=== PATIENT | male | born 1945 | race Caucasian/White ===

== ENCOUNTER 2018-12-23 06:28 | Observation (INO) | payer MEDICARE, OTHER, SELFPAY ==
[2018-12-23] VITALS (12 sets, daily range): BP systolic 128–176; BP diastolic 75–80; PULSE 55–65; RESP 13–17; TEMP 36.6–36.8; O2SAT 96–100; BMI 25.2
--- NOTE | 2018-12-23 06:37 | DI.RAD.S_ITS ---
PROCEDURE: XR CHEST 1V INDICATIONS: chest pain TECHNIQUE: One view of the chest was acquired. COMPARISON: None. FINDINGS: Surgical changes and devices: None. Lungs and pleura: Lungs are clear. No pleural effusions or pneumothorax. Mediastinum: Mediastinal contours appear normal. Heart size is normal. Bones and chest wall: No suspicious bony lesions. Overlying soft tissues appear unremarkable. IMPRESSION: No acute cardiopulmonary disease process. Dictated by: Dana Jones MD, PhD on 12/23/2018 at 8:13 Approved by: Dana Jones MD, PhD on 12/23/2018 at 8:16
[2018-12-23] MEDS: ASPIRIN 81 MG TAB 324 MG PO (06:53)
[2018-12-23 07:00] LABS: Add Manual Diff / Slide Review NO; Basophils Absolute Auto 0 /uL (0-100); Basophils Percent Auto 0.3 % (0-2); Eosinophils Absolute Auto 0 /uL (0-450); Eosinophils Percent Auto 0.1 % (2-4); Hematocrit 48.7 % (41-53); Hemoglobin 16.5 g/dL (13.5-17.5); Lymphocytes Absolute Auto 1600 /uL (1100-4500); Mean Corpuscular HGB Conc 33.8 % (30-36); Mean Corpuscular Hemoglobin 31.7 PG (26-34); Mean Corpuscular Volume 93.9 fL (80-100); Monocytes Absolute Auto 500 /uL (0-900); Neutrophils Absolute Auto 7800 /uL (1500-7000); Neutrophils Percent Auto 78.6 % (50-75); Platelet Count 200 X10^3/uL (150-400); Red Blood Cell Count 5.19 X10^6/uL (4.5-5.9); Red Cell Distribution Width 13.6 % (11.6-14.8); White Blood Cell Count 9.9 X10^3/uL (4.5-11.0)
[2018-12-23 07:01] LABS: INR 1.1 (0.9-1.3); Prothrombin Time 12.9 SECONDS (10.1-12.7)
[2018-12-23 07:04] LABS: PTT Partial Thromboplastin Tim 25 SECONDS (26.4-36.2)
[2018-12-23 07:05] LABS: Alanine Aminotransferase 44 IU/L (21-72); Albumin 4.7 g/dL (3.5-5.0); Albumin Globulin Ratio 1.7 (1.0-2.8); Alkaline Phosphatase 55 U/L (38-126); Aspartate Aminotransferase 23 IU/L (17-59); Bilirubin Total 0.6 mg/dL (0.2-1.3); Blood Urea Nitrogen 26 mg/dL (9-20); Calcium 9.2 mg/dL (8.4-10.2); Carbon Dioxide 24 mmol/L (22-32); Chloride 98 mmol/L (98-107); Creatine Kinase 31 U/L (55-170); Estimated Glomerular Filt Rate > 60.0 mL/min (>60); Globulin 2.8 g/dL (1.7-4.1); Glucose 110 mg/dL (80-110); HEMOLYSIS < 15 (0-50); Lipase 152 U/L (23-300); Potassium 3.5 mmol/L (3.4-5.1); Sodium 138 mmol/L (137-145); Total Protein 7.5 g/dL (6.3-8.2)
[2018-12-23 07:17] LABS: Troponin I < 0.012 ng/mL (0.01-0.034)
--- NOTE | 2018-12-23 07:37 | ED.CHESTPAIN ---
HPI - Chest Pain General Chief Complaint: Chest Pain Stated Complaint: chest pain Time Seen by Provider: 12/23/18 06:37 Source: patient and family Mode of arrival: ambulatory Limitations: no limitations History of Present Illness HPI narrative: Patient is a 73-year-old male presenting with chest pain. He woke up this morning with chest discomfort around 5:00 a.m.. Said actually started the night before he woke up with left arm pain lasted for about 45 min and went away. The chest pain this morning also lasted about 45 min remained in center of his chest nonradiating he was slightly dyspneic but no nausea or diaphoresis. Chest pain resolved on its own and he has been chest pain-free in the ED. He has no known coronary artery disease. He is currently being treated with methylprednisolone for gout attack. He has no primary care provider. MD complaint: chest pain Duration: now resolved Onset: during rest Pain location: substernal Severity: moderate Pain radiation: none Relieving factors: nothing Related Data Home Medications Medication Instructions Recorded Confirmed allopurinol 100 mg PO QAM 12/23/18 12/23/18 cholecalciferol (vitamin D3) 2,000 unit PO DAILY 12/23/18 12/23/18 [Vitamin D3] coenzyme Q10 [CoQ-10] 100 mg PO DAILY 12/23/18 12/23/18 diazepam 2 mg PO PRN PRN 12/23/18 12/23/18 hydrocodone-acetaminophen 1 tab PO PRN PRN 12/23/18 12/23/18 methocarbamol 750 mg PO PRN PRN 12/23/18 12/23/18 methylprednisolone 1 dose PO DIRECTED 12/23/18 12/23/18 multivitamin 1 tab PO DAILY 12/23/18 12/23/18 omeprazole 10 mg PO QAM 12/23/18 12/23/18 simvastatin 40 mg PO BEDTIME 12/23/18 12/23/18 triamterene-hydrochlorothiazid 1 tab PO QAM 12/23/18 12/23/18 Allergies Allergy/AdvReac Type Severity Reaction Status Date / Time No Known Drug Allergies Allergy Unverified 11/03/18 11:30 Review of Systems Review of Systems ROS Unobtainable: All systems reviewed & are unremarkable except as noted in HPI and below Constitutional Denies chills, Denies fever(s), Denies lethargy and Denies weakness Eyes Denies change in vision, Denies eye discharge, Denies irritation and Denies loss of vision ENT Ears, Nose, Mouth, and Throat: Denies change in voice, Denies neck pain and Denies sore throat Cardiovascular Reports as per HPI and Reports chest pain Respiratory Denies cough and Denies wheezing Gastrointestinal Gastrointestinal: Denies abdominal pain, Denies change in bowel habits, Denies diarrhea, Denies nausea and Denies vomiting Genitourinary Denies hematuria, Denies flank pain, Denies urinary incontinence and Denies urinary urgency Musculoskeletal Denies neck pain Integumentary/Breasts Denies pruritus, Denies erythema, Denies rash and Denies wounds Neurologic Denies loss of vision and Denies weakness Allergic/Immunologic Denies wheezing PFSH Medical History Gout (Acute) Social History marital status: household members: spouse Smoking Status: Former smoker alcohol intake: current substance use type: does not use Social History marital status: household members: spouse Smoking Status: Former smoker alcohol intake: current substance use type: does not use Exam Initial Vital Signs Initial Vital Signs: Vital Signs Temperature 98.2 F 12/23/18 06:30 Pulse Rate 63 12/23/18 06:30 Respiratory Rate 13 12/23/18 06:30 Blood Pressure 176/79 H 12/23/18 06:30 Pulse Oximetry 100 12/23/18 06:30 GENERAL: well-appearing elderly male no acute distress HEENT: Head atraumatic,EOMI, pupils reactive. neck is supple no JVD CARDIOVASCULAR: Regular rate and rhythm without murmurs, rubs or gallops. RESPIRATORY: Breath sounds equal bilaterally, no wheezes rales or rhonchi. ABDOMEN: Soft, nontender. Normoactive bowel sounds all 4 quadrants. No guarding or rebound. EXTREMITIES: Normal range of motion, no clubbing or edema. Neurovascularly intact NEUROLOGICAL: Alert and oriented x4.Normal gait and speech. SKIN: Warm, dry, no laceration, no petechiae, no rashes or lesions. right ankle and foot are non erythematous no sign of acute gout attack Scores HEART Score Heart Score history: Moderately Suspicious Heart Score EKG: Normal Heart Score Age: > or = 65 years old Heart Score risk factors: No known risk factors Heart Score troponin: < or = to normal limit Heart Score Total: 3 Course Orders Ordered: ED Orders 12/23/18 06:37 XR chest 1V Stat 12/23/18 06:44 Complete Blood Count AUTO DIFF Stat Comprehensive Metabolic Panel Stat Lipase Stat Partial Thromboplastin Time Stat Prothrombin Time INR Stat Troponin & CK Cardiac Panel Stat Uric Acid Stat 12/23/18 09:36 NM yaneli perf SPECT rest & str Urgent Sodium Chloride (Normal Saline 0.9%) 1,000 mls @ 150 mls/hr IV CONT LILY Last Admin: 12/23/18 07:58 Dose: Not Given Discontinued Medications Aspirin (Aspirin Chew) 324 mg PO NOW ONE Stop: 12/23/18 06:38 Last Admin: 12/23/18 06:53 Dose: 324 mg Vital Signs - 8 hr 12/23/18 06:30 12/23/18 07:00 12/23/18 07:30 Temperature 98.2 F Pulse Rate 63 55 L 56 L Respiratory Rate 13 16 17 Blood Pressure 176/79 H 141/80 H Blood Pressure [Left Arm] Pulse Oximetry 100 96 97 12/23/18 07:59 12/23/18 08:00 12/23/18 08:30 Temperature Pulse Rate 55 L 55 L 56 L Respiratory Rate 16 17 16 Blood Pressure Blood Pressure [Left Arm] 141/80 H Pulse Oximetry 96 96 96 12/23/18 09:00 12/23/18 09:30 12/23/18 10:00 Temperature Pulse Rate 59 L 57 L 57 L Respiratory Rate 16 17 17 Blood Pressure 137/79 Blood Pressure [Left Arm] Pulse Oximetry 97 97 96 MDM - Chest Pain Lab Data Attestation: I reviewed the patient's lab results. Result diagrams: 12/23/18 06:44 12/23/18 06:44 Lab Results 12/23/18 12/23/18 12/23/18 Range/Units 06:44 06:44 06:44 WBC 9.9 (4.5-11.0) X10^3/uL RBC 5.19 (4.5-5.9) X10^6/uL Hgb 16.5 (13.5-17.5) g/dL Hct 48.7 (41-53) % MCV 93.9 (80-100) fL MCH 31.7 (26-34) PG MCHC 33.8 (30-36) % RDW 13.6 (11.6-14.8) % Plt Count 200 (150-400) X10^3/uL Neut % (Auto) 78.6 H (50-75) % Lymph % (Auto) 16.0 L (25-40) % [place] % (Auto) 5.0 (3-14) % Eos % (Auto) 0.1 L (2-4) % Baso % (Auto) 0.3 (0-2) % Neut # (Auto) 7800 H (9655-6243) /uL Lymph # (Auto) 1600 (8001-9615) /uL [place] # (Auto) 500 (0-900) /uL Eos # (Auto) 0 (0-450) /uL Baso # (Auto) 0 (0-100) /uL PT 12.9 H (10.1-12.7) SECONDS INR 1.1 (0.9-1.3) APTT 25 L (26.4-36.2) SECONDS Sodium 138 (137-145) mmol/L Potassium 3.5 (3.4-5.1) mmol/L Chloride 98 (98-107) mmol/L Carbon Dioxide 24 (22-32) mmol/L BUN 26 H (9-20) mg/dL Creatinine 1.00 (0.66-1.25) mg/dL Estimated GFR > 60.0 (>60) mL/min BUN/Creatinine Ratio 26.0 H (6-22) Glucose 110 (80-110) mg/dL Uric Acid (3.5-8.5) mg/dL Calcium 9.2 (8.4-10.2) mg/dL Total Bilirubin 0.6 (0.2-1.3) mg/dL AST 23 (17-59) IU/L ALT 44 (21-72) IU/L Alkaline Phosphatase 55 (38-126) U/L Total Creatine Kinase 31 L (55-170) U/L CK-MB (CK-2) TNP CK-MB (CK-2) Rel Index TNP Troponin I < 0.012 (0.01-0.034) ng/mL Total Protein 7.5 (6.3-8.2) g/dL Albumin 4.7 (3.5-5.0) g/dL Globulin 2.8 (1.7-4.1) g/dL Albumin/Globulin Ratio 1.7 (1.0-2.8) Lipase 152 (23-300) U/L 12/23/18 Range/Units 06:44 WBC (4.5-11.0) X10^3/uL RBC (4.5-5.9) X10^6/uL Hgb (13.5-17.5) g/dL Hct (41-53) % MCV (80-100) fL MCH (26-34) PG MCHC (30-36) % RDW (11.6-14.8) % Plt Count (150-400) X10^3/uL Neut % (Auto) (50-75) % Lymph % (Auto) (25-40) % [place] % (Auto) (3-14) % Eos % (Auto) (2-4) % Baso % (Auto) (0-2) % Neut # (Auto) (6676-4720) /uL Lymph # (Auto) (5053-6379) /uL [place] # (Auto) (0-900) /uL Eos # (Auto) (0-450) /uL Baso # (Auto) (0-100) /uL PT (10.1-12.7) SECONDS INR (0.9-1.3) APTT (26.4-36.2) SECONDS Sodium (137-145) mmol/L Potassium (3.4-5.1) mmol/L Chloride (98-107) mmol/L Carbon Dioxide (22-32) mmol/L BUN (9-20) mg/dL Creatinine (0.66-1.25) mg/dL Estimated GFR (>60) mL/min BUN/Creatinine Ratio (6-22) Glucose (80-110) mg/dL Uric Acid 5.5 (3.5-8.5) mg/dL Calcium (8.4-10.2) mg/dL Total Bilirubin (0.2-1.3) mg/dL AST (17-59) IU/L ALT (21-72) IU/L Alkaline Phosphatase (38-126) U/L Total Creatine Kinase (55-170) U/L CK-MB (CK-2) CK-MB (CK-2) Rel Index Troponin I (0.01-0.034) ng/mL Total Protein (6.3-8.2) g/dL Albumin (3.5-5.0) g/dL Globulin (1.7-4.1) g/dL Albumin/Globulin Ratio (1.0-2.8) Lipase (23-300) U/L Imaging Data Chest x-ray: Radiologist's impression: PROCEDURE: XR CHEST 1V INDICATIONS: chest pain TECHNIQUE: One view of the chest was acquired. COMPARISON: None. FINDINGS: Surgical changes and devices: None. Lungs and pleura: Lungs are clear. No pleural effusions or pneumothorax. Mediastinum: Mediastinal contours appear normal. Heart size is normal. Bones and chest wall: No suspicious bony lesions. Overlying soft tissues appear unremarkable. IMPRESSION: No acute cardiopulmonary disease process. Dictated by: Dana Jones MD, PhD on 12/23/2018 at 8:13 ECG Data Attestation: I personally reviewed and interpreted this ECG as follows: Prior ECG tracings: not available for review Interpretation: EKG 1. Normal sinus rhythm rate 60 T-wave inversion noted in lead [address] changes [place] interval 168- no priors to compare EKG 2.: Sinus rhythm rate 52 T-wave inversions noted in lead [address] changes [place] interval 173 Core Measures AMI core measures followed: Yes MDM Narrative Medical decision making narrative: patient and are agreeable to stay. Dr. ken updated on patient's symptoms and test results Discharge Plan Departure Patient Disposition: Admitted as Observation Clinical Impression: Chest pain Qualifiers: Chest pain type: unspecified Qualified Code(s): R07.9 - Chest pain, unspecified Discharge Date/Time: 12/23/18 10:45 Interventions: ED Discharge Assessment Last Done: 12/23/18 10:46 Admit Date/Time: 12/23/18 08:57 Admit Provider: Brandy Ken
[2018-12-23 08:59] LABS: Uric Acid 5.5 mg/dL (3.5-8.5)
--- NOTE | 2018-12-23 09:01 | P.HP_ITS ---
History of Present Illness Date Patient Seen: 12/23/18 Chief complaint: chest pain Narrative: Heraclio Lima is a 73-year-old male with a past medical history significant for Meniere's disease status post shunt, hypertension, hyperlipidemia, gout with recent gout flare on methylprednisolone pack who presented to the ED with abrupt onset substernal chest pain awaking him from sleep. The patient reports that at approximately 4:00 a.m. this morning awoke with substernal chest pain. The pain lasted for approximately 45 min and spontaneously resolved. He describes the pain as throbbing and slightly sharp in quality. The pain radiated to his right jaw. He also had accompanying subjective shortness of breath. He denies nausea, diaphoresis, shoulder or arm pain. Has never had this pain before. Two nights ago he had left arm pain that awoke him from sleep as well and lasted for 30-45 minutes and spontaneously resolved. He had a stress test 2 years ago that was negative. He has never had an heart attack or stroke. Currently he denies headache, vision changes, chest pain, shortness of breath, abdominal pain, nausea, vomiting, fever, chills, dysuria, diarrhea or constipation. He does endorse right ankle and 1st metatarsal pain from his gout flare. Patient History Medical History BPH (benign prostatic hyperplasia) (Acute) Bladder cancer (Acute) GERD (gastroesophageal reflux disease) (Acute) Gout (Acute) Hyperlipidemia (Acute) Hypertension (Acute) Meniere disease (Acute) Osteoarthritis (Acute) Rheumatic aortic disease (Acute) Tremor (Acute) Surgical History H/O discectomy (Acute) H/O elbow surgery (Acute) History of cystoscopy (Acute) History of tonsillectomy (Acute) S/P TURP (Acute) S/P ventricular shunt placement (Acute) Family History Father Congestive heart failure Mother Leukemia Sister Liver cancer Social History marital status: household members: spouse Smoking Status: Former smoker alcohol intake: current substance use type: does not use Family & Social History Family History Father Congestive heart failure Mother Leukemia Sister Liver cancer Safety & Behavioral: Feels Safe in Current Yes Environment Tobacco & Substance use: Smoking Status Former smoker alcohol intake never Meds Home Medications Medication Instructions Recorded Confirmed Type allopurinol 100 mg PO QAM 12/23/18 12/23/18 History cholecalciferol (vitamin D3) 2,000 unit PO DAILY 12/23/18 12/23/18 History [Vitamin D3] coenzyme Q10 [CoQ-10] 100 mg PO DAILY 12/23/18 12/23/18 History diazepam 2 mg PO PRN PRN 12/23/18 12/23/18 History hydrocodone-acetaminophen 1 tab PO PRN PRN 12/23/18 12/23/18 History methocarbamol 750 mg PO PRN PRN 12/23/18 12/23/18 History methylprednisolone 1 dose PO DIRECTED 12/23/18 12/23/18 History multivitamin 1 tab PO DAILY 12/23/18 12/23/18 History omeprazole 10 mg PO QAM 12/23/18 12/23/18 History simvastatin 40 mg PO BEDTIME 12/23/18 12/23/18 History triamterene-hydrochlorothiazid 1 tab PO QAM 12/23/18 12/23/18 History Allergies Allergy/AdvReac Type Severity Reaction Status Date / Time No Known Drug Allergies Allergy Unverified 11/03/18 11:30 Review of Systems Review of Systems A 10 system comprehensive review of systems was conducted with the patient and found to be negative except as above in the History of Present Illness. Exam Vital Signs (past 8 hours): - 12/23/18 06:30 12/23/18 07:59 Temperature 98.2 F Pulse Rate 63 55 L Respiratory Rate 13 16 Blood Pressure 176/79 H Blood Pressure [Left Arm] 141/80 H Pulse Oximetry 100 96 Oxygen Delivery Method Room Air Narrative Exam Narrative: General: Older gentleman sitting in bed, appears younger than stated age, in no acute distress, well-developed, well-nourished, appropriately interactive. HEENT: Normocephalic, atraumatic. External ears without defect. Pupils equal, round, and reactive to light. Anicteric sclerae, moist conjunctivae, and no lid lag. Oropharynx free of erythema and cobble stoning with moist mucosa. Neck: Supple with full range of motion. No jugular venous distension. No bruits. No lymphadenopathy or thyromegaly. Cardiovascular: Regular rate and rhythm with grade 1/6 holosystolic murmur at left sternal border. No rubs, or gallops appreciated. Pulmonary: Clear to auscultation bilaterally without crackles, wheezes, or rhonchi. Normal respiratory effort with no use of accessory muscles. Abdomen: Soft, bowel sounds present, nontender, nondistended. No hepatosplenomegaly or masses appreciated. Extremities: No clubbing, cyanosis, or edema. Skin: Normal temperature, turgor, and texture; no rash, ulcers, or subcutaneous nodules appreciated. Mild pain to palpation of right ankle and 1st metatarsal. Neurological: Cranial nerves grossly intact. Normal muscle strength, tone, and bulk. Reflexes, coordination, and sensory function within normal limits. No known gait impairment. Psychiatric: Normal mood and affect. Alert and oriented to person, place, and time. Objective Labs Result Diagrams: 12/23/18 06:44 12/23/18 06:44 Labs: Laboratory Results - last 24 hr 12/23/18 12/23/18 12/23/18 06:44 06:44 06:44 WBC 9.9 RBC 5.19 Hgb 16.5 Hct 48.7 MCV 93.9 MCH 31.7 MCHC 33.8 RDW 13.6 Plt Count 200 Neut % (Auto) 78.6 H Lymph % (Auto) 16.0 L [place] % (Auto) 5.0 Eos % (Auto) 0.1 L Baso % (Auto) 0.3 Neut # (Auto) 7800 H Lymph # (Auto) 1600 [place] # (Auto) 500 Eos # (Auto) 0 Baso # (Auto) 0 PT 12.9 H INR 1.1 APTT 25 L Sodium 138 Potassium 3.5 Chloride 98 Carbon Dioxide 24 BUN 26 H Creatinine 1.00 Estimated GFR > 60.0 BUN/Creatinine Ratio 26.0 H Glucose 110 Uric Acid Calcium 9.2 Total Bilirubin 0.6 AST 23 ALT 44 Alkaline Phosphatase 55 Total Creatine Kinase 31 L CK-MB (CK-2) TNP CK-MB (CK-2) Rel Index TNP Troponin I < 0.012 Total Protein 7.5 Albumin 4.7 Globulin 2.8 Albumin/Globulin Ratio 1.7 Lipase 152 12/23/18 06:44 WBC RBC Hgb Hct MCV MCH MCHC RDW Plt Count Neut % (Auto) Lymph % (Auto) [place] % (Auto) Eos % (Auto) Baso % (Auto) Neut # (Auto) Lymph # (Auto) [place] # (Auto) Eos # (Auto) Baso # (Auto) PT INR APTT Sodium Potassium Chloride Carbon Dioxide BUN Creatinine Estimated GFR BUN/Creatinine Ratio Glucose Uric Acid 5.5 Calcium Total Bilirubin AST ALT Alkaline Phosphatase Total Creatine Kinase CK-MB (CK-2) CK-MB (CK-2) Rel Index Troponin I Total Protein Albumin Globulin Albumin/Globulin Ratio Lipase Assessment & Plan Assessment & Plan narrative: Heraclio Lima is a 73-year-old male with a past medical history significant for Meniere's disease status post shunt, hypertension, hyperlipidemia, gout with recent gout flare on methylprednisolone pack who presented to the ED with abrupt onset substernal chest pain awaking him from sleep. 1. Acute chest pain, not present on admission. Resolved. -Patient awoke at 4:00 a.m. with substernal chest pain radiating to right jaw with associated shortness of breath. -Patient previously had a stress test 2 years ago which he reports was normal. -Cardiac risk factors include: Gender, age, hypertension, hyperlipidemia, and gout. -EKG demonstrated normal sinus rhythm with IVCD and inversion of T-wave in leads III and V1 without acute ischemic changes such as ST elevation or depression. -Initial troponin < 0.012. Trend serial troponins x3. -Risk stratify with fasting lipid panel and hemoglobin A1c. -Patient received aspirin 324 mg in the ED. Will consider aspirin 81 mg daily depending on risk stratification and stress test results. -Continue simvastatin 40 mg daily at bedtime for now. -Ordered nuclear medicine stress test, pending. Patient with recent right foot gout flare and may or may not be able to exercise for prolonged time. -Ordered nitroglycerin and morphine as needed for recurrent chest pain. EKGs as needed for recurrent chest pain. 2. Recent gout flare, present on admission. Stable. -Patient is on methylprednisolone Dosepak and will continue course. -Uric acid normal at 5.5. -Continue allopurinol 100 mg daily. -Instructed patient to avoid red meat and red wine/alcohol. 3. Hypertension, chronic, present on admission. Stable. -Patient reports he has Meniere's disease and is on triamterene/hydrochlorothiazide but has been hypertensive in the past. -Continue home dose triamterene/hydrochlorothiazide. 4. Hyperlipidemia, chronic, present on admission. Stable. -Ordered fasting lipid panel, pending. -Continue simvastatin 40 mg daily bedtime for now. 5. Meniere's disease status post shunt, chronic, present on admission. Stable. -Continue antihypertensive/diuretic as above. 6. GERD, chronic, present on admission. Stable. -Will discuss PPI and increased risk of cardiovascular disease including CVA and MT. -Recommend H2 antagonist in future. 7. History of bladder cancer considered in remission. Patient is admitted under observation status with expected length of stay less than 2 midnights due to severity of presenting symptoms, risk of adverse event, and complexity of treatment plan.
--- NOTE | 2018-12-23 09:36 | DI.NM.S_ITS ---
PROCEDURE: NM YASMIN PERF SPECT SINGLE STUDY Exercise myocardial perfusion SPECT with gated imaging and ejection fraction RADIOPHARMACEUTICAL: 23.5 mCi Tc-99m sestamibi IV at peak exercise. INDICATIONS: chest pain TECHNIQUE: Radiopharmaceutical was injected at peak stress test. SPECT images were obtained, with perfusion images in short axis, horizontal long axis, and vertical long axis views. Gated images were reviewed using [employer] software. COMPARISON: None. CARDIAC STRESS: A standard Jaswinder treadmill exercise tolerance test was performed by the patient under the supervision of an attending staff. The patient exercised for 8 minutes and 16 seconds reaching 10.1 METs; functional aerobic impairment (TODD) is -25%. Hemodynamic data: There is normal blood pressure and heart response to exercise. Patient achieved 92% of maximum predicted heart rate. Symptoms: Patient denied anginal chest pain during exercise. EKG: No diagnostic changes of ischemia; occasional PACs present. FINDINGS: Raw data: There is good labeling of myocardium by radiotracer. No significant motion artifacts. Pjaq-tj-agcic ratio is 0.33 (normal is less than 0.38 for sestamibi tracer, and less than 0.50 for thallium tracer). Left ventricular function: Gated images demonstrate normal left ventricle wall thickening. No segmental wall motion abnormalities. Left ventricle end diastolic volume is 60 mL. Left ventricle stress ejection fraction is 75%; normal values are above 45%. Myocardial perfusion: There is an apical defect on stress supine images that resolved with prone images suggesting apical thinning defect. No definitive ischemia or infarction present. IMPRESSION: low risk, probably normal treadmill stress only nuclear study. 1) Probably normal perfusion images. There is an apical defect on stress supine images that resolved with prone images suggesting apical thinning defect. No definitive ischemia or infarction present. 2) Normal left ventricular size, wall motion, and systolic function (EF post stress is 75%). 3) No ECG evidence of ischemia. 4) No angina during the study. 5) Good exercise tolerance (10.1 METs, TODD -25%). Target heart rate achieved. Appropriate BP response to exercise. 6) No prior nuclear stress test available for comparison. Dictated by: Bj Live MD on 12/23/2018 at 17:13 Approved by: Bj Live MD on 12/23/2018 at 17:18
--- NOTE | 2018-12-23 12:20 | PC.NURSE ---
pt admitted to icu room 105 as medical pt/obs-he denies pain but does report waking up with pain mid-sternal and sharp per his report, lungs clear no edema- he did say he had recent right foot pain, right arm pain, right neck pain- he related this to gout. NSR PER TELEMETRY- LIGHT LUNCH WITH NO CAFFEINE PRIOR TO PLANNED STRESS TEST THIS AFTERNOON
[2018-12-23 14:19] LABS: Creatine Kinase 27 U/L (55-170)
[2018-12-23 14:26] LABS: Cholesterol 188 mg/dL (140-199); HDL Cholesterol 65 mg/dL (40-60); LDL Cholesterol Calculated 93 mg/dL (<100); Triglycerides 148 mg/dL (35-150)
[2018-12-23 14:28] LABS: Hemoglobin A1C% w Est Avg Glu 5.2 % (4.0-6.0)
[2018-12-23 14:31] LABS: Troponin I < 0.012 ng/mL (0.01-0.034)
--- NOTE | 2018-12-23 16:20 | P.PCN_ITS ---
Cardiac Stress Test Report Referral & Results Date Patient Seen: 12/23/18 Time Patient Seen: 15:40 Requesting provider: Brandy Streeter Indication: Chest pain, current inpatient Rest ECG: Unremarkable Procedure Note: Today following both written and verbal informed consent the patient was exercised according to a standard Jaswinder protocol patient went for a total of 8 min achieving a maximum heart rate of 128 maximum systolic blood pressure of 160. This is approximately 10.1 METS. Exercise was terminated at this point because of targets her med and patient was fatigued. Patient was also given Cardiolite through a previously started Hep-Lock IV by the associate technician approximately 1 minute prior to the cessation of exercise. No ST-T segment changes identified Normal heart rate and blood pressure response Functional aerobic impairment rated minus 25% on the active scale or 125% normal Rare to occasional PAC Impression: No ECG evidence of ischemia Excellent exercise capacity See perfusion imaging report as well Please note: Actual ECG tracings can be found in the PACS system.
--- NOTE | 2018-12-23 18:12 | P.DS_ITS ---
History of Present Illness Chief complaint: chest pain Narrative: Written by myself Dr. Streeter: Heraclio Lima is a 73-year-old male with a past medical history significant for Meniere's disease status post shunt, hypertension, hyperlipidemia, gout with recent gout flare on methylprednisolone pack who presented to the ED with abrupt onset substernal chest pain awaking him from sleep. The patient reports that at approximately 4:00 a.m. this morning awoke with substernal chest pain. The pain lasted for approximately 45 min and spontaneously resolved. He describes the pain as throbbing and slightly sharp in quality. The pain radiated to his right jaw. He also had accompanying subjective shortness of breath. He denies nausea, diaphoresis, shoulder or arm pain. Has never had this pain before. Two nights ago he had left arm pain that awoke him from sleep as well and lasted for 30-45 minutes and spontaneously resolved. He had a stress test 2 years ago that was negative. He has never had an heart attack or stroke. Currently he denies headache, vision changes, chest pain, shortness of breath, abdominal pain, matthew sea, vomiting, fever, chills, dysuria, diarrhea or constipation. He does endorse right ankle and 1st metatarsal pain from his gout flare. Discharge Providers Date of admission: 12/23/18 08:57 Discharge provider: Brandy Streeter DO Discharge Date: 12/23/18 Summary Discharge Diagnosis: 1. Acute chest pain, not present on admission. Resolved. 2. Recent gout flare, present on admission. Resolving. 3. Hypertension, chronic, present on admission. Stable. 4. Hyperlipidemia, chronic, present on admission. Stable. 5. Meniere's disease status post shunt, chronic, present on admission. Stable. 6. GERD, chronic, present on admission. Stable. Hospital Course: Heraclio Lima is a 73-year-old male with a past medical history significant for Meniere's disease status post shunt, hypertension, hyperlipidemia, gout with recent gout flare on methylprednisolone pack who presented to the ED with abrupt onset substernal chest pain awaking him from sleep. 1. Acute chest pain, not present on admission. Resolved. -Patient awoke at 4:00 a.m. with substernal chest pain radiating to right jaw with associated shortness of breath. -Patient previously had a stress test 2 years ago which he reports was normal. -Cardiac risk factors include: Gender, age, hypertension, hyperlipidemia, and gout. -EKG demonstrated normal sinus rhythm with IVCD and inversion of T-wave in leads III and V1 without acute ischemic changes such as ST elevation or depression. -Trended serial troponins x3 < 0.012. -Risk stratified with hemoglobin A1c normal at 5.2%, and lipid panel within normal limits: Total cholesterol 188, triglycerides 148, LDL 93, HDL 65. -Patient received aspirin 324 mg in the ED. Did not recommend aspirin 81 mg daily as low risk and possible refractory GERD due to peptic ulcer disease. -Continued simvastatin 40 mg daily at bedtime for now. -Stress portion of nuclear medicine stress test did not demonstrate any perfusion defect and exercise stress test revealed good exercise capacity. Motor Assembly Supervisor Dr. Live did not recommend rest portion of test. -Ordered nitroglycerin and morphine as needed for recurrent chest pain. EKGs as needed for recurrent chest pain. -Chest pain likely secondary to recent steroid use with gastric irritation vs. peptic ulcers. Patient has history of refractory acid reflux as below. 2. Recent gout flare, present on admission. Resolving. -Patient is on methylprednisolone Dosepak and will finish course. -Uric acid normal at 5.5. -Continued allopurinol 100 mg daily. -Instructed patient to avoid red meat and red wine/alcohol. 3. Hypertension, chronic, present on admission. Stable. -Patient reports he has Meniere's disease and is on triamterene/hydrochloroth iazide but has been hypertensive in the past. -Continued home dose triamterene/hydrochlorothiazide. 4. Hyperlipidemia, chronic, present on admission. Stable. -Fasting lipid panel within normal limits as above. -Continued simvastatin 40 mg daily bedtime for now. 5. Meniere's disease status post shunt, chronic, present on admission. Stable. -Continued antihypertensive/diuretic as above. 6. GERD, chronic, present on admission. Stable. -Patient reports history of refractory acid reflux and has tried titrating off PPIs in the past without success. However, he is on low-dose PPI therefore likely can be treated with H2 blockers, Tums, and bile acids questions for possible bile acid reflux. Recommended being tested for H pylori and possible gastric workup for refractory acid reflux. -Discussed PPI and increased risk of cardiovascular disease including CVA and FL. 7. History of bladder cancer considered in remission. Status at Discharge Functional status at discharge: independent ambulation Overall status at discharge: patient is back to baseline Exam Vital Signs (past 8 hours): - 12/23/18 13:31 12/23/18 15:38 12/23/18 16:53 Temperature 97.9 F Pulse Rate 65 58 L Respiratory Rate 16 15 Blood Pressure 128/75 Pulse Oximetry 97 98 98 Oxygen Delivery Method Room Air Narrative Exam Narrative: General: Older gentleman sitting in bed, appears younger than stated age, in no acute distress, well-developed, well-nourished, appropriately interactive. HEENT: Normocephalic, atraumatic. External ears without defect. Pupils equal, round, and reactive to light. Anicteric sclerae, moist conjunctivae, and no lid lag. Oropharynx free of erythema and cobble stoning with moist mucosa. Neck: Supple with full range of motion. No jugular venous distension. No bruits. No lymphadenopathy or thyromegaly. Cardiovascular: Regular rate and rhythm with grade 1/6 holosystolic murmur at left sternal border. No rubs, or gallops appreciated. Pulmonary: Clear to auscultation bilaterally without crackles, wheezes, or rhonchi. Normal respiratory effort with no use of accessory muscles. Abdomen: Soft, bowel sounds present, nontender, nondistended. No hepatosplenomegaly or masses appreciated. Extremities: No clubbing, cyanosis, or edema. Skin: Normal temperature, turgor, and texture; no rash, ulcers, or subcutaneous nodules appreciated. Mild pain to palpation of right ankle and 1st metatarsal without erythema or signs of gout. Neurological: Cranial nerves grossly intact. Normal muscle strength, tone, and bulk. Reflexes, coordination, and sensory function within normal limits. No known gait impairment. Psychiatric: Normal mood and affect. Alert and oriented to person, place, and ti me. Objective Labs Result Diagrams: 12/23/18 06:44 12/23/18 06:44 Labs: Laboratory Results - last 24 hr 12/23/18 12/23/18 12/23/18 06:44 06:44 06:44 WBC 9.9 RBC 5.19 Hgb 16.5 Hct 48.7 MCV 93.9 MCH 31.7 MCHC 33.8 RDW 13.6 Plt Count 200 Neut % (Auto) 78.6 H Lymph % (Auto) 16.0 L [place] % (Auto) 5.0 Eos % (Auto) 0.1 L Baso % (Auto) 0.3 Neut # (Auto) 7800 H Lymph # (Auto) 1600 [place] # (Auto) 500 Eos # (Auto) 0 Baso # (Auto) 0 PT 12.9 H INR 1.1 APTT 25 L Sodium 138 Potassium 3.5 Chloride 98 Carbon Dioxide 24 BUN 26 H Creatinine 1.00 Estimated GFR > 60.0 BUN/Creatinine Ratio 26.0 H Glucose 110 Hemoglobin A1c Uric Acid Calcium 9.2 Total Bilirubin 0.6 AST 23 ALT 44 Alkaline Phosphatase 55 Total Creatine Kinase 31 L CK-MB (CK-2) TNP CK-MB (CK-2) Rel Index TNP Troponin I < 0.012 Total Protein 7.5 Albumin 4.7 Globulin 2.8 Albumin/Globulin Ratio 1.7 Triglycerides Cholesterol LDL Cholesterol, Calc HDL Cholesterol Lipase 152 Nasal Screen MRSA (PCR) 12/23/18 12/23/18 12/23/18 06:44 13:40 13:50 WBC RBC Hgb Hct MCV MCH MCHC RDW Plt Count Neut % (Auto) Lymph % (Auto) [place] % (Auto) Eos % (Auto) Baso % (Auto) Neut # (Auto) Lymph # (Auto) [place] # (Auto) Eos # (Auto) Baso # (Auto) PT INR APTT Sodium Potassium Chloride Carbon Dioxide BUN Creatinine Estimated GFR BUN/Creatinine Ratio Glucose Hemoglobin A1c Uric Acid 5.5 Calcium Total Bilirubin AST ALT Alkaline Phosphatase Total Creatine Kinase 27 L CK-MB (CK-2) TNP CK-MB (CK-2) Rel Index TNP Troponin I < 0.012 Total Protein Albumin Globulin Albumin/Globulin Ratio Triglycerides Cholesterol LDL Cholesterol, Calc HDL Cholesterol Lipase Nasal Screen MRSA (PCR) Negative for mrsa 12/23/18 12/23/18 13:50 13:50 WBC RBC Hgb Hct MCV MCH MCHC RDW Plt Count Neut % (Auto) Lymph % (Auto) [place] % (Auto) Eos % (Auto) Baso % (Auto) Neut # (Auto) Lymph # (Auto) [place] # (Auto) Eos # (Auto) Baso # (Auto) PT INR APTT Sodium Potassium Chloride Carbon Dioxide BUN Creatinine Estimated GFR BUN/Creatinine Ratio Glucose Hemoglobin A1c 5.2 Uric Acid Calcium Total Bilirubin AST ALT Alkaline Phosphatase Total Creatine Kinase CK-MB (CK-2) CK-MB (CK-2) Rel Index Troponin I Total Protein Albumin Globulin Albumin/Globulin Ratio Triglycerides 148 Cholesterol 188 LDL Cholesterol, Calc 93 HDL Cholesterol 65 H Lipase Nasal Screen MRSA (PCR) Discharge Plan Discharge Plan Patient Disposition: Home Discharge comment: You are being discharged home. Your cardiac stress test did not show previous heart attack or impending heart attack. Your cardiac enzymes were normal. Your EKG was normal. Your chest pain may be related to your acid reflux, irritation from steroid use, or esophageal spasm. Recommend stopping omeprazole as it has been associated with increased risk of heart attack and stroke. You may use H2 blockers such as ranitidine or famotidine to treat your acid reflux. You may take these medications as needed for symptoms or to prevent symptoms. If your symptoms are predominantly at night then you may take ranitidine 300 mg prior to bed. You may take Tums as needed for breakthrough symptoms. You should be tested for H. pylori which may cause ulcer disease. Please follow-up and establish care with a provider in the community or at the residency clinics in [place]. You may follow-up with your previous PCP if you are unable to be seen readily. Discharge Med Rec/Prescriptions Prescriptions: Continued multivitamin Tablet 1 tab PO DAILY RF: 0 hydrocodone-acetaminophen 5-325 mg Tablet 1 tab PO PRN PRN (Reason: Back Pain) RF: 0 allopurinol 100 mg tablet 100 mg PO QAM RF: 0 triamterene-hydrochlorothiazid 37.5-25 mg capsule 1 tab PO QAM RF: 0 simvastatin 40 mg tablet 40 mg PO BEDTIME RF: 0 methocarbamol 750 mg Tablet 750 mg PO PRN PRN (Reason: Muscle Spasm) RF: 0 diazepam 2 mg Tablet 2 mg PO PRN PRN (Reason: Tremor(S)) RF: 0 coenzyme Q10 [CoQ-10] 100 mg Capsule 100 mg PO DAILY RF: 0 cholecalciferol (vitamin D3) [Vitamin D3] 2,000 unit Capsule 2,000 unit PO DAILY RF: 0 methylprednisolone 4 mg Tablets,Dose Pack 1 dose PO DIRECTED RF: 0 Discontinued omeprazole 10 mg capsule,delayed release(DR/EC) 10 mg PO QAM RF: 0 Provider Discharge Instructions Diet: Low-fat, Low-sodium and Low-cholesterol Visit Report/Discharge Packet Instructions: Bile Acid Sequestrant Drugs (Alternative Therapy), DI for Gastroesophageal Reflux Disease (GERD) Discharge Data Attending Provider: Brandy Streeter Admit Date/Time: 12/23/18 08:57 Discharges patient from system. Discharge Date/Time: 12/23/18 18:13
--- NOTE | 2018-12-23 18:21 | PC.NURSE ---
1820- Patient discharge instruction given. IV dc'd and tele dc'd. Patient verbalizes understanding of discharge instruction. Patient stable at time of discharge.
== END 2018-12-23 18:13 | disposition home or self-care (01) ==
LOC: ED 07:52 → AC 08:57 → ICU 10:14
PROVIDERS: Emergency Medicine; Admitting Provider Internal Medicine; Emergency Provider Emergency Medicine; Visit Provider Internal Medicine
DX: R07.9 Chest pain, unspecified (principal); H81.09 Meniere's disease, unspecified ear; I10 Essential (primary) hypertension; E78.5 Hyperlipidemia, unspecified; M10.9 Gout, unspecified; N40.0 Benign prostatic hyperplasia without lower urinary tract symptoms; Z87.891 Personal history of nicotine dependence; K21.9 Gastro-esophageal reflux disease without esophagitis
CPT/HCPCS: 36415; 36591; 71045; 78451; 80053; 80061; 82550; 83036; 83690; 84484; 84550; 85025; 85610; 85730; 87797; 93005; 93016; 93017; 93018; 93041; 99284; G0378; A9502

== ENCOUNTER → 2019-05-12 09:47 | Outpatient (CLI) | payer MEDICARE, OTHER, SELFPAY ==
[2018-12-23 11:26] VITALS: BMI 25.2
--- NOTE | 2019-05-12 | DI.US.S_ITS ---
PROCEDURE: US ABDOMEN LIMITED INDICATIONS: HERNIA/ABDOMINAL BULDGE TECHNIQUE: Real-time focused scanning was performed of the abdomen, with image documentation. COMPARISON: None. FINDINGS: Targeted sonographic evaluation at the patient directed area of palpable concern involving the anterior right abdominal wall was performed. No suspicious mass lesions. No abnormal fluid collections. No ventral hernias identified. IMPRESSION: Negative sonographic evaluation of the right anterior abdominal wall at the patient directed area of clinical concern. Specifically, no mass or hernia identified. Dictated by: Umer Draper M.D. on 05/12/2019 at 13:28 Approved by: Umer Draper M.D. on 05/12/2019 at 13:31
== END ==
PROVIDERS: PCP Internal Medicine; Visit Provider Registered Nurse
DX: K46.9 Unspecified abdominal hernia without obstruction or gangrene (principal)
CPT/HCPCS: 76705

== ENCOUNTER 2019-09-21 09:42 | Outpatient (CLI) | payer MEDICARE, OTHER, SELFPAY ==
[2018-12-23 11:26] VITALS: BMI 25.2
== END 2019-09-21 16:00 ==
LOC: PHYS 09:43
PROVIDERS: PCP Internal Medicine; Visit Provider Internal Medicine
DX: G56.02 Carpal tunnel syndrome, left upper limb (principal)
CPT/HCPCS: 95885; 95886; 95909

== ENCOUNTER → 2019-11-06 09:56 | Outpatient (CLI) | payer MEDICARE, OTHER, SELFPAY ==
[2018-12-23 11:26] VITALS: BMI 25.2
[2019-11-06 10:50] LABS: Alanine Aminotransferase 40 IU/L (<50); Albumin 4.5 g/dL (3.5-5.0); Albumin Globulin Ratio 1.7 (1.0-2.8); Alkaline Phosphatase 68 U/L (38-126); Aspartate Aminotransferase 39 IU/L (17-59); BUN Creatinine Ratio 14.2 (6-22); Bilirubin Total 0.7 mg/dL (0.2-1.3); Blood Urea Nitrogen 17 mg/dL (9-20); Carbon Dioxide 28 mmol/L (22-32); Chloride 104 mmol/L (98-107); Cholesterol 190 mg/dL (140-199); Estimated Glomerular Filt Rate 58.9 mL/min (>60); Globulin 2.6 g/dL (1.7-4.1); Glucose 93 mg/dL (80-110); HDL Cholesterol 51 mg/dL (40-60); HEMOLYSIS < 15 (0-50); LDL Cholesterol Calculated 97 mg/dL (<100); Potassium 4.5 mmol/L (3.4-5.1); Sodium 142 mmol/L (137-145); Total Protein 7.1 g/dL (6.3-8.2); Triglycerides 210 mg/dL (35-150); Uric Acid 6.1 mg/dL (3.5-8.5)
== END ==
PROVIDERS: PCP Internal Medicine; Visit Provider Internal Medicine
DX: E78.5 Hyperlipidemia, unspecified (principal); K21.9 Gastro-esophageal reflux disease without esophagitis; M10.9 Gout, unspecified
CPT/HCPCS: 36415; 80053; 80061; 84550

== ENCOUNTER 2020-01-05 14:30 | Outpatient (RCR) | payer MEDICARE, OTHER, SELFPAY ==
[2018-12-23 11:26] VITALS: BMI 25.2
--- NOTE | 2019-11-14 16:11 | PT.OIE ---
Current Diagnoses Cervicalgia (11/14/19) Past Medical History (Last Reviewed 10/19/19 @ 10:25 by Bala Dutton MD) BPH (benign prostatic hyperplasia) (Chronic) Chronic back pain (Chronic ~2002) Deep vein thrombosis (Resolved ~2003) Depression (Chronic ~2018) Fractures (Resolved ~1961) GERD (gastroesophageal reflux disease) (Chronic ~2001) Gout (Chronic ~2005) Hearing loss (Chronic ~1972) Hyperlipidemia (Chronic) Hypertension (Resolved) Measles (Resolved ~1946) Osteoarthritis (Chronic) Rheumatic aortic disease (Chronic) Rheumatic fever (Resolved ~1944) Scoliosis (Chronic ~2015) Seasonal allergies (Chronic ~1989) Tremor (Chronic ~2003) Vertigo (Resolved ~1972) Vision disorder (Chronic) Past Surgical History (Last Reviewed 10/19/19 @ 10:25 by Bala Dutton MD) Anesthesia (Resolved) Bladder cancer (Chronic ~2010) H/O discectomy (Inactive ~2016) H/O elbow surgery (Inactive ~1961) History of cystoscopy (Inactive) History of tonsillectomy (Inactive) Meniere disease (Resolved ~1972) S/P TURP (Inactive) S/P ventricular shunt placement (Inactive) Visit Care Team Role Provider Type Bala Dutton MD Attending Provider Physician Primary Care Provider Specialty: Internal Medicine Address: [address] [place] [address], [address], [facility] Email: [email or web address] Therapy Initial Evaluation PT-OP-A Visit Information Start: 11/14/19 14:22 Freq: Status: Active Protocol: Document 11/14/19 14:30 HH (Rec: 11/14/19 16:10 [email or web address]) Out-Patient Physical Therapy Visit Information Visit Information Visit Type Initial Evaluation Visit Start Time 14:30 Visit Stop Time 15:15 Total Visit Minutes 45 Visit Number 11/20 Evaluation Information Evaluation Date 11/14/19 PT-OP-B Current Condition Start: 11/14/19 14:22 Freq: Status: Active Protocol: Document 11/14/19 14:30 HH (Rec: 11/14/19 16:10 [email or web address]) Current Condition History of Current Condition History of Current Condition Patient is a 74yo male with primary c/o neck pain, R shoulder pain and left hand coldness symptoms since summer 2018. Feels like it is very very cold in frozen at times. Sometimes he gets to the point where he gets numb any gets a tingling pins and needle sensation primarily in the palm of the hand is uncertain as to how many fingers are involved initially he thought probably all of them but he certain about the thumb and 1st finger. Symptoms are worse when driving after 30 mins and sitting while watching TV. He stated no particular pattern to it accepted to almost never present when he is active in doing something. He also stated new onset of radiating R shoulder pain since June with neck movements and he does not known. He also noticed his neck has been feeling stiff. Pt had a EMG study in Sep, 2019 as below. PMH includes L3 -4 laminectomy 4years ago, bladder cancer (currently receiving BEG) Prior Treatments and Tests EMG 09/21: normal study, findings are not siggestive of a left median nerve focal lesion at the wrist, a left ulnar nerve focal lesion at the wrist or elbow nor of an acute or chronic left C5 -T1 motor nerve root lesion. pt had a 1 year PT for his chronic back pain Treatment Goals Patient/Caregiver Goals 1. To be able to drive/ sit > 30 mins without any neck pain and coldness symptoms in L hand 2. To learn home exercises for self pain management. Prior Functional Status Baseline Function- ADL's Independent Baseline Function- Mobility Independent Current Functional Impairments (Reported) Functional Limitations- Other Symptoms are worse when driving after 30 mins and sitting while watching TV. Personal Factors Other Personal Factors That May Effect Pt currently is receiving BEG Therapy/Recovery treatment for his bladder cancer. Previous back surgery 4 years ago that cont limits his trunk mobility. PT-OP-C Subjective Start: 11/14/19 14:22 Freq: Status: Active Protocol: Document 11/14/19 14:30 (Rec: 11/14/19 16:10 [email or web address]) OP-PT Subjective Patient Comments Patient Comments I want to fix my neck and shoulder. Patient Questionnaires Neck Disability Index NDI Score 6 Neck Disability Index Impairment 1 to 19% Impaired (Score 1-9) Quick Dash- Upper Extremity Quick Dash UE Score 13.64 Quick Dash UE Impairment 1 to 19% Impaired (Score 1-19) OP-PT Pain Assessment Location lower cervical Pain Location Details C5-C6 Intensity 3 Scale Used Numeric (1 - 10) Description Dull,Pinching Frequency Frequent Pain Aggravating Factors Position,Sitting Pain Alleviating Factors Heat,Exercise PT-OP-F Manual Assessment Start: 11/14/19 14:22 Freq: Status: Active Protocol: Document 11/14/19 14:30 HH (Rec: 11/14/19 16:10 [email or web address]) Manual Assessments Soft Tissue Assessment Soft Tissue Mobility Assessment Significant tenderness to pressure at B levator scap, B trap and suboccipitals (R>L) Joint Mobility Assessment Joint Mobility Assessment Hypomobility from T1-T6 with significant to PA pressure. PT-OP-H Neuro Start: 11/14/19 14:22 Freq: Status: Active Protocol: Document 11/14/19 14:30 HH (Rec: 11/14/19 16:10 [email or web address]) Sensation Evaluation Gross Sensation Gross Sensation Left UE Impaired Sensation Description Numbness Dermatome Impairments C6 PT-OP-J Posture/Palpation/Skin Start: 11/14/19 14:22 Freq: Status: Active Protocol: Document 11/14/19 14:30 HH (Rec: 11/14/19 16:10 [email or web address]) Posture Evaluation Position Standing Evaluation View Anterior Head/C-Spine Posture Forward Head T-Spine Posture Increased Kyphosis L-Spine Posture Flattened Shoulder Posture (L) Rounded,(R) Rounded Arm Posture (R) Internally Rotated PT-OP-K Range of Motion Start: 11/14/19 14:22 Freq: Status: Active Protocol: Document 11/14/19 14:30 HH (Rec: 11/14/19 16:10 [email or web address]) Cervical Spine Range of Motion Cervical Spine Active Percentage Testing Position Standing Flexion 60 Extension 60 Rotation Left 60 Rotation Right 50 Lateral Flexion Left 30 Lateral Flexion Right 45 ROM Limitations Soft Tissue Tightness,Pain Comments angulation noted at C5/6 during c/s extension and rotation radiating R shoulder pain with end range R cervical rotation radiating L shoulder pain with end range L cervical rotation radiating R shoulder pain with end range cervical extension PT-OP-L Special Tests Start: 11/14/19 14:22 Freq: Status: Active Protocol: Document 11/14/19 14:30 HH (Rec: 11/14/19 16:10 [email or web address]) Special Tests Cervical Spine Special Tests Spurling's Test Test Results +VE R Comments radiating R shoulder pain facet syndrome test Test Results +ve b Comments closed pack position (symptoms worse on R side) Upper Limb Tension Test Test Results +VE B Comments R worse than L (RUE unable to gurpreet with C/S L SB; LUE with C/ S R SB ) Traction Test Results +VE Comments relief with neck pain and denies shoulder/ neck discomfort Foraminal Compression Test Results +VE B Comments Radiating pain to R shoulder and L hand numbness PT-OP-M Strength Start: 11/14/19 14:22 Freq: Status: Active Protocol: Document 11/14/19 14:30 HH (Rec: 11/14/19 16:10 [email or web address]) Shoulder Strength Shoulder Manual Muscle Testing Right Flexion 5 Normal Extension 5 Normal Abduction (C5) 5 Normal Adduction 5 Normal Left Flexion 5 Normal Extension 5 Normal Abduction (C5) 5 Normal Adduction 5 Normal PT-OP-Q Treatments Start: 11/14/19 14:22 Freq: Status: Active Protocol: Document 11/14/19 14:30 (Rec: 11/14/19 16:10 [email or web address]) Therapeutic Exercises Supine Exercises chin tuck Supine Exercise Name supine/ seated Side bilateral Comments for HEP Manual Therapy Treatment Manual Traction Cervical distraction Details with flat lumbar spine Body Position Hooklying Reps/Duration 10 secs hold x 10 Comments reports pain relief after Self-Care/Home Management Treatment Education Patient Education Body Mechanics,Home Exercise Program,Joint Protection,Pain Management,Posture,Safety Other Education Explainted to pt about improving T-spine extension mobility to reduce joint pressure at C/S nerve root PT-OP-T Assessment and Plan Start: 11/14/19 14:22 Freq: Status: Active Protocol: Document 11/14/19 14:30 (Rec: 11/14/19 16:10 [email or web address]) Physical Therapy Assessment Rehab Potential Rehabilitation Potential Excellent Evaluation Complexity Number of Personal Factors/Comorbidities 3 or More Number of Body Systems Impaired 3 Clinical Presentation at Evaluation Stable Impairments Impairments Activity Tolerance,Functional Activities,Functional Mobility ,Pain,Posture,ROM,Sensation, Soft Tissue Mobility,Strength Goals hEP Impairment Pt does not ahve a HEP Skilled Nursing Goal (LTG) pt will comply to HEP daily to improve his self pain management. LTG Duration 5 weeks special tests Impairment +ve for forminal compression, facet joint syndrome, spurling , UTTT Skilled Nursing Goal (LTG) Pt will be symptoms free for special tests including forminal compression, facet joint syndrome, spurling, UTTT . LTG Duration 10 weeks activity tolerance Impairment L hand coldness/ tingling and R shoulder during driving/ sitting >30 mins Short Term Goal (STG) Pt will be able to gurpreet driving / sitting > 45 mins without any neurological symptoms/ discomfort. STG Duration 5 weeks Perioperative Assistant Goal (LTG) Pt will be able to gurpreet driving / sitting > 60 mins without any neurological symptoms/ discomfort. LTG Duration 10 weeks quickdash Impairment Pt scores 13.64 at quickdash Short Term Goal (STG) Pt will score <10 (1-19% impairment) on quickdash to improve his quality of life STG Duration 5 weeks Perioperative Assistant Goal (LTG) Pt will score <5 (1-19% impairment) on quickdash to improve his quality of life by being pain free. LTG Duration 10 weeks Assessment Summary Assessment pt is a 74 yo male with primary c/o ongoing neck pain with radiating R shoulder pain and symptoms of coldness/ tingling on L hand since summer 2018. Upon assessment, pt's symptoms were reproduced with c/s compression test, R spurling, facet joint syndrome test (closed pack in ext with rot) and relieved with cervical traction. He reports there's reduced sensation to touch at proximal region of C6 dermatome which all indicates possible bilateral nerve impingement at C5-C6 . There's noticeable hypomobility at T1 -T4 extension and rotation which pt shows signifcant angulation at C5-C6 during c/s ext and rot. Pt will benefit from skilled therapy to improve his thoracic rotational and extension mobility, scap and deep cervical flexors strengthening , and overall C/S stability training in order to improve his activity tolerance for driving and seating. Physical Therapy Plan Frequency and Duration Frequency of Treatment 2x/Week Duration of Treatment 10 weeks Plan of Care Start Date 11/14/19 Plan of Care End Date 01/28/20 Therapeutic Interventions Therapeutic Interventions Home Exercise Program,Joint Mobilizations,Manual Therapy, Neuromuscular Re-education, Patient/Caregiver Education, Self-Care/Home Management,Soft Tissue Mobilization,Taping, Therapeutic Activities, Therapeutic Exercises Modalities Cold Pack/Ice Massage,Hot Packs,Traction- Mechanical Next Visit Focus/Plan Next Note Type Treatment Note Next Visit Plan check post session tolerance improve T/S ext and rotation chin tuck tennis ball release for c/s nerve glide neck stretch
--- NOTE | 2019-11-29 13:48 | PT.OTN ---
Current Diagnoses Cervicalgia (11/29/19) Physical Therapy Treatment Note PT-OP-A Visit Information Start: 11/14/19 14:22 Freq: Status: Active Protocol: Document 11/29/19 12:59 HH (Rec: 11/29/19 13:48 [id number]) Out-Patient Physical Therapy Visit Information Visit Information Visit Type Treatment Note Visit Start Time 12:59 Visit Stop Time 13:45 Total Visit Minutes 46 Visit Number 12/21 PT-OP-B Current Condition Start: 11/14/19 14:22 Freq: Status: Active Protocol: Document 11/14/19 14:30 HH (Rec: 11/14/19 16:10 [email or web address]) Current Condition History of Current Condition History of Current Condition Patient is a 74yo male with primary c/o neck pain, R shoulder pain and left hand coldness symptoms since summer 2018. Feels like it is very very cold in frozen at times. Sometimes he gets to the point where he gets numb any gets a tingling pins and needle sensation primarily in the palm of the hand is uncertain as to how many fingers are involved initially he thought probably all of them but he certain about the thumb and 1st finger. Symptoms are worse when driving after 30 mins and sitting while watching TV. He stated no particular pattern to it accepted to almost never present when he is active in doing something. He also stated new onset of radiating R shoulder pain since June with neck movements and he does not known. He also noticed his neck has been feeling stiff. Pt had a EMG study in Sep, 2019 as below. PMH includes L3 -4 laminectomy 4years ago, bladder cancer (currently receiving BEG) Prior Treatments and Tests EMG 09/21: normal study, findings are not siggestive of a left median nerve focal lesion at the wrist, a left ulnar nerve focal lesion at the wrist or elbow nor of an acute or chronic left C5 -T1 motor nerve root lesion. pt had a 1 year PT for his chronic back pain Treatment Goals Patient/Caregiver Goals 1. To be able to drive/ sit > 30 mins without any neck pain and coldness symptoms in L hand 2. To learn home exercises for self pain management. Prior Functional Status Baseline Function- ADL's Independent Baseline Function- Mobility Independent Current Functional Impairments (Reported) Functional Limitations- Other Symptoms are worse when driving after 30 mins and sitting while watching TV. Personal Factors Other Personal Factors That May Effect Pt currently is receiving BEG Therapy/Recovery treatment for his bladder cancer. Previous back surgery 4 years ago that cont limits his trunk mobility. PT-OP-C Subjective Start: 11/14/19 14:22 Freq: Status: Active Protocol: Document 11/29/19 12:59 HH (Rec: 11/29/19 13:48 HH [id number]) OP-PT Subjective Patient Comments Patient Comments My neck and back were both quite sore after last treatment for a day. Patient Reported Progress Same PT-OP-F Manual Assessment Start: 11/14/19 14:22 Freq: Status: Active Protocol: Document 11/14/19 14:30 HH (Rec: 11/14/19 16:10 HH [email or web address]) Manual Assessments Soft Tissue Assessment Soft Tissue Mobility Assessment Significant tenderness to pressure at B levator scap, B trap and suboccipitals (R>L) Joint Mobility Assessment Joint Mobility Assessment Hypomobility from T1-T6 with significant to PA pressure. PT-OP-H Neuro Start: 11/14/19 14:22 Freq: Status: Active Protocol: Document 11/14/19 14:30 HH (Rec: 11/14/19 16:10 HH [email or web address]) Sensation Evaluation Gross Sensation Gross Sensation Left UE Impaired Sensation Description Numbness Dermatome Impairments C6 PT-OP-J Posture/Palpation/Skin Start: 11/14/19 14:22 Freq: Status: Active Protocol: Document 11/14/19 14:30 HH (Rec: 11/14/19 16:10 [email or web address]) Posture Evaluation Position Standing Evaluation View Anterior Head/C-Spine Posture Forward Head T-Spine Posture Increased Kyphosis L-Spine Posture Flattened Shoulder Posture (L) Rounded,(R) Rounded Arm Posture (R) Internally Rotated PT-OP-K Range of Motion Start: 11/14/19 14:22 Freq: Status: Active Protocol: Document 11/14/19 14:30 HH (Rec: 11/14/19 16:10 [email or web address]) Cervical Spine Range of Motion Cervical Spine Active Percentage Testing Position Standing Flexion 60 Extension 60 Rotation Left 60 Rotation Right 50 Lateral Flexion Left 30 Lateral Flexion Right 45 ROM Limitations Soft Tissue Tightness,Pain Comments angulation noted at C5/6 during c/s extension and rotation radiating R shoulder pain with end range R cervical rotation radiating L shoulder pain with end range L cervical rotation radiating R shoulder pain with end range cervical extension PT-OP-L Special Tests Start: 11/14/19 14:22 Freq: Status: Active Protocol: Document 11/14/19 14:30 HH (Rec: 11/14/19 16:10 [email or web address]) Special Tests Cervical Spine Special Tests Spurling's Test Test Results +VE R Comments radiating R shoulder pain facet syndrome test Test Results +ve b Comments closed pack position (symptoms worse on R side) Upper Limb Tension Test Test Results +VE B Comments R worse than L (RUE unable to gurpreet with C/S L SB; LUE with C/ S R SB ) Traction Test Results +VE Comments relief with neck pain and denies shoulder/ neck discomfort Foraminal Compression Test Results +VE B Comments Radiating pain to R shoulder and L hand numbness PT-OP-M Strength Start: 11/14/19 14:22 Freq: Status: Active Protocol: Document 11/14/19 14:30 HH (Rec: 11/14/19 16:10 [email or web address]) Shoulder Strength Shoulder Manual Muscle Testing Right Flexion 5 Normal Extension 5 Normal Abduction (C5) 5 Normal Adduction 5 Normal Left Flexion 5 Normal Extension 5 Normal Abduction (C5) 5 Normal Adduction 5 Normal PT-OP-Q Treatments Start: 11/14/19 14:22 Freq: Status: Active Protocol: Document 11/29/19 12:59 HH (Rec: 11/29/19 13:48 HH [id number]) Therapeutic Exercises Supine Exercises passive stretch Supine Exercise Name trap, levator scap Side right Reps/Minutes 8 mins chin tuck Supine Exercise Name supine Side bilateral Reps/Minutes 10 sec hold Comments for HEP Sidelying Exercises open book Side bilateral Reps/Minutes 8 x2 Comments cues on lumbar lock Manual Therapy Treatment Soft Tissue Mobilization suboccipital Mobilization Type Sustained Pressure,Trigger Point Release Intensity/Depth Superficial Body Position Supine L trap, levator scap Mobilization Type Sustained Pressure,Trigger Point Release Intensity/Depth Superficial Body Position Supine Joint Mobilizations PA mob Joint T1-T8 Grade II Body Position Hooklying Reps/Duration 8 mins Comments significant pain report Manual Traction Cervical distraction Details with flat lumbar spine Body Position Hooklying Reps/Duration 10 secs hold x 10 Comments with upper cervical flexoin reports pain relief after PT-OP-R Modalities Start: 11/14/19 14:22 Freq: Status: Active Protocol: Document 11/29/19 12:59 HH (Rec: 11/29/19 13:48 HH [id number]) Hot Pack/Cold Pack Treatment moist heat Location C/S and L/S Patient Position Hooklying Treatment Duration (minutes) 8 Patient Tolerance Good PT-OP-T Assessment and Plan Start: 11/14/19 14:22 Freq: Status: Active Protocol: Document 11/29/19 12:59 HH (Rec: 11/29/19 13:48 HH [id number]) Physical Therapy Assessment Goals hEP Impairment Pt does not ahve a HEP Correction Goal (LTG) pt will comply to HEP daily to improve his self pain management. LTG Duration 5 weeks special tests Impairment +ve for forminal compression, facet joint syndrome, spurling , UTTT Correction Goal (LTG) Pt will be symptoms free for special tests including forminal compression, facet joint syndrome, spurling, UTTT . LTG Duration 10 weeks activity tolerance Impairment L hand coldness/ tingling and R shoulder during driving/ sitting >30 mins Short Term Goal (STG) Pt will be able to gurpreet driving / sitting > 45 mins without any neurological symptoms/ discomfort. STG Duration 5 weeks Health Care Facilities Inspector Goal (LTG) Pt will be able to gurpreet driving / sitting > 60 mins without any neurological symptoms/ discomfort. LTG Duration 10 weeks quickdash Impairment Pt scores 13.64 at quickdash Short Term Goal (STG) Pt will score <10 (1-19% impairment) on quickdash to improve his quality of life STG Duration 5 weeks Correction Goal (LTG) Pt will score <5 (1-19% impairment) on quickdash to improve his quality of life by being pain free. LTG Duration 10 weeks Assessment Summary Assessment Pt is very sensitive to any neck rotation and extension which caused radiating R shoulder pain but it subsides with OA flexion/ cervical distraction. pt also c/o significant discomfort with PA mob at upper T/S. Added chin tuck and open book for HEP. Will add tennis ball release, nerve glide,neck stretch next visit.
--- NOTE | 2019-12-01 14:40 | PT.OTN ---
Current Diagnoses Cervicalgia (12/01/19) Physical Therapy Treatment Note PT-OP-A Visit Information Start: 11/14/19 14:22 Freq: Status: Active Protocol: Document 12/01/19 13:46 HH (Rec: 12/01/19 14:40 [email or web address]) Out-Patient Physical Therapy Visit Information Visit Information Visit Type Treatment Note Visit Start Time 13:46 Visit Stop Time 13:36 Total Visit Minutes 50 Visit Number 01/18 PT-OP-B Current Condition Start: 11/14/19 14:22 Freq: Status: Active Protocol: Document 11/14/19 14:30 HH (Rec: 11/14/19 16:10 [email or web address]) Current Condition History of Current Condition History of Current Condition Patient is a 74yo male with primary c/o neck pain, R shoulder pain and left hand coldness symptoms since summer 2018. Feels like it is very very cold in frozen at times. Sometimes he gets to the point where he gets numb any gets a tingling pins and needle sensation primarily in the palm of the hand is uncertain as to how many fingers are involved initially he thought probably all of them but he certain about the thumb and 1st finger. Symptoms are worse when driving after 30 mins and sitting while watching TV. He stated no particular pattern to it accepted to almost never present when he is active in doing something. He also stated new onset of radiating R shoulder pain since June with neck movements and he does not known. He also noticed his neck has been feeling stiff. Pt had a EMG study in Sep, 2019 as below. PMH includes L3 -4 laminectomy 4years ago, bladder cancer (currently receiving BEG) Prior Treatments and Tests EMG 09/21: normal study, findings are not siggestive of a left median nerve focal lesion at the wrist, a left ulnar nerve focal lesion at the wrist or elbow nor of an acute or chronic left C5 -T1 motor nerve root lesion. pt had a 1 year PT for his chronic back pain Treatment Goals Patient/Caregiver Goals 1. To be able to drive/ sit > 30 mins without any neck pain and coldness symptoms in L hand 2. To learn home exercises for self pain management. Prior Functional Status Baseline Function- ADL's Independent Baseline Function- Mobility Independent Current Functional Impairments (Reported) Functional Limitations- Other Symptoms are worse when driving after 30 mins and sitting while watching TV. Personal Factors Other Personal Factors That May Effect Pt currently is receiving BEG Therapy/Recovery treatment for his bladder cancer. Previous back surgery 4 years ago that cont limits his trunk mobility. PT-OP-C Subjective Start: 11/14/19 14:22 Freq: Status: Active Protocol: Document 12/01/19 13:46 HH (Rec: 12/01/19 14:40 HH [id number]) OP-PT Subjective Patient Comments Patient Comments My neck and back feels so good that i could move my neck normally now. I also dont feel my coldness in my left hand for the first time while i was driving to [employer] yesterday. Shelly been doing my ex as well. Patient Reported Progress Improving PT-OP-F Manual Assessment Start: 11/14/19 14:22 Freq: Status: Active Protocol: Document 11/14/19 14:30 HH (Rec: 11/14/19 16:10 [email or web address]) Manual Assessments Soft Tissue Assessment Soft Tissue Mobility Assessment Significant tenderness to pressure at B levator scap, B trap and suboccipitals (R>L) Joint Mobility Assessment Joint Mobility Assessment Hypomobility from T1-T6 with significant to PA pressure. PT-OP-H Neuro Start: 11/14/19 14:22 Freq: Status: Active Protocol: Document 11/14/19 14:30 HH (Rec: 11/14/19 16:10 [email or web address]) Sensation Evaluation Gross Sensation Gross Sensation Left UE Impaired Sensation Description Numbness Dermatome Impairments C6 PT-OP-J Posture/Palpation/Skin Start: 11/14/19 14:22 Freq: Status: Active Protocol: Document 11/14/19 14:30 HH (Rec: 11/14/19 16:10 [email or web address]) Posture Evaluation Position Standing Evaluation View Anterior Head/C-Spine Posture Forward Head T-Spine Posture Increased Kyphosis L-Spine Posture Flattened Shoulder Posture (L) Rounded,(R) Rounded Arm Posture (R) Internally Rotated PT-OP-K Range of Motion Start: 11/14/19 14:22 Freq: Status: Active Protocol: Document 11/14/19 14:30 HH (Rec: 11/14/19 16:10 [email or web address]) Cervical Spine Range of Motion Cervical Spine Active Percentage Testing Position Standing Flexion 60 Extension 60 Rotation Left 60 Rotation Right 50 Lateral Flexion Left 30 Lateral Flexion Right 45 ROM Limitations Soft Tissue Tightness,Pain Comments angulation noted at C5/6 during c/s extension and rotation radiating R shoulder pain with end range R cervical rotation radiating L shoulder pain with end range L cervical rotation radiating R shoulder pain with end range cervical extension PT-OP-L Special Tests Start: 11/14/19 14:22 Freq: Status: Active Protocol: Document 11/14/19 14:30 (Rec: 11/14/19 16:10 [email or web address]) Special Tests Cervical Spine Special Tests Spurling's Test Test Results +VE R Comments radiating R shoulder pain facet syndrome test Test Results +ve b Comments closed pack position (symptoms worse on R side) Upper Limb Tension Test Test Results +VE B Comments R worse than L (RUE unable to gurpreet with C/S L SB; LUE with C/ S R SB ) Traction Test Results +VE Comments relief with neck pain and denies shoulder/ neck discomfort Foraminal Compression Test Results +VE B Comments Radiating pain to R shoulder and L hand numbness PT-OP-M Strength Start: 11/14/19 14:22 Freq: Status: Active Protocol: Document 11/14/19 14:30 HH (Rec: 11/14/19 16:10 [email or web address]) Shoulder Strength Shoulder Manual Muscle Testing Right Flexion 5 Normal Extension 5 Normal Abduction (C5) 5 Normal Adduction 5 Normal Left Flexion 5 Normal Extension 5 Normal Abduction (C5) 5 Normal Adduction 5 Normal PT-OP-Q Treatments Start: 11/14/19 14:22 Freq: Status: Active Protocol: Document 12/01/19 13:46 (Rec: 12/01/19 14:40 [id number]) Therapeutic Exercises Supine Exercises tennis ball release Side bilateral Equipment Used tennis ball Comments at suboccipital muscles passive stretch Supine Exercise Name trap, levator scap Side right Reps/Minutes 8 mins Prone Exercises cat camel Side bilateral Reps/Minutes 8 x2 Sidelying Exercises open book Side bilateral Reps/Minutes 8 x2 Comments cues on lumbar lock Sitting Exercises neck stretch Sitting Exercise Name trap, levator scap Side bilateral Comments without UE assistance Standing Exercises median nerve glide Side left Reps/Minutes 8 x 2 Comments with head turn Manual Therapy Treatment Soft Tissue Mobilization suboccipital Mobilization Type Sustained Pressure,Trigger Point Release Intensity/Depth Superficial Body Position Supine L trap, levator scap Mobilization Type Sustained Pressure,Trigger Point Release Intensity/Depth Superficial Body Position Supine Joint Mobilizations PA mob Joint T1-T8 Grade II Body Position Hooklying Reps/Duration 8 mins Comments significant pain report Manual Traction Cervical distraction Details with flat lumbar spine Body Position Hooklying Reps/Duration 10 secs hold x 10 Comments with upper cervical flexoin reports pain relief after PT-OP-R Modalities Start: 11/14/19 14:22 Freq: Status: Active Protocol: Document 12/01/19 13:46 HH (Rec: 12/01/19 14:40 [id number]) Hot Pack/Cold Pack Treatment moist heat Location C/S and L/S Patient Position Hooklying Treatment Duration (minutes) 10 Patient Tolerance Good PT-OP-T Assessment and Plan Start: 11/14/19 14:22 Freq: Status: Active Protocol: Document 12/01/19 13:46 HH (Rec: 12/01/19 14:40 [id number]) Physical Therapy Assessment Goals hEP Impairment Pt does not ahve a HEP Dressmaker Helper Goal (LTG) pt will comply to HEP daily to improve his self pain management. LTG Duration 5 weeks special tests Impairment +ve for forminal compression, facet joint syndrome, spurling , UTTT Dressmaker Helper Goal (LTG) Pt will be symptoms free for special tests including forminal compression, facet joint syndrome, spurling, UTTT . LTG Duration 10 weeks activity tolerance Impairment L hand coldness/ tingling and R shoulder during driving/ sitting >30 mins Short Term Goal (STG) Pt will be able to gurpreet driving / sitting > 45 mins without any neurological symptoms/ discomfort. STG Duration 5 weeks Dressmaker Helper Goal (LTG) Pt will be able to gurpreet driving / sitting > 60 mins without any neurological symptoms/ discomfort. LTG Duration 10 weeks quickdash Impairment Pt scores 13.64 at quickdash Short Term Goal (STG) Pt will score <10 (1-19% impairment) on quickdash to improve his quality of life STG Duration 5 weeks Dressmaker Helper Goal (LTG) Pt will score <5 (1-19% impairment) on quickdash to improve his quality of life by being pain free. LTG Duration 10 weeks Assessment Summary Assessment Pt has close to normal cervical AROM today but still has pinching pain to R shoulder at end range cervical rotation. Cont focus on manual therapy and added catcamel , neck stretch without UE assistance, tennis ball release, and median nerve glide. 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 Physical Therapy Plan Next Visit Focus/Plan Next Note Type Treatment Note Next Visit Plan check post session tolerance improve T/S ext and rotation chin tuck tennis ball release for c/s nerve glide neck stretch
--- NOTE | 2019-12-06 15:15 | PT.OTN ---
Current Diagnoses Cervicalgia (12/06/19) Physical Therapy Treatment Note PT-OP-A Visit Information Start: 11/14/19 14:22 Freq: Status: Active Protocol: Document 12/06/19 14:29 HH (Rec: 12/06/19 15:15 [id number]) Out-Patient Physical Therapy Visit Information Visit Information Visit Type Treatment Note Visit Start Time 14:29 Visit Stop Time 15:15 Total Visit Minutes 46 Visit Number 02/18 PT-OP-B Current Condition Start: 11/14/19 14:22 Freq: Status: Active Protocol: Document 11/14/19 14:30 HH (Rec: 11/14/19 16:10 [email or web address]) Current Condition History of Current Condition History of Current Condition Patient is a 74yo male with primary c/o neck pain, R shoulder pain and left hand coldness symptoms since summer 2018. Feels like it is very very cold in frozen at times. Sometimes he gets to the point where he gets numb any gets a tingling pins and needle sensation primarily in the palm of the hand is uncertain as to how many fingers are involved initially he thought probably all of them but he certain about the thumb and 1st finger. Symptoms are worse when driving after 30 mins and sitting while watching TV. He stated no particular pattern to it accepted to almost never present when he is active in doing something. He also stated new onset of radiating R shoulder pain since June with neck movements and he does not known. He also noticed his neck has been feeling stiff. Pt had a EMG study in Sep, 2019 as below. PMH includes L3 -4 laminectomy 4years ago, bladder cancer (currently receiving BEG) Prior Treatments and Tests EMG 09/21: normal study, findings are not siggestive of a left median nerve focal lesion at the wrist, a left ulnar nerve focal lesion at the wrist or elbow nor of an acute or chronic left C5 -T1 motor nerve root lesion. pt had a 1 year PT for his chronic back pain Treatment Goals Patient/Caregiver Goals 1. To be able to drive/ sit > 30 mins without any neck pain and coldness symptoms in L hand 2. To learn home exercises for self pain management. Prior Functional Status Baseline Function- ADL's Independent Baseline Function- Mobility Independent Current Functional Impairments (Reported) Functional Limitations- Other Symptoms are worse when driving after 30 mins and sitting while watching TV. Personal Factors Other Personal Factors That May Effect Pt currently is receiving BEG Therapy/Recovery treatment for his bladder cancer. Previous back surgery 4 years ago that cont limits his trunk mobility. PT-OP-C Subjective Start: 11/14/19 14:22 Freq: Status: Active Protocol: Document 12/06/19 14:29 HH (Rec: 12/06/19 15:15 HH [id number]) OP-PT Subjective Patient Comments Patient Comments Shelly been doing all my exercises and apparently my back and R hip bothered my Patient Reported Progress Worse PT-OP-F Manual Assessment Start: 11/14/19 14:22 Freq: Status: Active Protocol: Document 11/14/19 14:30 HH (Rec: 11/14/19 16:10 [email or web address]) Manual Assessments Soft Tissue Assessment Soft Tissue Mobility Assessment Significant tenderness to pressure at B levator scap, B trap and suboccipitals (R>L) Joint Mobility Assessment Joint Mobility Assessment Hypomobility from T1-T6 with significant to PA pressure. PT-OP-H Neuro Start: 11/14/19 14:22 Freq: Status: Active Protocol: Document 11/14/19 14:30 HH (Rec: 11/14/19 16:10 [email or web address]) Sensation Evaluation Gross Sensation Gross Sensation Left UE Impaired Sensation Description Numbness Dermatome Impairments C6 PT-OP-J Posture/Palpation/Skin Start: 11/14/19 14:22 Freq: Status: Active Protocol: Document 11/14/19 14:30 HH (Rec: 11/14/19 16:10 [email or web address]) Posture Evaluation Position Standing Evaluation View Anterior Head/C-Spine Posture Forward Head T-Spine Posture Increased Kyphosis L-Spine Posture Flattened Shoulder Posture (L) Rounded,(R) Rounded Arm Posture (R) Internally Rotated PT-OP-K Range of Motion Start: 11/14/19 14:22 Freq: Status: Active Protocol: Document 11/14/19 14:30 HH (Rec: 11/14/19 16:10 [email or web address]) Cervical Spine Range of Motion Cervical Spine Active Percentage Testing Position Standing Flexion 60 Extension 60 Rotation Left 60 Rotation Right 50 Lateral Flexion Left 30 Lateral Flexion Right 45 ROM Limitations Soft Tissue Tightness,Pain Comments angulation noted at C5/6 during c/s extension and rotation radiating R shoulder pain with end range R cervical rotation radiating L shoulder pain with end range L cervical rotation radiating R shoulder pain with end range cervical extension PT-OP-L Special Tests Start: 11/14/19 14:22 Freq: Status: Active Protocol: Document 11/14/19 14:30 HH (Rec: 11/14/19 16:10 [email or web address]) Special Tests Cervical Spine Special Tests Spurling's Test Test Results +VE R Comments radiating R shoulder pain facet syndrome test Test Results +ve b Comments closed pack position (symptoms worse on R side) Upper Limb Tension Test Test Results +VE B Comments R worse than L (RUE unable to gurpreet with C/S L SB; LUE with C/ S R SB ) Traction Test Results +VE Comments relief with neck pain and denies shoulder/ neck discomfort Foraminal Compression Test Results +VE B Comments Radiating pain to R shoulder and L hand numbness PT-OP-M Strength Start: 11/14/19 14:22 Freq: Status: Active Protocol: Document 11/14/19 14:30 HH (Rec: 11/14/19 16:10 [email or web address]) Shoulder Strength Shoulder Manual Muscle Testing Right Flexion 5 Normal Extension 5 Normal Abduction (C5) 5 Normal Adduction 5 Normal Left Flexion 5 Normal Extension 5 Normal Abduction (C5) 5 Normal Adduction 5 Normal PT-OP-Q Treatments Start: 11/14/19 14:22 Freq: Status: Active Protocol: Document 12/06/19 14:29 HH (Rec: 12/06/19 15:15 [id number]) Therapeutic Exercises Supine Exercises passive stretch Supine Exercise Name trap, levator scap Side right Reps/Minutes 8 mins Manual Therapy Treatment Soft Tissue Mobilization suboccipital Mobilization Type Sustained Pressure,Trigger Point Release Intensity/Depth Superficial Body Position Supine L trap, levator scap Mobilization Type Sustained Pressure,Trigger Point Release Intensity/Depth Superficial Body Position Supine Joint Mobilizations PA mob Joint T1-T8 Grade II Body Position Hooklying Reps/Duration 8 mins Comments significant pain report Manual Traction Cervical distraction Details with flat lumbar spine Body Position Hooklying Reps/Duration 10 secs hold x 10 Comments with upper cervical flexoin reports pain relief after PT-OP-R Modalities Start: 11/14/19 14:22 Freq: Status: Active Protocol: Document 12/06/19 14:29 HH (Rec: 12/06/19 15:15 [id number]) Hot Pack/Cold Pack Treatment moist heat Location C/S and L/S Patient Position Hooklying Treatment Duration (minutes) 10 Patient Tolerance Good PT-OP-T Assessment and Plan Start: 11/14/19 14:22 Freq: Status: Active Protocol: Document 12/06/19 14:29 HH (Rec: 12/06/19 15:15 HH [id number]) Physical Therapy Assessment Goals hEP Impairment Pt 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 LTG Duration 5 weeks special tests Impairment +ve for forminal compression, facet joint syndrome, spurling , UTTT Halfway Goal (LTG) Pt will be symptoms free for special tests including forminal compression, facet joint syndrome, spurling, UTTT . LTG Duration 10 weeks activity tolerance Impairment L hand coldness/ tingling and R shoulder during driving/ sitting >30 mins Short Term Goal (STG) Pt will be able to gurpreet driving / sitting > 45 mins without any neurological symptoms/ discomfort. STG Duration 5 weeks Halfway Goal (LTG) Pt will be able to gurpreet driving / sitting > 60 mins without any neurological symptoms/ discomfort. LTG Duration 10 weeks quickdash Impairment Pt scores 13.64 at quickdash Short Term Goal (STG) Pt will score <10 (1-19% impairment) on quickdash to improve his quality of life STG Duration 5 weeks Halfway Goal (LTG) Pt will score <5 (1-19% impairment) on quickdash to improve his quality of life by being pain free. 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 Pt stated he has chronic and complicated back problem before. Today tx focused manual therapy on cervical spine. Educated pt to remove cat camel ex and add supine cervical rotation. Pt gurpreet tx well today. Physical Therapy Plan Next Visit Focus/Plan Next Note Type Treatment Note Next Visit Plan check post session tolerance improve T/S ext and rotation chin tuck tennis ball release for c/s nerve glide neck stretch
--- NOTE | 2019-12-08 15:19 | PT.OTN ---
Current Diagnoses Cervicalgia (12/08/19) Physical Therapy Treatment Note PT-OP-A Visit Information Start: 11/14/19 14:22 Freq: Status: Active Protocol: Document 12/08/19 13:54 HH (Rec: 12/08/19 15:19 [id number]) Out-Patient Physical Therapy Visit Information Visit Information Visit Type Treatment Note Visit Start Time 13:45 Visit Stop Time 14:35 Total Visit Minutes 50 Visit Number 03/20 PT-OP-B Current Condition Start: 11/14/19 14:22 Freq: Status: Active Protocol: Document 11/14/19 14:30 HH (Rec: 11/14/19 16:10 [email or web address]) Current Condition History of Current Condition History of Current Condition Patient is a 74yo male with primary c/o neck pain, R shoulder pain and left hand coldness symptoms since summer 2018. Feels like it is very very cold in frozen at times. Sometimes he gets to the point where he gets numb any gets a tingling pins and needle sensation primarily in the palm of the hand is uncertain as to how many fingers are involved initially he thought probably all of them but he certain about the thumb and 1st finger. Symptoms are worse when driving after 30 mins and sitting while watching TV. He stated no particular pattern to it accepted to almost never present when he is active in doing something. He also stated new onset of radiating R shoulder pain since June with neck movements and he does not known. He also noticed his neck has been feeling stiff. Pt had a EMG study in Sep, 2019 as below. PMH includes L3 -4 laminectomy 4years ago, bladder cancer (currently receiving BEG) Prior Treatments and Tests EMG 09/21: normal study, findings are not siggestive of a left median nerve focal lesion at the wrist, a left ulnar nerve focal lesion at the wrist or elbow nor of an acute or chronic left C5 -T1 motor nerve root lesion. pt had a 1 year PT for his chronic back pain Treatment Goals Patient/Caregiver Goals 1. To be able to drive/ sit > 30 mins without any neck pain and coldness symptoms in L hand 2. To learn home exercises for self pain management. Prior Functional Status Baseline Function- ADL's Independent Baseline Function- Mobility Independent Current Functional Impairments (Reported) Functional Limitations- Other Symptoms are worse when driving after 30 mins and sitting while watching TV. Personal Factors Other Personal Factors That May Effect Pt currently is receiving BEG Therapy/Recovery treatment for his bladder cancer. Previous back surgery 4 years ago that cont limits his trunk mobility. PT-OP-C Subjective Start: 11/14/19 14:22 Freq: Status: Active Protocol: Document 12/08/19 13:54 HH (Rec: 12/08/19 15:19 HH [id number]) OP-PT Subjective Patient Comments Patient Comments Keya been feeling good after last time and keya been doing my ex. But my L neck does feel a bit sore today after doing some rotation. Patient Reported Progress Improving PT-OP-F Manual Assessment Start: 11/14/19 14:22 Freq: Status: Active Protocol: Document 11/14/19 14:30 HH (Rec: 11/14/19 16:10 [email or web address]) Manual Assessments Soft Tissue Assessment Soft Tissue Mobility Assessment Significant tenderness to pressure at B levator scap, B trap and suboccipitals (R>L) Joint Mobility Assessment Joint Mobility Assessment Hypomobility from T1-T6 with significant to PA pressure. PT-OP-H Neuro Start: 11/14/19 14:22 Freq: Status: Active Protocol: Document 11/14/19 14:30 HH (Rec: 11/14/19 16:10 [email or web address]) Sensation Evaluation Gross Sensation Gross Sensation Left UE Impaired Sensation Description Numbness Dermatome Impairments C6 PT-OP-J Posture/Palpation/Skin Start: 11/14/19 14:22 Freq: Status: Active Protocol: Document 11/14/19 14:30 HH (Rec: 11/14/19 16:10 [email or web address]) Posture Evaluation Position Standing Evaluation View Anterior Head/C-Spine Posture Forward Head T-Spine Posture Increased Kyphosis L-Spine Posture Flattened Shoulder Posture (L) Rounded,(R) Rounded Arm Posture (R) Internally Rotated PT-OP-K Range of Motion Start: 11/14/19 14:22 Freq: Status: Active Protocol: Document 11/14/19 14:30 HH (Rec: 11/14/19 16:10 [email or web address]) Cervical Spine Range of Motion Cervical Spine Active Percentage Testing Position Standing Flexion 60 Extension 60 Rotation Left 60 Rotation Right 50 Lateral Flexion Left 30 Lateral Flexion Right 45 ROM Limitations Soft Tissue Tightness,Pain Comments angulation noted at C5/6 during c/s extension and rotation radiating R shoulder pain with end range R cervical rotation radiating L shoulder pain with end range L cervical rotation radiating R shoulder pain with end range cervical extension PT-OP-L Special Tests Start: 11/14/19 14:22 Freq: Status: Active Protocol: Document 11/14/19 14:30 HH (Rec: 11/14/19 16:10 [email or web address]) Special Tests Cervical Spine Special Tests Spurling's Test Test Results +VE R Comments radiating R shoulder pain facet syndrome test Test Results +ve b Comments closed pack position (symptoms worse on R side) Upper Limb Tension Test Test Results +VE B Comments R worse than L (RUE unable to gurpreet with C/S L SB; LUE with C/ S R SB ) Traction Test Results +VE Comments relief with neck pain and denies shoulder/ neck discomfort Foraminal Compression Test Results +VE B Comments Radiating pain to R shoulder and L hand numbness PT-OP-M Strength Start: 11/14/19 14:22 Freq: Status: Active Protocol: Document 11/14/19 14:30 HH (Rec: 11/14/19 16:10 [email or web address]) Shoulder Strength Shoulder Manual Muscle Testing Right Flexion 5 Normal Extension 5 Normal Abduction (C5) 5 Normal Adduction 5 Normal Left Flexion 5 Normal Extension 5 Normal Abduction (C5) 5 Normal Adduction 5 Normal PT-OP-Q Treatments Start: 11/14/19 14:22 Freq: Status: Active Protocol: Document 12/08/19 13:54 HH (Rec: 12/08/19 15:19 [id number]) Therapeutic Exercises Supine Exercises tennis ball release Supine Exercise Name re-demonstration of HEP Side bilateral Equipment Used tennis ball Comments at suboccipital muscles Sidelying Exercises L shoulder roll Side left Reps/Minutes 2 mins Comments cues on prevent trunk rotation open book Side bilateral Reps/Minutes 8 x2 Comments cues on lumbar lock Manual Therapy Treatment Soft Tissue Mobilization suboccipital Mobilization Type Sustained Pressure,Trigger Point Release Intensity/Depth Superficial Body Position Supine L trap, levator scap Mobilization Type Sustained Pressure,Trigger Point Release Intensity/Depth Superficial Body Position Supine Joint Mobilizations scap mob Joint elevation and depression Grade III Body Position Sidelying Reps/Duration 6 mins Manual Traction Cervical distraction Details with flat lumbar spine Body Position Hooklying Reps/Duration 10 secs hold x 10 Comments with upper cervical flexoin reports pain relief after Nerve Glides median nerve glide Nerve w/o cervical tension Body Position Supine Reps/Duration 4 mins Manual Techniques MET Type MET at c/s neutral position Body Position Supine Reps/Duration 10 secs hold Comments cervical rotatoin, lateral flexion PT-OP-R Modalities Start: 11/14/19 14:22 Freq: Status: Active Protocol: Document 12/08/19 13:54 HH (Rec: 12/08/19 15:19 HH [id number]) Hot Pack/Cold Pack Treatment moist heat Location C/S and L/S Patient Position Hooklying Treatment Duration (minutes) 10 Patient Tolerance Good PT-OP-T Assessment and Plan Start: 11/14/19 14:22 Freq: Status: Active Protocol: Document 12/08/19 13:54 HH (Rec: 12/08/19 15:19 HH [id number]) Physical Therapy Assessment Goals hEP Impairment Pt does not ahve a HEP Continuity Manager Goal (LTG) pt will comply to HEP daily to improve his self pain management. LTG Duration 5 weeks special tests Impairment +ve for forminal compression, facet joint syndrome, spurling , UTTT Continuity Manager Goal (LTG) Pt will be symptoms free for special tests including forminal compression, facet joint syndrome, spurling, UTTT . LTG Duration 10 weeks activity tolerance Impairment L hand coldness/ tingling and R shoulder during driving/ sitting >30 mins Short Term Goal (STG) Pt will be able to gurpreet driving / sitting > 45 mins without any neurological symptoms/ discomfort. STG Duration 5 weeks Residential Goal (LTG) Pt will be able to gurpreet driving / sitting > 60 mins without any neurological symptoms/ discomfort. LTG Duration 10 weeks quickdash Impairment Pt scores 13.64 at quickdash Short Term Goal (STG) Pt will score <10 (1-19% impairment) on quickdash to improve his quality of life STG Duration 5 weeks Residential Goal (LTG) Pt will score <5 (1-19% impairment) on quickdash to improve his quality of life by being pain free. LTG Duration 10 weeks Assessment Summary Assessment Pt has improved symptoms since last visit without involving lumbar movements. There's noticeable limited L scap mobility and muscle guarding during joint mob. Pt reports feeling great after session. Will focus on L scap mob and neck strengthening and stability ex next time. Physical Therapy Plan Next Visit Focus/Plan Next Note Type Treatment Note Next Visit Plan check post session tolerance improve T/S ext and rotation chin tuck tennis ball release for c/s nerve glide neck stretch
--- NOTE | 2019-12-12 17:48 | PT.OTN ---
Current Diagnoses Cervicalgia (12/12/19) Physical Therapy Treatment Note PT-OP-A Visit Information Start: 11/14/19 14:22 Freq: Status: Active Protocol: Document 12/12/19 17:33 HH (Rec: 12/12/19 17:48 [id number]) Out-Patient Physical Therapy Visit Information Visit Information Visit Type Treatment Note Visit Start Time 16:45 Visit Stop Time 17:35 Total Visit Minutes 50 Visit Number 04/20 PT-OP-B Current Condition Start: 11/14/19 14:22 Freq: Status: Active Protocol: Document 11/14/19 14:30 HH (Rec: 11/14/19 16:10 [email or web address]) Current Condition History of Current Condition History of Current Condition Patient is a 74yo male with primary c/o neck pain, R shoulder pain and left hand coldness symptoms since summer 2018. Feels like it is very very cold in frozen at times. Sometimes he gets to the point where he gets numb any gets a tingling pins and needle sensation primarily in the palm of the hand is uncertain as to how many fingers are involved initially he thought probably all of them but he certain about the thumb and 1st finger. Symptoms are worse when driving after 30 mins and sitting while watching TV. He stated no particular pattern to it accepted to almost never present when he is active in doing something. He also stated new onset of radiating R shoulder pain since June with neck movements and he does not known. He also noticed his neck has been feeling stiff. Pt had a EMG study in Sep, 2019 as below. PMH includes L3 -4 laminectomy 4years ago, bladder cancer (currently receiving BEG) Prior Treatments and Tests EMG 09/21: normal study, findings are not siggestive of a left median nerve focal lesion at the wrist, a left ulnar nerve focal lesion at the wrist or elbow nor of an acute or chronic left C5 -T1 motor nerve root lesion. pt had a 1 year PT for his chronic back pain Treatment Goals Patient/Caregiver Goals 1. To be able to drive/ sit > 30 mins without any neck pain and coldness symptoms in L hand 2. To learn home exercises for self pain management. Prior Functional Status Baseline Function- ADL's Independent Baseline Function- Mobility Independent Current Functional Impairments (Reported) Functional Limitations- Other Symptoms are worse when driving after 30 mins and sitting while watching TV. Personal Factors Other Personal Factors That May Effect Pt currently is receiving BEG Therapy/Recovery treatment for his bladder cancer. Previous back surgery 4 years ago that cont limits his trunk mobility. PT-OP-C Subjective Start: 11/14/19 14:22 Freq: Status: Active Protocol: Document 12/12/19 17:33 HH (Rec: 12/12/19 17:48 HH [id number]) OP-PT Subjective Patient Comments Patient Comments My neck has been feeling good and tennis ball release works fine. I also had a coldness episode in my L hand yesterday while i was driving but i was able to do nerve glide and it was resolved within 15-20 mins. Patient Reported Progress Improving PT-OP-F Manual Assessment Start: 11/14/19 14:22 Freq: Status: Active Protocol: Document 11/14/19 14:30 HH (Rec: 11/14/19 16:10 [email or web address]) Manual Assessments Soft Tissue Assessment Soft Tissue Mobility Assessment Significant tenderness to pressure at B levator scap, B trap and suboccipitals (R>L) Joint Mobility Assessment Joint Mobility Assessment Hypomobility from T1-T6 with significant to PA pressure. PT-OP-H Neuro Start: 11/14/19 14:22 Freq: Status: Active Protocol: Document 11/14/19 14:30 HH (Rec: 11/14/19 16:10 [email or web address]) Sensation Evaluation Gross Sensation Gross Sensation Left UE Impaired Sensation Description Numbness Dermatome Impairments C6 PT-OP-J Posture/Palpation/Skin Start: 11/14/19 14:22 Freq: Status: Active Protocol: Document 11/14/19 14:30 HH (Rec: 11/14/19 16:10 [email or web address]) Posture Evaluation Position Standing Evaluation View Anterior Head/C-Spine Posture Forward Head T-Spine Posture Increased Kyphosis L-Spine Posture Flattened Shoulder Posture (L) Rounded,(R) Rounded Arm Posture (R) Internally Rotated PT-OP-K Range of Motion Start: 11/14/19 14:22 Freq: Status: Active Protocol: Document 11/14/19 14:30 HH (Rec: 11/14/19 16:10 [email or web address]) Cervical Spine Range of Motion Cervical Spine Active Percentage Testing Position Standing Flexion 60 Extension 60 Rotation Left 60 Rotation Right 50 Lateral Flexion Left 30 Lateral Flexion Right 45 ROM Limitations Soft Tissue Tightness,Pain Comments angulation noted at C5/6 during c/s extension and rotation radiating R shoulder pain with end range R cervical rotation radiating L shoulder pain with end range L cervical rotation radiating R shoulder pain with end range cervical extension PT-OP-L Special Tests Start: 11/14/19 14:22 Freq: Status: Active Protocol: Document 11/14/19 14:30 HH (Rec: 11/14/19 16:10 [email or web address]) Special Tests Cervical Spine Special Tests Spurling's Test Test Results +VE R Comments radiating R shoulder pain facet syndrome test Test Results +ve b Comments closed pack position (symptoms worse on R side) Upper Limb Tension Test Test Results +VE B Comments R worse than L (RUE unable to gurpreet with C/S L SB; LUE with C/ S R SB ) Traction Test Results +VE Comments relief with neck pain and denies shoulder/ neck discomfort Foraminal Compression Test Results +VE B Comments Radiating pain to R shoulder and L hand numbness PT-OP-M Strength Start: 11/14/19 14:22 Freq: Status: Active Protocol: Document 11/14/19 14:30 HH (Rec: 11/14/19 16:10 [email or web address]) Shoulder Strength Shoulder Manual Muscle Testing Right Flexion 5 Normal Extension 5 Normal Abduction (C5) 5 Normal Adduction 5 Normal Left Flexion 5 Normal Extension 5 Normal Abduction (C5) 5 Normal Adduction 5 Normal PT-OP-Q Treatments Start: 11/14/19 14:22 Freq: Status: Active Protocol: Document 12/12/19 17:33 (Rec: 12/12/19 17:48 [id number]) Therapeutic Exercises Supine Exercises passive stretch Supine Exercise Name trap, levator scap Side right Reps/Minutes 8 mins Comments from PT Sitting Exercises C/S rotation Sitting Exercise Name with B UE supported with pillows Side bilateral Equipment Used pillows Reps/Minutes 4 mins Comments unsupported Cervical rotation Manual Therapy Treatment Soft Tissue Mobilization suboccipital Mobilization Type Sustained Pressure,Trigger Point Release Intensity/Depth Superficial Body Position Supine L trap, levator scap Mobilization Type Sustained Pressure,Trigger Point Release Intensity/Depth Superficial Body Position Supine Comments pinch head inspector and center marker at trap Joint Mobilizations scap mob Joint elevation and depression Grade III Body Position Sidelying Reps/Duration 6 mins Manual Traction Cervical distraction Details with flat lumbar spine Body Position Hooklying Reps/Duration 10 secs hold x 10 Comments with upper cervical flexoin reports pain relief after Nerve Glides radial nerve glide Nerve w/o cervical movement Details L side Body Position Supine Reps/Duration 3 mins median nerve glide Nerve w cervical tensioner Body Position Supine Reps/Duration 3 mins Manual Techniques MET Type MET at c/s neutral position Body Position Supine Reps/Duration 10 secs hold Comments cervical rotatoin, lateral flexion PT-OP-R Modalities Start: 11/14/19 14:22 Freq: Status: Active Protocol: Document 12/12/19 17:33 (Rec: 12/12/19 17:48 [id number]) Hot Pack/Cold Pack Treatment moist heat Location C/S and L/S Patient Position Hooklying Treatment Duration (minutes) 10 Patient Tolerance Good PT-OP-T Assessment and Plan Start: 11/14/19 14:22 Freq: Status: Active Protocol: Document 12/12/19 17:33 (Rec: 12/12/19 17:48 [id number]) Physical Therapy Assessment Goals hEP Impairment Pt does not ahve a HEP Detention Goal (LTG) pt will comply to HEP daily to improve his self pain management. LTG Duration 5 weeks special tests Impairment +ve for forminal compression, facet joint syndrome, spurling , UTTT Detention Goal (LTG) Pt will be symptoms free for special tests including forminal compression, facet joint syndrome, spurling, UTTT . LTG Duration 10 weeks activity tolerance Impairment L hand coldness/ tingling and R shoulder during driving/ sitting >30 mins Short Term Goal (STG) Pt will be able to gurrpeet driving / sitting > 45 mins without any neurological symptoms/ discomfort. STG Duration 5 weeks Detention Goal (LTG) Pt will be able to gurpreet driving / sitting > 60 mins without any neurological symptoms/ discomfort. LTG Duration 10 weeks quickdash Impairment Pt scores 13.64 at quickdash Short Term Goal (STG) Pt will score <10 (1-19% impairment) on quickdash to improve his quality of life STG Duration 5 weeks Lime Sludge Kiln Operator Goal (LTG) Pt will score <5 (1-19% impairment) on quickdash to improve his quality of life by being pain free. LTG Duration 10 weeks Assessment Summary Assessment Pt cont to report radiating pain/ discomfort with end range cervical rotation at seated position, but relieved with UE supported. Pt cont to have high muscular tension/ tightness that trigger point from shoulders/ neck causes muscle spasm from low back. Dis with pt to get PT referral to address his chronic back pain Physical Therapy Plan Next Visit Focus/Plan Next Note Type Treatment Note Next Visit Plan manual therapy on traps PA mob for T/S, nerve glide improve T/S ext and rotation chin tuck with rotation
--- NOTE | 2019-12-21 12:22 | PT.OTN ---
Current Diagnoses Cervicalgia (12/21/19) Physical Therapy Treatment Note PT-OP-A Visit Information Start: 11/14/19 14:22 Freq: Status: Active Protocol: Document 12/21/19 12:12 (Rec: 12/21/19 12:22 [id number]) Out-Patient Physical Therapy Visit Information Visit Information Visit Type Treatment Note Visit Start Time 11:20 Visit Stop Time 12:12 Total Visit Minutes 52 Visit Number 05/20 PT-OP-B Current Condition Start: 11/14/19 14:22 Freq: Status: Active Protocol: Document 11/14/19 14:30 HH (Rec: 11/14/19 16:10 [email or web address]) Current Condition History of Current Condition History of Current Condition Patient is a 74yo male with primary c/o neck pain, R shoulder pain and left hand coldness symptoms since summer 2018. Feels like it is very very cold in frozen at times. Sometimes he gets to the point where he gets numb any gets a tingling pins and needle sensation primarily in the palm of the hand is uncertain as to how many fingers are involved initially he thought probably all of them but he certain about the thumb and 1st finger. Symptoms are worse when driving after 30 mins and sitting while watching TV. He stated no particular pattern to it accepted to almost never present when he is active in doing something. He also stated new onset of radiating R shoulder pain since June with neck movements and he does not known. He also noticed his neck has been feeling stiff. Pt had a EMG study in Sep, 2019 as below. PMH includes L3 -4 laminectomy 4years ago, bladder cancer (currently receiving BEG) Prior Treatments and Tests EMG 09/21: normal study, findings are not siggestive of a left median nerve focal lesion at the wrist, a left ulnar nerve focal lesion at the wrist or elbow nor of an acute or chronic left C5 -T1 motor nerve root lesion. pt had a 1 year PT for his chronic back pain Treatment Goals Patient/Caregiver Goals 1. To be able to drive/ sit > 30 mins without any neck pain and coldness symptoms in L hand 2. To learn home exercises for self pain management. Prior Functional Status Baseline Function- ADL's Independent Baseline Function- Mobility Independent Current Functional Impairments (Reported) Functional Limitations- Other Symptoms are worse when driving after 30 mins and sitting while watching TV. Personal Factors Other Personal Factors That May Effect Pt currently is receiving BEG Therapy/Recovery treatment for his bladder cancer. Previous back surgery 4 years ago that cont limits his trunk mobility. PT-OP-C Subjective Start: 11/14/19 14:22 Freq: Status: Active Protocol: Document 12/21/19 12:12 HH (Rec: 12/21/19 12:22 HH [id number]) OP-PT Subjective Patient Comments Patient Comments My neck has been doing really good with better mobility. I did have coldness in my L hand spontaneously while i was sitting at home in the evening but subsided after 20 mins or so. Driving down to [place] didnt cause any coldness this past wednesday. Patient Reported Progress Improving PT-OP-F Manual Assessment Start: 11/14/19 14:22 Freq: Status: Active Protocol: Document 11/14/19 14:30 HH (Rec: 11/14/19 16:10 [email or web address]) Manual Assessments Soft Tissue Assessment Soft Tissue Mobility Assessment Significant tenderness to pressure at B levator scap, B trap and suboccipitals (R>L) Joint Mobility Assessment Joint Mobility Assessment Hypomobility from T1-T6 with significant to PA pressure. PT-OP-H Neuro Start: 11/14/19 14:22 Freq: Status: Active Protocol: Document 11/14/19 14:30 HH (Rec: 11/14/19 16:10 [email or web address]) Sensation Evaluation Gross Sensation Gross Sensation Left UE Impaired Sensation Description Numbness Dermatome Impairments C6 PT-OP-J Posture/Palpation/Skin Start: 11/14/19 14:22 Freq: Status: Active Protocol: Document 11/14/19 14:30 HH (Rec: 11/14/19 16:10 [email or web address]) Posture Evaluation Position Standing Evaluation View Anterior Head/C-Spine Posture Forward Head T-Spine Posture Increased Kyphosis L-Spine Posture Flattened Shoulder Posture (L) Rounded,(R) Rounded Arm Posture (R) Internally Rotated PT-OP-K Range of Motion Start: 11/14/19 14:22 Freq: Status: Active Protocol: Document 11/14/19 14:30 HH (Rec: 11/14/19 16:10 [email or web address]) Cervical Spine Range of Motion Cervical Spine Active Percentage Testing Position Standing Flexion 60 Extension 60 Rotation Left 60 Rotation Right 50 Lateral Flexion Left 30 Lateral Flexion Right 45 ROM Limitations Soft Tissue Tightness,Pain Comments angulation noted at C5/6 during c/s extension and rotation radiating R shoulder pain with end range R cervical rotation radiating L shoulder pain with end range L cervical rotation radiating R shoulder pain with end range cervical extension PT-OP-L Special Tests Start: 11/14/19 14:22 Freq: Status: Active Protocol: Document 11/14/19 14:30 (Rec: 11/14/19 16:10 [email or web address]) Special Tests Cervical Spine Special Tests Spurling's Test Test Results +VE R Comments radiating R shoulder pain facet syndrome test Test Results +ve b Comments closed pack position (symptoms worse on R side) Upper Limb Tension Test Test Results +VE B Comments R worse than L (RUE unable to gurpreet with C/S L SB; LUE with C/ S R SB ) Traction Test Results +VE Comments relief with neck pain and denies shoulder/ neck discomfort Foraminal Compression Test Results +VE B Comments Radiating pain to R shoulder and L hand numbness PT-OP-M Strength Start: 11/14/19 14:22 Freq: Status: Active Protocol: Document 11/14/19 14:30 HH (Rec: 11/14/19 16:10 [email or web address]) Shoulder Strength Shoulder Manual Muscle Testing Right Flexion 5 Normal Extension 5 Normal Abduction (C5) 5 Normal Adduction 5 Normal Left Flexion 5 Normal Extension 5 Normal Abduction (C5) 5 Normal Adduction 5 Normal PT-OP-Q Treatments Start: 11/14/19 14:22 Freq: Status: Active Protocol: Document 12/21/19 12:12 (Rec: 12/21/19 12:22 [id number]) Therapeutic Exercises Supine Exercises OA mob Supine Exercise Name passive with PT assistance Side bilateral Reps/Minutes 5 mins Comments C/S in flexion , then passively rotate to end range. SLR Supine Exercise Name passive SLR Side bilateral Comments R is more restricted than L Sitting Exercises chin tuck Sitting Exercise Name FHP<> chin tuck Reps/Minutes 2 mins Comments facilitate upper cervication mob Manual Therapy Treatment Soft Tissue Mobilization paraspinals Body Location bilateral Mobilization Type Sustained Pressure,Trigger Point Release Intensity/Depth prone suboccipital Mobilization Type Sustained Pressure,Trigger Point Release Intensity/Depth Superficial Body Position Supine L trap, levator scap Mobilization Type Sustained Pressure,Trigger Point Release Intensity/Depth Superficial Body Position Supine Comments pinch implementation specialist at trap Joint Mobilizations PA mob Joint T/S T1-T8 Grade III Body Position Prone Manual Traction OA rotation Body Position Supine Reps/Duration 4 mins Comments with cervical flexoin first OA AP glide Body Position Supine Reps/Duration 4 mins Cervical distraction Details with flat lumbar spine Body Position Hooklying Reps/Duration 10 secs hold x 10 Comments with upper cervical flexoin reports pain relief after PT-OP-R Modalities Start: 11/14/19 14:22 Freq: Status: Active Protocol: Document 12/21/19 12:12 HH (Rec: 12/21/19 12:22 [id number]) Hot Pack/Cold Pack Treatment moist heat Location C/S and L/S Patient Position Hooklying Treatment Duration (minutes) 12 Patient Tolerance Good PT-OP-T Assessment and Plan Start: 11/14/19 14:22 Freq: Status: Active Protocol: Document 12/21/19 12:12 HH (Rec: 12/21/19 12:22 [id number]) Physical Therapy Assessment Goals hEP Impairment Pt does not ahve a HEP Intermediate Goal (LTG) pt will comply to HEP daily to improve his self pain management. LTG Duration 5 weeks special tests Impairment +ve for forminal compression, facet joint syndrome, spurling , UTTT Intermediate Goal (LTG) Pt will be symptoms free for special tests including forminal compression, facet joint syndrome, spurling, UTTT . LTG Duration 10 weeks activity tolerance Impairment L hand coldness/ tingling and R shoulder during driving/ sitting >30 mins Short Term Goal (STG) Pt will be able to gurpreet driving / sitting > 45 mins without any neurological symptoms/ discomfort. STG Duration 5 weeks Gravity Prospecting Operator Helper Goal (LTG) Pt will be able to gurpreet driving / sitting > 60 mins without any neurological symptoms/ discomfort. LTG Duration 10 weeks quickdash Impairment Pt scores 13.64 at quickdash Short Term Goal (STG) Pt will score <10 (1-19% impairment) on quickdash to improve his quality of life STG Duration 5 weeks Intermediate Goal (LTG) Pt will score <5 (1-19% impairment) on quickdash to improve his quality of life by being pain free. LTG Duration 10 weeks Assessment Summary Assessment Pt cont improves with cervical mobility at end range without discomfort. However, pt does has increase neural tension at low back R>L during cervical flexion. Performed STM on paraspinals and SLR and symptoms are completely resolved. Educated pt his very limited neural flexibility at posterior chain Physical Therapy Plan Next Visit Focus/Plan Next Note Type Treatment Note Next Visit Plan assess low back tolerance add SLR, ball roll on lumbar scap strengthening feliz tuck with rotation
--- NOTE | 2019-12-26 18:41 | PT.OTN ---
Current Diagnoses Cervicalgia (12/26/19) Physical Therapy Treatment Note PT-OP-A Visit Information Start: 11/14/19 14:22 Freq: Status: Active Protocol: Document 12/26/19 15:21 HH (Rec: 12/26/19 18:41 [id number]) Out-Patient Physical Therapy Visit Information Visit Information Visit Type Treatment Note Visit Start Time 15:21 Visit Stop Time 16:05 Total Visit Minutes 44 Visit Number 06/20 Number of LOSS PREVENTION ANALYST Visits 0 PT-OP-B Current Condition Start: 11/14/19 14:22 Freq: Status: Active Protocol: Document 11/14/19 14:30 HH (Rec: 11/14/19 16:10 [email or web address]) Current Condition History of Current Condition History of Current Condition Patient is a 74yo male with primary c/o neck pain, R shoulder pain and left hand coldness symptoms since summer 2018. Feels like it is very very cold in frozen at times. Sometimes he gets to the point where he gets numb any gets a tingling pins and needle sensation primarily in the palm of the hand is uncertain as to how many fingers are involved initially he thought probably all of them but he certain about the thumb and 1st finger. Symptoms are worse when driving after 30 mins and sitting while watching TV. He stated no particular pattern to it accepted to almost never present when he is active in doing something. He also stated new onset of radiating R shoulder pain since June with neck movements and he does not known. He also noticed his neck has been feeling stiff. Pt had a EMG study in Sep, 2019 as below. PMH includes L3 -4 laminectomy 4years ago, bladder cancer (currently receiving BEG) Prior Treatments and Tests EMG 09/21: normal study, findings are not siggestive of a left median nerve focal lesion at the wrist, a left ulnar nerve focal lesion at the wrist or elbow nor of an acute or chronic left C5 -T1 motor nerve root lesion. pt had a 1 year PT for his chronic back pain Treatment Goals Patient/Caregiver Goals 1. To be able to drive/ sit > 30 mins without any neck pain and coldness symptoms in L hand 2. To learn home exercises for self pain management. Prior Functional Status Baseline Function- ADL's Independent Baseline Function- Mobility Independent Current Functional Impairments (Reported) Functional Limitations- Other Symptoms are worse when driving after 30 mins and sitting while watching TV. Personal Factors Other Personal Factors That May Effect Pt currently is receiving BEG Therapy/Recovery treatment for his bladder cancer. Previous back surgery 4 years ago that cont limits his trunk mobility. PT-OP-C Subjective Start: 11/14/19 14:22 Freq: Status: Active Protocol: Document 12/26/19 15:21 HH (Rec: 12/26/19 18:41 HH [id number]) OP-PT Subjective Patient Comments Patient Comments I was feeling very good after last session and it felt it lasts longer than normal. My back still bothers me sometimes. Im wondering if i should see a back doctor? Patient Reported Progress Improving PT-OP-F Manual Assessment Start: 11/14/19 14:22 Freq: Status: Active Protocol: Document 11/14/19 14:30 HH (Rec: 11/14/19 16:10 [email or web address]) Manual Assessments Soft Tissue Assessment Soft Tissue Mobility Assessment Significant tenderness to pressure at B levator scap, B trap and suboccipitals (R>L) Joint Mobility Assessment Joint Mobility Assessment Hypomobility from T1-T6 with significant to PA pressure. PT-OP-H Neuro Start: 11/14/19 14:22 Freq: Status: Active Protocol: Document 11/14/19 14:30 HH (Rec: 11/14/19 16:10 [email or web address]) Sensation Evaluation Gross Sensation Gross Sensation Left UE Impaired Sensation Description Numbness Dermatome Impairments C6 PT-OP-J Posture/Palpation/Skin Start: 11/14/19 14:22 Freq: Status: Active Protocol: Document 11/14/19 14:30 HH (Rec: 11/14/19 16:10 [email or web address]) Posture Evaluation Position Standing Evaluation View Anterior Head/C-Spine Posture Forward Head T-Spine Posture Increased Kyphosis L-Spine Posture Flattened Shoulder Posture (L) Rounded,(R) Rounded Arm Posture (R) Internally Rotated PT-OP-K Range of Motion Start: 11/14/19 14:22 Freq: Status: Active Protocol: Document 11/14/19 14:30 HH (Rec: 11/14/19 16:10 [email or web address]) Cervical Spine Range of Motion Cervical Spine Active Percentage Testing Position Standing Flexion 60 Extension 60 Rotation Left 60 Rotation Right 50 Lateral Flexion Left 30 Lateral Flexion Right 45 ROM Limitations Soft Tissue Tightness,Pain Comments angulation noted at C5/6 during c/s extension and rotation radiating R shoulder pain with end range R cervical rotation radiating L shoulder pain with end range L cervical rotation radiating R shoulder pain with end range cervical extension PT-OP-L Special Tests Start: 11/14/19 14:22 Freq: Status: Active Protocol: Document 11/14/19 14:30 HH (Rec: 11/14/19 16:10 [email or web address]) Special Tests Cervical Spine Special Tests Spurling's Test Test Results +VE R Comments radiating R shoulder pain facet syndrome test Test Results +ve b Comments closed pack position (symptoms worse on R side) Upper Limb Tension Test Test Results +VE B Comments R worse than L (RUE unable to gurpreet with C/S L SB; LUE with C/ S R SB ) Traction Test Results +VE Comments relief with neck pain and denies shoulder/ neck discomfort Foraminal Compression Test Results +VE B Comments Radiating pain to R shoulder and L hand numbness PT-OP-M Strength Start: 11/14/19 14:22 Freq: Status: Active Protocol: Document 11/14/19 14:30 HH (Rec: 11/14/19 16:10 [email or web address]) Shoulder Strength Shoulder Manual Muscle Testing Right Flexion 5 Normal Extension 5 Normal Abduction (C5) 5 Normal Adduction 5 Normal Left Flexion 5 Normal Extension 5 Normal Abduction (C5) 5 Normal Adduction 5 Normal PT-OP-Q Treatments Start: 11/14/19 14:22 Freq: Status: Active Protocol: Document 12/26/19 15:21 HH (Rec: 12/26/19 18:41 [id number]) Therapeutic Exercises Sitting Exercises cervical rolls Side bilateral Reps/Minutes 10 x2 Comments for HEP, cues to prevent trunk movements shoulder rolls Side bilateral Reps/Minutes 12 x 2 Comments for HEP, cues to prevent trunk movements Standing Exercises scap row Side bilateral Equipment Used level 1 band Reps/Minutes 8 x 2 Comments cues to prevent lumbar extension Manual Therapy Treatment Soft Tissue Mobilization suboccipital Mobilization Type Sustained Pressure,Trigger Point Release Intensity/Depth Superficial Body Position Supine L trap, levator scap Mobilization Type Sustained Pressure,Trigger Point Release Intensity/Depth Superficial Body Position Supine Comments pinch [employer] psychiatrist at trap Joint Mobilizations PA mob Joint T/S T1-T8 Grade III Body Position Prone Manual Traction OA rotation Body Position Supine Reps/Duration 4 mins Comments with cervical flexoin then rotate OA AP glide Body Position Supine Reps/Duration 4 mins Cervical distraction Details with flat lumbar spine Body Position Hooklying Reps/Duration 10 secs hold x 5 Comments with upper cervical flexoin reports pain relief after PT-OP-R Modalities Start: 11/14/19 14:22 Freq: Status: Active Protocol: Document 12/26/19 15:21 HH (Rec: 12/26/19 18:41 [id number]) Hot Pack/Cold Pack Treatment moist heat Location C/S and L/S Patient Position Hooklying Treatment Duration (minutes) 10 Patient Tolerance Good PT-OP-T Assessment and Plan Start: 11/14/19 14:22 Freq: Status: Active Protocol: Document 12/26/19 15:21 HH (Rec: 12/26/19 18:41 [id number]) Physical Therapy Assessment Goals hEP Impairment Pt does not ahve a HEP Rn Cardiac Rehab Goal (LTG) pt will comply to HEP daily to improve his self pain management. LTG Duration 5 weeks special tests Impairment +ve for forminal compression, facet joint syndrome, spurling , UTTT Custodial Goal (LTG) Pt will be symptoms free for special tests including forminal compression, facet joint syndrome, spurling, UTTT . LTG Duration 10 weeks activity tolerance Impairment L hand coldness/ tingling and R shoulder during driving/ sitting >30 mins Short Term Goal (STG) Pt will be able to gurpreet driving / sitting > 45 mins without any neurological symptoms/ discomfort. STG Duration 5 weeks Custodial Goal (LTG) Pt will be able to gurpreet driving / sitting > 60 mins without any neurological symptoms/ discomfort. LTG Duration 10 weeks quickdash Impairment Pt scores 13.64 at quickdash Short Term Goal (STG) Pt will score <10 (1-19% impairment) on quickdash to improve his quality of life STG Duration 5 weeks Rn Cardiac Rehab Goal (LTG) Pt will score <5 (1-19% impairment) on quickdash to improve his quality of life by being pain free. LTG Duration 10 weeks Assessment Summary Assessment Pt gurpreet tx very well but has residual discomfort during L c /s rotation at end range. Pt does have shooting pain at L shoulder returning to neutral position from R SB and R rotation. Added scap row, neck circles and shoulder circles for HEP. Pt needed cues to isolate cervical/shoulder movements. Physical Therapy Plan Next Visit Focus/Plan Next Note Type Treatment Note Next Visit Plan assess low back tolerance update HEP sheet add SLR, ball roll on lumbar scap strengthening feliz tuck with rotation
--- NOTE | 2020-01-02 12:14 | PT.OTN ---
Current Diagnoses Cervicalgia (01/02/20) Physical Therapy Treatment Note PT-OP-A Visit Information Start: 11/14/19 14:22 Freq: Status: Active Protocol: Document 01/02/20 10:31 HH (Rec: 01/02/20 12:13 [id number]) Out-Patient Physical Therapy Visit Information Visit Information Visit Type Treatment Note Visit Start Time 10:31 Visit Stop Time 11:17 Total Visit Minutes 46 Visit Number 07/21 Number of RADIO TOWER TECHNICIAN Visits 0 PT-OP-B Current Condition Start: 11/14/19 14:22 Freq: Status: Active Protocol: Document 11/14/19 14:30 HH (Rec: 11/14/19 16:10 [email or web address]) Current Condition History of Current Condition History of Current Condition Patient is a 74yo male with primary c/o neck pain, R shoulder pain and left hand coldness symptoms since summer 2018. Feels like it is very very cold in frozen at times. Sometimes he gets to the point where he gets numb any gets a tingling pins and needle sensation primarily in the palm of the hand is uncertain as to how many fingers are involved initially he thought probably all of them but he certain about the thumb and 1st finger. Symptoms are worse when driving after 30 mins and sitting while watching TV. He stated no particular pattern to it accepted to almost never present when he is active in doing something. He also stated new onset of radiating R shoulder pain since June with neck movements and he does not known. He also noticed his neck has been feeling stiff. Pt had a EMG study in Sep, 2019 as below. PMH includes L3 -4 laminectomy 4years ago, bladder cancer (currently receiving BEG) Prior Treatments and Tests EMG 09/21: normal study, findings are not siggestive of a left median nerve focal lesion at the wrist, a left ulnar nerve focal lesion at the wrist or elbow nor of an acute or chronic left C5 -T1 motor nerve root lesion. pt had a 1 year PT for his chronic back pain Treatment Goals Patient/Caregiver Goals 1. To be able to drive/ sit > 30 mins without any neck pain and coldness symptoms in L hand 2. To learn home exercises for self pain management. Prior Functional Status Baseline Function- ADL's Independent Baseline Function- Mobility Independent Current Functional Impairments (Reported) Functional Limitations- Other Symptoms are worse when driving after 30 mins and sitting while watching TV. Personal Factors Other Personal Factors That May Effect Pt currently is receiving BEG Therapy/Recovery treatment for his bladder cancer. Previous back surgery 4 years ago that cont limits his trunk mobility. PT-OP-C Subjective Start: 11/14/19 14:22 Freq: Status: Active Protocol: Document 01/02/20 10:31 HH (Rec: 01/02/20 12:13 HH [id number]) OP-PT Subjective Patient Comments Patient Comments Shelly been doing pretty good and i did have occasional coldness at my hand but i was able to manage to do neck exercises and nerve gliding and it went away within 10-20 mins. Patient Reported Progress Improving PT-OP-F Manual Assessment Start: 11/14/19 14:22 Freq: Status: Active Protocol: Document 11/14/19 14:30 HH (Rec: 11/14/19 16:10 [email or web address]) Manual Assessments Soft Tissue Assessment Soft Tissue Mobility Assessment Significant tenderness to pressure at B levator scap, B trap and suboccipitals (R>L) Joint Mobility Assessment Joint Mobility Assessment Hypomobility from T1-T6 with significant to PA pressure. PT-OP-H Neuro Start: 11/14/19 14:22 Freq: Status: Active Protocol: Document 11/14/19 14:30 HH (Rec: 11/14/19 16:10 [email or web address]) Sensation Evaluation Gross Sensation Gross Sensation Left UE Impaired Sensation Description Numbness Dermatome Impairments C6 PT-OP-J Posture/Palpation/Skin Start: 11/14/19 14:22 Freq: Status: Active Protocol: Document 11/14/19 14:30 HH (Rec: 11/14/19 16:10 [email or web address]) Posture Evaluation Position Standing Evaluation View Anterior Head/C-Spine Posture Forward Head T-Spine Posture Increased Kyphosis L-Spine Posture Flattened Shoulder Posture (L) Rounded,(R) Rounded Arm Posture (R) Internally Rotated PT-OP-K Range of Motion Start: 11/14/19 14:22 Freq: Status: Active Protocol: Document 11/14/19 14:30 HH (Rec: 11/14/19 16:10 [email or web address]) Cervical Spine Range of Motion Cervical Spine Active Percentage Testing Position Standing Flexion 60 Extension 60 Rotation Left 60 Rotation Right 50 Lateral Flexion Left 30 Lateral Flexion Right 45 ROM Limitations Soft Tissue Tightness,Pain Comments angulation noted at C5/6 during c/s extension and rotation radiating R shoulder pain with end range R cervical rotation radiating L shoulder pain with end range L cervical rotation radiating R shoulder pain with end range cervical extension PT-OP-L Special Tests Start: 11/14/19 14:22 Freq: Status: Active Protocol: Document 11/14/19 14:30 HH (Rec: 11/14/19 16:10 [email or web address]) Special Tests Cervical Spine Special Tests Spurling's Test Test Results +VE R Comments radiating R shoulder pain facet syndrome test Test Results +ve b Comments closed pack position (symptoms worse on R side) Upper Limb Tension Test Test Results +VE B Comments R worse than L (RUE unable to gurpreet with C/S L SB; LUE with C/ S R SB ) Traction Test Results +VE Comments relief with neck pain and denies shoulder/ neck discomfort Foraminal Compression Test Results +VE B Comments Radiating pain to R shoulder and L hand numbness PT-OP-M Strength Start: 11/14/19 14:22 Freq: Status: Active Protocol: Document 11/14/19 14:30 HH (Rec: 11/14/19 16:10 [email or web address]) Shoulder Strength Shoulder Manual Muscle Testing Right Flexion 5 Normal Extension 5 Normal Abduction (C5) 5 Normal Adduction 5 Normal Left Flexion 5 Normal Extension 5 Normal Abduction (C5) 5 Normal Adduction 5 Normal PT-OP-Q Treatments Start: 11/14/19 14:22 Freq: Status: Active Protocol: Document 01/02/20 10:31 (Rec: 01/02/20 12:13 [id number]) Cardio Equipment Upper Body Ergometer (UBE) Duration (Minutes) 5 Other alternate every minute. Therapeutic Exercises Supine Exercises OA mob Supine Exercise Name passive with PT assistance Side bilateral Reps/Minutes 5 mins Comments C/S in flexion , then passively rotate to end range. Sitting Exercises seated t/s rotation Side bilateral Reps/Minutes 8 x 2 cervical rolls Side bilateral Reps/Minutes 10 x2 Comments improved coordination shoulder rolls Side bilateral Reps/Minutes 12 x 2 Comments improved coordination chin tuck Sitting Exercise Name full FHP<> chin tuck Reps/Minutes 3 mins Comments facilitate upper cervication mob Standing Exercises median nerve glide Standing Exercise Name full c/s rotation + full UE extension Side bilateral Manual Therapy Treatment Soft Tissue Mobilization paraspinals Body Location bilateral Mobilization Type Sustained Pressure,Trigger Point Release Intensity/Depth prone suboccipital Mobilization Type Sustained Pressure,Trigger Point Release Intensity/Depth Superficial Body Position Supine Joint Mobilizations PA mob Joint T/S T1-T8 Grade III Body Position Prone Manual Traction OA rotation Body Position Supine Reps/Duration 4 mins Comments with cervical flexoin then rotate OA AP glide Body Position Supine Reps/Duration 4 mins Cervical distraction Details with flat lumbar spine Body Position Hooklying Reps/Duration 10 secs hold x 5 Comments with upper cervical flexoin reports pain relief after PT-OP-R Modalities Start: 11/14/19 14:22 Freq: Status: Active Protocol: Document 12/26/19 15:21 HH (Rec: 12/26/19 18:41 [id number]) Hot Pack/Cold Pack Treatment moist heat Location C/S and L/S Patient Position Hooklying Treatment Duration (minutes) 10 Patient Tolerance Good PT-OP-T Assessment and Plan Start: 11/14/19 14:22 Freq: Status: Active Protocol: Document 01/02/20 10:31 HH (Rec: 01/02/20 12:13 [id number]) Physical Therapy Assessment Goals hEP Impairment Pt does not ahve a HEP Felt Pad Cutter Goal (LTG) pt will comply to HEP daily to improve his self pain management. LTG Duration 5 weeks special tests Impairment +ve for forminal compression, facet joint syndrome, spurling , UTTT Custodial Goal (LTG) Pt will be symptoms free for special tests including forminal compression, facet joint syndrome, spurling, UTTT . LTG Duration 10 weeks activity tolerance Impairment L hand coldness/ tingling and R shoulder during driving/ sitting >30 mins Short Term Goal (STG) Pt will be able to gurpreet driving / sitting > 45 mins without any neurological symptoms/ discomfort. STG Duration 5 weeks Felt Pad Cutter Goal (LTG) Pt will be able to gurpreet driving / sitting > 60 mins without any neurological symptoms/ discomfort. LTG Duration 10 weeks quickdash Impairment Pt scores 13.64 at quickdash Short Term Goal (STG) Pt will score <10 (1-19% impairment) on quickdash to improve his quality of life STG Duration 5 weeks Felt Pad Cutter Goal (LTG) Pt will score <5 (1-19% impairment) on quickdash to improve his quality of life by being pain free. LTG Duration 10 weeks Assessment Summary Assessment Pt showed improved self management on his neurological symptoms which was able to resolve within 10-20 mins by doing HEP. He also has full AROM. Pt cont having difficulty coordinate/isolate his neck and scapular movements Physical Therapy Plan Next Visit Focus/Plan Next Note Type Progress Note Next Visit Plan assess low back tolerance update HEP sheet add SLR, ball roll on lumbar scap strengthening feliz tuck with rotation
--- NOTE | 2020-01-05 16:48 | PT.OTN ---
Current Diagnoses Cervicalgia (01/05/20) Physical Therapy Treatment Note PT-OP-A Visit Information Start: 11/14/19 14:22 Freq: Status: Active Protocol: Document 01/05/20 14:33 HH (Rec: 01/05/20 16:48 HH [id number]) Out-Patient Physical Therapy Visit Information Visit Information Visit Type Progress Note Visit Start Time 14:33 Visit Stop Time 15:18 Total Visit Minutes 45 Visit Number 08/20 Number of PHOTOGRAPHIC INTELLIGENCE OFFICER Visits 0 PT-OP-B Current Condition Start: 11/14/19 14:22 Freq: Status: Active Protocol: Document 11/14/19 14:30 HH (Rec: 11/14/19 16:10 HH [email or web address]) Current Condition History of Current Condition History of Current Condition Patient is a 74yo male with primary c/o neck pain, R shoulder pain and left hand coldness symptoms since summer 2018. Feels like it is very very cold in frozen at times. Sometimes he gets to the point where he gets numb any gets a tingling pins and needle sensation primarily in the palm of the hand is uncertain as to how many fingers are involved initially he thought probably all of them but he certain about the thumb and 1st finger. Symptoms are worse when driving after 30 mins and sitting while watching TV. He stated no particular pattern to it accepted to almost never present when he is active in doing something. He also stated new onset of radiating R shoulder pain since June with neck movements and he does not known. He also noticed his neck has been feeling stiff. Pt had a EMG study in Sep, 2019 as below. PMH includes L3 -4 laminectomy 4years ago, bladder cancer (currently receiving BEG) Prior Treatments and Tests EMG 09/21: normal study, findings are not siggestive of a left median nerve focal lesion at the wrist, a left ulnar nerve focal lesion at the wrist or elbow nor of an acute or chronic left C5 -T1 motor nerve root lesion. pt had a 1 year PT for his chronic back pain Treatment Goals Patient/Caregiver Goals 1. To be able to drive/ sit > 30 mins without any neck pain and coldness symptoms in L hand 2. To learn home exercises for self pain management. Prior Functional Status Baseline Function- ADL's Independent Baseline Function- Mobility Independent Current Functional Impairments (Reported) Functional Limitations- Other Symptoms are worse when driving after 30 mins and sitting while watching TV. Personal Factors Other Personal Factors That May Effect Pt currently is receiving BEG Therapy/Recovery treatment for his bladder cancer. Previous back surgery 4 years ago that cont limits his trunk mobility. PT-OP-C Subjective Start: 11/14/19 14:22 Freq: Status: Active Protocol: Document 01/05/20 14:33 HH (Rec: 01/05/20 16:48 HH [id number]) OP-PT Subjective Patient Comments Patient Comments Im getting better with my shoulder rolls and neck circles. Getting better in coordination now. However, my back somehow still bothers me and i dont know why. Patient Reported Progress Improving PT-OP-F Manual Assessment Start: 11/14/19 14:22 Freq: Status: Active Protocol: Document 11/14/19 14:30 HH (Rec: 11/14/19 16:10 [email or web address]) Manual Assessments Soft Tissue Assessment Soft Tissue Mobility Assessment Significant tenderness to pressure at B levator scap, B trap and suboccipitals (R>L) Joint Mobility Assessment Joint Mobility Assessment Hypomobility from T1-T6 with significant to PA pressure. PT-OP-H Neuro Start: 11/14/19 14:22 Freq: Status: Active Protocol: Document 11/14/19 14:30 HH (Rec: 11/14/19 16:10 [email or web address]) Sensation Evaluation Gross Sensation Gross Sensation Left UE Impaired Sensation Description Numbness Dermatome Impairments C6 PT-OP-J Posture/Palpation/Skin Start: 11/14/19 14:22 Freq: Status: Active Protocol: Document 11/14/19 14:30 HH (Rec: 11/14/19 16:10 [email or web address]) Posture Evaluation Position Standing Evaluation View Anterior Head/C-Spine Posture Forward Head T-Spine Posture Increased Kyphosis L-Spine Posture Flattened Shoulder Posture (L) Rounded,(R) Rounded Arm Posture (R) Internally Rotated PT-OP-K Range of Motion Start: 11/14/19 14:22 Freq: Status: Active Protocol: Document 11/14/19 14:30 HH (Rec: 11/14/19 16:10 [email or web address]) Cervical Spine Range of Motion Cervical Spine Active Percentage Testing Position Standing Flexion 60 Extension 60 Rotation Left 60 Rotation Right 50 Lateral Flexion Left 30 Lateral Flexion Right 45 ROM Limitations Soft Tissue Tightness,Pain Comments angulation noted at C5/6 during c/s extension and rotation radiating R shoulder pain with end range R cervical rotation radiating L shoulder pain with end range L cervical rotation radiating R shoulder pain with end range cervical extension PT-OP-L Special Tests Start: 11/14/19 14:22 Freq: Status: Active Protocol: Document 11/14/19 14:30 HH (Rec: 11/14/19 16:10 [email or web address]) Special Tests Cervical Spine Special Tests Spurling's Test Test Results +VE R Comments radiating R shoulder pain facet syndrome test Test Results +ve b Comments closed pack position (symptoms worse on R side) Upper Limb Tension Test Test Results +VE B Comments R worse than L (RUE unable to gurpreet with C/S L SB; LUE with C/ S R SB ) Traction Test Results +VE Comments relief with neck pain and denies shoulder/ neck discomfort Foraminal Compression Test Results +VE B Comments Radiating pain to R shoulder and L hand numbness PT-OP-M Strength Start: 11/14/19 14:22 Freq: Status: Active Protocol: Document 11/14/19 14:30 HH (Rec: 11/14/19 16:10 [email or web address]) Shoulder Strength Shoulder Manual Muscle Testing Right Flexion 5 Normal Extension 5 Normal Abduction (C5) 5 Normal Adduction 5 Normal Left Flexion 5 Normal Extension 5 Normal Abduction (C5) 5 Normal Adduction 5 Normal PT-OP-Q Treatments Start: 11/14/19 14:22 Freq: Status: Active Protocol: Document 01/05/20 14:33 HH (Rec: 01/05/20 16:48 [id number]) Cardio Equipment Upper Body Ergometer (UBE) Duration (Minutes) 5 Other alternate every minute. Therapeutic Exercises Supine Exercises supine shoulder punch Side bilateral Equipment Used PVC pipe Reps/Minutes 12 x 2 OA mob Supine Exercise Name passive with PT assistance Side bilateral Reps/Minutes 5 mins Comments C/S in flexion , then passively rotate to end range. chin tuck Supine Exercise Name +rotation Side bilateral Reps/Minutes 2 mins Sitting Exercises cervical rolls Side bilateral Reps/Minutes 10 x2 Comments improved coordination shoulder rolls Side bilateral Reps/Minutes 12 x 2 Comments improved coordination chin tuck Sitting Exercise Name full FHP<> chin tuck Reps/Minutes 3 mins Comments facilitate upper cervication mob Standing Exercises scap row Side bilateral Equipment Used level 1 band Reps/Minutes 8 x 2 Comments cues to prevent L shoulder hike Manual Therapy Treatment Soft Tissue Mobilization suboccipital Mobilization Type Sustained Pressure,Trigger Point Release Intensity/Depth Superficial Body Position Supine Manual Traction OA rotation Body Position Supine Reps/Duration 4 mins Comments with cervical flexoin then rotate OA AP glide Body Position Supine Reps/Duration 4 mins PT-OP-R Modalities Start: 11/14/19 14:22 Freq: Status: Active Protocol: Document 12/26/19 15:21 HH (Rec: 12/26/19 18:41 HH [id number]) Hot Pack/Cold Pack Treatment moist heat Location C/S and L/S Patient Position Hooklying Treatment Duration (minutes) 10 Patient Tolerance Good PT-OP-T Assessment and Plan Start: 11/14/19 14:22 Freq: Status: Active Protocol: Document 01/05/20 14:33 HH (Rec: 01/05/20 16:48 HH [id number]) Physical Therapy Assessment Goals movement coordination Impairment difficulty isolating scapular/ cervical movements Residential Goal (LTG) Pt will be able to isolate cervical movements/ scapular movements without feeling L shoulder discomfort. LTG Duration 02/13 hEP Impairment Pt does not ahve a HEP Assistant Office Manager Goal (LTG) 3/6 goal met pt currently complies to HEP daily to improve his self pain management. LTG Duration 5 weeks special tests Impairment +ve for forminal compression, facet joint syndrome, spurling , UTTT Residential Goal (LTG) 3/6 goal met: Pt only has stretching discomfort at trapezius for special tests but denies neurological symptoms Pt will be symptoms free for special tests including forminal compression, facet joint syndrome, spurling, UTTT . LTG Duration 10 weeks activity tolerance Impairment L hand coldness/ tingling and R shoulder during driving/ sitting >30 mins Short Term Goal (STG) Pt will be able to gurpreet driving / sitting > 45 mins without any neurological symptoms/ discomfort. STG Duration 5 weeks Assistant Office Manager Goal (LTG) 3/6 Pt cont to have coldness sensation in his L hand occasionally but able to self manage with nerve glide home ex. Pt will be able to gurpreet driving / sitting > 60 mins without any neurological symptoms/ discomfort. LTG Duration 02/13 quickdash Impairment Pt scores 13.64 at quickdash Short Term Goal (STG) Pt will score <10 (1-19% impairment) on quickdash to improve his quality of life Residential Goal (LTG) Pt will score <5 (1-19% impairment) on quickdash to improve his quality of life by being pain free. LTG Duration 10 weeks Progress Towards Goals Progress Towards Goals Progressing Toward Goals Assessment Summary Assessment Pt has showed improved neurological symptoms, cervical ROM and self management for symptoms since IE. Pt still has difficulty coordinating his cervical and scapular movements and often felt his levator scap engaged. Also educated to get referral for his chronic LBP. Pt will cont benefit from skilled therapy to improve his scap mobility, and cervical mobility. Physical Therapy Plan Next Visit Focus/Plan Next Note Type Treatment Note Next Visit Plan assess low back tolerance update HEP sheet add SLR, ball roll on lumbar scap strengthening scap mob feliz tuck with rotation
--- NOTE | 2020-01-11 10:22 | PT.OPDS ---
Current Diagnoses Cervicalgia (01/05/20) Visit Care Team Role Provider Type Bala Dutton MD Attending Provider Physician Primary Care Provider Specialty: Internal Medicine Address: [address] [place] [address], [address], [place], [address] Email: [email or web address] Visit Number Visit Number 08/20 Discharge Summary PT-OP-B Current Condition Start: 11/14/19 14:22 Freq: Status: Active Protocol: Document 11/14/19 14:30 HH (Rec: 11/14/19 16:10 [email or web address]) Current Condition History of Current Condition History of Current Condition Patient is a 74yo male with primary c/o neck pain, R shoulder pain and left hand coldness symptoms since summer 2018. Feels like it is very very cold in frozen at times. Sometimes he gets to the point where he gets numb any gets a tingling pins and needle sensation primarily in the palm of the hand is uncertain as to how many fingers are involved initially he thought probably all of them but he certain about the thumb and 1st finger. Symptoms are worse when driving after 30 mins and sitting while watching TV. He stated no particular pattern to it accepted to almost never present when he is active in doing something. He also stated new onset of radiating R shoulder pain since June with neck movements and he does not known. He also noticed his neck has been feeling stiff. Pt had a EMG study in Sep, 2019 as below. PMH includes L3 -4 laminectomy 4years ago, bladder cancer (currently receiving BEG) Prior Treatments and Tests EMG 09/21: normal study, findings are not siggestive of a left median nerve focal lesion at the wrist, a left ulnar nerve focal lesion at the wrist or elbow nor of an acute or chronic left C5 -T1 motor nerve root lesion. pt had a 1 year PT for his chronic back pain Treatment Goals Patient/Caregiver Goals 1. To be able to drive/ sit > 30 mins without any neck pain and coldness symptoms in L hand 2. To learn home exercises for self pain management. Prior Functional Status Baseline Function- ADL's Independent Baseline Function- Mobility Independent Current Functional Impairments (Reported) Functional Limitations- Other Symptoms are worse when driving after 30 mins and sitting while watching TV. Personal Factors Other Personal Factors That May Effect Pt currently is receiving BEG Therapy/Recovery treatment for his bladder cancer. Previous back surgery 4 years ago that cont limits his trunk mobility. PT-OP-T Assessment and Plan Start: 11/14/19 14:22 Freq: Status: Active Protocol: Document 01/11/20 10:21 (Rec: 01/11/20 10:22 [email or web address]) Physical Therapy Assessment Progress Towards Goals Progress Towards Goals Goals Met Assessment Summary Assessment Pt called admin via phone and requested to be d/c from PT. Pt overall feeling a lot better since evaluation and has a good understanding of home program and self managment of symptoms. Physical Therapy Plan Discharge Physical Therapy Discharge Reasons Patient Request Discharge Comments Pt called admin via phone and requested to be d/c from PT. Pt overall feeling a lot better since evaluation and has a good understanding of home program and self managment of symptoms.
== END 2020-01-12 08:46 ==
LOC: PHYS 14:30
PROVIDERS: PCP Internal Medicine; Visit Provider Internal Medicine
DX: M54.2 Cervicalgia (principal)
CPT/HCPCS: 97010; 97110; 97140; 97161

== ENCOUNTER → 2020-05-07 14:59 | Outpatient (CLI) | payer MEDICARE, OTHER, SELFPAY ==
[2018-12-23 11:26] VITALS: BMI 25.2
[2020-05-07 17:08] LABS: Add Manual Diff / Slide Review NO; Basophils Absolute Auto 100 /uL (0-100); Eosinophils Absolute Auto 100 /uL (0-450); Eosinophils Percent Auto 1.6 % (2-4); Hematocrit 46.1 % (41-53); Hemoglobin 15.7 g/dL (13.5-17.5); Lymphocytes Absolute Auto 1700 /uL (1100-4500); Lymphocytes Percent Auto 30.2 % (25-40); Mean Corpuscular Hemoglobin 32.3 PG (26-34); Mean Corpuscular Volume 95.1 fL (80-100); Monocytes Absolute Auto 500 /uL (0-900); Monocytes Percent Auto 8.3 % (3-14); Neutrophils Absolute Auto 3300 /uL (1500-7000); Neutrophils Percent Auto 58.9 % (50-75); Platelet Count 197 X10^3/uL (150-400); Red Blood Cell Count 4.84 X10^6/uL (4.5-5.9); Red Cell Distribution Width 13.9 % (11.6-14.8); White Blood Cell Count 5.5 X10^3/uL (4.5-11.0)
[2020-05-07 17:15] LABS: BUN Creatinine Ratio 12.6 (6-22); Blood Urea Nitrogen 13 mg/dL (9-20); Creatine Kinase 87 U/L (55-170); Estimated Glomerular Filt Rate > 60.0 mL/min (>60)
[2020-05-07 17:19] LABS: C-Reactive Protein Quant < 0.5 mg/dL (<1.0)
[2020-05-07 17:25] LABS: Erythrocyte Sedimentation Rate 1 MM/HR (0-15)
== END ==
PROVIDERS: PCP Internal Medicine; Referring Provider Internal Medicine; Visit Provider Internal Medicine
DX: E78.2 Mixed hyperlipidemia (principal); M79.10 Myalgia, unspecified site; R53.83 Other fatigue
CPT/HCPCS: 36415; 82550; 82565; 84520; 85025; 85651; 86140

== ENCOUNTER → 2020-11-26 09:03 | Outpatient (CLI) | payer MEDICARE, OTHER, SELFPAY ==
[2018-12-23 11:26] VITALS: BMI 25.2
[2020-11-26] MEDS: COVID-19 VACC #1, MRNA(MOD) 100 MCG/0.5 ML VIAL IM (09:16)
== END ==
PROVIDERS: PCP Internal Medicine; Visit Provider Internal Medicine
DX: Z23 Encounter for immunization (principal)
CPT/HCPCS: 0011A; 91301

== ENCOUNTER → 2020-12-24 09:07 | Outpatient (CLI) | payer MEDICARE, OTHER, SELFPAY ==
[2018-12-23 11:26] VITALS: BMI 25.2
[2020-12-24] MEDS: COVID-19 VACC #2, MRNA(MOD) 100 MCG/0.5 ML VIAL IM (09:12)
== END ==
PROVIDERS: PCP Internal Medicine; Referring Provider Internal Medicine; Visit Provider Internal Medicine
DX: Z23 Encounter for immunization (principal)
CPT/HCPCS: 0012A; 91301

== ENCOUNTER → 2020-12-26 11:07 | Outpatient (CLI) | payer MEDICARE, OTHER, SELFPAY ==
[2018-12-23 11:26] VITALS: BMI 25.2
--- NOTE | 2020-12-26 11:09 | DI.RAD.S_ITS ---
PROCEDURE: XR KNEE RT 3V INDICATIONS: knee pain TECHNIQUE: 3 views of the knee were acquired. COMPARISON: None. FINDINGS: Bones: Scattered degenerative subchondral sclerosis and spurring. No fracture. No definite joint space narrowing. Soft tissues: No joint effusion. No suspicious soft tissue calcifications. Scattered vascular calcifications IMPRESSION: Mild degenerative changes as above. If the patient's pain or other symptoms persist, consider further evaluation with MRI Dictated by: Oswaldo Rabago M.D. on 12/26/2020 at 11:47 Approved by: Oswaldo Rabago M.D. on 12/26/2020 at 11:48
== END ==
PROVIDERS: PCP Internal Medicine; Referring Provider Internal Medicine; Visit Provider Internal Medicine
DX: M25.561 Pain in right knee (principal)
CPT/HCPCS: 73562

== ENCOUNTER → 2021-03-17 14:39 | Outpatient (CLI) | payer MEDICARE, OTHER, SELFPAY ==
[2018-12-23 11:26] VITALS: BMI 25.2
[2021-03-17 15:30] LABS: Hematocrit 44.7 % (41-53); Hemoglobin 15.4 g/dL (13.5-17.5); Mean Corpuscular HGB Conc 34.5 % (30-36); Mean Corpuscular Hemoglobin 32.8 PG (26-34); Mean Corpuscular Volume 94.8 fL (80-100); Platelet Count 167 X10^3/uL (150-400); Red Blood Cell Count 4.71 X10^6/uL (4.5-5.9); Red Cell Distribution Width 13.8 % (11.6-14.8); White Blood Cell Count 5.6 X10^3/uL (4.5-11.0)
[2021-03-17 15:38] LABS: Alanine Aminotransferase 40 IU/L (<50); Albumin 4.4 g/dL (3.5-5.0); Albumin Globulin Ratio 1.6 (1.0-2.8); Alkaline Phosphatase 63 U/L (38-126); Aspartate Aminotransferase 39 IU/L (17-59); BUN Creatinine Ratio 13.6 (6-22); Bilirubin Total 0.6 mg/dL (0.2-1.3); Blood Urea Nitrogen 14 mg/dL (9-20); C-Reactive Protein Quant < 0.5 mg/dL (<1.0); Calcium 9.8 mg/dL (8.4-10.2); Carbon Dioxide 25 mmol/L (22-32); Chloride 104 mmol/L (98-107); Creatine Kinase 135 U/L (55-170); Estimated Glomerular Filt Rate > 60.0 mL/min (>60); Globulin 2.7 g/dL (1.7-4.1); Glucose 93 mg/dL (80-110); HEMOLYSIS < 15 (0-50); Potassium 3.8 mmol/L (3.4-5.1); Sodium 138 mmol/L (137-145); Total Protein 7.1 g/dL (6.3-8.2)
[2021-03-17 15:49] LABS: Erythrocyte Sedimentation Rate 1 MM/HR (0-15)
[2021-03-17 15:52] LABS: Neutrophils Absolute Manual 3472 /uL (3000-5900); RBC Morphology Normal Morphology; Total Cells Counted 100
[2021-03-17 17:02] LABS: TSH w/ Reflex to FT4 1.49 uIU/mL (0.47-4.68)
== END ==
PROVIDERS: PCP Internal Medicine; Referring Provider Internal Medicine; Visit Provider Internal Medicine
DX: E78.2 Mixed hyperlipidemia (principal); M1A.9XX0 Chronic gout, unspecified, without tophus (tophi); R25.1 Tremor, unspecified; R25.2 Cramp and spasm
CPT/HCPCS: 36415; 80053; 82550; 84443; 85025; 85651; 86140

== ENCOUNTER 2022-02-03 09:45 | Outpatient (RCR) | payer MEDICARE, OTHER, SELFPAY ==
[2018-12-23 11:26] VITALS: BMI 25.2
--- NOTE | 2021-11-04 16:54 | PT.OIE ---
Current Diagnoses Pain in unspecified shoulder (11/04/21) Postural kyphosis, cervicothoracic region (11/04/21) Cervicalgia (11/04/21) Pain in right arm (11/04/21) Past Medical History (Last Reviewed 05/07/20 @ 15:04 by Bala Dutton MD) BPH (benign prostatic hyperplasia) Chronic back pain (~2002) Deep vein thrombosis (~2003) Depression (~2018) Fractures (~1961) GERD (gastroesophageal reflux disease) (~2001) Gout (~2005) H/O discectomy (~2016) H/O elbow surgery (~1961) Hearing loss (~1972) History of cystoscopy History of tonsillectomy Hyperlipidemia Hypertension Measles (~1946) Osteoarthritis Rheumatic aortic disease Rheumatic fever (~1944) S/P TURP S/P ventricular shunt placement Scoliosis (~2015) Seasonal allergies (~1989) Tremor (~2003) Vertigo (~1972) Vision disorder Past Surgical History (Last Reviewed 05/07/20 @ 15:04 by Bala Dutton MD) Anesthesia Bladder cancer (~2010) H/O discectomy (~2016) H/O elbow surgery (~1961) History of cystoscopy History of tonsillectomy Meniere disease (~1972) S/P TURP S/P ventricular shunt placement Visit Care Team Role Provider Type Bala Dutton MD Attending Provider Physician Family Provider Primary Care Provider Referring Provider Specialty: Internal Medicine Address: [address] [place] [address], [address], [facility] Email: [email or web address] Physical Therapy Initial Evaluation PT-OP-A Visit Information Start: 11/02/21 15:01 Freq: Status: Active Protocol: Document 11/04/21 12:47 LRN (Rec: 11/04/21 16:18 LRN [id number]) Out-Patient Physical Therapy Visit Information Visit Information Visit Type Initial Evaluation Visit Start Time 12:45 Visit Stop Time 13:40 Total Visit Minutes 55 Visit Number 1 Evaluation Information Evaluation Date 11/04/21 Precautions Precautions Hard of hearing Bladder CA history Back and Neck Pain history & surgical history of Low back Removal of 1/2 of R radius Scoliosis PT-OP-B Current Condition Start: 11/02/21 15:01 Freq: Status: Active Protocol: Document 11/04/21 12:47 LRN (Rec: 11/04/21 16:18 LRN [id number]) Current Condition History of Current Condition Onset Date Jul 2021 Current Complaints R shoulder pain radiating into the R side of neck History of Current Condition Pt reports insidious onset of R shoulder/neck pain. States he has had physical therapy previously for his neck, but the pain is different. He reports his pain is present when picking up heavy objects or when carrying objects. He has pain when reaching behind his head to scratch his back. Pt states he tends to lean left when in sitting, possibly due to scoliosis and has tried to correct his posture, but notes no change in his pain when he does. (Note: pt has lump behind the R ear that he states a surgeon told him was not necessary to surgically remove, physician of unknown specialty) Prior Treatments and Tests Physical therapy for neck pain 2 yrs ago. Muscle Relaxants for pain to help with sleeping. Treatment Goals Patient/Caregiver Goals Pt goal is to: -Be able to sleep throught the night without pain -Eliminate the need for pain medication to sleep -Be able to reach behind the head to scratch his back without pain -Be able to lift objects (cup of coffee) and carry groceries without pain. Prior Functional Status Baseline Function- ADL's Independent Baseline Function- Mobility Independent Baseline Function- Other Able to sleep through the night without medications. No R shoulder/neck pain with reaching behind his back or lifting/carrying objects. Current Functional Impairments (Reported) Functional Limitations- ADL's Difficulty sleeping, requiring medications to sleep (ms relaxant) and medication to go back to sleep (melatonin and IBP) Difficutly reaching behind head/back due to pain Difficulty lifting objects ( heavy & light-cup of coffee) and carrying objects ( groceries) due to pain. Personal Factors Other Personal Factors That May Effect Lives alone. Therapy/Recovery History of neck pain Scoliosis PT-OP-C Subjective Start: 11/02/21 15:01 Freq: Status: Active Protocol: Document 11/04/21 12:47 LRN (Rec: 11/04/21 16:18 LRN [id number]) Patient Questionnaires Neck Disability Index NDI Score 16 Neck Disability Index Impairment 20 to 39% Impaired (Score 10- 19) Quick Dash- Upper Extremity Quick Dash UE Score 20.45 Quick Dash UE Impairment 20 to 39% Impaired (Score 20- 39) OP-PT Pain Assessment Pain Assessment Grid Paper Pain Assessment Grid Completed Yes Location R shoulder Pain Location Details Lateral Deltoid and sometimes lateral brachium Description- Other Sore Frequency Intermittent Other Pain Aggravating Factors Lifting arm above the head or lifting/carrying heavy objects Pain Alleviating Factors Medication R head/neck Pain Location Details R side of neck and behind the ear just above the ear. Intensity 7 Scale Used Numeric (0 - 10) Description Sharp,Tender Frequency Constant Other Pain Aggravating Factors Nighttime Pain Alleviating Factors Medication PT-OP-E Functional Tests Start: 11/02/21 15:01 Freq: Status: Active Protocol: Document 11/04/21 12:47 LRN (Rec: 11/04/21 16:18 LRN [id number]) Functional Tests Apley's Scratch Test Action 1- Left Behind scapula Action 1- Right Top of mid shoulder Action 2- Left T5 Action 2- Right T1 Action 3- Left T8 Action 3- Right L5 PT-OP-H Neuro Start: 11/02/21 15:01 Freq: Status: Active Protocol: Document 11/04/21 12:47 LRN (Rec: 11/04/21 16:18 LRN [id number]) Sensation Evaluation Gross Sensation Gross Sensation WNL Deep Tendon Reflex & Clonus Assessment Deep Tendon Reflex Bilateral Patellar Deep Tendon Reflex 3+ Normal But Brisk Bilateral Bicep Deep Tendon Reflex 2+ Normal PT-OP-J Posture/Palpation/Skin Start: 11/02/21 15:01 Freq: Status: Active Protocol: Document 11/04/21 12:47 LRN (Rec: 11/04/21 16:18 LRN [id number]) Posture Evaluation Position Standing Head/C-Spine Posture Forward Head T-Spine Posture Increased Kyphosis L-Spine Posture Flattened Shoulder Posture (R) Elevated Arm Posture (L) Internally Rotated,(R) Internally Rotated PT-OP-K Range of Motion Start: 11/02/21 15:01 Freq: Status: Active Protocol: Document 11/04/21 12:47 LRN (Rec: 11/04/21 16:18 LRN [id number]) Cervical Spine Range of Motion Cervical Spine Active Degrees Testing Position Sitting Flexion 45 Extension 40 Rotation Left 52 Rotation Right 48 Lateral Flexion Left 32 Lateral Flexion Right 40 Comments Pain in lateral R elbow with active extension. Pain on return from L SB Shoulder Goniometric Range of Motion Shoulder Right Active Shoulder ROM WFL No Testing Position Sitting Flexion 150 Extension 155 Internal Rotation Behind Back (text) L5 Comments Reaching behind head: T1 Left Active Shoulder ROM WFL Yes Testing Position Sitting Flexion 175 Extension 180 Internal Rotation Behind Back (text) T8 Comments Reaching behind head: T5 PT-OP-L Special Tests Start: 11/02/21 15:01 Freq: Status: Active Protocol: Document 11/04/21 12:47 LRN (Rec: 11/04/21 16:18 LRN [id number]) Special Tests Cervical Spine Special Tests Spurling's Test Test Results Negative in supine facet syndrome test Test Results Positive R facets of cervical and upper thoracic spine Traction Test Results Positive Comments Reduction in R neck/shoulder pain Foraminal Compression Test Results Negative PT-OP-M Strength Start: 11/02/21 15:01 Freq: Status: Active Protocol: Document 11/04/21 12:47 LRN (Rec: 11/04/21 16:18 LRN [id number]) Cervical Spine Strength Cervical Spine Manual Muscle Testing Testing Position Sitting Comments Generally 5/5. Shoulder Strength Shoulder Manual Muscle Testing Right Flexion 5 Normal Abduction (C5) 5 Normal External Rotation 5 Normal Internal Rotation 5 Normal Comments Pain with Flex & AB Left Flexion 5 Normal Abduction (C5) 5 Normal External Rotation 5 Normal Internal Rotation 5 Normal PT-OP-Q Treatments Start: 11/02/21 15:01 Freq: Status: Active Protocol: Document 11/04/21 12:47 LRN (Rec: 11/04/21 16:18 LRN [id number]) Self-Care/Home Management Treatment Education Patient Education Posture Other Education Discussed results of evaluation, goals, and plan of care (POC). Pt agreeable to goals and POC. Educated pt in proper sleeping and sitting posture. Discussed different strategies to adhere to proper sleeping posturing with use of pillows and towel rolls, and discussed arm positioning. Discussed strategies to adhere to proper sitting posture with use of back support to promote appropriate posturing. PT-OP-T Assessment and Plan Start: 11/02/21 15:01 Freq: Status: Active Protocol: Document 11/04/21 12:47 LRN (Rec: 11/04/21 16:18 LRN [id number]) Physical Therapy Assessment Rehab Potential Rehabilitation Potential Good Evaluation Complexity Number of Personal Factors/Comorbidities 1-2 Number of Body Systems Impaired 4 or More Clinical Presentation at Evaluation Evolving Impairments Impairments Pain,Posture,ROM,Strength Goals Four Impairment R shoulder/neck pain with lifting objects (cup of cofffe and heavier objects), and with carrying objects ( groceries). Short Term Goal (STG) Pt will be able to lift objects (cup of coffee) without pain. STG Duration 12/19/21 Residential Goal (LTG) Pt will be able to carry groceries without pain. LTG Duration 02/02/22 Three Impairment R shoulder/neck pain with reaching behind the head/neck/ opposite shoulder Impairment Reaching behind opposite shoulder: Right-top of middle of shoulder (Left-behind scapula). Reaching Behind head: Right-T1 (Left T5). Reaching Behind back: Right L5 (Left T8) Short Term Goal (STG) Pt will be able to reach behind the head to scratch his back without pain STG Duration 12/19/21 Belt Builder Helper Goal (LTG) Improve pt's ability to reach behind his low back. LTG Duration 02/02/22 Two Impairment Impaired sleep Impairment Pt wakes at least 1 time per night requiring use of medication to go to sleep ( Methocarband), and to fall back to sleep (melatonin, IBP) . Short Term Goal (STG) Pt brooke be able to sleep through the night without pain using pain medications. STG Duration 12/19/21 Residential Goal (LTG) Pt brooke be able to sleep through the night without pain and without use of medications. LTG Duration 02/02/22 One Impairment Pt lacks appropriate self care HEP Short Term Goal (STG) Pt will be educated and consistent with proper posturing for nighttime sleep. STG Duration 11/18/21 Residential Goal (LTG) Pt will be independent with a self care HEP of neck and R shoulder ex's. LTG Duration 02/02/22 Assessment Summary Assessment Pt presents with mechanical dysunction of the R sided cervical spine, cervicothoracic junction, and 1st rib, with decreased neck and R shoulder mobility and pain. Mechanical dysfunction maybe excerbated by his scoliosis, but further assessment is needed. He has soft tissue dysfunction of the R UT and scalenes. The pt complains his pain is a different kind of pain than when he had therapy the last time for his neck. His LE DTR 's appear to be slightly more reflexive than his UE's, and he reports his pain is worse at night. If progress is not made with physical therapy I would recommend further evaluation of the bump behind his R ear due to the pt's cancer history. Physical Therapy Plan Frequency and Duration Frequency of Treatment 3x/Week Plan of Care Start Date 11/04/21 Plan of Care End Date 02/02/22 Therapeutic Interventions Therapeutic Interventions Home Exercise Program,Joint Mobilizations,Manual Therapy, Neuromuscular Re-education, Patient/Caregiver Education, Self-Care/Home Management,Soft Tissue Mobilization,Taping, Therapeutic Activities, Therapeutic Exercises Modalities Cold Pack/Ice Massage,Hot Packs Next Visit Focus/Plan Next Note Type Treatment Note Next Visit Plan Assess scoliosis posture involving the neck, Upper limb tension, and recheck Spurlings Test. Manual: STM to R head/neck/ shoulder, manual cervical traction. JMT to R 1st rib and C/S and T /S. Ther Ex: Stretch Scalenes, scapular depressors, pecs, AROM neck Strengthening: RC, Scapular depressors Correct nighttime poor posturing Educate: Proper posture, HEP (neck and R shoulder ex's.) Modalities: MH/CP due to CA history.
--- NOTE | 2021-11-04 16:54 | PT.OPPOC ---
Physical, Occupational & Speech Therapy At [facility] Current Diagnoses Pain in unspecified shoulder (11/04/21) Postural kyphosis, cervicothoracic region (11/04/21) Cervicalgia (11/04/21) Pain in right arm (11/04/21) Visit Care Team Role Provider Type Bala Dutton MD Attending Provider Physician Family Provider Primary Care Provider Referring Provider Specialty: Internal Medicine Address: [address] [place] [address], [facility] [address], [place], [address] Email: [email or web address] Plan Of Care PT-OP-T Assessment and Plan Start: 11/02/21 15:01 Freq: Status: Active Protocol: Document 11/04/21 12:47 LRN (Rec: 11/04/21 16:18 LRN [id number]) Physical Therapy Assessment Rehab Potential Rehabilitation Potential Good Evaluation Complexity Number of Personal Factors/Comorbidities 1-2 Number of Body Systems Impaired 4 or More Clinical Presentation at Evaluation Evolving Impairments Impairments Pain,Posture,ROM,Strength Goals Four Impairment R shoulder/neck pain with lifting objects (cup of cofffe and heavier objects), and with carrying objects ( groceries). Short Term Goal (STG) Pt will be able to lift objects (cup of coffee) without pain. STG Duration 12/19/21 Hog Killer Goal (LTG) Pt will be able to carry groceries without pain. LTG Duration 02/02/22 Three Impairment R shoulder/neck pain with reaching behind the head/neck/ opposite shoulder Impairment Reaching behind opposite shoulder: Right-top of middle of shoulder (Left-behind scapula). Reaching Behind head: Right-T1 (Left T5). Reaching Behind back: Right L5 (Left T8) Short Term Goal (STG) Pt will be able to reach behind the head to scratch his back without pain STG Duration 12/19/21 [facility] Goal (LTG) Improve pt's ability to reach behind his low back. LTG Duration 02/02/22 Two Impairment Impaired sleep Impairment Pt wakes at least 1 time per night requiring use of medication to go to sleep ( Methocarband), and to fall back to sleep (melatonin, IBP) . Short Term Goal (STG) Pt brooke be able to sleep through the night without pain using pain medications. STG Duration 12/19/21 Hog Killer Goal (LTG) Pt brooke be able to sleep through the night without pain and without use of medications. LTG Duration 02/02/22 One Impairment Pt lacks appropriate self care HEP Short Term Goal (STG) Pt will be educated and consistent with proper posturing for nighttime sleep. STG Duration 11/18/21 Hog Killer Goal (LTG) Pt will be independent with a self care HEP of neck and R shoulder ex's. LTG Duration 02/02/22 Assessment Summary Assessment Pt presents with mechanical dysunction of the R sided cervical spine, cervicothoracic junction, and 1st rib, with decreased neck and R shoulder mobility and pain. Mechanical dysfunction maybe excerbated by his scoliosis, but further assessment is needed. He has soft tissue dysfunction of the R UT and scalenes. The pt complains his pain is a different kind of pain than when he had therapy the last time for his neck. His LE DTR 's appear to be slightly more reflexive than his UE's, and he reports his pain is worse at night. If progress is not made with physical therapy I would recommend further evaluation of the bump behind his R ear due to the pt's cancer history. Physical Therapy Plan Frequency and Duration Frequency of Treatment 3x/Week Plan of Care Start Date 11/04/21 Plan of Care End Date 02/02/22 Therapeutic Interventions Therapeutic Interventions Home Exercise Program,Joint Mobilizations,Manual Therapy, Neuromuscular Re-education, Patient/Caregiver Education, Self-Care/Home Management,Soft Tissue Mobilization,Taping, Therapeutic Activities, Therapeutic Exercises Modalities Cold Pack/Ice Massage,Hot Packs Next Visit Focus/Plan Next Note Type Treatment Note Next Visit Plan Assess scoliosis posture involving the neck, Upper limb tension, and recheck Spurlings Test. Manual: STM to R head/neck/ shoulder, manual cervical traction. JMT to R 1st rib and C/S and T /S. Ther Ex: Stretch Scalenes, scapular depressors, pecs, AROM neck Strengthening: RC, Scapular depressors Correct nighttime poor posturing Educate: Proper posture, HEP (neck and R shoulder ex's.) Modalities: MH/CP due to CA history. Plan of Care Dates Plan of Care Start Date 11/04/21 Plan of Care End Date 02/02/22 Electronically Signed by: Nguyen Cortes, PT 11/04/21 [id number] Please Sign and Return: I have reviewed this Plan of Care and certify that the skilled therapy services above are required to meet the patient?s needs. Physician Signature Date Printed Name and Credentials Clinical Instructor Signature Printed Name and Credentials
--- NOTE | 2021-11-07 13:43 | PT.OTN ---
Current Diagnoses Pain in unspecified shoulder (11/07/21) Postural kyphosis, cervicothoracic region (11/07/21) Cervicalgia (11/07/21) Pain in right arm (11/07/21) Physical Therapy Treatment Note PT-OP-A Visit Information Start: 11/02/21 15:01 Freq: Status: Active Protocol: Document 11/07/21 10:43 LRN (Rec: 11/07/21 13:41 LRN [id number]) Out-Patient Physical Therapy Visit Information Visit Information Visit Type Treatment Note Visit Start Time 10:43 Visit Stop Time 11:19 Total Visit Minutes 36 Visit Number 2 Evaluation Information Evaluation Date 11/04/21 Precautions Precautions Hard of hearing Bladder CA history Back and Neck Pain history & surgical history of Low back Removal of 1/2 of R radius Scoliosis PT-OP-B Current Condition Start: 11/02/21 15:01 Freq: Status: Active Protocol: Document 11/04/21 12:47 LRN (Rec: 11/04/21 16:18 LRN [id number]) Current Condition History of Current Condition Onset Date Jul 2021 Current Complaints R shoulder pain radiating into the R side of neck History of Current Condition Pt reports insidious onset of R shoulder/neck pain. States he has had physical therapy previously for his neck, but the pain is different. He reports his pain is present when picking up heavy objects or when carrying objects. He has pain when reaching behind his head to scratch his back. Pt states he tends to lean left when in sitting, possibly due to scoliosis and has tried to correct his posture, but notes no change in his pain when he does. (Note: pt has lump behind the R ear that he states a surgeon told him was not necessary to surgically remove, physician of unknown specialty) Prior Treatments and Tests Physical therapy for neck pain 2 yrs ago. Muscle Relaxants for pain to help with sleeping. Treatment Goals Patient/Caregiver Goals Pt goal is to: -Be able to sleep throught the night without pain -Eliminate the need for pain medication to sleep -Be able to reach behind the head to scratch his back without pain -Be able to lift objects (cup of coffee) and carry groceries without pain. Prior Functional Status Baseline Function- ADL's Independent Baseline Function- Mobility Independent Baseline Function- Other Able to sleep through the night without medications. No R shoulder/neck pain with reaching behind his back or lifting/carrying objects. Current Functional Impairments (Reported) Functional Limitations- ADL's Difficulty sleeping, requiring medications to sleep (ms relaxant) and medication to go back to sleep (melatonin and IBP) Difficutly reaching behind head/back due to pain Difficulty lifting objects ( heavy & light-cup of coffee) and carrying objects ( groceries) due to pain. Personal Factors Other Personal Factors That May Effect Lives alone. Therapy/Recovery History of neck pain Scoliosis PT-OP-C Subjective Start: 11/02/21 15:01 Freq: Status: Active Protocol: Document 11/07/21 10:43 LRN (Rec: 11/07/21 13:41 LRN [id number]) OP-PT Subjective Patient Comments Patient Comments Sleeping position changed for nighttime and hasn't had any pain, but reaching over the seat to hop picker something in the car had neck pain on the R (UT region). PT-OP-E Functional Tests Start: 11/02/21 15:01 Freq: Status: Active Protocol: Document 11/04/21 12:47 LRN (Rec: 11/04/21 16:18 LRN [id number]) Functional Tests Apley's Scratch Test Action 1- Left Behind scapula Action 1- Right Top of mid shoulder Action 2- Left T5 Action 2- Right T1 Action 3- Left T8 Action 3- Right L5 PT-OP-H Neuro Start: 11/02/21 15:01 Freq: Status: Active Protocol: Document 11/04/21 12:47 LRN (Rec: 11/04/21 16:18 LRN [id number]) Sensation Evaluation Gross Sensation Gross Sensation WNL Deep Tendon Reflex & Clonus Assessment Deep Tendon Reflex Bilateral Patellar Deep Tendon Reflex 3+ Normal But Brisk Bilateral Bicep Deep Tendon Reflex 2+ Normal PT-OP-J Posture/Palpation/Skin Start: 11/02/21 15:01 Freq: Status: Active Protocol: Document 11/04/21 12:47 LRN (Rec: 11/04/21 16:18 LRN [id number]) Posture Evaluation Position Standing Head/C-Spine Posture Forward Head T-Spine Posture Increased Kyphosis L-Spine Posture Flattened Shoulder Posture (R) Elevated Arm Posture (L) Internally Rotated,(R) Internally Rotated PT-OP-K Range of Motion Start: 01/02/22 15:01 Freq: Status: Active Protocol: Document 11/04/21 12:47 LRN (Rec: 11/04/21 16:18 LRN [id number]) Cervical Spine Range of Motion Cervical Spine Active Degrees Testing Position Sitting Flexion 45 Extension 40 Rotation Left 52 Rotation Right 48 Lateral Flexion Left 32 Lateral Flexion Right 40 Comments Pain in lateral R elbow with active extension. Pain on return from L SB Shoulder Goniometric Range of Motion Shoulder Right Active Shoulder ROM WFL No Testing Position Sitting Flexion 150 Extension 155 Internal Rotation Behind Back (text) L5 Comments Reaching behind head: T1 Left Active Shoulder ROM WFL Yes Testing Position Sitting Flexion 175 Extension 180 Internal Rotation Behind Back (text) T8 Comments Reaching behind head: T5 PT-OP-L Special Tests Start: 11/02/21 15:01 Freq: Status: Active Protocol: Document 11/04/21 12:47 LRN (Rec: 11/04/21 16:18 LRN [id number]) Special Tests Cervical Spine Special Tests Spurling's Test Test Results Negative in supine facet syndrome test Test Results Positive R facets of cervical and upper thoracic spine Traction Test Results Positive Comments Reduction in R neck/shoulder pain Foraminal Compression Test Results Negative PT-OP-M Strength Start: 11/02/21 15:01 Freq: Status: Active Protocol: Document 11/04/21 12:47 LRN (Rec: 11/04/21 16:18 LRN [id number]) Cervical Spine Strength Cervical Spine Manual Muscle Testing Testing Position Sitting Comments Generally 5/5. Shoulder Strength Shoulder Manual Muscle Testing Right Flexion 5 Normal Abduction (C5) 5 Normal External Rotation 5 Normal Internal Rotation 5 Normal Comments Pain with Flex & AB Left Flexion 5 Normal Abduction (C5) 5 Normal External Rotation 5 Normal Internal Rotation 5 Normal PT-OP-Q Treatments Start: 11/02/21 15:01 Freq: Status: Active Protocol: Document 11/07/21 10:43 LRN (Rec: 11/07/21 13:41 LRN [id number]) Therapeutic Exercises Supine Exercises R shoulder Supine Exercise Name Pec stretch Side right Reps/Minutes 4' Standing Exercises Shoulder ER/IR Standing Exercise Name AROM shoulder ER/IR Side bilateral Reps/Minutes 4' Comments v cuing for slow equal mvmt w/ o elevation of R shoulder. Manual Therapy Treatment Soft Tissue Mobilization R UT Body Location R UT Mobilization Type Trigger Point Release Intensity/Depth Moderate Body Position Prone Comments 15' Joint Mobilizations PA mob Joint PA of Clavicle, rib 1 at sternum Direction Balancing at C7, T1 Body Position Supine Manual Traction Cervical distraction Details Manual C traction Comments 4' PT-OP-T Assessment and Plan Start: 11/02/21 15:01 Freq: Status: Active Protocol: Document 11/07/21 10:43 LRN (Rec: 11/07/21 13:41 LRN [id number]) Physical Therapy Assessment Goals Four Impairment Decreased functional strength due to R shoulder pain Impairment R shoulder/neck pain with lifting objects (cup of cofffe and heavier objects), and with carrying objects ( groceries). Short Term Goal (STG) Pt will be able to lift objects (cup of coffee) without pain. STG Duration 12/19/21 Construction Rigger Goal (LTG) Pt will be able to carry groceries without pain. LTG Duration 02/02/22 Three Impairment R shoulder/neck pain with reaching behind the head/neck/ opposite shoulder Impairment Reaching behind opposite shoulder: Right-top of middle of shoulder (Left-behind scapula). Reaching Behind head: Right-T1 (Left T5). Reaching Behind back: Right L5 (Left T8) Short Term Goal (STG) Pt will be able to reach behind the head to scratch his back without pain STG Duration 12/19/21 Construction Rigger Goal (LTG) Improve pt's ability to reach behind his low back. LTG Duration 02/02/22 Two Impairment Impaired sleep Impairment Pt wakes at least 1 time per night requiring use of medication to go to sleep ( Methocarband), and to fall back to sleep (melatonin, IBP) . Short Term Goal (STG) Pt brooke be able to sleep through the night without pain using pain medications. STG Duration 12/19/21 Retirement Goal (LTG) Pt brooke be able to sleep through the night without pain and without use of medications. LTG Duration 02/02/22 One Impairment Pt lacks appropriate self care HEP Short Term Goal (STG) Pt will be educated and consistent with proper posturing for nighttime sleep. (11/07/21: Pt educated and is trying to stay consistent with proper nighttime positioning) . STG Duration 11/18/21 (11/07/21: Progressed ) Retirement Goal (LTG) Pt will be independent with a self care HEP of neck and R shoulder ex's. LTG Duration 02/02/22 Progress Towards Goals Progress Comments Lessening onset of R neck/ shoulder pain with changing of nighttime positioning. Assessment Summary Assessment Standing, pt demonstrates minimal scoliosis, primarily appears to be in the lower back causing lean to left. Elevated R shoulder possibly due to pain/tightness. In sup , pt able to be placed in position with R arm in AB/ER ( reaching fingers to head) without pain. Although R pecs appear tight, pt did not feel stretch. Palpable nodule in R upper neck in paraspinal region that was not muscular. Pt may need asssessment if changes noted. Pt I/S to notify MD of new nodule in R side of neck. Pt was emotionally labile today while talking of not using pillow to support arm because his spouse was his support; therefore session ended early. Pt holding emotions may slow his recovery by not allowing him to try substitute ways of positioning. Manual C. traction helped relieve tension in ms of the back and neck. Physical Therapy Plan Frequency and Duration Frequency of Treatment 3x/Week Plan of Care Start Date 11/04/21 Plan of Care End Date 02/02/22 Next Visit Focus/Plan Next Note Type Treatment Note Next Visit Plan Assess Upper limb tension, and recheck Spurlings Test. Manual: STM to R head/neck/ shoulder, manual cervical traction. JMT to R 1st rib and C/S and T /S. Add Ther Ex: Stretch Scalenes, scapular depressors, pecs, AROM neck Strengthening: RC, Scapular depressors Assess if nighttime poor posturing, ongoingly corrected. Educate: Proper posture, HEP (neck and R shoulder ex's -RC. ) Modalities: MH/CP due to CA history.
--- NOTE | 2021-11-11 12:37 | PT.OTN ---
Current Diagnoses Pain in unspecified shoulder (11/11/21) Postural kyphosis, cervicothoracic region (11/11/21) Cervicalgia (11/11/21) Pain in right arm (11/11/21) Physical Therapy Treatment Note PT-OP-A Visit Information Start: 11/02/21 15:01 Freq: Status: Active Protocol: Document 11/11/21 10:32 LRN (Rec: 11/11/21 12:36 LRN [id number]) Out-Patient Physical Therapy Visit Information Visit Information Visit Type Treatment Note Visit Start Time 10:32 Visit Stop Time 11:22 Total Visit Minutes 50 Visit Number 4 Evaluation Information Evaluation Date 11/04/21 Precautions Precautions Hard of hearing Bladder CA history Back and Neck Pain history & surgical history of Low back Removal of 1/2 of R radius Scoliosis PT-OP-B Current Condition Start: 11/02/21 15:01 Freq: Status: Active Protocol: Document 11/04/21 12:47 LRN (Rec: 11/04/21 16:18 LRN [id number]) Current Condition History of Current Condition Onset Date Jul 2021 Current Complaints R shoulder pain radiating into the R side of neck History of Current Condition Pt reports insidious onset of R shoulder/neck pain. States he has had physical therapy previously for his neck, but the pain is different. He reports his pain is present when picking up heavy objects or when carrying objects. He has pain when reaching behind his head to scratch his back. Pt states he tends to lean left when in sitting, possibly due to scoliosis and has tried to correct his posture, but notes no change in his pain when he does. (Note: pt has lump behind the R ear that he states a surgeon told him was not necessary to surgically remove, physician of unknown specialty) Prior Treatments and Tests Physical therapy for neck pain 2 yrs ago. Muscle Relaxants for pain to help with sleeping. Treatment Goals Patient/Caregiver Goals Pt goal is to: -Be able to sleep throught the night without pain -Eliminate the need for pain medication to sleep -Be able to reach behind the head to scratch his back without pain -Be able to lift objects (cup of coffee) and carry groceries without pain. Prior Functional Status Baseline Function- ADL's Independent Baseline Function- Mobility Independent Baseline Function- Other Able to sleep through the night without medications. No R shoulder/neck pain with reaching behind his back or lifting/carrying objects. Current Functional Impairments (Reported) Functional Limitations- ADL's Difficulty sleeping, requiring medications to sleep (ms relaxant) and medication to go back to sleep (melatonin and IBP) Difficutly reaching behind head/back due to pain Difficulty lifting objects ( heavy & light-cup of coffee) and carrying objects ( groceries) due to pain. Personal Factors Other Personal Factors That May Effect Lives alone. Therapy/Recovery History of neck pain Scoliosis PT-OP-C Subjective Start: 11/02/21 15:01 Freq: Status: Active Protocol: Document 11/11/21 10:32 LRN (Rec: 11/11/21 12:36 LRN [id number]) OP-PT Subjective Patient Comments Patient Comments States since last in he has been able to sleep better without the pain. This morning was reaching forward with hand and had the pain in the R shoulder. The day before was doing housecleaning with R hand (R dominant). Trying to change the way he is sleeping at night. PT-OP-E Functional Tests Start: 11/02/21 15:01 Freq: Status: Active Protocol: Document 11/04/21 12:47 LRN (Rec: 11/04/21 16:18 LRN [id number]) Functional Tests Apley's Scratch Test Action 1- Left Behind scapula Action 1- Right Top of mid shoulder Action 2- Left T5 Action 2- Right T1 Action 3- Left T8 Action 3- Right L5 PT-OP-H Neuro Start: 11/02/21 15:01 Freq: Status: Active Protocol: Document 11/04/21 12:47 LRN (Rec: 11/04/21 16:18 LRN [id number]) Sensation Evaluation Gross Sensation Gross Sensation WNL Deep Tendon Reflex & Clonus Assessment Deep Tendon Reflex Bilateral Patellar Deep Tendon Reflex 3+ Normal But Brisk Bilateral Bicep Deep Tendon Reflex 2+ Normal PT-OP-J Posture/Palpation/Skin Start: 11/02/21 15:01 Freq: Status: Active Protocol: Document 11/04/21 12:47 LRN (Rec: 11/04/21 16:18 LRN [id number]) Posture Evaluation Position Standing Head/C-Spine Posture Forward Head T-Spine Posture Increased Kyphosis L-Spine Posture Flattened Shoulder Posture (R) Elevated Arm Posture (L) Internally Rotated,(R) Internally Rotated PT-OP-K Range of Motion Start: 11/02/21 15:01 Freq: Status: Active Protocol: Document 11/04/21 12:47 LRN (Rec: 11/04/21 16:18 LRN [id number]) Cervical Spine Range of Motion Cervical Spine Active Degrees Testing Position Sitting Flexion 45 Extension 40 Rotation Left 52 Rotation Right 48 Lateral Flexion Left 32 Lateral Flexion Right 40 Comments Pain in lateral R elbow with active extension. Pain on return from L SB Shoulder Goniometric Range of Motion Shoulder Right Active Shoulder ROM WFL No Testing Position Sitting Flexion 150 Extension 155 Internal Rotation Behind Back (text) L5 Comments Reaching behind head: T1 Left Active Shoulder ROM WFL Yes Testing Position Sitting Flexion 175 Extension 180 Internal Rotation Behind Back (text) T8 Comments Reaching behind head: T5 PT-OP-L Special Tests Start: 11/02/21 15:01 Freq: Status: Active Protocol: Document 11/04/21 12:47 LRN (Rec: 11/04/21 16:18 LRN [id number]) Special Tests Cervical Spine Special Tests Spurling's Test Test Results Negative in supine facet syndrome test Test Results Positive R facets of cervical and upper thoracic spine Traction Test Results Positive Comments Reduction in R neck/shoulder pain Foraminal Compression Test Results Negative PT-OP-M Strength Start: 11/02/21 15:01 Freq: Status: Active Protocol: Document 11/04/21 12:47 LRN (Rec: 11/04/21 16:18 LRN [id number]) Cervical Spine Strength Cervical Spine Manual Muscle Testing Testing Position Sitting Comments Generally 5/5. Shoulder Strength Shoulder Manual Muscle Testing Right Flexion 5 Normal Abduction (C5) 5 Normal External Rotation 5 Normal Internal Rotation 5 Normal Comments Pain with Flex & AB Left Flexion 5 Normal Abduction (C5) 5 Normal External Rotation 5 Normal Internal Rotation 5 Normal PT-OP-Q Treatments Start: 11/02/21 15:01 Freq: Status: Active Protocol: Document 11/11/21 10:32 LRN (Rec: 11/11/21 12:36 LRN [id number]) Therapeutic Exercises Supine Exercises Deep C Neck Flexors Supine Exercise Name Chin Tuck switching to Neck Elongation Reps/Minutes 6' Comments Much phy & v cuing needed for neck elongation training R shoulder Supine Exercise Name Windshield wipe with purpose Side bilateral Reps/Minutes 30x Manual Therapy Treatment Soft Tissue Mobilization R UT Body Location R UT Mobilization Type Trigger Point Release Intensity/Depth Moderate Body Position Prone Comments 15' Joint Mobilizations Stenoclavicular jt Joint SCJ of T2, T3. Direction Approximation/Balancing Body Position Hooklying PA mob Joint PA of Clavicle, rib 1 at sternum Direction Balancing at C7, T1 Body Position Supine Manual Traction Cervical distraction Details Manual C traction Body Position Hooklying Reps/Duration 8 Comments Pt had no R shoulder/neck pain after treatment. Self-Care/Home Management Treatment Education Patient Education Home Exercise Program,Posture Other Education Posture education and discussion of nighttime sleep positioing in supine with use of towel rolls (first under neck, then on sides of head. Discussed proper head/neck positioning in sitting and Education in standing with physical cuing to top of head and sternum for better posturing. Activities Self-Care/Home Management Activities HEP issued & reviewed for Neck ex (elongation vs chin tuck) and standing posture training at wall. Hold on active neck rot/SB. PT-OP-T Assessment and Plan Start: 11/02/21 15:01 Freq: Status: Active Protocol: Document 11/11/21 10:32 LRN (Rec: 11/11/21 12:36 LRN [id number]) Physical Therapy Assessment Goals Four Impairment Decreased functional strength due to R shoulder pain Impairment R shoulder/neck pain with lifting objects (cup of cofffe and heavier objects), and with carrying objects ( groceries). Short Term Goal (STG) Pt will be able to lift objects (cup of coffee) without pain. STG Duration 12/19/21 Half-Way Goal (LTG) Pt will be able to carry groceries without pain. LTG Duration 02/02/22 Three Impairment R shoulder/neck pain with reaching behind the head/neck/ opposite shoulder Impairment Reaching behind opposite shoulder: Right-top of middle of shoulder (Left-behind scapula). Reaching Behind head: Right-T1 (Left T5). Reaching Behind back: Right L5 (Left T8) Short Term Goal (STG) Pt will be able to reach behind the head to scratch his back without pain STG Duration 12/19/21 [employer] Vessel Pilot Goal (LTG) Improve pt's ability to reach behind his low back. LTG Duration 02/02/22 Two Impairment Impaired sleep Impairment Pt wakes at least 1 time per night requiring use of medication to go to sleep ( Methocarband), and to fall back to sleep (melatonin, IBP) . Short Term Goal (STG) Pt brooke be able to sleep through the night without pain using pain medications. STG Duration 12/19/21 [employer] Vessel Pilot Goal (LTG) Pt brooke be able to sleep through the night without pain and without use of medications. LTG Duration 02/02/22 One Impairment Pt lacks appropriate self care HEP Short Term Goal (STG) Pt will be educated and consistent with proper posturing for nighttime sleep. (11/07/21: Pt educated and is trying to stay consistent with proper nighttime positioning) . 11/11/21: Further education in nighttime sleeping positioning) STG Duration 11/18/21 (11/11/21: Progressed) [employer] Vessel Pilot Goal (LTG) Pt will be independent with a self care HEP of neck and R shoulder ex's. LTG Duration 02/02/22 Progress Towards Goals Progress Comments Progressed education for support of head/neck for nighttime positioning. Assessment Summary Assessment Pt did not appear to have R upper limb tension, but possibly due to chronic R elbow flexion contracture. Spurlings Test was + indicating cervical involvement. Pt had + reponse to manual C. tx with resolution of pain while in supine. Some discomfort returned after transferring to standing. Pt is very receptive to nighttime positional changes. R 1st rib was elevated and chest is L rotated. Improved C7T1 positioning in supine after manual therapy. Physical Therapy Plan Frequency and Duration Frequency of Treatment 3x/Week Plan of Care Start Date 11/04/21 Plan of Care End Date 02/02/22 Next Visit Focus/Plan Next Note Type Treatment Note Next Visit Plan Assess progress towards goals. Manual: Cervial traction for R neck/shoulder pain. STM to R head/neck/shoulder. JMT to R 1st rib and C/S and T /S. Add Ther Ex: Stretch Scalenes, scapular depressors, pecs, AROM neck Strengthening: RC, Scapular depressors Assess if nighttime poor posturing, ongoingly corrected. Educate: HEP (neck and R shoulder ex's -RC.) Modalities: MH/CP due to CA history.
--- NOTE | 2021-11-14 13:03 | PT.OTN ---
Current Diagnoses Pain in unspecified shoulder (11/14/21) Postural kyphosis, cervicothoracic region (11/14/21) Cervicalgia (11/14/21) Pain in right arm (11/14/21) Physical Therapy Treatment Note PT-OP-A Visit Information Start: 11/02/21 15:01 Freq: Status: Active Protocol: Document 11/14/21 12:17 SP (Rec: 11/14/21 14:59 SP [id number]) Out-Patient Physical Therapy Visit Information Visit Information Visit Type Treatment Note Visit Start Time 12:17 Visit Stop Time 13:03 Total Visit Minutes 46 Visit Number 5 Number of QUALITY IMPROVEMENT COORDINATOR Visits 1 Evaluation Information Evaluation Date 11/04/21 Precautions Precautions Hard of hearing Bladder CA history Back and Neck Pain history & surgical history of Low back Removal of 1/2 of R radius Scoliosis PT-OP-B Current Condition Start: 11/02/21 15:01 Freq: Status: Active Protocol: Document 11/04/21 12:47 LRN (Rec: 11/04/21 16:18 LRN [id number]) Current Condition History of Current Condition Onset Date Jul 2021 Current Complaints R shoulder pain radiating into the R side of neck History of Current Condition Pt reports insidious onset of R shoulder/neck pain. States he has had physical therapy previously for his neck, but the pain is different. He reports his pain is present when picking up heavy objects or when carrying objects. He has pain when reaching behind his head to scratch his back. Pt states he tends to lean left when in sitting, possibly due to scoliosis and has tried to correct his posture, but notes no change in his pain when he does. (Note: pt has lump behind the R ear that he states a surgeon told him was not necessary to surgically remove, physician of unknown specialty) Prior Treatments and Tests Physical therapy for neck pain 2 yrs ago. Muscle Relaxants for pain to help with sleeping. Treatment Goals Patient/Caregiver Goals Pt goal is to: -Be able to sleep throught the night without pain -Eliminate the need for pain medication to sleep -Be able to reach behind the head to scratch his back without pain -Be able to lift objects (cup of coffee) and carry groceries without pain. Prior Functional Status Baseline Function- ADL's Independent Baseline Function- Mobility Independent Baseline Function- Other Able to sleep through the night without medications. No R shoulder/neck pain with reaching behind his back or lifting/carrying objects. Current Functional Impairments (Reported) Functional Limitations- ADL's Difficulty sleeping, requiring medications to sleep (ms relaxant) and medication to go back to sleep (melatonin and IBP) Difficutly reaching behind head/back due to pain Difficulty lifting objects ( heavy & light-cup of coffee) and carrying objects ( groceries) due to pain. Personal Factors Other Personal Factors That May Effect Lives alone. Therapy/Recovery History of neck pain Scoliosis PT-OP-C Subjective Start: 11/02/21 15:01 Freq: Status: Active Protocol: Document 11/14/21 12:17 SP (Rec: 11/14/21 14:59 SP [id number]) OP-PT Subjective Patient Comments Patient Comments Pt reported having good and bad nights lately. He had a MHP over neck and R shld 2 nights ago and slept through the night 10 hrs, which is unheard of for him. Didnt' last night and didn't sleep as well. This am rubbing towel over R shld caused pain and never felt before but if rubs over R shld when arrived is fine. PT-OP-E Functional Tests Start: 11/02/21 15:01 Freq: Status: Active Protocol: Document 11/04/21 12:47 LRN (Rec: 11/04/21 16:18 LRN [id number]) Functional Tests Apley's Scratch Test Action 1- Left Behind scapula Action 1- Right Top of mid shoulder Action 2- Left T5 Action 2- Right T1 Action 3- Left T8 Action 3- Right L5 PT-OP-H Neuro Start: 11/02/21 15:01 Freq: Status: Active Protocol: Document 11/04/21 12:47 LRN (Rec: 11/04/21 16:18 LRN [id number]) Sensation Evaluation Gross Sensation Gross Sensation WNL Deep Tendon Reflex & Clonus Assessment Deep Tendon Reflex Bilateral Patellar Deep Tendon Reflex 3+ Normal But Brisk Bilateral Bicep Deep Tendon Reflex 2+ Normal PT-OP-J Posture/Palpation/Skin Start: 11/02/21 15:01 Freq: Status: Active Protocol: Document 11/04/21 12:47 LRN (Rec: 11/04/21 16:18 LRN [id number]) Posture Evaluation Position Standing Head/C-Spine Posture Forward Head T-Spine Posture Increased Kyphosis L-Spine Posture Flattened Shoulder Posture (R) Elevated Arm Posture (L) Internally Rotated,(R) Internally Rotated PT-OP-K Range of Motion Start: 11/02/21 15:01 Freq: Status: Active Protocol: Document 11/04/21 12:47 LRN (Rec: 11/04/21 16:18 LRN [id number]) Cervical Spine Range of Motion Cervical Spine Active Degrees Testing Position Sitting Flexion 45 Extension 40 Rotation Left 52 Rotation Right 48 Lateral Flexion Left 32 Lateral Flexion Right 40 Comments Pain in lateral R elbow with active extension. Pain on return from L SB Shoulder Goniometric Range of Motion Shoulder Right Active Shoulder ROM WFL No Testing Position Sitting Flexion 150 Extension 155 Internal Rotation Behind Back (text) L5 Comments Reaching behind head: T1 Left Active Shoulder ROM WFL Yes Testing Position Sitting Flexion 175 Extension 180 Internal Rotation Behind Back (text) T8 Comments Reaching behind head: T5 PT-OP-L Special Tests Start: 11/02/21 15:01 Freq: Status: Active Protocol: Document 11/04/21 12:47 LRN (Rec: 11/04/21 16:18 LRN [id number]) Special Tests Cervical Spine Special Tests Spurling's Test Test Results Negative in supine facet syndrome test Test Results Positive R facets of cervical and upper thoracic spine Traction Test Results Positive Comments Reduction in R neck/shoulder pain Foraminal Compression Test Results Negative PT-OP-M Strength Start: 11/02/21 15:01 Freq: Status: Active Protocol: Document 11/04/21 12:47 LRN (Rec: 11/04/21 16:18 LRN [id number]) Cervical Spine Strength Cervical Spine Manual Muscle Testing Testing Position Sitting Comments Generally 5/5. Shoulder Strength Shoulder Manual Muscle Testing Right Flexion 5 Normal Abduction (C5) 5 Normal External Rotation 5 Normal Internal Rotation 5 Normal Comments Pain with Flex & AB Left Flexion 5 Normal Abduction (C5) 5 Normal External Rotation 5 Normal Internal Rotation 5 Normal PT-OP-Q Treatments Start: 11/02/21 15:01 Freq: Status: Active Protocol: Document 11/14/21 12:17 SP (Rec: 11/14/21 14:59 SP [id number]) Therapeutic Exercises Supine Exercises Self STMs Supine Exercise Name HEP past review: neck flex/ext Equipment Used over double racquetball in sock, (small range nods) Reps/Minutes 1 min Comments good form, felt good massage to neck muscles Deep C Neck Flexors Supine Exercise Name Neck Elongation good form Equipment Used supine, elongation then head nods Comments occasional cue for neck elongation training R shoulder Supine Exercise Name Windshield wipe with purpose Side bilateral Resistance HEP review Reps/Minutes 30x Comments good form and painfree range. Standing Exercises Shoulder ER/IR Standing Exercise Name AROM shoulder ER/IR Side bilateral Comments occasional cues for slow equal mvmt w/o elevation of R shoulder. Manual Therapy Treatment Soft Tissue Mobilization Rhomboids, infraspinatus Body Location R>L Mobilization Type Instrument Assisted,Rolling, Sustained Pressure,Trigger Point Release Intensity/Depth Moderate Body Position Standing Comments MWM ball on wall R UT Body Location R UT Mobilization Type Myofascial Release,Sustained Pressure,Trigger Point Release ,Other Intensity/Depth Moderate Body Position Prone Comments manual and instruct theracane, over double ball suboccipital Body Location R>L suboccipital, SOR Mobilization Type Strumming,Sustained Pressure, Trigger Point Release Intensity/Depth Superficial Body Position Supine Comments manual and instruct theracane, over double ball L trap, levator scap Body Location R>L Mobilization Type Sustained Pressure,Trigger Point Release Intensity/Depth Superficial Body Position Supine Comments manual and instruct theracance , over double ball Self-Care/Home Management Treatment Education Patient Education Home Exercise Program,Posture Other Education Posture education and discussion of nighttime sleep positioning in supine with use of towel rolls (first under neck, then on sides of head. Also sidelying folded towel under ribcage support decrease shld pressure at bed/ mat, noodle in pillow case and with pillow depth head neutral, pillows between knees and behind back, painfree on shld laying on. Discussed proper head/neck positioning in sitting. Education in standing with physical cuing to top of head and sternum for better posturing. PT-OP-T Assessment and Plan Start: 11/02/21 15:01 Freq: Status: Active Protocol: Document 11/14/21 12:17 SP (Rec: 11/14/21 14:59 SP [id number]) Physical Therapy Assessment Goals Four Impairment Decreased functional strength due to R shoulder pain Impairment R shoulder/neck pain with lifting objects (cup of cofffe and heavier objects), and with carrying objects ( groceries). Short Term Goal (STG) Pt will be able to lift objects (cup of coffee) without pain. STG Duration 12/19/21 Water Quality Specialist Goal (LTG) Pt will be able to carry groceries without pain. LTG Duration 02/02/22 Three Impairment R shoulder/neck pain with reaching behind the head/neck/ opposite shoulder Impairment Reaching behind opposite shoulder: Right-top of middle of shoulder (Left-behind scapula). Reaching Behind head: Right-T1 (Left T5). Reaching Behind back: Right L5 (Left T8) Short Term Goal (STG) Pt will be able to reach behind the head to scratch his back without pain STG Duration 12/19/21 Jail Goal (LTG) Improve pt's ability to reach behind his low back. LTG Duration 02/02/22 Two Impairment Impaired sleep Impairment Pt wakes at least 1 time per night requiring use of medication to go to sleep ( Methocarband), and to fall back to sleep (melatonin, IBP) . 11/14/21: pt able to sleep 10 hrs 2 nights ago with MHP behind neck draped over R shld painfree. Short Term Goal (STG) Pt brooke be able to sleep through the night without pain using pain medications. STG Duration 12/19/21 Jail Goal (LTG) Pt will be able to sleep through the night without pain and without use of medications. LTG Duration 02/02/22 One Impairment Pt lacks appropriate self care HEP Short Term Goal (STG) Pt will be educated and consistent with proper posturing for nighttime sleep. (11/07/21: Pt educated and is trying to stay consistent with proper nighttime positioning) . 11/11/21: Further education in nighttime sleeping positioning) 11/14/21: further ed nighttime sleep positioning w/ pillows/ noodle/folded towel. STG Duration 11/18/21 (11/11/21: Progressed) Water Quality Specialist Goal (LTG) Pt will be independent with a self care HEP of neck and R shoulder ex's. LTG Duration 02/02/22 Assessment Summary Assessment Pt reported use of pillows during tx gave painfree support supine and sidelying, has foam noodle/piping insulation piece approx same size. Will assess sleeping supine/side and pillows w/ MHP tonight and see how sleeps. Pt responded well to manual and self STMs ball on wall and theracane for carryover application at home. REviewed HEP supine R shld with no pain . Physical Therapy Plan Frequency and Duration Frequency of Treatment 3x/Week Plan of Care Start Date 11/04/21 Plan of Care End Date 02/02/22 Therapeutic Interventions Therapeutic Interventions Home Exercise Program,Joint Mobilizations,Manual Therapy, Neuromuscular Re-education, Patient/Caregiver Education, Self-Care/Home Management,Soft Tissue Mobilization,Taping, Therapeutic Activities, Therapeutic Exercises Modalities Cold Pack/Ice Massage,Hot Packs Next Visit Focus/Plan Next Note Type Treatment Note Next Visit Plan Assess progress towards goals. Manual: Cervial traction for R neck/shoulder pain. STM to R head/neck/shoulder. JMT to R 1st rib and C/S and T /S. Add Ther Ex: Stretch Scalenes, scapular depressors, pecs, AROM neck Strengthening: RC, Scapular depressors Assess if nighttime poor posturing, ongoingly corrected. Educate: HEP (neck and R shoulder ex's -RC.) Modalities: MH/CP due to CA history.
--- NOTE | 2021-11-18 16:33 | PT.OTN ---
Current Diagnoses Pain in unspecified shoulder (11/18/21) Postural kyphosis, cervicothoracic region (11/18/21) Cervicalgia (11/18/21) Pain in right arm (11/18/21) Physical Therapy Treatment Note PT-OP-A Visit Information Start: 11/02/21 15:01 Freq: Status: Active Protocol: Document 11/18/21 10:37 LRN (Rec: 11/18/21 11:20 LRN [id number]) Out-Patient Physical Therapy Visit Information Visit Information Visit Type Treatment Note Visit Start Time 10:39 Visit Stop Time 11:17 Total Visit Minutes 38 Visit Number 6 Evaluation Information Evaluation Date 11/04/21 Precautions Precautions Hard of hearing Bladder CA history Back and Neck Pain history & surgical history of Low back Removal of 1/2 of R radius Scoliosis PT-OP-B Current Condition Start: 11/02/21 15:01 Freq: Status: Active Protocol: Document 11/04/21 12:47 LRN (Rec: 11/04/21 16:18 LRN [id number]) Current Condition History of Current Condition Onset Date Jul 2021 Current Complaints R shoulder pain radiating into the R side of neck History of Current Condition Pt reports insidious onset of R shoulder/neck pain. States he has had physical therapy previously for his neck, but the pain is different. He reports his pain is present when picking up heavy objects or when carrying objects. He has pain when reaching behind his head to scratch his back. Pt states he tends to lean left when in sitting, possibly due to scoliosis and has tried to correct his posture, but notes no change in his pain when he does. (Note: pt has lump behind the R ear that he states a surgeon told him was not necessary to surgically remove, physician of unknown specialty) Prior Treatments and Tests Physical therapy for neck pain 2 yrs ago. Muscle Relaxants for pain to help with sleeping. Treatment Goals Patient/Caregiver Goals Pt goal is to: -Be able to sleep throught the night without pain -Eliminate the need for pain medication to sleep -Be able to reach behind the head to scratch his back without pain -Be able to lift objects (cup of coffee) and carry groceries without pain. Prior Functional Status Baseline Function- ADL's Independent Baseline Function- Mobility Independent Baseline Function- Other Able to sleep through the night without medications. No R shoulder/neck pain with reaching behind his back or lifting/carrying objects. Current Functional Impairments (Reported) Functional Limitations- ADL's Difficulty sleeping, requiring medications to sleep (ms relaxant) and medication to go back to sleep (melatonin and IBP) Difficutly reaching behind head/back due to pain Difficulty lifting objects ( heavy & light-cup of coffee) and carrying objects ( groceries) due to pain. Personal Factors Other Personal Factors That May Effect Lives alone. Therapy/Recovery History of neck pain Scoliosis PT-OP-C Subjective Start: 11/02/21 15:01 Freq: Status: Active Protocol: Document 11/18/21 10:37 LRN (Rec: 11/18/21 11:20 LRN [id number]) OP-PT Subjective Patient Comments Patient Comments Went to a larger and more firm pillow and one night was good , the next night was bad. Use of heat was helpful. Pain in R neck/upper shoulder 5/10. s/p therapy pain is 4/10, but increased with Scalene stretch and added L brachial pain. PT-OP-E Functional Tests Start: 11/02/21 15:01 Freq: Status: Active Protocol: Document 11/04/21 12:47 LRN (Rec: 11/04/21 16:18 LRN [id number]) Functional Tests Apley's Scratch Test Action 1- Left Behind scapula Action 1- Right Top of mid shoulder Action 2- Left T5 Action 2- Right T1 Action 3- Left T8 Action 3- Right L5 PT-OP-H Neuro Start: 11/02/21 15:01 Freq: Status: Active Protocol: Document 11/04/21 12:47 LRN (Rec: 11/04/21 16:18 LRN [id number]) Sensation Evaluation Gross Sensation Gross Sensation WNL Deep Tendon Reflex & Clonus Assessment Deep Tendon Reflex Bilateral Patellar Deep Tendon Reflex 3+ Normal But Brisk Bilateral Bicep Deep Tendon Reflex 2+ Normal PT-OP-J Posture/Palpation/Skin Start: 11/02/21 15:01 Freq: Status: Active Protocol: Document 11/04/21 12:47 LRN (Rec: 11/04/21 16:18 LRN [id number]) Posture Evaluation Position Standing Head/C-Spine Posture Forward Head T-Spine Posture Increased Kyphosis L-Spine Posture Flattened Shoulder Posture (R) Elevated Arm Posture (L) Internally Rotated,(R) Internally Rotated PT-OP-K Range of Motion Start: 11/02/21 15:01 Freq: Status: Active Protocol: Document 11/04/21 12:47 LRN (Rec: 11/04/21 16:18 LRN [id number]) Cervical Spine Range of Motion Cervical Spine Active Degrees Testing Position Sitting Flexion 45 Extension 40 Rotation Left 52 Rotation Right 48 Lateral Flexion Left 32 Lateral Flexion Right 40 Comments Pain in lateral R elbow with active extension. Pain on return from L SB Shoulder Goniometric Range of Motion Shoulder Right Active Shoulder ROM WFL No Testing Position Sitting Flexion 150 Extension 155 Internal Rotation Behind Back (text) L5 Comments Reaching behind head: T1 Left Active Shoulder ROM WFL Yes Testing Position Sitting Flexion 175 Extension 180 Internal Rotation Behind Back (text) T8 Comments Reaching behind head: T5 PT-OP-L Special Tests Start: 11/02/21 15:01 Freq: Status: Active Protocol: Document 11/04/21 12:47 LRN (Rec: 11/04/21 16:18 LRN [id number]) Special Tests Cervical Spine Special Tests Spurling's Test Test Results Negative in supine facet syndrome test Test Results Positive R facets of cervical and upper thoracic spine Traction Test Results Positive Comments Reduction in R neck/shoulder pain Foraminal Compression Test Results Negative PT-OP-M Strength Start: 11/02/21 15:01 Freq: Status: Active Protocol: Document 11/04/21 12:47 LRN (Rec: 11/04/21 16:18 LRN [id number]) Cervical Spine Strength Cervical Spine Manual Muscle Testing Testing Position Sitting Comments Generally 5/5. Shoulder Strength Shoulder Manual Muscle Testing Right Flexion 5 Normal Abduction (C5) 5 Normal External Rotation 5 Normal Internal Rotation 5 Normal Comments Pain with Flex & AB Left Flexion 5 Normal Abduction (C5) 5 Normal External Rotation 5 Normal Internal Rotation 5 Normal PT-OP-Q Treatments Start: 11/02/21 15:01 Freq: Status: Active Protocol: Document 11/18/21 10:37 LRN (Rec: 11/18/21 11:20 LRN [id number]) Therapeutic Exercises Sitting Exercises Scalene stretch Sitting Exercise Name Scalene stretch w/towel Side bilateral Reps/Minutes 6' Comments Much cuing needed to get proper stretch position, DC'd due to incr UT pn Shldr rolls Sitting Exercise Name Shldr rolls fwd & bkwd. DC'd Bkwd due to T/S pain Side bilateral Reps/Minutes 30x Comments Extra time due to finding max mobiity and correct direction. Manual Therapy Treatment Soft Tissue Mobilization R UT Body Location R UT Mobilization Type Sustained Pressure,Trigger Point Release Intensity/Depth Moderate Body Position Prone Comments manual and instruct theracane, over double ball Joint Mobilizations PA mob Joint PA rib 1 at sternum Direction Balancing at C7, T1 Body Position Supine Manual Traction Cervical distraction Details Manual C traction Body Position Hooklying Reps/Duration 8' Comments Pt had no R shoulder/neck pain after treatment. Self-Care/Home Management Treatment Education Patient Education Posture Other Education Further posture education and discussion of nighttime sleep positioning in supine. Recommended use of towel roll under neck at nighttime. PT-OP-T Assessment and Plan Start: 11/02/21 15:01 Freq: Status: Active Protocol: Document 11/18/21 10:37 LRN (Rec: 11/18/21 11:20 LRN [id number]) Physical Therapy Assessment Goals Four Impairment Decreased functional strength due to R shoulder pain Impairment R shoulder/neck pain with lifting objects (cup of cofffe and heavier objects), and with carrying objects ( groceries). Short Term Goal (STG) Pt will be able to lift objects (cup of coffee) without pain. STG Duration 12/19/21 Penitentiary Goal (LTG) Pt will be able to carry groceries without pain. LTG Duration 02/02/22 Three Impairment R shoulder/neck pain with reaching behind the head/neck/ opposite shoulder Impairment Reaching behind opposite shoulder: Right-top of middle of shoulder (Left-behind scapula). Reaching Behind head: Right-T1 (Left T5). Reaching Behind back: Right L5 (Left T8) Short Term Goal (STG) Pt will be able to reach behind the head to scratch his back without pain STG Duration 12/19/21 Cleaning Handyman Goal (LTG) Improve pt's ability to reach behind his low back. LTG Duration 02/02/22 Two Impairment Impaired sleep Impairment Pt wakes at least 1 time per night requiring use of medication to go to sleep ( Methocarband), and to fall back to sleep (melatonin, IBP) . 11/14/21: pt able to sleep 10 hrs 2 nights ago with MHP behind neck draped over R shld painfree. Short Term Goal (STG) Pt brooke be able to sleep through the night without pain using pain medications. STG Duration 12/19/21 Penitentiary Goal (LTG) Pt will be able to sleep through the night without pain and without use of medications. LTG Duration 02/02/22 One Impairment Pt lacks appropriate self care HEP Short Term Goal (STG) Pt will be educated and consistent with proper posturing for nighttime sleep. (11/07/21: Pt educated and is trying to stay consistent with proper nighttime positioning) . 11/11/21: Further education in nighttime sleeping positioning) 11/14/21: further ed nighttime sleep positioning w/ pillows/ noodle/folded towel. STG Duration 11/18/21 (11/17/21: MET GOAL) Cleaning Handyman Goal (LTG) Pt will be independent with a self care HEP of neck and R shoulder ex's. LTG Duration 02/02/22 Assessment Summary Assessment Pt symptoms are variable and pt feels it may be related to his house cleaning, noticing worsening of symptoms the day after cleaning. No significant change with manual C. tx. Increase in symptoms with C. approximation and neck stretching of R scalenes. 1st rib mob inferiorly helps to decreased pain. Physical Therapy Plan Frequency and Duration Frequency of Treatment 3x/Week Plan of Care Start Date 11/04/21 Plan of Care End Date 02/02/22 Next Visit Focus/Plan Next Note Type Treatment Note Next Visit Plan Assess progress towards goals. Manual: STM to R head/neck/ shoulder/UB. Infer JMT to R 1st rib and to improve mobility for C/S and T /S. Add Ther Ex: scapular depressors, pecs, AROM neck Strengthening: RC, Scapular depressors Assess for improvement of nighttime pain, pt to keep working on best posturing at nighttime for pain relief. Educate: HEP (neck stab and R shoulder ex's -RC.) Modalities: MH/CP due to CA history.
--- NOTE | 2021-11-21 13:00 | PT.OTN ---
Current Diagnoses Pain in unspecified shoulder (11/21/21) Postural kyphosis, cervicothoracic region (11/21/21) Cervicalgia (11/21/21) Pain in right arm (11/21/21) Physical Therapy Treatment Note PT-OP-A Visit Information Start: 11/02/21 15:01 Freq: Status: Active Protocol: Document 11/21/21 12:16 SP (Rec: 11/21/21 13:09 SP [id number]) Out-Patient Physical Therapy Visit Information Visit Information Visit Type Treatment Note Visit Start Time 12:16 Visit Stop Time 13:00 Total Visit Minutes 44 Visit Number 7 Number of THERMOCOUPLE TESTER Visits 1 Evaluation Information Evaluation Date 11/04/21 Precautions Precautions Hard of hearing Bladder CA history Back and Neck Pain history & surgical history of Low back Removal of 1/2 of R radius Scoliosis PT-OP-B Current Condition Start: 11/02/21 15:01 Freq: Status: Active Protocol: Document 11/04/21 12:47 LRN (Rec: 11/04/21 16:18 LRN [id number]) Current Condition History of Current Condition Onset Date Jul 2021 Current Complaints R shoulder pain radiating into the R side of neck History of Current Condition Pt reports insidious onset of R shoulder/neck pain. States he has had physical therapy previously for his neck, but the pain is different. He reports his pain is present when picking up heavy objects or when carrying objects. He has pain when reaching behind his head to scratch his back. Pt states he tends to lean left when in sitting, possibly due to scoliosis and has tried to correct his posture, but notes no change in his pain when he does. (Note: pt has lump behind the R ear that he states a surgeon told him was not necessary to surgically remove, physician of unknown specialty) Prior Treatments and Tests Physical therapy for neck pain 2 yrs ago. Muscle Relaxants for pain to help with sleeping. Treatment Goals Patient/Caregiver Goals Pt goal is to: -Be able to sleep throught the night without pain -Eliminate the need for pain medication to sleep -Be able to reach behind the head to scratch his back without pain -Be able to lift objects (cup of coffee) and carry groceries without pain. Prior Functional Status Baseline Function- ADL's Independent Baseline Function- Mobility Independent Baseline Function- Other Able to sleep through the night without medications. No R shoulder/neck pain with reaching behind his back or lifting/carrying objects. Current Functional Impairments (Reported) Functional Limitations- ADL's Difficulty sleeping, requiring medications to sleep (ms relaxant) and medication to go back to sleep (melatonin and IBP) Difficutly reaching behind head/back due to pain Difficulty lifting objects ( heavy & light-cup of coffee) and carrying objects ( groceries) due to pain. Personal Factors Other Personal Factors That May Effect Lives alone. Therapy/Recovery History of neck pain Scoliosis PT-OP-C Subjective Start: 11/02/21 15:01 Freq: Status: Active Protocol: Document 11/21/21 12:16 SP (Rec: 11/21/21 13:09 SP [id number]) OP-PT Subjective Patient Comments Patient Comments Pt reported sleeping at son's house this week, watching kids and his house hold activities including renovations happening while son gone. Pt reports the towel roll under neck was helpful but also slept on son's more firm thicker p illow and had better sleep. Will check again tonight to see if maybe that is what he's lacking. R lateral neck and trap discomfort upon arrival today. PT-OP-E Functional Tests Start: 11/02/21 15:01 Freq: Status: Active Protocol: Document 11/04/21 12:47 LRN (Rec: 11/04/21 16:18 LRN [id number]) Functional Tests Apley's Scratch Test Action 1- Left Behind scapula Action 1- Right Top of mid shoulder Action 2- Left T5 Action 2- Right T1 Action 3- Left T8 Action 3- Right L5 PT-OP-H Neuro Start: 11/02/21 15:01 Freq: Status: Active Protocol: Document 11/04/21 12:47 LRN (Rec: 11/04/21 16:18 LRN [id number]) Sensation Evaluation Gross Sensation Gross Sensation WNL Deep Tendon Reflex & Clonus Assessment Deep Tendon Reflex Bilateral Patellar Deep Tendon Reflex 3+ Normal But Brisk Bilateral Bicep Deep Tendon Reflex 2+ Normal PT-OP-J Posture/Palpation/Skin Start: 11/02/21 15:01 Freq: Status: Active Protocol: Document 11/04/21 12:47 LRN (Rec: 11/04/21 16:18 LRN [id number]) Posture Evaluation Position Standing Head/C-Spine Posture Forward Head T-Spine Posture Increased Kyphosis L-Spine Posture Flattened Shoulder Posture (R) Elevated Arm Posture (L) Internally Rotated,(R) Internally Rotated PT-OP-K Range of Motion Start: 11/02/21 15:01 Freq: Status: Active Protocol: Document 11/04/21 12:47 LRN (Rec: 11/04/21 16:18 LRN [id number]) Cervical Spine Range of Motion Cervical Spine Active Degrees Testing Position Sitting Flexion 45 Extension 40 Rotation Left 52 Rotation Right 48 Lateral Flexion Left 32 Lateral Flexion Right 40 Comments Pain in lateral R elbow with active extension. Pain on return from L SB Shoulder Goniometric Range of Motion Shoulder Right Active Shoulder ROM WFL No Testing Position Sitting Flexion 150 Extension 155 Internal Rotation Behind Back (text) L5 Comments Reaching behind head: T1 Left Active Shoulder ROM WFL Yes Testing Position Sitting Flexion 175 Extension 180 Internal Rotation Behind Back (text) T8 Comments Reaching behind head: T5 PT-OP-L Special Tests Start: 11/02/21 15:01 Freq: Status: Active Protocol: Document 11/04/21 12:47 LRN (Rec: 11/04/21 16:18 LRN [id number]) Special Tests Cervical Spine Special Tests Spurling's Test Test Results Negative in supine facet syndrome test Test Results Positive R facets of cervical and upper thoracic spine Traction Test Results Positive Comments Reduction in R neck/shoulder pain Foraminal Compression Test Results Negative PT-OP-M Strength Start: 11/02/21 15:01 Freq: Status: Active Protocol: Document 11/04/21 12:47 LRN (Rec: 11/04/21 16:18 LRN [id number]) Cervical Spine Strength Cervical Spine Manual Muscle Testing Testing Position Sitting Comments Generally 5/5. Shoulder Strength Shoulder Manual Muscle Testing Right Flexion 5 Normal Abduction (C5) 5 Normal External Rotation 5 Normal Internal Rotation 5 Normal Comments Pain with Flex & AB Left Flexion 5 Normal Abduction (C5) 5 Normal External Rotation 5 Normal Internal Rotation 5 Normal PT-OP-Q Treatments Start: 11/02/21 15:01 Freq: Status: Active Protocol: Document 11/21/21 12:16 SP (Rec: 11/21/21 13:09 SP [id number]) Therapeutic Exercises Supine Exercises thoracic extension Supine Exercise Name added to HEP- unsure Equipment Used over rolled towel Reps/Minutes 20 sec 3 positions TS Comments cued breath- good response Self STMs Supine Exercise Name HEP past review: neck flex/ext Resistance discussed and performs at home if needed Equipment Used over double racquetball in sock, (small range nods) Reps/Minutes 1 min Comments good form, felt good massage to neck muscles Deep C Neck Flexors Supine Exercise Name Neck Elongation good form Equipment Used supine, elongation then head nods Comments occasional cue for neck elongation training R shoulder Supine Exercise Name Windshield wipe with purpose Side bilateral Resistance HEP review Reps/Minutes 30x Comments good form and painfree range. Sitting Exercises UT/ Lev scap stretch Side right Reps/Minutes 30 Comments cued over pressure of UE Standing Exercises UT, lev scap stretch Standing Exercise Name personal stretching does Side right Reps/Minutes 30 each Comments good feedback response. self STMs Standing Exercise Name UT, interscap Side right Equipment Used racquetball on wall Reps/Minutes 2 min Comments good feedback response Manual Therapy Treatment Soft Tissue Mobilization R UT Body Location R UT Mobilization Type Sustained Pressure,Trigger Point Release Intensity/Depth Moderate Body Position Prone Comments manual and instruct theracane, over double ball paraspinals Body Location bilateral Mobilization Type Strumming,Sustained Pressure, Trigger Point Release Intensity/Depth prone Comments mid thoracic> lumbar suboccipital Body Location R suboccipital, SOR Mobilization Type Strumming,Sustained Pressure, Trigger Point Release Intensity/Depth Superficial Body Position Supine Comments manual Joint Mobilizations PA mob Joint T5-9 Grade II Body Position Supine Comments good feedback response Self-Care/Home Management Treatment Education Patient Education Home Exercise Program Other Education initiated TS ext over towel roll vs has small roll insulation for piping may try. PT-OP-T Assessment and Plan Start: 11/02/21 15:01 Freq: Status: Active Protocol: Document 11/21/21 12:16 SP (Rec: 11/21/21 13:09 SP [id number]) Physical Therapy Assessment Goals Four Impairment Decreased functional strength due to R shoulder pain Impairment R shoulder/neck pain with lifting objects (cup of cofffe and heavier objects), and with carrying objects ( groceries). Short Term Goal (STG) Pt will be able to lift objects (cup of coffee) without pain. STG Duration 12/19/21 Outdoor Recreation Specialist Goal (LTG) Pt will be able to carry groceries without pain. LTG Duration 02/02/22 Three Impairment R shoulder/neck pain with reaching behind the head/neck/ opposite shoulder Impairment Reaching behind opposite shoulder: Right-top of middle of shoulder (Left-behind scapula). Reaching Behind head: Right-T1 (Left T5). Reaching Behind back: Right L5 (Left T8) Short Term Goal (STG) Pt will be able to reach behind the head to scratch his back without pain STG Duration 12/19/21 [facility]ci Goal (LTG) Improve pt's ability to reach behind his low back. LTG Duration 02/02/22 Two Impairment Impaired sleep Impairment Pt wakes at least 1 time per night requiring use of medication to go to sleep ( Methocarband), and to fall back to sleep (melatonin, IBP) . 11/14/21: pt able to sleep 10 hrs 2 nights ago with MHP behind neck draped over R shld painfree. Short Term Goal (STG) Pt brooke be able to sleep through the night without pain using pain medications. STG Duration 12/19/21 [facility] Goal (LTG) Pt will be able to sleep through the night without pain and without use of medications. LTG Duration 02/02/22 One Impairment Pt lacks appropriate self care HEP Short Term Goal (STG) Pt will be educated and consistent with proper posturing for nighttime sleep. (11/07/21: Pt educated and is trying to stay consistent with proper nighttime positioning) . 11/11/21: Further education in nighttime sleeping positioning) 11/14/21: further ed nighttime sleep positioning w/ pillows/ noodle/folded towel. STG Duration 11/18/21 (11/17/21: MET GOAL) [facility]ci Goal (LTG) Pt will be independent with a self care HEP of neck and R shoulder ex's. LTG Duration 02/02/22 Assessment Summary Assessment Pt reported improved back mobility post manual, TS ext over towel. Improved decreased R UT/ shld discomfort post manual and self STMs ball on wall. Ed continue at home. Physical Therapy Plan Frequency and Duration Frequency of Treatment 3x/Week Plan of Care Start Date 11/04/21 Plan of Care End Date 02/02/22 Therapeutic Interventions Therapeutic Interventions Home Exercise Program,Joint Mobilizations,Manual Therapy, Neuromuscular Re-education, Patient/Caregiver Education, Self-Care/Home Management,Soft Tissue Mobilization,Taping, Therapeutic Activities, Therapeutic Exercises Modalities Cold Pack/Ice Massage,Hot Packs Next Visit Focus/Plan Next Note Type Treatment Note Next Visit Plan Recheck TS ext over towel roll before add to HEP, if ok give HO. Ask how son's pillow is for sleeping. *Assess progress towards goals . Manual: STM to R head/neck /shoulder/UB. Infer JMT to R 1st rib and to improve mobility for C/S and T /S. Add Ther Ex: scapular depressors, pecs, AROM neck Strengthening: RC, Scapular depressors Assess for improvement of nighttime pain, pt to keep working on best posturing at nighttime for pain relief. Educate: HEP (neck stab and R shoulder ex's -RC.) Modalities: MH/CP due to CA history.
--- NOTE | 2021-11-25 16:47 | PT.OTN ---
Current Diagnoses Pain in unspecified shoulder (11/25/21) Postural kyphosis, cervicothoracic region (11/25/21) Cervicalgia (11/25/21) Pain in right arm (11/25/21) Physical Therapy Treatment Note PT-OP-A Visit Information Start: 11/02/21 15:01 Freq: Status: Active Protocol: Document 11/25/21 13:37 LRN (Rec: 11/25/21 14:20 LRN [id number]) Out-Patient Physical Therapy Visit Information Visit Information Visit Type Treatment Note Visit Start Time 13:38 Visit Stop Time 14:18 Total Visit Minutes 40 Visit Number 8 Evaluation Information Evaluation Date 11/04/21 Precautions Precautions Hard of hearing Bladder CA history Back and Neck Pain history & surgical history of Low back Removal of 1/2 of R radius Scoliosis PT-OP-B Current Condition Start: 11/02/21 15:01 Freq: Status: Active Protocol: Document 11/04/21 12:47 LRN (Rec: 11/04/21 16:18 LRN [id number]) Current Condition History of Current Condition Onset Date Jul 2021 Current Complaints R shoulder pain radiating into the R side of neck History of Current Condition Pt reports insidious onset of R shoulder/neck pain. States he has had physical therapy previously for his neck, but the pain is different. He reports his pain is present when picking up heavy objects or when carrying objects. He has pain when reaching behind his head to scratch his back. Pt states he tends to lean left when in sitting, possibly due to scoliosis and has tried to correct his posture, but notes no change in his pain when he does. (Note: pt has lump behind the R ear that he states a surgeon told him was not necessary to surgically remove, physician of unknown specialty) Prior Treatments and Tests Physical therapy for neck pain 2 yrs ago. Muscle Relaxants for pain to help with sleeping. Treatment Goals Patient/Caregiver Goals Pt goal is to: -Be able to sleep throught the night without pain -Eliminate the need for pain medication to sleep -Be able to reach behind the head to scratch his back without pain -Be able to lift objects (cup of coffee) and carry groceries without pain. Prior Functional Status Baseline Function- ADL's Independent Baseline Function- Mobility Independent Baseline Function- Other Able to sleep through the night without medications. No R shoulder/neck pain with reaching behind his back or lifting/carrying objects. Current Functional Impairments (Reported) Functional Limitations- ADL's Difficulty sleeping, requiring medications to sleep (ms relaxant) and medication to go back to sleep (melatonin and IBP) Difficutly reaching behind head/back due to pain Difficulty lifting objects ( heavy & light-cup of coffee) and carrying objects ( groceries) due to pain. Personal Factors Other Personal Factors That May Effect Lives alone. Therapy/Recovery History of neck pain Scoliosis PT-OP-C Subjective Start: 11/02/21 15:01 Freq: Status: Active Protocol: Document 11/25/21 13:37 LRN (Rec: 11/25/21 14:20 LRN [id number]) OP-PT Subjective Patient Comments Patient Comments Heat to neck and shoulder before going to sleep helps him to sleep. Prefers heat over ice. Not a lot of change in R UB/soreness. Sleeping on his stomach with his R arm by his side is less painful than side sleeping. PT-OP-E Functional Tests Start: 11/02/21 15:01 Freq: Status: Active Protocol: Document 11/04/21 12:47 LRN (Rec: 11/04/21 16:18 LRN [id number]) Functional Tests Apley's Scratch Test Action 1- Left Behind scapula Action 1- Right Top of mid shoulder Action 2- Left T5 Action 2- Right T1 Action 3- Left T8 Action 3- Right L5 PT-OP-H Neuro Start: 11/02/21 15:01 Freq: Status: Active Protocol: Document 11/04/21 12:47 LRN (Rec: 11/04/21 16:18 LRN [id number]) Sensation Evaluation Gross Sensation Gross Sensation WNL Deep Tendon Reflex & Clonus Assessment Deep Tendon Reflex Bilateral Patellar Deep Tendon Reflex 3+ Normal But Brisk Bilateral Bicep Deep Tendon Reflex 2+ Normal PT-OP-J Posture/Palpation/Skin Start: 11/02/21 15:01 Freq: Status: Active Protocol: Document 11/04/21 12:47 LRN (Rec: 11/04/21 16:18 LRN [id number]) Posture Evaluation Position Standing Head/C-Spine Posture Forward Head T-Spine Posture Increased Kyphosis L-Spine Posture Flattened Shoulder Posture (R) Elevated Arm Posture (L) Internally Rotated,(R) Internally Rotated PT-OP-K Range of Motion Start: 11/02/21 15:01 Freq: Status: Active Protocol: Document 11/04/21 12:47 LRN (Rec: 11/04/21 16:18 LRN [id number]) Cervical Spine Range of Motion Cervical Spine Active Degrees Testing Position Sitting Flexion 45 Extension 40 Rotation Left 52 Rotation Right 48 Lateral Flexion Left 32 Lateral Flexion Right 40 Comments Pain in lateral R elbow with active extension. Pain on return from L SB Shoulder Goniometric Range of Motion Shoulder Right Active Shoulder ROM WFL No Testing Position Sitting Flexion 150 Extension 155 Internal Rotation Behind Back (text) L5 Comments Reaching behind head: T1 Left Active Shoulder ROM WFL Yes Testing Position Sitting Flexion 175 Extension 180 Internal Rotation Behind Back (text) T8 Comments Reaching behind head: T5 PT-OP-L Special Tests Start: 11/02/21 15:01 Freq: Status: Active Protocol: Document 11/04/21 12:47 LRN (Rec: 11/04/21 16:18 LRN [id number]) Special Tests Cervical Spine Special Tests Spurling's Test Test Results Negative in supine facet syndrome test Test Results Positive R facets of cervical and upper thoracic spine Traction Test Results Positive Comments Reduction in R neck/shoulder pain Foraminal Compression Test Results Negative PT-OP-M Strength Start: 11/02/21 15:01 Freq: Status: Active Protocol: Document 11/04/21 12:47 LRN (Rec: 11/04/21 16:18 LRN [id number]) Cervical Spine Strength Cervical Spine Manual Muscle Testing Testing Position Sitting Comments Generally 5/5. Shoulder Strength Shoulder Manual Muscle Testing Right Flexion 5 Normal Abduction (C5) 5 Normal External Rotation 5 Normal Internal Rotation 5 Normal Comments Pain with Flex & AB Left Flexion 5 Normal Abduction (C5) 5 Normal External Rotation 5 Normal Internal Rotation 5 Normal PT-OP-Q Treatments Start: 11/02/21 15:01 Freq: Status: Active Protocol: Document 11/25/21 13:37 LRN (Rec: 11/25/21 14:20 LRN [id number]) Manual Therapy Treatment Soft Tissue Mobilization R Pec Body Location R Pec Mirza/Minor Mobilization Type Myofascial Release,Sustained Pressure Intensity/Depth Moderate Body Position Supine Rhomboids, infraspinatus Body Location R ~T6-T2 intercostals, Rhomboids Mobilization Type Sustained Pressure,Trigger Point Release Intensity/Depth Moderate Body Position Prone paraspinals Body Location bilateral Mobilization Type Strumming,Sustained Pressure, Trigger Point Release Intensity/Depth prone Comments mid thoracic> lumbar Joint Mobilizations PA mob Joint T5-9 Grade II Body Position Supine Comments good feedback response Self-Care/Home Management Treatment Education Other Education Discussed nighttime sleeping position. Pt I/S to not stomach sleep due to not being good on neck. PT-OP-T Assessment and Plan Start: 11/02/21 15:01 Freq: Status: Active Protocol: Document 11/25/21 13:37 LRN (Rec: 11/25/21 14:20 LRN [id number]) Physical Therapy Assessment Goals Four Impairment Decreased functional strength due to R shoulder pain Impairment R shoulder/neck pain with lifting objects (cup of cofffe and heavier objects), and with carrying objects ( groceries). Short Term Goal (STG) Pt will be able to lift objects (cup of coffee) without pain. STG Duration 12/19/21 Halfway Goal (LTG) Pt will be able to carry groceries without pain. LTG Duration 02/02/22 Three Impairment R shoulder/neck pain with reaching behind the head/neck/ opposite shoulder Impairment Reaching behind opposite shoulder: Right-top of middle of shoulder (Left-behind scapula). Reaching Behind head: Right-T1 (Left T5). Reaching Behind back: Right L5 (Left T8) Short Term Goal (STG) Pt will be able to reach behind the head to scratch his back without pain STG Duration 12/19/21 Halfway Goal (LTG) Improve pt's ability to reach behind his low back. LTG Duration 02/02/22 Two Impairment Impaired sleep Impairment Pt wakes at least 1 time per night requiring use of medication to go to sleep ( Methocarband), and to fall back to sleep (melatonin, IBP) . 11/14/21: pt able to sleep 10 hrs 2 nights ago with MHP behind neck draped over R shld painfree. Short Term Goal (STG) Pt brooke be able to sleep through the night without pain using pain medications. STG Duration 12/19/21 Surveyor Geophysical Prospecting Goal (LTG) Pt will be able to sleep through the night without pain and without use of medications. LTG Duration 02/02/22 One Impairment Pt lacks appropriate self care HEP Short Term Goal (STG) Pt will be educated and consistent with proper posturing for nighttime sleep. (11/07/21: Pt educated and is trying to stay consistent with proper nighttime positioning) . 11/11/21: Further education in nighttime sleeping positioning) 11/14/21: further ed nighttime sleep positioning w/ pillows/ noodle/folded towel. STG Duration 11/18/21 (11/17/21: MET GOAL) Assessment Summary Assessment Improved posture with manual therapy (balancing of T/S) with no complaints of pain after treatment in neck, back of shoulder or anterior shoulder. Pt R anterior shoulder is forward with tight pec mirza/minor, but atrophied pec min/mirza. Pt finds sleeping on stomach more comfortable with R arm by side , but uncomfortable on the neck. Physical Therapy Plan Frequency and Duration Frequency of Treatment 3x/Week Plan of Care Start Date 11/04/21 Plan of Care End Date 02/02/22 Next Visit Focus/Plan Next Note Type Treatment Note Next Visit Plan Recheck TS ext over towel roll before add to HEP, if ok give HO. Ask how son's pillow is for sleeping. Assess for improvement of nighttime pain, pt to keep working on best posturing at nighttime for pain relief. Cont to problem solve best sleep position. *Assess progress towards goals . Manual: STM to R Shoulder to reduce fwd positioning. Infer JMT to R 1st rib and to improve mobility for C/S and T /S. Add Ther Ex: scapular depressors, pecs, AROM neck Strengthening: RC, Scapular depressors Educate: HEP (neck stab and R shoulder ex's -RC.) Modalities: Only MH/CP due to CA history.
--- NOTE | 2021-11-27 13:00 | PT.OTN ---
Current Diagnoses Pain in unspecified shoulder (11/27/21) Postural kyphosis, cervicothoracic region (11/27/21) Cervicalgia (11/27/21) Pain in right arm (11/27/21) Physical Therapy Treatment Note PT-OP-A Visit Information Start: 11/02/21 15:01 Freq: Status: Active Protocol: Document 11/27/21 12:24 SP (Rec: 11/27/21 13:03 SP [id number]) Out-Patient Physical Therapy Visit Information Visit Information Visit Type Treatment Note Visit Note Pt has 10th visit next appt with PT, will need PN. Visit Start Time 12:19 Visit Stop Time 13:00 Total Visit Minutes 41 Visit Number 9 Number of BLUEPRINT PROCESSOR Visits 1 Evaluation Information Evaluation Date 11/04/21 Precautions Precautions Hard of hearing Bladder CA history Back and Neck Pain history & surgical history of Low back Removal of 1/2 of R radius Scoliosis PT-OP-B Current Condition Start: 11/02/21 15:01 Freq: Status: Active Protocol: Document 11/04/21 12:47 LRN (Rec: 11/04/21 16:18 LRN [id number]) Current Condition History of Current Condition Onset Date Jul 2021 Current Complaints R shoulder pain radiating into the R side of neck History of Current Condition Pt reports insidious onset of R shoulder/neck pain. States he has had physical therapy previously for his neck, but the pain is different. He reports his pain is present when picking up heavy objects or when carrying objects. He has pain when reaching behind his head to scratch his back. Pt states he tends to lean left when in sitting, possibly due to scoliosis and has tried to correct his posture, but notes no change in his pain when he does. (Note: pt has lump behind the R ear that he states a surgeon told him was not necessary to surgically remove, physician of unknown specialty) Prior Treatments and Tests Physical therapy for neck pain 2 yrs ago. Muscle Relaxants for pain to help with sleeping. Treatment Goals Patient/Caregiver Goals Pt goal is to: -Be able to sleep throught the night without pain -Eliminate the need for pain medication to sleep -Be able to reach behind the head to scratch his back without pain -Be able to lift objects (cup of coffee) and carry groceries without pain. Prior Functional Status Baseline Function- ADL's Independent Baseline Function- Mobility Independent Baseline Function- Other Able to sleep through the night without medications. No R shoulder/neck pain with reaching behind his back or lifting/carrying objects. Current Functional Impairments (Reported) Functional Limitations- ADL's Difficulty sleeping, requiring medications to sleep (ms relaxant) and medication to go back to sleep (melatonin and IBP) Difficutly reaching behind head/back due to pain Difficulty lifting objects ( heavy & light-cup of coffee) and carrying objects ( groceries) due to pain. Personal Factors Other Personal Factors That May Effect Lives alone. Therapy/Recovery History of neck pain Scoliosis PT-OP-C Subjective Start: 11/02/21 15:01 Freq: Status: Active Protocol: Document 11/27/21 12:24 SP (Rec: 11/27/21 13:03 SP [id number]) OP-PT Subjective Patient Comments Patient Comments Pt reported having tight sub clavicle, UT and anterior shld / pec musculature. Woke up 2x last night and found self on back with RUE over head maybe why so tight. Trying to prop self as instructed as best can , he states 2 night ago folded towel under lateral ribcage helped trunk feel better, less discomfort in back/ R shld when laying R shld. Pt states not sure scap retraction and stretching is enough but helpful and compliant at home. Pt commented wonders if a posture strap would help remind him better alignment. PT-OP-E Functional Tests Start: 11/02/21 15:01 Freq: Status: Active Protocol: Document 11/04/21 12:47 LRN (Rec: 11/04/21 16:18 LRN [id number]) Functional Tests Apley's Scratch Test Action 1- Left Behind scapula Action 1- Right Top of mid shoulder Action 2- Left T5 Action 2- Right T1 Action 3- Left T8 Action 3- Right L5 PT-OP-H Neuro Start: 11/02/21 15:01 Freq: Status: Active Protocol: Document 11/04/21 12:47 LRN (Rec: 11/04/21 16:18 LRN [id number]) Sensation Evaluation Gross Sensation Gross Sensation WNL Deep Tendon Reflex & Clonus Assessment Deep Tendon Reflex Bilateral Patellar Deep Tendon Reflex 3+ Normal But Brisk Bilateral Bicep Deep Tendon Reflex 2+ Normal PT-OP-J Posture/Palpation/Skin Start: 11/02/21 15:01 Freq: Status: Active Protocol: Document 11/04/21 12:47 LRN (Rec: 11/04/21 16:18 LRN [id number]) Posture Evaluation Position Standing Head/C-Spine Posture Forward Head T-Spine Posture Increased Kyphosis L-Spine Posture Flattened Shoulder Posture (R) Elevated Arm Posture (L) Internally Rotated,(R) Internally Rotated PT-OP-K Range of Motion Start: 11/02/21 15:01 Freq: Status: Active Protocol: Document 11/04/21 12:47 LRN (Rec: 11/04/21 16:18 LRN [id number]) Cervical Spine Range of Motion Cervical Spine Active Degrees Testing Position Sitting Flexion 45 Extension 40 Rotation Left 52 Rotation Right 48 Lateral Flexion Left 32 Lateral Flexion Right 40 Comments Pain in lateral R elbow with active extension. Pain on return from L SB Shoulder Goniometric Range of Motion Shoulder Right Active Shoulder ROM WFL No Testing Position Sitting Flexion 150 Extension 155 Internal Rotation Behind Back (text) L5 Comments Reaching behind head: T1 Left Active Shoulder ROM WFL Yes Testing Position Sitting Flexion 175 Extension 180 Internal Rotation Behind Back (text) T8 Comments Reaching behind head: T5 PT-OP-L Special Tests Start: 11/02/21 15:01 Freq: Status: Active Protocol: Document 11/04/21 12:47 LRN (Rec: 11/04/21 16:18 LRN [id number]) Special Tests Cervical Spine Special Tests Spurling's Test Test Results Negative in supine facet syndrome test Test Results Positive R facets of cervical and upper thoracic spine Traction Test Results Positive Comments Reduction in R neck/shoulder pain Foraminal Compression Test Results Negative PT-OP-M Strength Start: 11/02/21 15:01 Freq: Status: Active Protocol: Document 11/04/21 12:47 LRN (Rec: 11/04/21 16:18 LRN [id number]) Cervical Spine Strength Cervical Spine Manual Muscle Testing Testing Position Sitting Comments Generally 5/5. Shoulder Strength Shoulder Manual Muscle Testing Right Flexion 5 Normal Abduction (C5) 5 Normal External Rotation 5 Normal Internal Rotation 5 Normal Comments Pain with Flex & AB Left Flexion 5 Normal Abduction (C5) 5 Normal External Rotation 5 Normal Internal Rotation 5 Normal PT-OP-Q Treatments Start: 11/02/21 15:01 Freq: Status: Active Protocol: Document 11/27/21 12:24 SP (Rec: 11/27/21 13:03 SP [id number]) Therapeutic Exercises Supine Exercises Ts, 1/2 X Supine Exercise Name added to HEP Side bilateral Equipment Used over pool noodle Reps/Minutes x5 Comments cued slow range, good spinal alignment, was painfree pec stretch Supine Exercise Name added to HEP- various ranges Side bilateral Equipment Used over noodle (has at home)- on floor mat Reps/Minutes 2min Comments good feedback response R shoulder Supine Exercise Name Windshield wipe with purpose Side bilateral Resistance HEP review Equipment Used over pool noodle Reps/Minutes x5 Comments good form and painfree range, cue slow movement. Sitting Exercises UT/ Lev scap stretch Sitting Exercise Name reviewed HEP Side right Reps/Minutes 20 x2 each Comments cued trunk alignment, good stretch Standing Exercises self STMs Standing Exercise Name UT, interscap- Side right Equipment Used racquetball on wall Reps/Minutes discussed not performed- will get ball later today Comments good feedback response after last tx intiated Manual Therapy Treatment Soft Tissue Mobilization R Pec Body Location R Pec Mirza/Minor Mobilization Type Myofascial Release,Sustained Pressure Intensity/Depth Moderate Body Position Supine Self-Care/Home Management Treatment Education Patient Education Body Mechanics,Home Exercise Program,Pain Management, Posture Other Education Continued nighttime sleeping position use pillows. Initiated pec stretch over noodle various ranges painfree , Ts and diagonal 1/2 Xs painfree post cues for slow pacing AROM and felt posture better when got up off floor. Discussed posture strap gives good postural cues, can trial K taping across upper back or vertical strips for assessment if helpful but ultimately is awareness of self carryover and alignment best. PT-OP-T Assessment and Plan Start: 11/02/21 15:01 Freq: Status: Active Protocol: Document 11/27/21 12:24 SP (Rec: 11/27/21 13:03 SP [id number]) Physical Therapy Assessment Goals Four Impairment Decreased functional strength due to R shoulder pain Impairment R shoulder/neck pain with lifting objects (cup of cofffe and heavier objects), and with carrying objects ( groceries). Short Term Goal (STG) Pt will be able to lift objects (cup of coffee) without pain. 11/27/21: progressing: no pain lifting cup coffee but has pain with vacuuming and scrubbing granite counter tops 5-6/10. STG Duration 12/19/21 (progressin11/27/21 ) Skilled Nursing Goal (LTG) Pt will be able to carry groceries without pain. LTG Duration 02/02/22 Three Impairment R shoulder/neck pain with reaching behind the head/neck/ opposite shoulder Impairment Reaching behind opposite shoulder: Right-top of middle of shoulder (Left-behind scapula). Reaching Behind head: Right-T1 (Left T5). Reaching Behind back: Right L5 (Left T8) Short Term Goal (STG) Pt will be able to reach behind the head to scratch his back without pain STG Duration 12/19/21 Child Care Provider Goal (LTG) Improve pt's ability to reach behind his low back. LTG Duration 02/02/22 Two Impairment Impaired sleep Impairment Pt wakes at least 1 time per night requiring use of medication to go to sleep ( Methocarband), and to fall back to sleep (melatonin, IBP) . 11/14/21: pt able to sleep 10 hrs 2 nights ago with MHP behind neck draped over R shld painfree. 11/27/21: progressing waking up 2x/night with 6/10 R shld/ neck pain. Short Term Goal (STG) Pt brooke be able to sleep through the night without pain using pain medications. STG Duration 12/19/21 (11/27/21 progressing) Child Care Provider Goal (LTG) Pt will be able to sleep through the night without pain and without use of medications. LTG Duration 02/02/22 One Impairment Pt lacks appropriate self care HEP Short Term Goal (STG) Pt will be educated and consistent with proper posturing for nighttime sleep. (11/07/21: Pt educated and is trying to stay consistent with proper nighttime positioning) . 11/11/21: Further education in nighttime sleeping positioning) 11/14/21: further ed nighttime sleep positioning w/ pillows/ noodle/folded towel. STG Duration 11/18/21 (11/17/21: MET GOAL) Assessment Summary Assessment Pt had good response to manual and understanding self application with ball on wall and initiated pec stretching and AROM HABD/ADD and diagonal with painfree response. Physical Therapy Plan Frequency and Duration Frequency of Treatment 3x/Week Plan of Care Start Date 11/04/21 Plan of Care End Date 02/02/22 Therapeutic Interventions Therapeutic Interventions Home Exercise Program,Joint Mobilizations,Manual Therapy, Neuromuscular Re-education, Patient/Caregiver Education, Self-Care/Home Management,Soft Tissue Mobilization,Taping, Therapeutic Activities, Therapeutic Exercises Modalities Cold Pack/Ice Massage,Hot Packs Next Visit Focus/Plan Next Note Type Treatment Note Next Visit Plan PN due 2/. Recheck supine over pool noodle pec stretch/HABD/ ADD/ diagonals. Next tx: Assess Ktaping upper back X or vertical strips for self posture feedback. Initiated wall posture and shoulder ext TB. Assess for improvement of nighttime pain, pt to keep working on best posturing at nighttime for pain relief. Cont to problem solve best sleep position. Manual: STM to R Shoulder to reduce fwd positioning. Infer JMT to R 1st rib and to improve mobility for C/S and T /S. Add Ther Ex: scapular depressors, pecs, AROM neck Strengthening: RC, Scapular depressors Educate: HEP (neck stab and R shoulder ex's -RC.) Modalities: Only MH/CP due to CA history.
--- NOTE | 2021-12-04 17:00 | PT.OTN ---
Current Diagnoses Pain in unspecified shoulder (12/04/21) Postural kyphosis, cervicothoracic region (12/04/21) Cervicalgia (12/04/21) Pain in right arm (12/04/21) Physical Therapy Treatment Note PT-OP-A Visit Information Start: 11/02/21 15:01 Freq: Status: Active Protocol: Document 12/04/21 10:43 LRN (Rec: 12/04/21 11:25 LRN [id number]) Out-Patient Physical Therapy Visit Information Visit Information Visit Type Progress Note Visit Start Time 10:43 Visit Stop Time 11:31 Total Visit Minutes 50 Visit Number 10 Evaluation Information Evaluation Date 11/04/21 Precautions Precautions Hard of hearing Bladder CA history Back and Neck Pain history & surgical history of Low back Removal of 1/2 of R radius Scoliosis PT-OP-B Current Condition Start: 11/02/21 15:01 Freq: Status: Active Protocol: Document 11/04/21 12:47 LRN (Rec: 11/04/21 16:18 LRN [id number]) Current Condition History of Current Condition Onset Date Jul 2021 Current Complaints R shoulder pain radiating into the R side of neck History of Current Condition Pt reports insidious onset of R shoulder/neck pain. States he has had physical therapy previously for his neck, but the pain is different. He reports his pain is present when picking up heavy objects or when carrying objects. He has pain when reaching behind his head to scratch his back. Pt states he tends to lean left when in sitting, possibly due to scoliosis and has tried to correct his posture, but notes no change in his pain when he does. (Note: pt has lump behind the R ear that he states a surgeon told him was not necessary to surgically remove, physician of unknown specialty) Prior Treatments and Tests Physical therapy for neck pain 2 yrs ago. Muscle Relaxants for pain to help with sleeping. Treatment Goals Patient/Caregiver Goals Pt goal is to: -Be able to sleep throught the night without pain -Eliminate the need for pain medication to sleep -Be able to reach behind the head to scratch his back without pain -Be able to lift objects (cup of coffee) and carry groceries without pain. Prior Functional Status Baseline Function- ADL's Independent Baseline Function- Mobility Independent Baseline Function- Other Able to sleep through the night without medications. No R shoulder/neck pain with reaching behind his back or lifting/carrying objects. Current Functional Impairments (Reported) Functional Limitations- ADL's Difficulty sleeping, requiring medications to sleep (ms relaxant) and medication to go back to sleep (melatonin and IBP) Difficutly reaching behind head/back due to pain Difficulty lifting objects ( heavy & light-cup of coffee) and carrying objects ( groceries) due to pain. Personal Factors Other Personal Factors That May Effect Lives alone. Therapy/Recovery History of neck pain Scoliosis PT-OP-C Subjective Start: 11/02/21 15:01 Freq: Status: Active Protocol: Document 12/04/21 10:43 LRN (Rec: 12/04/21 11:25 LRN [id number]) OP-PT Subjective Patient Comments Patient Comments States he has variable pain depending on the day. Using heat helps with pain relief. Not a good day today. Neck R shoulder pain is 7/10. PT-OP-E Functional Tests Start: 11/02/21 15:01 Freq: Status: Active Protocol: Document 11/04/21 12:47 LRN (Rec: 11/04/21 16:18 LRN [id number]) Functional Tests Apley's Scratch Test Action 1- Left Behind scapula Action 1- Right Top of mid shoulder Action 2- Left T5 Action 2- Right T1 Action 3- Left T8 Action 3- Right L5 PT-OP-H Neuro Start: 11/02/21 15:01 Freq: Status: Active Protocol: Document 11/04/21 12:47 LRN (Rec: 11/04/21 16:18 LRN [id number]) Sensation Evaluation Gross Sensation Gross Sensation WNL Deep Tendon Reflex & Clonus Assessment Deep Tendon Reflex Bilateral Patellar Deep Tendon Reflex 3+ Normal But Brisk Bilateral Bicep Deep Tendon Reflex 2+ Normal PT-OP-J Posture/Palpation/Skin Start: 11/02/21 15:01 Freq: Status: Active Protocol: Document 11/04/21 12:47 LRN (Rec: 11/04/21 16:18 LRN [id number]) Posture Evaluation Position Standing Head/C-Spine Posture Forward Head T-Spine Posture Increased Kyphosis L-Spine Posture Flattened Shoulder Posture (R) Elevated Arm Posture (L) Internally Rotated,(R) Internally Rotated PT-OP-K Range of Motion Start: 11/02/21 15:01 Freq: Status: Active Protocol: Document 11/04/21 12:47 LRN (Rec: 11/04/21 16:18 LRN [id number]) Cervical Spine Range of Motion Cervical Spine Active Degrees Testing Position Sitting Flexion 45 Extension 40 Rotation Left 52 Rotation Right 48 Lateral Flexion Left 32 Lateral Flexion Right 40 Comments Pain in lateral R elbow with active extension. Pain on return from L SB Shoulder Goniometric Range of Motion Shoulder Right Active Shoulder ROM WFL No Testing Position Sitting Flexion 150 Extension 155 Internal Rotation Behind Back (text) L5 Comments Reaching behind head: T1 Left Active Shoulder ROM WFL Yes Testing Position Sitting Flexion 175 Extension 180 Internal Rotation Behind Back (text) T8 Comments Reaching behind head: T5 PT-OP-L Special Tests Start: 11/02/21 15:01 Freq: Status: Active Protocol: Document 11/04/21 12:47 LRN (Rec: 11/04/21 16:18 LRN [id number]) Special Tests Cervical Spine Special Tests Spurling's Test Test Results Negative in supine facet syndrome test Test Results Positive R facets of cervical and upper thoracic spine Traction Test Results Positive Comments Reduction in R neck/shoulder pain Foraminal Compression Test Results Negative PT-OP-M Strength Start: 11/02/21 15:01 Freq: Status: Active Protocol: Document 11/04/21 12:47 LRN (Rec: 11/04/21 16:18 LRN [id number]) Cervical Spine Strength Cervical Spine Manual Muscle Testing Testing Position Sitting Comments Generally 5/5. Shoulder Strength Shoulder Manual Muscle Testing Right Flexion 5 Normal Abduction (C5) 5 Normal External Rotation 5 Normal Internal Rotation 5 Normal Comments Pain with Flex & AB Left Flexion 5 Normal Abduction (C5) 5 Normal External Rotation 5 Normal Internal Rotation 5 Normal PT-OP-Q Treatments Start: 11/02/21 15:01 Freq: Status: Active Protocol: Document 12/04/21 10:43 LRN (Rec: 12/04/21 11:25 LRN [id number]) Therapeutic Exercises Supine Exercises pec stretch Supine Exercise Name various ranges, elbow at side, & also w/elbow and arm straight Side bilateral Equipment Used On MHP, cervical roll under neck Reps/Minutes 8' Comments No c/o pain after extra time taken to posture in comfortable position R shoulder Supine Exercise Name Windshield wipe with purpose Side bilateral Reps/Minutes 3' Comments good form and painfree range, cue slow movement. Sitting Exercises Shoulder ER/IR Sitting Exercise Name AROM Side bilateral Comments ROM taken: Reaching Behind head: T3 R, T4 L: Behind back: L3 R, T8 L. Manual Therapy Treatment Soft Tissue Mobilization 1st rib Body Location Inferior glide Mobilization Type Oscillations Intensity/Depth Moderate Body Position Hooklying R UT Body Location R UT Mobilization Type Sustained Pressure Intensity/Depth Moderate Body Position Supine paraspinals Body Location bilateral cervical (R>L) Mobilization Type Strumming,Sustained Pressure Intensity/Depth Moderate Body Position Supine L trap, levator scap Body Location R UT Mobilization Type Sustained Pressure Intensity/Depth Moderate Body Position Hooklying Manual Techniques S/CS Type S/CS Body Location Elevation of R shoulder to ear Body Position Supine Reps/Duration 6' Comments Had to attempt 3x times due to pt engaging the use of his R UT accidently during treatment . PT-OP-R Modalities Start: 11/02/21 15:01 Freq: Status: Active Protocol: Document 12/04/21 10:43 LRN (Rec: 12/04/21 11:25 LRN [id number]) Hot Pack/Cold Pack Treatment moist heat Location C/S and L/S Patient Position Hooklying Treatment Duration (minutes) 10 PT-OP-T Assessment and Plan Start: 11/02/21 15:01 Freq: Status: Active Protocol: Document 12/04/21 10:43 LRN (Rec: 12/04/21 11:25 LRN [id number]) Physical Therapy Assessment Rehab Potential Rehabilitation Potential Good Evaluation Complexity Number of Personal Factors/Comorbidities 1-2 Number of Body Systems Impaired 4 or More Clinical Presentation at Evaluation Evolving Impairments Impairments Pain,Posture,ROM,Strength Goals Four Impairment Decreased functional strength due to R shoulder pain Impairment R shoulder/neck pain with lifting objects (cup of cofffe and heavier objects), and with carrying objects ( groceries). Short Term Goal (STG) Pt will be able to lift objects (cup of coffee) without pain. (11/27/21: progressing: no pain lifting cup coffee but has pain with vacuuming and scrubbing granite counter tops 5-6/10). (12/04/21: Pt able to lift a cup of coffee without pain. STG Duration 12/19/21 (12/04/21: MET GOAL) Usp Goal (LTG) Pt will be able to carry groceries without pain. LTG Duration 02/02/22 Three Impairment R shoulder/neck pain with reaching behind the head/neck/ opposite shoulder Impairment Reaching behind opposite shoulder: Right-top of middle of shoulder (Left-behind scapula). Reaching Behind head: Right-T1 (Left T5). Reaching Behind back: Right L5 (Left T8) Short Term Goal (STG) Pt will be able to reach behind the head to scratch his back without pain. (12/04/21: Pain in R shoulder/ neck Reaching Behind head: Right-T3, Left-T4). STG Duration 12/19/21 (12/04/21: Improved mobility, pain persists) Usp Goal (LTG) Improve pt's ability to reach behind his low back. (12/04/21: Reaching Behind low back: Right-L3 (was L5), Left -T8 (was T8)). LTG Duration 02/02/22 (12/04/21: Pain still present, met goal) Two Impairment Impaired sleep Impairment Pt wakes at least 1 time per night requiring use of medication to go to sleep ( Methocarband), and to fall back to sleep (melatonin, IBP) . 11/14/21: pt able to sleep 10 hrs 2 nights ago with MHP behind neck draped over R shld painfree. 11/27/21: progressing waking up 2x/night with 6/10 R shld/ neck pain. Short Term Goal (STG) Pt brooke be able to sleep through the night without pain using pain medications. (12/04/21: Couple times this week taking pain medication and ms relaxant to sleep) STG Duration 12/19/21 (12/04/21: Improved, sometimes needs pain med, uses ms relaxants) Geoscience Specialist Goal (LTG) Pt will be able to sleep through the night without pain and without use of medications. LTG Duration 02/02/22 One Impairment Pt lacks appropriate self care HEP Short Term Goal (STG) Pt will be educated and consistent with proper posturing for nighttime sleep. (11/07/21: Pt educated and is trying to stay consistent with proper nighttime positioning) . 11/11/21: Further education in nighttime sleeping positioning) 11/14/21: further ed nighttime sleep positioning w/ pillows/ noodle/folded towel. STG Duration 11/18/21 (11/17/21: MET GOAL) Usp Goal (LTG) Pt will be independent with a self care HEP of neck and R shoulder ex's. (11/11/21: HEP: Neck Elongation ex & wall standing for posture) (11/21/21: HEP: T/S ex over towel roll) (11/27/21: HEP: pec stretch over noodle various ranges painfree, Ts and diagonal 1/2 X) LTG Duration 02/02/22 (12/04/21: Has been Progressed) Progress Towards Goals Progress Comments Pt ability to reach behind head with R arm improved from T1 to T3. Pain persists. Pt ability to reach behind his low back with R arm improved from L5 to L3. Pain persists. Pt now able to lift a light object without R neck/shoulder pain (coffee cup). Pain persists with lifting heavy objects. 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 Pt has made slow progress in relieving he R neck/upper back pain because he is having a hard time changing his prone sleeping habit, that causes his neck to be in max rotation during the night with R arm overhead. Pt is having no difficulties with his current HEP of neck postural ex and chest stretches. He did not have K-taping last treatment, which is probably not a good idea to use on his back due to him having no help at home for removal. Pt found an upper back support for posture and has worn it 3x, partial days, and is working towards increasing wear time. The next 4 weeks will be focused on strengthening his postural muscles and continuing to find a solution to him going away from prone sleeping (with his R arm overhead) at night. I recommend continuation of physical therapy to improve the pt's thoracic and neck mobility and posture and modifying habit of prone sleeping in order to decrease onset of R neck and shoulder pain. Physical Therapy Plan Frequency and Duration Frequency of Treatment 2x/Week Plan of Care Start Date 11/04/21 Plan of Care End Date 02/02/22 Therapeutic Interventions Therapeutic Interventions Home Exercise Program,Joint Mobilizations,Manual Therapy, Neuromuscular Re-education, Patient/Caregiver Education, Self-Care/Home Management,Soft Tissue Mobilization, Therapeutic Activities, Therapeutic Exercises Modalities Cold Pack/Ice Massage,Hot Packs Next Visit Focus/Plan Next Note Type Treatment Note Next Visit Plan Review wall posture training and initiate shoulder ext TB. Assess for improvement of nighttime pain, pt to keep working on best posturing at nighttime for pain relief. Cont to problem solve best sleep position. Manual: STM to R Shoulder/ thoracic paraspinals to reduce fwd positioning. Infer JMT to R 1st rib and to improve mobility for C/S and T /S. Add ROM stretch Ex: pecs, neck (gentle) Strengthening: RC, Scapular depressors Educate: HEP (neck stab and R shoulder ex's -RC.) Modalities: only MH/CP (due to CA history).
--- NOTE | 2021-12-09 17:39 | PT.OTN ---
Current Diagnoses Pain in unspecified shoulder (12/09/21) Postural kyphosis, cervicothoracic region (12/09/21) Cervicalgia (12/09/21) Pain in right arm (12/09/21) Physical Therapy Treatment Note PT-OP-A Visit Information Start: 11/02/21 15:01 Freq: Status: Active Protocol: Document 12/09/21 10:36 LRN (Rec: 12/09/21 12:15 LRN [id number]) Out-Patient Physical Therapy Visit Information Visit Information Visit Type Treatment Note Visit Start Time 10:36 Visit Stop Time 11:21 Total Visit Minutes 44 Visit Number 11 Evaluation Information Evaluation Date 11/04/21 Precautions Precautions Hard of hearing Bladder CA history Back and Neck Pain history & surgical history of Low back Removal of 1/2 of R radius Scoliosis PT-OP-B Current Condition Start: 11/02/21 15:01 Freq: Status: Active Protocol: Document 11/04/21 12:47 LRN (Rec: 11/04/21 16:18 LRN [id number]) Current Condition History of Current Condition Onset Date Jul 2021 Current Complaints R shoulder pain radiating into the R side of neck History of Current Condition Pt reports insidious onset of R shoulder/neck pain. States he has had physical therapy previously for his neck, but the pain is different. He reports his pain is present when picking up heavy objects or when carrying objects. He has pain when reaching behind his head to scratch his back. Pt states he tends to lean left when in sitting, possibly due to scoliosis and has tried to correct his posture, but notes no change in his pain when he does. (Note: pt has lump behind the R ear that he states a surgeon told him was not necessary to surgically remove, physician of unknown specialty) Prior Treatments and Tests Physical therapy for neck pain 2 yrs ago. Muscle Relaxants for pain to help with sleeping. Treatment Goals Patient/Caregiver Goals Pt goal is to: -Be able to sleep throught the night without pain -Eliminate the need for pain medication to sleep -Be able to reach behind the head to scratch his back without pain -Be able to lift objects (cup of coffee) and carry groceries without pain. Prior Functional Status Baseline Function- ADL's Independent Baseline Function- Mobility Independent Baseline Function- Other Able to sleep through the night without medications. No R shoulder/neck pain with reaching behind his back or lifting/carrying objects. Current Functional Impairments (Reported) Functional Limitations- ADL's Difficulty sleeping, requiring medications to sleep (ms relaxant) and medication to go back to sleep (melatonin and IBP) Difficutly reaching behind head/back due to pain Difficulty lifting objects ( heavy & light-cup of coffee) and carrying objects ( groceries) due to pain. Personal Factors Other Personal Factors That May Effect Lives alone. Therapy/Recovery History of neck pain Scoliosis PT-OP-C Subjective Start: 11/02/21 15:01 Freq: Status: Active Protocol: Document 12/09/21 10:36 LRN (Rec: 12/09/21 12:15 LRN [id number]) OP-PT Subjective Patient Comments Patient Comments States he thinks he is going backwards because he has had more pain in the past few days . Has worn soft upper back brace a few hours at a time intermittently, and hasn't noticed a change in his sleeping with use of the brace . 3/7 nights of good sleep. Using heat to neck and shoulder before bedtime. PT-OP-E Functional Tests Start: 11/02/21 15:01 Freq: Status: Active Protocol: Document 11/04/21 12:47 LRN (Rec: 11/04/21 16:18 LRN [id number]) Functional Tests Apley's Scratch Test Action 1- Left Behind scapula Action 1- Right Top of mid shoulder Action 2- Left T5 Action 2- Right T1 Action 3- Left T8 Action 3- Right L5 PT-OP-H Neuro Start: 11/02/21 15:01 Freq: Status: Active Protocol: Document 11/04/21 12:47 LRN (Rec: 11/04/21 16:18 LRN [id number]) Sensation Evaluation Gross Sensation Gross Sensation WNL Deep Tendon Reflex & Clonus Assessment Deep Tendon Reflex Bilateral Patellar Deep Tendon Reflex 3+ Normal But Brisk Bilateral Bicep Deep Tendon Reflex 2+ Normal PT-OP-J Posture/Palpation/Skin Start: 11/02/21 15:01 Freq: Status: Active Protocol: Document 11/04/21 12:47 LRN (Rec: 11/04/21 16:18 LRN [id number]) Posture Evaluation Position Standing Head/C-Spine Posture Forward Head T-Spine Posture Increased Kyphosis L-Spine Posture Flattened Shoulder Posture (R) Elevated Arm Posture (L) Internally Rotated,(R) Internally Rotated PT-OP-K Range of Motion Start: 11/02/21 15:01 Freq: Status: Active Protocol: Document 11/04/21 12:47 LRN (Rec: 11/04/21 16:18 LRN [id number]) Cervical Spine Range of Motion Cervical Spine Active Degrees Testing Position Sitting Flexion 45 Extension 40 Rotation Left 52 Rotation Right 48 Lateral Flexion Left 32 Lateral Flexion Right 40 Comments Pain in lateral R elbow with active extension. Pain on return from L SB Shoulder Goniometric Range of Motion Shoulder Right Active Shoulder ROM WFL No Testing Position Sitting Flexion 150 Extension 155 Internal Rotation Behind Back (text) L5 Comments Reaching behind head: T1 Left Active Shoulder ROM WFL Yes Testing Position Sitting Flexion 175 Extension 180 Internal Rotation Behind Back (text) T8 Comments Reaching behind head: T5 PT-OP-L Special Tests Start: 11/02/21 15:01 Freq: Status: Active Protocol: Document 11/04/21 12:47 LRN (Rec: 11/04/21 16:18 LRN [id number]) Special Tests Cervical Spine Special Tests Spurling's Test Test Results Negative in supine facet syndrome test Test Results Positive R facets of cervical and upper thoracic spine Traction Test Results Positive Comments Reduction in R neck/shoulder pain Foraminal Compression Test Results Negative PT-OP-M Strength Start: 11/02/21 15:01 Freq: Status: Active Protocol: Document 11/04/21 12:47 LRN (Rec: 11/04/21 16:18 LRN [id number]) Cervical Spine Strength Cervical Spine Manual Muscle Testing Testing Position Sitting Comments Generally 5/5. Shoulder Strength Shoulder Manual Muscle Testing Right Flexion 5 Normal Abduction (C5) 5 Normal External Rotation 5 Normal Internal Rotation 5 Normal Comments Pain with Flex & AB Left Flexion 5 Normal Abduction (C5) 5 Normal External Rotation 5 Normal Internal Rotation 5 Normal PT-OP-Q Treatments Start: 11/02/21 15:01 Freq: Status: Active Protocol: Document 12/09/21 10:36 LRN (Rec: 12/09/21 12:15 LRN [id number]) Therapeutic Exercises Standing Exercises Standing wall posturing training Standing Exercise Name Standing wall posturing and posturing with soft brace. Equipment Used Thoracic soft brace for posture Reps/Minutes 8' Comments Phys cuing for chest lift, deep c neck flexors against wall. Brace adjust. Manual Therapy Treatment Soft Tissue Mobilization Rhomboids, infraspinatus Body Location Nelson Rhomboids, Infraspinatus Mobilization Type Myofascial Release,Sustained Pressure Intensity/Depth Moderate Body Position Prone R UT Body Location R UT Mobilization Type Myofascial Release,Sustained Pressure Intensity/Depth Moderate Body Position Supine paraspinals Body Location bilateral Thoracic Parapinals (R>L) Mobilization Type Myofascial Release,Strumming, Sustained Pressure Intensity/Depth Moderate Body Position Supine Joint Mobilizations T1-T9 Joint Diagonals & approximation Direction Balancing of Thoracic region Body Position Prone PA mob Joint T1, T2, T5-9 Grade II Body Position Supine Comments good feedback response PT-OP-R Modalities Start: 11/02/21 15:01 Freq: Status: Active Protocol: Document 12/04/21 10:43 LRN (Rec: 12/04/21 11:25 LRN [id number]) Hot Pack/Cold Pack Treatment moist heat Location C/S and L/S Patient Position Hooklying Treatment Duration (minutes) 10 PT-OP-T Assessment and Plan Start: 11/02/21 15:01 Freq: Status: Active Protocol: Document 12/09/21 10:36 LRN (Rec: 12/09/21 12:15 LRN [id number]) Physical Therapy Assessment Goals Four Impairment Decreased functional strength due to R shoulder pain Impairment R shoulder/neck pain with lifting objects (cup of cofffe and heavier objects), and with carrying objects ( groceries). Short Term Goal (STG) Pt will be able to lift objects (cup of coffee) without pain. (11/27/21: progressing: no pain lifting cup coffee but has pain with vacuuming and scrubbing granite counter tops 5-6/10). (12/04/21: Pt able to lift a cup of coffee without pain. STG Duration 12/19/21 (12/04/21: MET GOAL) Lab Systems Analyst Goal (LTG) Pt will be able to carry groceries without pain. LTG Duration 02/02/22 Three Impairment R shoulder/neck pain with reaching behind the head/neck/ opposite shoulder Impairment Reaching behind opposite shoulder: Right-top of middle of shoulder (Left-behind scapula). Reaching Behind head: Right-T1 (Left T5). Reaching Behind back: Right L5 (Left T8) Short Term Goal (STG) Pt will be able to reach behind the head to scratch his back without pain. (12/04/21: Pain in R shoulder/ neck Reaching Behind head: Right-T3, Left-T4). STG Duration 12/19/21 (12/04/21: Improved mobility, pain persists) Intermediate Goal (LTG) Improve pt's ability to reach behind his low back. (12/04/21: Reaching Behind low back: Right-L3 (was L5), Left -T8 (was T8)). LTG Duration 02/02/22 (12/04/21: Pain still present, met goal) Two Impairment Impaired sleep Impairment Pt wakes at least 1 time per night requiring use of medication to go to sleep ( Methocarband), and to fall back to sleep (melatonin, IBP) . 11/14/21: pt able to sleep 10 hrs 2 nights ago with MHP behind neck draped over R shld painfree. 11/27/21: progressing waking up 2x/night with 6/10 R shld/ neck pain. Short Term Goal (STG) Pt brooke be able to sleep through the night without pain using pain medications. (12/04/21: Couple times this week taking pain medication and ms relaxant to sleep) STG Duration 12/19/21 (12/04/21: Improved, sometimes needs pain med, uses ms relaxants) Intermediate Goal (LTG) Pt will be able to sleep through the night without pain and without use of medications. LTG Duration 02/02/22 One Impairment Pt lacks appropriate self care HEP Short Term Goal (STG) Pt will be educated and consistent with proper posturing for nighttime sleep. (11/07/21: Pt educated and is trying to stay consistent with proper nighttime positioning) . 11/11/21: Further education in nighttime sleeping positioning) 11/14/21: further ed nighttime sleep positioning w/ pillows/ noodle/folded towel. STG Duration 11/18/21 (11/17/21: MET GOAL) Lab Systems Analyst Goal (LTG) Pt will be independent with a self care HEP of neck and R shoulder ex's. (11/11/21: HEP: Neck Elongation ex & wall standing for posture) (11/21/21: HEP: T/S ex over towel roll) (11/27/21: HEP: pec stretch over noodle various ranges painfree, Ts and diagonal 1/2 X) LTG Duration 02/02/22 (12/04/21: Has been Progressed) Assessment Summary Assessment Pt soft brace was helpful in providing awareness of proper posturing upon initial wearing , but pt felt after time awareness was not present. He had irritation from the brace in the anterior shoulders. It appeared to be useful while at home, but pt would need to be able to remove if irritating the anterior shoulders (no quick release available). Myofascial tightness of the R trunk is evident; pt soft tissue mobilization of R thoracic region elicited R lateral head pain (C3), and L posterolateral trunk pain. Physical Therapy Plan Frequency and Duration Frequency of Treatment 2x/Week Plan of Care Start Date 11/04/21 Plan of Care End Date 02/02/22 Next Visit Focus/Plan Next Note Type Treatment Note Next Visit Plan Myofascial STM of R posterior thoracic region & pt self mobilization of thoracic region. Sustained pressure STM with precaution due to pt Osteoporosis. STM to R Shoulder/thoracic paraspinals to reduce fwd positioning. Initiate shoulder ext TB. Assess pt's nighttime pain positioning, pt to keep working on best posturing at nighttime for pain relief. Cont to problem solve best sleep position. Infer JMT to R 1st rib and to improve mobility for C/S and T /S. Add ROM stretch Ex: pecs, neck (gentle) Strengthening: RC, Scapular depressors Educate: HEP (neck stab and R shoulder ex's -RC.) Modalities: only MH/CP (due to CA history).
--- NOTE | 2021-12-12 08:27 | PT-OP ANOTE ---
Pt called same day early am to cancel appt, family emergency.
--- NOTE | 2021-12-16 13:18 | PT.OTN ---
Current Diagnoses Pain in unspecified shoulder (12/16/21) Postural kyphosis, cervicothoracic region (12/16/21) Cervicalgia (12/16/21) Pain in right arm (12/16/21) Physical Therapy Treatment Note PT-OP-A Visit Information Start: 11/02/21 15:01 Freq: Status: Active Protocol: Document 12/16/21 09:53 LRN (Rec: 12/16/21 10:38 LRN [id number]) Out-Patient Physical Therapy Visit Information Visit Information Visit Type Other Visit Start Time 09:54 Visit Stop Time 10:35 Total Visit Minutes 41 Visit Number 12 Evaluation Information Evaluation Date 11/04/21 Precautions Precautions Hard of hearing Bladder CA history Back and Neck Pain history & surgical history of Low back Removal of 1/2 of R radius Scoliosis PT-OP-B Current Condition Start: 11/02/21 15:01 Freq: Status: Active Protocol: Document 11/04/21 12:47 LRN (Rec: 11/04/21 16:18 LRN [id number]) Current Condition History of Current Condition Onset Date Jul 2021 Current Complaints R shoulder pain radiating into the R side of neck History of Current Condition Pt reports insidious onset of R shoulder/neck pain. States he has had physical therapy previously for his neck, but the pain is different. He reports his pain is present when picking up heavy objects or when carrying objects. He has pain when reaching behind his head to scratch his back. Pt states he tends to lean left when in sitting, possibly due to scoliosis and has tried to correct his posture, but notes no change in his pain when he does. (Note: pt has lump behind the R ear that he states a surgeon told him was not necessary to surgically remove, physician of unknown specialty) Prior Treatments and Tests Physical therapy for neck pain 2 yrs ago. Muscle Relaxants for pain to help with sleeping. Treatment Goals Patient/Caregiver Goals Pt goal is to: -Be able to sleep throught the night without pain -Eliminate the need for pain medication to sleep -Be able to reach behind the head to scratch his back without pain -Be able to lift objects (cup of coffee) and carry groceries without pain. Prior Functional Status Baseline Function- ADL's Independent Baseline Function- Mobility Independent Baseline Function- Other Able to sleep through the night without medications. No R shoulder/neck pain with reaching behind his back or lifting/carrying objects. Current Functional Impairments (Reported) Functional Limitations- ADL's Difficulty sleeping, requiring medications to sleep (ms relaxant) and medication to go back to sleep (melatonin and IBP) Difficutly reaching behind head/back due to pain Difficulty lifting objects ( heavy & light-cup of coffee) and carrying objects ( groceries) due to pain. Personal Factors Other Personal Factors That May Effect Lives alone. Therapy/Recovery History of neck pain Scoliosis PT-OP-C Subjective Start: 11/02/21 15:01 Freq: Status: Active Protocol: Document 12/16/21 09:53 LRN (Rec: 12/16/21 10:38 LRN [id number]) OP-PT Subjective Patient Comments Patient Comments Had a good week. Using heat to R neck and shoulder before going to bed PT-OP-E Functional Tests Start: 11/02/21 15:01 Freq: Status: Active Protocol: Document 11/04/21 12:47 LRN (Rec: 11/04/21 16:18 LRN [id number]) Functional Tests Apley's Scratch Test Action 1- Left Behind scapula Action 1- Right Top of mid shoulder Action 2- Left T5 Action 2- Right T1 Action 3- Left T8 Action 3- Right L5 PT-OP-H Neuro Start: 11/02/21 15:01 Freq: Status: Active Protocol: Document 11/04/21 12:47 LRN (Rec: 11/04/21 16:18 LRN [id number]) Sensation Evaluation Gross Sensation Gross Sensation WNL Deep Tendon Reflex & Clonus Assessment Deep Tendon Reflex Bilateral Patellar Deep Tendon Reflex 3+ Normal But Brisk Bilateral Bicep Deep Tendon Reflex 2+ Normal PT-OP-J Posture/Palpation/Skin Start: 11/02/21 15:01 Freq: Status: Active Protocol: Document 11/04/21 12:47 LRN (Rec: 11/04/21 16:18 LRN [id number]) Posture Evaluation Position Standing Head/C-Spine Posture Forward Head T-Spine Posture Increased Kyphosis L-Spine Posture Flattened Shoulder Posture (R) Elevated Arm Posture (L) Internally Rotated,(R) Internally Rotated PT-OP-K Range of Motion Start: 11/02/21 15:01 Freq: Status: Active Protocol: Document 11/04/21 12:47 LRN (Rec: 11/04/21 16:18 LRN [id number]) Cervical Spine Range of Motion Cervical Spine Active Degrees Testing Position Sitting Flexion 45 Extension 40 Rotation Left 52 Rotation Right 48 Lateral Flexion Left 32 Lateral Flexion Right 40 Comments Pain in lateral R elbow with active extension. Pain on return from L SB Shoulder Goniometric Range of Motion Shoulder Right Active Shoulder ROM WFL No Testing Position Sitting Flexion 150 Extension 155 Internal Rotation Behind Back (text) L5 Comments Reaching behind head: T1 Left Active Shoulder ROM WFL Yes Testing Position Sitting Flexion 175 Extension 180 Internal Rotation Behind Back (text) T8 Comments Reaching behind head: T5 PT-OP-L Special Tests Start: 11/02/21 15:01 Freq: Status: Active Protocol: Document 11/04/21 12:47 LRN (Rec: 11/04/21 16:18 LRN [id number]) Special Tests Cervical Spine Special Tests Spurling's Test Test Results Negative in supine facet syndrome test Test Results Positive R facets of cervical and upper thoracic spine Traction Test Results Positive Comments Reduction in R neck/shoulder pain Foraminal Compression Test Results Negative PT-OP-M Strength Start: 11/02/21 15:01 Freq: Status: Active Protocol: Document 11/04/21 12:47 LRN (Rec: 11/04/21 16:18 LRN [id number]) Cervical Spine Strength Cervical Spine Manual Muscle Testing Testing Position Sitting Comments Generally 5/5. Shoulder Strength Shoulder Manual Muscle Testing Right Flexion 5 Normal Abduction (C5) 5 Normal External Rotation 5 Normal Internal Rotation 5 Normal Comments Pain with Flex & AB Left Flexion 5 Normal Abduction (C5) 5 Normal External Rotation 5 Normal Internal Rotation 5 Normal PT-OP-Q Treatments Start: 11/02/21 15:01 Freq: Status: Active Protocol: Document 12/16/21 09:53 LRN (Rec: 12/16/21 10:38 LRN [id number]) Manual Therapy Treatment Soft Tissue Mobilization L UT Body Location L UT Mobilization Type Myofascial Release,Sustained Pressure Intensity/Depth Moderate Body Position Prone R Pec Body Location R Pec Mirza/Minor Mobilization Type Myofascial Release,Sustained Pressure Intensity/Depth Moderate Body Position Supine Rhomboids, infraspinatus Body Location Nelson Rhomboids, Infraspinatus Mobilization Type Myofascial Release,Sustained Pressure Intensity/Depth Moderate Body Position Prone R UT Body Location R UT Mobilization Type Myofascial Release Intensity/Depth Moderate Comments Treated in supine and prone. paraspinals Body Location bilateral Thoracic Parapinals (R>L) Mobilization Type Myofascial Release,Strumming, Sustained Pressure Intensity/Depth Moderate Body Position Supine L trap, levator scap Body Location Lev Scap Mobilization Type Myofascial Release Intensity/Depth Superficial Body Position Prone Joint Mobilizations T1-T9 Joint Diagonals & approximation Direction Balancing of Thoracic region Body Position Prone PA mob Joint T1, T2, T5-9 Grade II Body Position Supine Comments good feedback response PT-OP-R Modalities Start: 11/02/21 15:01 Freq: Status: Active Protocol: Document 12/04/21 10:43 LRN (Rec: 12/04/21 11:25 LRN [id number]) Hot Pack/Cold Pack Treatment moist heat Location C/S and L/S Patient Position Hooklying Treatment Duration (minutes) 10 PT-OP-T Assessment and Plan Start: 11/02/21 15:01 Freq: Status: Active Protocol: Document 12/16/21 09:53 LRN (Rec: 12/16/21 10:38 LRN [id number]) Physical Therapy Assessment Goals Four Impairment Decreased functional strength due to R shoulder pain Impairment R shoulder/neck pain with lifting objects (cup of cofffe and heavier objects), and with carrying objects ( groceries). Short Term Goal (STG) Pt will be able to lift objects (cup of coffee) without pain. (11/27/21: progressing: no pain lifting cup coffee but has pain with vacuuming and scrubbing granite counter tops 5-6/10). (12/04/21: Pt able to lift a cup of coffee without pain. STG Duration 12/19/21 (12/04/21: MET GOAL) Care Home Goal (LTG) Pt will be able to carry groceries without pain. LTG Duration 02/02/22 Three Impairment R shoulder/neck pain with reaching behind the head/neck/ opposite shoulder Impairment Reaching behind opposite shoulder: Right-top of middle of shoulder (Left-behind scapula). Reaching Behind head: Right-T1 (Left T5). Reaching Behind back: Right L5 (Left T8) Short Term Goal (STG) Pt will be able to reach behind the head to scratch his back without pain. (12/04/21: Pain in R shoulder/ neck Reaching Behind head: Right-T3, Left-T4). STG Duration 12/19/21 (12/04/21: Improved mobility, pain persists) [employer] Goal (LTG) Improve pt's ability to reach behind his low back. (12/04/21: Reaching Behind low back: Right-L3 (was L5), Left -T8 (was T8)). LTG Duration 02/02/22 (12/04/21: Pain still present, met goal) Two Impairment Impaired sleep Impairment Pt wakes at least 1 time per night requiring use of medication to go to sleep ( Methocarband), and to fall back to sleep (melatonin, IBP) . 11/14/21: pt able to sleep 10 hrs 2 nights ago with MHP behind neck draped over R shld painfree. 11/27/21: progressing waking up 2x/night with 6/10 R shld/ neck pain. Short Term Goal (STG) Pt brooke be able to sleep through the night without pain using pain medications. (12/04/21: Couple times this week taking pain medication and ms relaxant to sleep) STG Duration 12/19/21 (12/04/21: Improved, sometimes needs pain med, uses ms relaxants) [employer] Goal (LTG) Pt will be able to sleep through the night without pain and without use of medications. LTG Duration 02/02/22 One Impairment Pt lacks appropriate self care HEP Short Term Goal (STG) Pt will be educated and consistent with proper posturing for nighttime sleep. (11/07/21: Pt educated and is trying to stay consistent with proper nighttime positioning) . 11/11/21: Further education in nighttime sleeping positioning) 11/14/21: further ed nighttime sleep positioning w/ pillows/ noodle/folded towel. STG Duration 11/18/21 (11/17/21: MET GOAL) Care Home Goal (LTG) Pt will be independent with a self care HEP of neck and R shoulder ex's. (11/11/21: HEP: Neck Elongation ex & wall standing for posture) (11/21/21: HEP: T/S ex over towel roll) (11/27/21: HEP: pec stretch over noodle various ranges painfree, Ts and diagonal 1/2 X) LTG Duration 02/02/22 (12/04/21: Has been Progressed) Progress Towards Goals Progress Comments Less R posterior ear pain onset with STM. Pt reports being able to sleep better and is questioning whether he should reduce his meds. Assessment Summary Assessment STM elicits R posterior ear pain only with R UT/shoulder and Pec MFR and stretch. Pt R ~9th rib was posterior in prone position and R Iliac crest and ALA was elevated and decreased in inferior mobility with pain on inferior glide. Pt thoracic position much improved after STM with minimal R rotation noted in the supine position. The R Pec is very tight and produces R ear pain. Further STM of the thoracic region, R upper shoulder and R pec minor/major , and MFR of the low back is needed. Physical Therapy Plan Frequency and Duration Frequency of Treatment 2x/Week Plan of Care Start Date 11/04/21 Plan of Care End Date 02/02/22 Next Visit Focus/Plan Next Note Type Treatment Note Next Visit Plan Discuss pt's medication he is using to sleep. Myofascial STM of the thoracic region, R upper shoulder and R pec minor/major, and MFR of the posterior low back. Sustained pressure STM with precaution due to pt Osteoporosis. Self mobilization of thoracic region. Reduce fwd head positioning. Initiate shoulder ext TB for lat strengthening to reduce kyphosis. Assess pt's nighttime pain positioning, pt to keep working on best posturing at nighttime for pain relief. Cont to problem solve best sleep position. Improve mobility for C/S and T /S. Add ROM stretch Ex: pecs, neck (gentle) Strengthening: RC, Scapular depressors Educate: HEP (neck stab and R shoulder ex's -RC.) Modalities: only MH/CP (due to CA history).
--- NOTE | 2021-12-25 12:35 | PT.OTN ---
Current Diagnoses Pain in unspecified shoulder (12/25/21) Postural kyphosis, cervicothoracic region (12/25/21) Cervicalgia (12/25/21) Pain in right arm (12/25/21) Physical Therapy Treatment Note PT-OP-A Visit Information Start: 11/02/21 15:01 Freq: Status: Active Protocol: Document 12/25/21 09:46 LRN (Rec: 12/25/21 10:58 LRN [id number]) Out-Patient Physical Therapy Visit Information Visit Information Visit Type Treatment Note Visit Start Time 09:46 Visit Stop Time 10:44 Total Visit Minutes 58 Visit Number 13 Evaluation Information Evaluation Date 11/04/21 Precautions Precautions Hard of hearing Bladder CA history Back and Neck Pain history & surgical history of Low back Removal of 1/2 of R radius Scoliosis PT-OP-B Current Condition Start: 11/02/21 15:01 Freq: Status: Active Protocol: Document 11/04/21 12:47 LRN (Rec: 11/04/21 16:18 LRN [id number]) Current Condition History of Current Condition Onset Date Jul 2021 Current Complaints R shoulder pain radiating into the R side of neck History of Current Condition Pt reports insidious onset of R shoulder/neck pain. States he has had physical therapy previously for his neck, but the pain is different. He reports his pain is present when picking up heavy objects or when carrying objects. He has pain when reaching behind his head to scratch his back. Pt states he tends to lean left when in sitting, possibly due to scoliosis and has tried to correct his posture, but notes no change in his pain when he does. (Note: pt has lump behind the R ear that he states a surgeon told him was not necessary to surgically remove, physician of unknown specialty) Prior Treatments and Tests Physical therapy for neck pain 2 yrs ago. Muscle Relaxants for pain to help with sleeping. Treatment Goals Patient/Caregiver Goals Pt goal is to: -Be able to sleep throught the night without pain -Eliminate the need for pain medication to sleep -Be able to reach behind the head to scratch his back without pain -Be able to lift objects (cup of coffee) and carry groceries without pain. Prior Functional Status Baseline Function- ADL's Independent Baseline Function- Mobility Independent Baseline Function- Other Able to sleep through the night without medications. No R shoulder/neck pain with reaching behind his back or lifting/carrying objects. Current Functional Impairments (Reported) Functional Limitations- ADL's Difficulty sleeping, requiring medications to sleep (ms relaxant) and medication to go back to sleep (melatonin and IBP) Difficutly reaching behind head/back due to pain Difficulty lifting objects ( heavy & light-cup of coffee) and carrying objects ( groceries) due to pain. Personal Factors Other Personal Factors That May Effect Lives alone. Therapy/Recovery History of neck pain Scoliosis PT-OP-C Subjective Start: 11/02/21 15:01 Freq: Status: Active Protocol: Document 12/25/21 09:46 LRN (Rec: 12/25/21 10:58 LRN [id number]) OP-PT Subjective Patient Comments Patient Comments States he felt good after last session and then went on a cruise. States he always sleeps good on a boat, but during the day didn't do so well. States he found a new strap for his back to improve his posture and finds it helps his posture. PT-OP-E Functional Tests Start: 11/02/21 15:01 Freq: Status: Active Protocol: Document 11/04/21 12:47 LRN (Rec: 11/04/21 16:18 LRN [id number]) Functional Tests Apley's Scratch Test Action 1- Left Behind scapula Action 1- Right Top of mid shoulder Action 2- Left T5 Action 2- Right T1 Action 3- Left T8 Action 3- Right L5 PT-OP-H Neuro Start: 11/02/21 15:01 Freq: Status: Active Protocol: Document 11/04/21 12:47 LRN (Rec: 11/04/21 16:18 LRN [id number]) Sensation Evaluation Gross Sensation Gross Sensation WNL Deep Tendon Reflex & Clonus Assessment Deep Tendon Reflex Bilateral Patellar Deep Tendon Reflex 3+ Normal But Brisk Bilateral Bicep Deep Tendon Reflex 2+ Normal PT-OP-J Posture/Palpation/Skin Start: 11/02/21 15:01 Freq: Status: Active Protocol: Document 11/04/21 12:47 LRN (Rec: 11/04/21 16:18 LRN [id number]) Posture Evaluation Position Standing Head/C-Spine Posture Forward Head T-Spine Posture Increased Kyphosis L-Spine Posture Flattened Shoulder Posture (R) Elevated Arm Posture (L) Internally Rotated,(R) Internally Rotated PT-OP-K Range of Motion Start: 11/02/21 15:01 Freq: Status: Active Protocol: Document 12/25/21 09:46 LRN (Rec: 12/25/21 10:58 LRN [id number]) Cervical Spine Range of Motion Cervical Spine Active Degrees Testing Position Sitting Flexion 42 Extension 57 Rotation Left 60 Rotation Right 58 Lateral Flexion Left 25 Lateral Flexion Right 22 PT-OP-L Special Tests Start: 11/02/21 15:01 Freq: Status: Active Protocol: Document 11/04/21 12:47 LRN (Rec: 11/04/21 16:18 LRN [id number]) Special Tests Cervical Spine Special Tests Spurling's Test Test Results Negative in supine facet syndrome test Test Results Positive R facets of cervical and upper thoracic spine Traction Test Results Positive Comments Reduction in R neck/shoulder pain Foraminal Compression Test Results Negative PT-OP-M Strength Start: 11/02/21 15:01 Freq: Status: Active Protocol: Document 11/04/21 12:47 LRN (Rec: 11/04/21 16:18 LRN [id number]) Cervical Spine Strength Cervical Spine Manual Muscle Testing Testing Position Sitting Comments Generally 5/5. Shoulder Strength Shoulder Manual Muscle Testing Right Flexion 5 Normal Abduction (C5) 5 Normal External Rotation 5 Normal Internal Rotation 5 Normal Comments Pain with Flex & AB Left Flexion 5 Normal Abduction (C5) 5 Normal External Rotation 5 Normal Internal Rotation 5 Normal PT-OP-Q Treatments Start: 11/02/21 15:01 Freq: Status: Active Protocol: Document 12/25/21 09:46 LRN (Rec: 12/25/21 10:58 LRN [id number]) Manual Therapy Treatment Soft Tissue Mobilization Back Body Location R lower, mid and lower upper back Mobilization Type Myofascial Release Intensity/Depth Superficial Body Position Prone Comments Decreased mobility inferior lateral and R rotation with + response after treatment. 1st rib Body Location Inferior glide Mobilization Type Oscillations,Sustained Pressure Intensity/Depth Moderate Body Position Hooklying R Pec Body Location R Pec Mirza/Minor Mobilization Type Myofascial Release,Sustained Pressure Intensity/Depth Moderate Body Position Supine R UT Body Location R UT Mobilization Type Myofascial Release Intensity/Depth Moderate Comments Treated in supine and prone. paraspinals Body Location bilateral Thoracic Parapinals (R>L) Mobilization Type Myofascial Release,Strumming, Sustained Pressure Intensity/Depth Moderate Body Position Supine L trap, levator scap Body Location R Lev Scap Mobilization Type Myofascial Release Intensity/Depth Superficial Body Position Prone Joint Mobilizations T1-T9 Joint Diagonals & approximation Direction Balancing of Thoracic region Body Position Prone Stenoclavicular jt Joint R SCJ Direction Inferior glide, Approximation/ Balancing Grade II Body Position Hooklying PA mob Joint T1, T2 Grade II Body Position Supine Comments Gentle Static pressure. Manual Techniques S/CS Type S/CS to decrease pain with cervical R SB at 1st rib articulation @ T1 Body Position Supine Reps/Duration 3' Comments Pt was able to slowly return to neutral, but used head to nod yes/no. Pt I/S to drink plenty of water and to avoid lying down during the day. PT-OP-R Modalities Start: 11/02/21 15:01 Freq: Status: Active Protocol: Document 12/25/21 09:46 LRN (Rec: 12/25/21 10:58 LRN [id number]) Hot Pack/Cold Pack Treatment Cold Pack Location Neck Patient Position Supine Treatment Duration (minutes) 10 PT-OP-T Assessment and Plan Start: 11/02/21 15:01 Freq: Status: Active Protocol: Document 12/25/21 09:46 LRN (Rec: 12/25/21 10:58 LRN [id number]) Physical Therapy Assessment Goals Four Impairment Decreased functional strength due to R shoulder pain Impairment R shoulder/neck pain with lifting objects (cup of cofffe and heavier objects), and with carrying objects ( groceries). Short Term Goal (STG) Pt will be able to lift objects (cup of coffee) without pain. (11/27/21: progressing: no pain lifting cup coffee but has pain with vacuuming and scrubbing granite counter tops 5-6/10). (12/04/21: Pt able to lift a cup of coffee without pain. STG Duration 12/19/21 (12/04/21: MET GOAL) Custodial Goal (LTG) Pt will be able to carry groceries without pain. LTG Duration 02/02/22 Three Impairment R shoulder/neck pain with reaching behind the head/neck/ opposite shoulder Impairment Reaching behind opposite shoulder: Right-top of middle of shoulder (Left-behind scapula). Reaching Behind head: Right-T1 (Left T5). Reaching Behind back: Right L5 (Left T8) Short Term Goal (STG) Pt will be able to reach behind the head to scratch his back without pain. (12/04/21: Pain in R shoulder/ neck Reaching Behind head: Right-T3, Left-T4). STG Duration 12/19/21 (12/04/21: Improved mobility, pain persists) Teletypewriter Operator Goal (LTG) Improve pt's ability to reach behind his low back. (12/04/21: Reaching Behind low back: Right-L3 (was L5), Left -T8 (was T8)). LTG Duration 02/02/22 (12/04/21: Pain still present, met goal) Two Impairment Impaired sleep Impairment Pt wakes at least 1 time per night requiring use of medication to go to sleep ( Methocarband), and to fall back to sleep (melatonin, IBP) . 11/14/21: pt able to sleep 10 hrs 2 nights ago with MHP behind neck draped over R shld painfree. 11/27/21: progressing waking up 2x/night with 6/10 R shld/ neck pain. Short Term Goal (STG) Pt brooke be able to sleep through the night without pain using pain medications. (12/04/21: Couple times this week taking pain medication and ms relaxant to sleep) STG Duration 12/19/21 (12/04/21: Improved, sometimes needs pain med, uses ms relaxants) Custodial Goal (LTG) Pt will be able to sleep through the night without pain and without use of medications. LTG Duration 02/02/22 One Impairment Pt lacks appropriate self care HEP Short Term Goal (STG) Pt will be educated and consistent with proper posturing for nighttime sleep. (11/07/21: Pt educated and is trying to stay consistent with proper nighttime positioning) . 11/11/21: Further education in nighttime sleeping positioning) 11/14/21: further ed nighttime sleep positioning w/ pillows/ noodle/folded towel. STG Duration 11/18/21 (11/17/21: MET GOAL) Teletypewriter Operator Goal (LTG) Pt will be independent with a self care HEP of neck and R shoulder ex's. (11/11/21: HEP: Neck Elongation ex & wall standing for posture) (11/21/21: HEP: T/S ex over towel roll) (11/27/21: HEP: pec stretch over noodle various ranges painfree, Ts and diagonal 1/2 X) LTG Duration 02/02/22 (12/04/21: Has been Progressed) Assessment Summary Assessment Pt very tight in R UT, possibly due to his trunk being in R rot with stretch on R side and shortening of anterior ms on L. Pt returns from boat cruise and doesn't recall events after last session, except he was able to sleep on his back and that he felt good. He returns in a flared up state with his L 1st rib very tender in prone and R side in supine. His chest is in R rotation. R 1st /2nd ribs elevated, unable to correct. During S/CS static hold in painfree position of head R SB, pt had click in R side of neck. No change in pain at 1st/2nd rib after treatment and cervial AROM is good except SB is limited bilaterally; pain in R UT and top of shoulder with active C. R rot, FB & L SB; due to tightness of R UT and possible neural tension. Good tolerance to ice. Pt noted tightness of L anterior chest with new postural brace. Sitting: thoracic trunk appears to be shifted Left and R rotated. Physical Therapy Plan Frequency and Duration Frequency of Treatment 2x/Week Plan of Care Start Date 11/04/21 Plan of Care End Date 02/02/22 Next Visit Focus/Plan Next Note Type Treatment Note Next Visit Plan Assess response to last treatment, his sleeping ability, use of pain meds and nighttime positioning. Discuss pt's medication he is using to sleep. Myofascial STM of the thoracic region, R upper shoulder and R pec minor/major, and MFR of the posterior low back. Sustained pressure STM with precaution due to pt Osteoporosis. Self mobilization of thoracic region. Reduce fwd head positioning. Initiate shoulder ext TB for lat strengthening to reduce kyphosis. Assess pt's nighttime pain positioning, pt to keep working on best posturing at nighttime for pain relief. Cont to problem solve best sleep position. Improve mobility for C/S and T /S. Add ROM stretch Ex: pecs, neck (gentle) Strengthening: RC, Scapular depressors Educate: HEP (neck stab and R shoulder ex's -RC.) Modalities: only MH/CP (due to CA history).
--- NOTE | 2021-12-29 12:35 | PT.OTN ---
Current Diagnoses Pain in unspecified shoulder (12/29/21) Postural kyphosis, cervicothoracic region (12/29/21) Cervicalgia (12/29/21) Pain in right arm (12/29/21) Physical Therapy Treatment Note PT-OP-A Visit Information Start: 11/02/21 15:01 Freq: Status: Active Protocol: Document 12/29/21 09:46 LRN (Rec: 12/29/21 12:34 LRN [id number]) Out-Patient Physical Therapy Visit Information Visit Information Visit Type Treatment Note Visit Start Time 09:46 Visit Stop Time 10:33 Total Visit Minutes 47 Visit Number 14 Evaluation Information Evaluation Date 11/04/21 Precautions Precautions Hard of hearing Bladder CA history Back and Neck Pain history & surgical history of Low back Removal of 1/2 of R radius Scoliosis PT-OP-B Current Condition Start: 11/02/21 15:01 Freq: Status: Active Protocol: Document 11/04/21 12:47 LRN (Rec: 11/04/21 16:18 LRN [id number]) Current Condition History of Current Condition Onset Date Jul 2021 Current Complaints R shoulder pain radiating into the R side of neck History of Current Condition Pt reports insidious onset of R shoulder/neck pain. States he has had physical therapy previously for his neck, but the pain is different. He reports his pain is present when picking up heavy objects or when carrying objects. He has pain when reaching behind his head to scratch his back. Pt states he tends to lean left when in sitting, possibly due to scoliosis and has tried to correct his posture, but notes no change in his pain when he does. (Note: pt has lump behind the R ear that he states a surgeon told him was not necessary to surgically remove, physician of unknown specialty) Prior Treatments and Tests Physical therapy for neck pain 2 yrs ago. Muscle Relaxants for pain to help with sleeping. Treatment Goals Patient/Caregiver Goals Pt goal is to: -Be able to sleep throught the night without pain -Eliminate the need for pain medication to sleep -Be able to reach behind the head to scratch his back without pain -Be able to lift objects (cup of coffee) and carry groceries without pain. Prior Functional Status Baseline Function- ADL's Independent Baseline Function- Mobility Independent Baseline Function- Other Able to sleep through the night without medications. No R shoulder/neck pain with reaching behind his back or lifting/carrying objects. Current Functional Impairments (Reported) Functional Limitations- ADL's Difficulty sleeping, requiring medications to sleep (ms relaxant) and medication to go back to sleep (melatonin and IBP) Difficutly reaching behind head/back due to pain Difficulty lifting objects ( heavy & light-cup of coffee) and carrying objects ( groceries) due to pain. Personal Factors Other Personal Factors That May Effect Lives alone. Therapy/Recovery History of neck pain Scoliosis PT-OP-C Subjective Start: 11/02/21 15:01 Freq: Status: Active Protocol: Document 12/29/21 09:46 LRN (Rec: 12/29/21 12:34 LRN [id number]) OP-PT Subjective Patient Comments Patient Comments Woke last night to switch position but not because of pain. PT-OP-E Functional Tests Start: 11/02/21 15:01 Freq: Status: Active Protocol: Document 11/04/21 12:47 LRN (Rec: 11/04/21 16:18 LRN [id number]) Functional Tests Apley's Scratch Test Action 1- Left Behind scapula Action 1- Right Top of mid shoulder Action 2- Left T5 Action 2- Right T1 Action 3- Left T8 Action 3- Right L5 PT-OP-H Neuro Start: 11/02/21 15:01 Freq: Status: Active Protocol: Document 11/04/21 12:47 LRN (Rec: 11/04/21 16:18 LRN [id number]) Sensation Evaluation Gross Sensation Gross Sensation WNL Deep Tendon Reflex & Clonus Assessment Deep Tendon Reflex Bilateral Patellar Deep Tendon Reflex 3+ Normal But Brisk Bilateral Bicep Deep Tendon Reflex 2+ Normal PT-OP-J Posture/Palpation/Skin Start: 11/02/21 15:01 Freq: Status: Active Protocol: Document 12/29/21 09:46 LRN (Rec: 12/29/21 12:34 LRN [id number]) Palpation Assessment Location Thoracic spine Palpation Location Posterior thoracic cage in prone Palpation Details Thoracic cage rotated left PT-OP-K Range of Motion Start: 11/02/21 15:01 Freq: Status: Active Protocol: Document 12/25/21 09:46 LRN (Rec: 12/25/21 10:58 LRN [id number]) Cervical Spine Range of Motion Cervical Spine Active Degrees Testing Position Sitting Flexion 42 Extension 57 Rotation Left 60 Rotation Right 58 Lateral Flexion Left 25 Lateral Flexion Right 22 PT-OP-L Special Tests Start: 11/02/21 15:01 Freq: Status: Active Protocol: Document 11/04/21 12:47 LRN (Rec: 11/04/21 16:18 LRN [id number]) Special Tests Cervical Spine Special Tests Spurling's Test Test Results Negative in supine facet syndrome test Test Results Positive R facets of cervical and upper thoracic spine Traction Test Results Positive Comments Reduction in R neck/shoulder pain Foraminal Compression Test Results Negative PT-OP-M Strength Start: 11/02/21 15:01 Freq: Status: Active Protocol: Document 11/04/21 12:47 LRN (Rec: 11/04/21 16:18 LRN [id number]) Cervical Spine Strength Cervical Spine Manual Muscle Testing Testing Position Sitting Comments Generally 5/5. Shoulder Strength Shoulder Manual Muscle Testing Right Flexion 5 Normal Abduction (C5) 5 Normal External Rotation 5 Normal Internal Rotation 5 Normal Comments Pain with Flex & AB Left Flexion 5 Normal Abduction (C5) 5 Normal External Rotation 5 Normal Internal Rotation 5 Normal PT-OP-Q Treatments Start: 11/02/21 15:01 Freq: Status: Active Protocol: Document 12/29/21 09:46 LRN (Rec: 12/29/21 12:34 LRN [id number]) Manual Therapy Treatment Soft Tissue Mobilization Back Body Location L>R mid and upper back Mobilization Type Myofascial Release Intensity/Depth Moderate Body Position Prone R Pec Body Location R Pec Mirza/Minor Mobilization Type Myofascial Release,Sustained Pressure Intensity/Depth Moderate Body Position Supine R UT Body Location R UT Mobilization Type Myofascial Release Intensity/Depth Moderate Comments Treated in supine and prone. paraspinals Body Location bilateral Thoracic Parapinals (R>L) Mobilization Type Myofascial Release,Strumming, Sustained Pressure Intensity/Depth Moderate Body Position Supine L trap, levator scap Body Location L Lev Scap Mobilization Type Myofascial Release Intensity/Depth Superficial Body Position Prone Joint Mobilizations scap mob Joint Nelson Scap distraction in prone & sidelie Reps/Duration 10' Comments Decreased mobility bilaterally Manual Techniques MET Type Manual C.tx (sitting) w/manual C/S raction during active C. R rot. Comments 10x 2 f/b 10x active R rot. Decrease in pain with R rot after treatment. Self-Care/Home Management Treatment Education Patient Education Home Exercise Program Other Education Discussed use of his back posture brace, not at night. Added pt to do neck elongation with use of posture brace for improving posture. Activities Self-Care/Home Management Activities I/S pt in HEP: Row with Lev 1 TB and white strap issued. PT-OP-R Modalities Start: 11/02/21 15:01 Freq: Status: Active Protocol: Document 12/25/21 09:46 LRN (Rec: 12/25/21 10:58 LRN [id number]) Hot Pack/Cold Pack Treatment Cold Pack Location Neck Patient Position Supine Treatment Duration (minutes) 10 PT-OP-T Assessment and Plan Start: 11/02/21 15:01 Freq: Status: Active Protocol: Document 12/29/21 09:46 LRN (Rec: 12/29/21 12:34 LRN [id number]) Physical Therapy Assessment Goals Four Impairment Decreased functional strength due to R shoulder pain Impairment R shoulder/neck pain with lifting objects (cup of cofffe and heavier objects), and with carrying objects ( groceries). Short Term Goal (STG) Pt will be able to lift objects (cup of coffee) without pain. (11/27/21: progressing: no pain lifting cup coffee but has pain with vacuuming and scrubbing granite counter tops 5-6/10). (12/04/21: Pt able to lift a cup of coffee without pain. STG Duration 12/19/21 (12/04/21: MET GOAL) [employer] Worker Goal (LTG) Pt will be able to carry groceries without pain. LTG Duration 02/02/22 Three Impairment R shoulder/neck pain with reaching behind the head/neck/ opposite shoulder Impairment Reaching behind opposite shoulder: Right-top of middle of shoulder (Left-behind scapula). Reaching Behind head: Right-T1 (Left T5). Reaching Behind back: Right L5 (Left T8) Short Term Goal (STG) Pt will be able to reach behind the head to scratch his back without pain. (12/04/21: Pain in R shoulder/ neck Reaching Behind head: Right-T3, Left-T4). STG Duration 12/19/21 (12/04/21: Improved mobility, pain persists) Correction Goal (LTG) Improve pt's ability to reach behind his low back. (12/04/21: Reaching Behind low back: Right-L3 (was L5), Left -T8 (was T8)). LTG Duration 02/02/22 (12/04/21: Pain still present, met goal) Two Impairment Impaired sleep Impairment Pt wakes at least 1 time per night requiring use of medication to go to sleep ( Methocarband), and to fall back to sleep (melatonin, IBP) . 11/14/21: pt able to sleep 10 hrs 2 nights ago with MHP behind neck draped over R shld painfree. 11/27/21: progressing waking up 2x/night with 6/10 R shld/ neck pain. Short Term Goal (STG) Pt brooke be able to sleep through the night without pain using pain medications. (12/04/21: Couple times this week taking pain medication and ms relaxant to sleep) STG Duration 12/19/21 (12/04/21: Improved, sometimes needs pain med, uses ms relaxants) [employer] Worker Goal (LTG) Pt will be able to sleep through the night without pain and without use of medications. LTG Duration 02/02/22 One Impairment Pt lacks appropriate self care HEP Short Term Goal (STG) Pt will be educated and consistent with proper posturing for nighttime sleep. (11/07/21: Pt educated and is trying to stay consistent with proper nighttime positioning) . 11/11/21: Further education in nighttime sleeping positioning) 11/14/21: further ed nighttime sleep positioning w/ pillows/ noodle/folded towel. STG Duration 11/18/21 (11/17/21: MET GOAL) Correction Goal (LTG) Pt will be independent with a self care HEP of neck and R shoulder ex's. (11/11/21: HEP: Neck Elongation ex & wall standing for posture) (11/21/21: HEP: T/S ex over towel roll) (11/27/21: HEP: pec stretch over noodle various ranges painfree, Ts and diagonal 1/2 X) LTG Duration 02/02/22 (12/04/21: Has been Progressed) Assessment Summary Assessment Pt needs to improve mobility of T/S to minimize strain on C /S. Pt is not aware of how his sleeping has changed and has poor awareness of his positioning when he wakes, but did note that he woke last night to reposition his body, but not because of R head/neck pain. His posture is improved with use of his new postural brace, but needs cuing to elongate neck to improve posture. He had less pain with cervical R rot after MWM treatment at end of therapy. Normalized L rotated chest positioning in supine after manual therapy, but in sitting pt demonstrated rotation of T/S. Pt had no pain in the R neck/shoulder with STM of the upper back ( only discomfort noted in LB), and discomfort was on the L side of the thoracic spine. Physical Therapy Plan Frequency and Duration Frequency of Treatment 2x/Week Plan of Care Start Date 11/04/21 Plan of Care End Date 02/02/22 Next Visit Focus/Plan Next Note Type Treatment Note Next Visit Plan Review TB row ex I/S for a HEP . Check progress towards goals. Assess response to last treatment, his use of pain meds for sleeping and nighttime positioning. Discuss pt's medication he is using to sleep. Myofascial STM of the thoracic region, R upper shoulder and R pec minor/major, and MFR of the posterior low back. Sustained pressure STM with precaution due to pt Osteoporosis. Self mobilization of thoracic region. Initiate shoulder ext TB for lat strengthening to reduce kyphosis. Assess pt's nighttime pain positioning, pt to keep working on best posturing at nighttime for pain relief. Cont to problem solve best sleep position. Improve mobility for C/S and T /S. Add ROM stretch Ex: pecs, neck (gentle) Strengthening: RC, Scapular depressors Educate: HEP (neck stab and R shoulder ex's -RC.) Modalities: only MH/CP (due to CA history).
--- NOTE | 2022-01-01 10:32 | PT.OTN ---
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/22) Cervicalgia (01/01/22) Pain in right arm (01/01/22) Physical Therapy Treatment Note PT-OP-A Visit Information Start: 11/02/21 15:01 Freq: Status: Active Protocol: Document 01/01/22 09:50 SP (Rec: 01/01/22 10:33 SP [id number]) Out-Patient Physical Therapy Visit Information Visit Information Visit Type Treatment Note Visit Start Time 09:50 Visit Stop Time 10:32 Total Visit Minutes 42 Visit Number 15 Number of SCIENTIFIC SPECIALIST Visits 1 Evaluation Information Evaluation Date 11/04/21 Precautions Precautions Hard of hearing Bladder CA history Back and Neck Pain history & surgical history of Low back Removal of 1/2 of R radius Scoliosis PT-OP-B Current Condition Start: 11/02/21 15:01 Freq: Status: Active Protocol: Document 11/04/21 12:47 LRN (Rec: 11/04/21 16:18 LRN [id number]) Current Condition History of Current Condition Onset Date Jul 2021 Current Complaints R shoulder pain radiating into the R side of neck History of Current Condition Pt reports insidious onset of R shoulder/neck pain. States he has had physical therapy previously for his neck, but the pain is different. He reports his pain is present when picking up heavy objects or when carrying objects. He has pain when reaching behind his head to scratch his back. Pt states he tends to lean left when in sitting, possibly due to scoliosis and has tried to correct his posture, but notes no change in his pain when he does. (Note: pt has lump behind the R ear that he states a surgeon told him was not necessary to surgically remove, physician of unknown specialty) Prior Treatments and Tests Physical therapy for neck pain 2 yrs ago. Muscle Relaxants for pain to help with sleeping. Treatment Goals Patient/Caregiver Goals Pt goal is to: -Be able to sleep throught the night without pain -Eliminate the need for pain medication to sleep -Be able to reach behind the head to scratch his back without pain -Be able to lift objects (cup of coffee) and carry groceries without pain. Prior Functional Status Baseline Function- ADL's Independent Baseline Function- Mobility Independent Baseline Function- Other Able to sleep through the night without medications. No R shoulder/neck pain with reaching behind his back or lifting/carrying objects. Current Functional Impairments (Reported) Functional Limitations- ADL's Difficulty sleeping, requiring medications to sleep (ms relaxant) and medication to go back to sleep (melatonin and IBP) Difficutly reaching behind head/back due to pain Difficulty lifting objects ( heavy & light-cup of coffee) and carrying objects ( groceries) due to pain. Personal Factors Other Personal Factors That May Effect Lives alone. Therapy/Recovery History of neck pain Scoliosis PT-OP-C Subjective Start: 11/02/21 15:01 Freq: Status: Active Protocol: Document 01/01/22 09:50 SP (Rec: 01/01/22 10:33 SP [id number]) OP-PT Subjective Patient Comments Patient Comments Pt stated wore new postural brace that anchors around trunk during yesterday's activities and slept well all night painfree. 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 PT-OP-E Functional Tests Start: 11/02/21 15:01 Freq: Status: Active Protocol: Document 11/04/21 12:47 LRN (Rec: 11/04/21 16:18 LRN [id number]) Functional Tests Apley's Scratch Test Action 1- Left Behind scapula Action 1- Right Top of mid shoulder Action 2- Left T5 Action 2- Right T1 Action 3- Left T8 Action 3- Right L5 PT-OP-H Neuro Start: 11/02/21 15:01 Freq: Status: Active Protocol: Document 11/04/21 12:47 LRN (Rec: 11/04/21 16:18 LRN [id number]) Sensation Evaluation Gross Sensation Gross Sensation WNL Deep Tendon Reflex & Clonus Assessment Deep Tendon Reflex Bilateral Patellar Deep Tendon Reflex 3+ Normal But Brisk Bilateral Bicep Deep Tendon Reflex 2+ Normal PT-OP-J Posture/Palpation/Skin Start: 11/02/21 15:01 Freq: Status: Active Protocol: Document 12/29/21 09:46 LRN (Rec: 12/29/21 12:34 LRN [id number]) Palpation Assessment Location Thoracic spine Palpation Location Posterior thoracic cage in prone Palpation Details Thoracic cage rotated left PT-OP-K Range of Motion Start: 11/02/21 15:01 Freq: Status: Active Protocol: Document 12/25/21 09:46 LRN (Rec: 12/25/21 10:58 LRN [id number]) Cervical Spine Range of Motion Cervical Spine Active Degrees Testing Position Sitting Flexion 42 Extension 57 Rotation Left 60 Rotation Right 58 Lateral Flexion Left 25 Lateral Flexion Right 22 PT-OP-L Special Tests Start: 11/02/21 15:01 Freq: Status: Active Protocol: Document 11/04/21 12:47 LRN (Rec: 11/04/21 16:18 LRN [id number]) Special Tests Cervical Spine Special Tests Spurling's Test Test Results Negative in supine facet syndrome test Test Results Positive R facets of cervical and upper thoracic spine Traction Test Results Positive Comments Reduction in R neck/shoulder pain Foraminal Compression Test Results Negative PT-OP-M Strength Start: 11/02/21 15:01 Freq: Status: Active Protocol: Document 11/04/21 12:47 LRN (Rec: 11/04/21 16:18 LRN [id number]) Cervical Spine Strength Cervical Spine Manual Muscle Testing Testing Position Sitting Comments Generally 5/5. Shoulder Strength Shoulder Manual Muscle Testing Right Flexion 5 Normal Abduction (C5) 5 Normal External Rotation 5 Normal Internal Rotation 5 Normal Comments Pain with Flex & AB Left Flexion 5 Normal Abduction (C5) 5 Normal External Rotation 5 Normal Internal Rotation 5 Normal PT-OP-Q Treatments Start: 11/02/21 15:01 Freq: Status: Active Protocol: Document 01/01/22 09:50 SP (Rec: 01/01/22 10:33 SP [id number]) Therapeutic Exercises Supine Exercises Self STMs Supine Exercise Name SCM Resistance discussed and performs at home if needed Equipment Used cued can apply standing in front mirror for self viewing Reps/Minutes 3min post manual Comments sustained pressure with and without MWM head turn/ nod, pincer knead: gdfbk Sitting Exercises UT/ Lev scap stretch Sitting Exercise Name review next tx R>L Standing Exercises resisted rows, shld ext Standing Exercise Name added to HEP Side bilateral Resistance TB#1 Reps/Minutes x10 Comments cued tall posture/scap stab, chin nod CS alignment, overlap TB hand lt order management specialist Manual Therapy Treatment Soft Tissue Mobilization SCM Body Location R>L Mobilization Type Myofascial Release,Rolling, Sustained Pressure,Other Intensity/Depth Moderate Comments manual (supine, discussed seated and mc kay machine operator front mirror to allow head/neck alignment and allowance grasp alignment). Instruction on self if needed for posterior neck tightness, understanding post ed. Back Body Location L>R mid and upper back Mobilization Type Myofascial Release Intensity/Depth Moderate Body Position Prone Comments pillow under pelvis R Pec Body Location R>L Pec Mirza/Minor Mobilization Type Myofascial Release,Sustained Pressure Intensity/Depth Moderate Body Position Supine Comments manual and instruction sustained pressure opposite UE w/ MWM moving arm small ranges. R UT Body Location R>L UT Mobilization Type Myofascial Release Intensity/Depth Moderate Comments Treated in supine and prone. L trap, levator scap Body Location R>L Lev Scap Mobilization Type Myofascial Release Intensity/Depth Superficial Body Position Supine Self-Care/Home Management Treatment Education Patient Education Home Exercise Program,Posture Other Education Reviewed reported resisted shld rows added last tx ( unable to see documented) with TB #1 and added resisted shld extension today with improved form. Extra time spent education on anatomy/postural alignment with and without use of postural brace for form until able do on own, incorporate self STM, stretching and postural HEP. Pt better understanding how all works together and apply during activities. PT-OP-R Modalities Start: 11/02/21 15:01 Freq: Status: Active Protocol: Document 12/25/21 09:46 LRN (Rec: 12/25/21 10:58 LRN [id number]) Hot Pack/Cold Pack Treatment Cold Pack Location Neck Patient Position Supine Treatment Duration (minutes) 10 PT-OP-T Assessment and Plan Start: 11/02/21 15:01 Freq: Status: Active Protocol: Document 01/01/22 09:50 SP (Rec: 01/01/22 10:33 SP [id number]) Physical Therapy Assessment Goals Four Impairment Decreased functional strength due to R shoulder pain Impairment R shoulder/neck pain with lifting objects (cup of cofffe and heavier objects), and with carrying objects ( groceries). Short Term Goal (STG) Pt will be able to lift objects (cup of coffee) without pain. (11/27/21: progressing: no pain lifting cup coffee but has pain with vacuuming and scrubbing granite counter tops 5-6/10). (12/04/21: Pt able to lift a cup of coffee without pain. STG Duration 12/19/21 (12/04/21: MET GOAL) Administrative Operations Coordinator Goal (LTG) Pt will be able to carry groceries without pain. LTG Duration 02/02/22 Three Impairment R shoulder/neck pain with reaching behind the head/neck/ opposite shoulder Impairment Reaching behind opposite shoulder: Right-top of middle of shoulder (Left-behind scapula). Reaching Behind head: Right-T1 (Left T5). Reaching Behind back: Right L5 (Left T8) Short Term Goal (STG) Pt will be able to reach behind the head to scratch his back without pain. (12/04/21: Pain in R shoulder/ neck Reaching Behind head: Right-T3, Left-T4). STG Duration 12/19/21 (12/04/21: Improved mobility, pain persists) Longterm Goal (LTG) Improve pt's ability to reach behind his low back. (12/04/21: Reaching Behind low back: Right-L3 (was L5), Left -T8 (was T8)). LTG Duration 02/02/22 (12/04/21: Pain still present, met goal) Two Impairment Impaired sleep Impairment Pt wakes at least 1 time per night requiring use of medication to go to sleep ( Methocarband), and to fall back to sleep (melatonin, IBP) . 11/14/21: pt able to sleep 10 hrs 2 nights ago with MHP behind neck draped over R shld painfree. 11/27/21: progressing waking up 2x/night with 6/10 R shld/ neck pain. Short Term Goal (STG) Pt brooke be able to sleep through the night without pain using pain medications. (12/04/21: Couple times this week taking pain medication and ms relaxant to sleep) STG Duration 12/19/21 (12/04/21: Improved, sometimes needs pain med, uses ms relaxants) Longterm Goal (LTG) Pt will be able to sleep through the night without pain and without use of medications. LTG Duration 02/02/22 One Impairment Pt lacks appropriate self care HEP Short Term Goal (STG) Pt will be educated and consistent with proper posturing for nighttime sleep. (11/07/21: Pt educated and is trying to stay consistent with proper nighttime positioning) . 11/11/21: Further education in nighttime sleeping positioning) 11/14/21: further ed nighttime sleep positioning w/ pillows/ noodle/folded towel. STG Duration 11/18/21 (11/17/21: MET GOAL) Administrative Operations Coordinator Goal (LTG) Pt will be independent with a self care HEP of neck and R shoulder ex's. (11/11/21: HEP: Neck Elongation ex & wall standing for posture) (11/21/21: HEP: T/S ex over towel roll) (11/27/21: HEP: pec stretch over noodle various ranges painfree, Ts and diagonal 1/2 X) LTG Duration 02/02/22 (12/04/21: Has been Progressed) Assessment Summary Assessment Pt good response to manual, education on self STMs as needed, HEP review standing row & added shld ext w/TB. Improved self corrections posture and scap retract/ depression awareness during standing. Pt reports decrease tightness R shld, neck and mid back end tx. Physical Therapy Plan Frequency and Duration Frequency of Treatment 2x/Week Plan of Care Start Date 11/04/21 Plan of Care End Date 02/02/22 Therapeutic Interventions Therapeutic Interventions Home Exercise Program,Joint Mobilizations,Manual Therapy, Neuromuscular Re-education, Patient/Caregiver Education, Self-Care/Home Management,Soft Tissue Mobilization, Therapeutic Activities, Therapeutic Exercises Modalities Cold Pack/Ice Massage,Hot Packs Next Visit Focus/Plan Next Note Type Treatment Note Next Visit Plan Next tx check postural mechanics vacuuming to improve reduce/rid midback pain gets performing/after. Check progress towards goals. Assess response to last treatment, his use of pain meds for sleeping and nighttime positioning. Discuss pt's medication he is using to sleep. Myofascial STM of the thoracic region, R upper shoulder and R pec minor/major, and MFR of the posterior low back. Sustained pressure STM with precaution due to pt Osteoporosis. Self mobilization of thoracic region. Assess pt's nighttime pain positioning, pt to keep working on best posturing at nighttime for pain relief. Cont to problem solve best sleep position. Improve mobility for C/S and T /S. Add ROM stretch Ex: pecs, neck (gentle) Strengthening: RC, Scapular depressors Educate: HEP (neck stab and R shoulder ex's -RC.) Modalities: only MH/CP (due to CA history).
--- NOTE | 2022-01-06 17:40 | PT.OTN ---
Current Diagnoses Pain in unspecified shoulder (01/06/22) Postural kyphosis, cervicothoracic region (01/06/22) Cervicalgia (01/06/22) Pain in right arm (01/06/22) Physical Therapy Treatment Note PT-OP-A Visit Information Start: 11/02/21 15:01 Freq: Status: Active Protocol: Document 01/06/22 10:36 LRN (Rec: 01/06/22 11:23 LRN [id number]) Out-Patient Physical Therapy Visit Information Visit Information Visit Type Treatment Note Visit Start Time 10:36 Visit Stop Time 11:21 Total Visit Minutes 45 Visit Number 16 Evaluation Information Evaluation Date 11/04/21 Precautions Precautions Hard of hearing Bladder CA history Back and Neck Pain history & surgical history of Low back Removal of 1/2 of R radius Scoliosis PT-OP-B Current Condition Start: 11/02/21 15:01 Freq: Status: Active Protocol: Document 11/04/21 12:47 LRN (Rec: 11/04/21 16:18 LRN [id number]) Current Condition History of Current Condition Onset Date Jul 2021 Current Complaints R shoulder pain radiating into the R side of neck History of Current Condition Pt reports insidious onset of R shoulder/neck pain. States he has had physical therapy previously for his neck, but the pain is different. He reports his pain is present when picking up heavy objects or when carrying objects. He has pain when reaching behind his head to scratch his back. Pt states he tends to lean left when in sitting, possibly due to scoliosis and has tried to correct his posture, but notes no change in his pain when he does. (Note: pt has lump behind the R ear that he states a surgeon told him was not necessary to surgically remove, physician of unknown specialty) Prior Treatments and Tests Physical therapy for neck pain 2 yrs ago. Muscle Relaxants for pain to help with sleeping. Treatment Goals Patient/Caregiver Goals Pt goal is to: -Be able to sleep throught the night without pain -Eliminate the need for pain medication to sleep -Be able to reach behind the head to scratch his back without pain -Be able to lift objects (cup of coffee) and carry groceries without pain. Prior Functional Status Baseline Function- ADL's Independent Baseline Function- Mobility Independent Baseline Function- Other Able to sleep through the night without medications. No R shoulder/neck pain with reaching behind his back or lifting/carrying objects. Current Functional Impairments (Reported) Functional Limitations- ADL's Difficulty sleeping, requiring medications to sleep (ms relaxant) and medication to go back to sleep (melatonin and IBP) Difficutly reaching behind head/back due to pain Difficulty lifting objects ( heavy & light-cup of coffee) and carrying objects ( groceries) due to pain. Personal Factors Other Personal Factors That May Effect Lives alone. Therapy/Recovery History of neck pain Scoliosis PT-OP-C Subjective Start: 11/02/21 15:01 Freq: Status: Active Protocol: Document 01/06/22 10:36 LRN (Rec: 01/06/22 11:23 LRN [id number]) OP-PT Subjective Patient Comments Patient Comments Sleep better at night and not waking ups with arm overhead. This morning woke on stomach and the head rotated left. Neck pain when woke was on the right. PT-OP-E Functional Tests Start: 11/02/21 15:01 Freq: Status: Active Protocol: Document 11/04/21 12:47 LRN (Rec: 11/04/21 16:18 LRN [id number]) Functional Tests Apley's Scratch Test Action 1- Left Behind scapula Action 1- Right Top of mid shoulder Action 2- Left T5 Action 2- Right T1 Action 3- Left T8 Action 3- Right L5 PT-OP-H Neuro Start: 11/02/21 15:01 Freq: Status: Active Protocol: Document 11/04/21 12:47 LRN (Rec: 11/04/21 16:18 LRN [id number]) Sensation Evaluation Gross Sensation Gross Sensation WNL Deep Tendon Reflex & Clonus Assessment Deep Tendon Reflex Bilateral Patellar Deep Tendon Reflex 3+ Normal But Brisk Bilateral Bicep Deep Tendon Reflex 2+ Normal PT-OP-J Posture/Palpation/Skin Start: 11/02/21 15:01 Freq: Status: Active Protocol: Document 12/29/21 09:46 LRN (Rec: 12/29/21 12:34 LRN [id number]) Palpation Assessment Location Thoracic spine Palpation Location Posterior thoracic cage in prone Palpation Details Thoracic cage rotated left PT-OP-K Range of Motion Start: 11/02/21 15:01 Freq: Status: Active Protocol: Document 12/25/21 09:46 LRN (Rec: 12/25/21 10:58 LRN [id number]) Cervical Spine Range of Motion Cervical Spine Active Degrees Testing Position Sitting Flexion 42 Extension 57 Rotation Left 60 Rotation Right 58 Lateral Flexion Left 25 Lateral Flexion Right 22 PT-OP-L Special Tests Start: 11/02/21 15:01 Freq: Status: Active Protocol: Document 11/04/21 12:47 LRN (Rec: 11/04/21 16:18 LRN [id number]) Special Tests Cervical Spine Special Tests Spurling's Test Test Results Negative in supine facet syndrome test Test Results Positive R facets of cervical and upper thoracic spine Traction Test Results Positive Comments Reduction in R neck/shoulder pain Foraminal Compression Test Results Negative PT-OP-M Strength Start: 11/02/21 15:01 Freq: Status: Active Protocol: Document 11/04/21 12:47 LRN (Rec: 11/04/21 16:18 LR [id number]) Cervical Spine Strength Cervical Spine Manual Muscle Testing Testing Position Sitting Comments Generally 5/5. Shoulder Strength Shoulder Manual Muscle Testing Right Flexion 5 Normal Abduction (C5) 5 Normal External Rotation 5 Normal Internal Rotation 5 Normal Comments Pain with Flex & AB Left Flexion 5 Normal Abduction (C5) 5 Normal External Rotation 5 Normal Internal Rotation 5 Normal PT-OP-Q Treatments Start: 11/02/21 15:01 Freq: Status: Active Protocol: Document 01/06/22 10:36 LRN (Rec: 01/06/22 11:23 LRN [id number]) Therapeutic Exercises Prone Exercises Scapular pinches Prone Exercise Name Scapular pinches Side bilateral Reps/Minutes 10 H x 20 Manual Therapy Treatment Soft Tissue Mobilization SCM Body Location R>L Mobilization Type Myofascial Release,Rolling, Sustained Pressure,Other Intensity/Depth Moderate Comments manual (supine, discussed seated and mine car repairer front mirror to allow head/neck alignment and allowance grasp alignment). Instruction on self if needed for posterior neck tightness, understanding post ed. Back Body Location L>R mid and upper back Mobilization Type Myofascial Release Intensity/Depth Moderate Body Position Prone Comments pillow under pelvis R Pec Body Location R>L Pec Mirza/Minor Mobilization Type Myofascial Release,Sustained Pressure Intensity/Depth Moderate Body Position Supine Comments manual and instruction sustained pressure opposite UE w/ MWM moving arm small ranges. R UT Body Location R>L UT Mobilization Type Myofascial Release Intensity/Depth Moderate Comments Treated in supine and prone. Self-Care/Home Management Treatment Education Patient Education Body Mechanics Other Education Discussed proper body mechanics for ADLS. Issued & reviewed handout for Do's/Dont's for Daily Activities. PT-OP-R Modalities Start: 11/02/21 15:01 Freq: Status: Active Protocol: Document 12/25/21 09:46 LRN (Rec: 12/25/21 10:58 LRN [id number]) Hot Pack/Cold Pack Treatment Cold Pack Location Neck Patient Position Supine Treatment Duration (minutes) 10 PT-OP-T Assessment and Plan Start: 11/02/21 15:01 Freq: Status: Active Protocol: Document 01/06/22 10:36 LRN (Rec: 01/06/22 11:23 LRN [id number]) Physical Therapy Assessment Goals Four Impairment Decreased functional strength due to R shoulder pain Impairment R shoulder/neck pain with lifting objects (cup of cofffe and heavier objects), and with carrying objects ( groceries). Short Term Goal (STG) Pt will be able to lift objects (cup of coffee) without pain. (11/27/21: progressing: no pain lifting cup coffee but has pain with vacuuming and scrubbing granite counter tops 5-6/10). (12/04/21: Pt able to lift a cup of coffee without pain. STG Duration 12/19/21 (12/04/21: MET GOAL) Group Home Goal (LTG) Pt will be able to carry groceries without pain. LTG Duration 02/02/22 Three Impairment R shoulder/neck pain with reaching behind the head/neck/ opposite shoulder Impairment Reaching behind opposite shoulder: Right-top of middle of shoulder (Left-behind scapula). Reaching Behind head: Right-T1 (Left T5). Reaching Behind back: Right L5 (Left T8) Short Term Goal (STG) Pt will be able to reach behind the head to scratch his back without pain. (12/04/21: Pain in R shoulder/ neck Reaching Behind head: Right-T3, Left-T4). STG Duration 12/19/21 (12/04/21: Improved mobility, pain persists) Talent Coordinator Goal (LTG) Improve pt's ability to reach behind his low back. (12/04/21: Reaching Behind low back: Right-L3 (was L5), Left -T8 (was T8)). LTG Duration 02/02/22 (12/04/21: Pain still present, met goal) Two Impairment Impaired sleep Impairment Pt wakes at least 1 time per night requiring use of medication to go to sleep ( Methocarband), and to fall back to sleep (melatonin, IBP) . 11/14/21: pt able to sleep 10 hrs 2 nights ago with MHP behind neck draped over R shld painfree. 11/27/21: progressing waking up 2x/night with 6/10 R shld/ neck pain. Short Term Goal (STG) Pt brooke be able to sleep through the night without pain using pain medications. (12/04/21: Couple times this week taking pain medication and ms relaxant to sleep) STG Duration 12/19/21 (12/04/21: Improved, sometimes needs pain med, uses ms relaxants) Talent Coordinator Goal (LTG) Pt will be able to sleep through the night without pain and without use of medications. LTG Duration 02/02/22 One Impairment Pt lacks appropriate self care HEP Short Term Goal (STG) Pt will be educated and consistent with proper posturing for nighttime sleep. (11/07/21: Pt educated and is trying to stay consistent with proper nighttime positioning) . 11/11/21: Further education in nighttime sleeping positioning) 11/14/21: further ed nighttime sleep positioning w/ pillows/ noodle/folded towel. STG Duration 11/18/21 (11/17/21: MET GOAL) Group Home Goal (LTG) Pt will be independent with a self care HEP of neck and R shoulder ex's. (11/11/21: HEP: Neck Elongation ex & wall standing for posture) (11/21/21: HEP: T/S ex over towel roll) (11/27/21: HEP: pec stretch over noodle various ranges painfree, Ts and diagonal 1/2 X) LTG Duration 02/02/22 (12/04/21: Has been Progressed) Assessment Summary Assessment Pt posture improving, minor thoracic rotation in prone at ~T3-T4 level and forward R shoulder (tight R pec). Pt having mild L neck pain with STM of thoracic paraspinals and L upper back. Physical Therapy Plan Frequency and Duration Frequency of Treatment 2x/Week Plan of Care Start Date 11/04/21 Plan of Care End Date 02/02/22 Next Visit Focus/Plan Next Note Type Treatment Note Next Visit Plan Next tx check response to postural mechanics vacuuming to improve reduce/rid midback pain gets performing/after. Check progress towards goals. Assess response to last treatment, his use of pain meds for sleeping and nighttime positioning. Discuss pt's medication he is using to sleep. Myofascial STM of the thoracic region, R upper shoulder and R pec minor/major, and MFR of the posterior low back. Sustained pressure STM with precaution due to pt Osteoporosis. Self mobilization of thoracic region. Assess pt's nighttime pain positioning, pt to keep working on best posturing at nighttime for pain relief. Cont to problem solve best sleep position. Improve mobility for C/S and T /S. Add ROM stretch Ex: pecs, neck (gentle) Strengthening: RC, Scapular depressors Educate: HEP (neck stab and R shoulder ex's -RC.) Modalities: only MH/CP (due to CA history).
--- NOTE | 2022-01-08 11:25 | PT.OTN ---
Current Diagnoses Pain in unspecified shoulder (01/08/22) Postural kyphosis, cervicothoracic region (01/08/22) Cervicalgia (01/08/22) Pain in right arm (01/08/22) Physical Therapy Treatment Note PT-OP-A Visit Information Start: 11/02/21 15:01 Freq: Status: Active Protocol: Document 01/08/22 10:35 SP (Rec: 01/08/22 11:39 SP [id number]) Out-Patient Physical Therapy Visit Information Visit Information Visit Type Treatment Note Visit Start Time 10:35 Visit Stop Time 11:25 Total Visit Minutes 50 Visit Number 17 Number of MANAGER CLIENT SUPPORT Visits 1 Evaluation Information Evaluation Date 11/04/21 Precautions Precautions Hard of hearing Bladder CA history Back and Neck Pain history & surgical history of Low back Removal of 1/2 of R radius Scoliosis PT-OP-B Current Condition Start: 11/02/21 15:01 Freq: Status: Active Protocol: Document 11/04/21 12:47 LRN (Rec: 11/04/21 16:18 LRN [id number]) Current Condition History of Current Condition Onset Date Jul 2021 Current Complaints R shoulder pain radiating into the R side of neck History of Current Condition Pt reports insidious onset of R shoulder/neck pain. States he has had physical therapy previously for his neck, but the pain is different. He reports his pain is present when picking up heavy objects or when carrying objects. He has pain when reaching behind his head to scratch his back. Pt states he tends to lean left when in sitting, possibly due to scoliosis and has tried to correct his posture, but notes no change in his pain when he does. (Note: pt has lump behind the R ear that he states a surgeon told him was not necessary to surgically remove, physician of unknown specialty) Prior Treatments and Tests Physical therapy for neck pain 2 yrs ago. Muscle Relaxants for pain to help with sleeping. Treatment Goals Patient/Caregiver Goals Pt goal is to: -Be able to sleep throught the night without pain -Eliminate the need for pain medication to sleep -Be able to reach behind the head to scratch his back without pain -Be able to lift objects (cup of coffee) and carry groceries without pain. Prior Functional Status Baseline Function- ADL's Independent Baseline Function- Mobility Independent Baseline Function- Other Able to sleep through the night without medications. No R shoulder/neck pain with reaching behind his back or lifting/carrying objects. Current Functional Impairments (Reported) Functional Limitations- ADL's Difficulty sleeping, requiring medications to sleep (ms relaxant) and medication to go back to sleep (melatonin and IBP) Difficutly reaching behind head/back due to pain Difficulty lifting objects ( heavy & light-cup of coffee) and carrying objects ( groceries) due to pain. Personal Factors Other Personal Factors That May Effect Lives alone. Therapy/Recovery History of neck pain Scoliosis PT-OP-C Subjective Start: 11/02/21 15:01 Freq: Status: Active Protocol: Document 01/08/22 10:35 SP (Rec: 01/08/22 11:39 SP [id number]) OP-PT Subjective Patient Comments Patient Comments Pt reports doing alot better. Only discomfort pain 1-2x/wk when wakes up in am. Does find still wakes up on back with arms OH and puts down, on side arm over but tries to set up alignment and instructionin past, and prone, R UE along side or out to side and LUE bend hand tucked under R shld with head turned to R. Reports more aware seated posture alignment w/ pillows behind back and neck positioning. Pt reports vacuuming better with awareness of posture, no pain. PT-OP-E Functional Tests Start: 11/02/21 15:01 Freq: Status: Active Protocol: Document 11/04/21 12:47 LRN (Rec: 11/04/21 16:18 LRN [id number]) Functional Tests Apley's Scratch Test Action 1- Left Behind scapula Action 1- Right Top of mid shoulder Action 2- Left T5 Action 2- Right T1 Action 3- Left T8 Action 3- Right L5 PT-OP-H Neuro Start: 11/02/21 15:01 Freq: Status: Active Protocol: Document 11/04/21 12:47 LRN (Rec: 11/04/21 16:18 LRN [id number]) Sensation Evaluation Gross Sensation Gross Sensation WNL Deep Tendon Reflex & Clonus Assessment Deep Tendon Reflex Bilateral Patellar Deep Tendon Reflex 3+ Normal But Brisk Bilateral Bicep Deep Tendon Reflex 2+ Normal PT-OP-J Posture/Palpation/Skin Start: 11/02/21 15:01 Freq: Status: Active Protocol: Document 12/29/21 09:46 LRN (Rec: 12/29/21 12:34 LRN [id number]) Palpation Assessment Location Thoracic spine Palpation Location Posterior thoracic cage in prone Palpation Details Thoracic cage rotated left PT-OP-K Range of Motion Start: 11/02/21 15:01 Freq: Status: Active Protocol: Document 12/25/21 09:46 LRN (Rec: 12/25/21 10:58 LRN [id number]) Cervical Spine Range of Motion Cervical Spine Active Degrees Testing Position Sitting Flexion 42 Extension 57 Rotation Left 60 Rotation Right 58 Lateral Flexion Left 25 Lateral Flexion Right 22 PT-OP-L Special Tests Start: 11/02/21 15:01 Freq: Status: Active Protocol: Document 11/04/21 12:47 LRN (Rec: 11/04/21 16:18 LRN [id number]) Special Tests Cervical Spine Special Tests Spurling's Test Test Results Negative in supine facet syndrome test Test Results Positive R facets of cervical and upper thoracic spine Traction Test Results Positive Comments Reduction in R neck/shoulder pain Foraminal Compression Test Results Negative PT-OP-M Strength Start: 11/02/21 15:01 Freq: Status: Active Protocol: Document 11/04/21 12:47 LRN (Rec: 11/04/21 16:18 LRN [id number]) Cervical Spine Strength Cervical Spine Manual Muscle Testing Testing Position Sitting Comments Generally 5/5. Shoulder Strength Shoulder Manual Muscle Testing Right Flexion 5 Normal Abduction (C5) 5 Normal External Rotation 5 Normal Internal Rotation 5 Normal Comments Pain with Flex & AB Left Flexion 5 Normal Abduction (C5) 5 Normal External Rotation 5 Normal Internal Rotation 5 Normal PT-OP-Q Treatments Start: 11/02/21 15:01 Freq: Status: Active Protocol: Document 01/08/22 10:35 SP (Rec: 01/08/22 11:39 SP [id number]) Therapeutic Exercises Supine Exercises Deep C Neck Flexors Supine Exercise Name Neck Elongation, scap retract, UE elongation toward toes at side Resistance AROM Equipment Used knees bent Reps/Minutes 5 sec hold x15 Comments posture training, cued PPT/ TA fac what need- good feedback response Prone Exercises Scapular pinches Prone Exercise Name Scapular pinches Side bilateral Equipment Used pillow under pelvis Reps/Minutes 10 H x 10 Comments cued more scap than arms, tires quickly Standing Exercises self STMs Standing Exercise Name UT theracane, mid trap/ inter scap/infraspinatus Side right Equipment Used racquetball on wall Reps/Minutes 3 min total Comments good feedback response decrease tension Manual Therapy Treatment Soft Tissue Mobilization SCM Body Location R Mobilization Type Myofascial Release,Rolling, Sustained Pressure,Other Intensity/Depth Moderate Body Position Prone Comments manual Instruction on self if needed for posterior neck tightness, understanding post ed. Back Body Location L>R mid and upper back Mobilization Type Myofascial Release Intensity/Depth Moderate Body Position Prone Comments pillow under pelvis R UT Body Location R>L UT Mobilization Type Myofascial Release Intensity/Depth Moderate Body Position Prone Comments Treated in supine and prone. Self-Care/Home Management Treatment Education Patient Education Body Mechanics Other Education Continued to discuss sleeping position w/ pillow supine under thighs or wedge if more comfortable; side between BLEs , under ribcage (small) under head neutral CS, front body to keep arms away from each other; prone pillow under pelvis (new today) good feedback response- not recommend but if have to suport alignment and arms as side. Vacuuming: good tall posture, instructed use of LEs wt shifting as well and BUE take turns- better performance. PT-OP-R Modalities Start: 11/02/21 15:01 Freq: Status: Active Protocol: Document 12/25/21 09:46 LRN (Rec: 12/25/21 10:58 LRN [id number]) Hot Pack/Cold Pack Treatment Cold Pack Location Neck Patient Position Supine Treatment Duration (minutes) 10 PT-OP-T Assessment and Plan Start: 11/02/21 15:01 Freq: Status: Active Protocol: Document 01/08/22 10:35 SP (Rec: 01/08/22 11:39 SP [id number]) Physical Therapy Assessment Goals Four Impairment Decreased functional strength due to R shoulder pain Impairment R shoulder/neck pain with lifting objects (cup of cofffe and heavier objects), and with carrying objects ( groceries). Short Term Goal (STG) Pt will be able to lift objects (cup of coffee) without pain. (11/27/21: progressing: no pain lifting cup coffee but has pain with vacuuming and scrubbing granite counter tops 5-6/10). (12/04/21: Pt able to lift a cup of coffee without pain. STG Duration 12/19/21 (12/04/21: MET GOAL) Senior Care Goal (LTG) Pt will be able to carry groceries without pain. LTG Duration 02/02/22 Three Impairment R shoulder/neck pain with reaching behind the head/neck/ opposite shoulder Impairment Reaching behind opposite shoulder: Right-top of middle of shoulder (Left-behind scapula). Reaching Behind head: Right-T1 (Left T5). Reaching Behind back: Right L5 (Left T8) Short Term Goal (STG) Pt will be able to reach behind the head to scratch his back without pain. (12/04/21: Pain in R shoulder/ neck Reaching Behind head: Right-T3, Left-T4). STG Duration 12/19/21 (12/04/21: Improved mobility, pain persists) Senior Care Goal (LTG) Improve pt's ability to reach behind his low back. (12/04/21: Reaching Behind low back: Right-L3 (was L5), Left -T8 (was T8)). LTG Duration 02/02/22 (12/04/21: Pain still present, met goal) Two Impairment Impaired sleep Impairment Pt wakes at least 1 time per night requiring use of medication to go to sleep ( Methocarband), and to fall back to sleep (melatonin, IBP) . 11/14/21: pt able to sleep 10 hrs 2 nights ago with MHP behind neck draped over R shld painfree. 11/27/21: progressing waking up 2x/night with 6/10 R shld/ neck pain. Short Term Goal (STG) Pt brooke be able to sleep through the night without pain using pain medications. (12/04/21: Couple times this week taking pain medication and ms relaxant to sleep) STG Duration 12/19/21 (12/04/21: Improved, sometimes needs pain med, uses ms relaxants) Senior Care Goal (LTG) Pt will be able to sleep through the night without pain and without use of medications. LTG Duration 02/02/22 One Impairment Pt lacks appropriate self care HEP Short Term Goal (STG) Pt will be educated and consistent with proper posturing for nighttime sleep. (11/07/21: Pt educated and is trying to stay consistent with proper nighttime positioning) . 11/11/21: Further education in nighttime sleeping positioning) 11/14/21: further ed nighttime sleep positioning w/ pillows/ noodle/folded towel. STG Duration 11/18/21 (11/17/21: MET GOAL) Manager Sharepoint Goal (LTG) Pt will be independent with a self care HEP of neck and R shoulder ex's. (11/11/21: HEP: Neck Elongation ex & wall standing for posture) (11/21/21: HEP: T/S ex over towel roll) (11/27/21: HEP: pec stretch over noodle various ranges painfree, Ts and diagonal 1/2 X) LTG Duration 02/02/22 (12/04/21: Has been Progressed) Assessment Summary Assessment Pt posture improving, cued for head/ neck/scap alignment through out ex. REviewed self STMs with his thumper and ball on wall. Improved wt shifting during vacuuming education use of LEs and use BUE, no pain. Pt states R shld feels better end tx. Physical Therapy Plan Frequency and Duration Frequency of Treatment 2x/Week Plan of Care Start Date 11/04/21 Plan of Care End Date 02/02/22 Therapeutic Interventions Therapeutic Interventions Home Exercise Program,Joint Mobilizations,Manual Therapy, Neuromuscular Re-education, Patient/Caregiver Education, Self-Care/Home Management,Soft Tissue Mobilization, Therapeutic Activities, Therapeutic Exercises Modalities Cold Pack/Ice Massage,Hot Packs Next Visit Focus/Plan Next Note Type Treatment Note Next Visit Plan Next tx review posture standing, TS ext/ head positioning. Check progress towards goals . Assess response to last treatment manual/ self STMs/ supine posture trng. Is he use of pain meds for sleeping and nighttime positioning. Discuss pt's medication he is using to sleep. Myofascial STM of the thoracic region, R upper shoulder and R pec minor/major, and MFR of the posterior low back. Sustained pressure STM with precaution due to pt Osteoporosis. Self mobilization of thoracic region. Assess pt's nighttime pain positioning, pt to keep working on best posturing at nighttime for pain relief. Cont to problem solve best sleep position. Improve mobility for C/S and T /S. Add ROM stretch Ex: pecs, neck (gentle) Strengthening: RC, Scapular depressors Educate: HEP (neck stab and R shoulder ex's -RC.) Modalities: only MH/CP (due to CA history).
--- NOTE | 2022-01-13 10:18 | PT.OTN ---
Current Diagnoses Pain in unspecified shoulder (01/13/22) Postural kyphosis, cervicothoracic region (01/13/22) Cervicalgia (01/13/22) Pain in right arm (01/13/22) Physical Therapy Treatment Note PT-OP-A Visit Information Start: 11/02/21 15:01 Freq: Status: Active Protocol: Document 01/13/22 09:00 LRN (Rec: 01/13/22 10:15 LRN [id number]) Out-Patient Physical Therapy Visit Information Visit Information Visit Type Treatment Note Visit Start Time 09:16 Visit Stop Time 10:00 Total Visit Minutes 44 Visit Number 18 Evaluation Information Evaluation Date 11/04/21 Precautions Precautions Hard of hearing Bladder CA history Back and Neck Pain history & surgical history of Low back Removal of 1/2 of R radius Scoliosis PT-OP-B Current Condition Start: 11/02/21 15:01 Freq: Status: Active Protocol: Document 11/04/21 12:47 LRN (Rec: 11/04/21 16:18 LRN [id number]) Current Condition History of Current Condition Onset Date Jul 2021 Current Complaints R shoulder pain radiating into the R side of neck History of Current Condition Pt reports insidious onset of R shoulder/neck pain. States he has had physical therapy previously for his neck, but the pain is different. He reports his pain is present when picking up heavy objects or when carrying objects. He has pain when reaching behind his head to scratch his back. Pt states he tends to lean left when in sitting, possibly due to scoliosis and has tried to correct his posture, but notes no change in his pain when he does. (Note: pt has lump behind the R ear that he states a surgeon told him was not necessary to surgically remove, physician of unknown specialty) Prior Treatments and Tests Physical therapy for neck pain 2 yrs ago. Muscle Relaxants for pain to help with sleeping. Treatment Goals Patient/Caregiver Goals Pt goal is to: -Be able to sleep throught the night without pain -Eliminate the need for pain medication to sleep -Be able to reach behind the head to scratch his back without pain -Be able to lift objects (cup of coffee) and carry groceries without pain. Prior Functional Status Baseline Function- ADL's Independent Baseline Function- Mobility Independent Baseline Function- Other Able to sleep through the night without medications. No R shoulder/neck pain with reaching behind his back or lifting/carrying objects. Current Functional Impairments (Reported) Functional Limitations- ADL's Difficulty sleeping, requiring medications to sleep (ms relaxant) and medication to go back to sleep (melatonin and IBP) Difficutly reaching behind head/back due to pain Difficulty lifting objects ( heavy & light-cup of coffee) and carrying objects ( groceries) due to pain. Personal Factors Other Personal Factors That May Effect Lives alone. Therapy/Recovery History of neck pain Scoliosis PT-OP-C Subjective Start: 11/02/21 15:01 Freq: Status: Active Protocol: Document 01/13/22 09:00 LRN (Rec: 01/13/22 10:15 LRN [id number]) OP-PT Subjective Patient Comments Patient Comments Thinks he may be sleeping better, waking up in early AM, not in pain, just uncomfortable, night before in pain and used meds to go back to bed. Can tell when his shoulders are forward. Patient Reported Progress Improving PT-OP-E Functional Tests Start: 11/02/21 15:01 Freq: Status: Active Protocol: Document 01/13/22 09:00 LRN (Rec: 01/13/22 10:15 LRN [id number]) Functional Tests Apley's Scratch Test Action 2- Left T4 Action 2- Right T2-3 Action 3- Left T7 Action 3- Right T10 PT-OP-H Neuro Start: 11/02/21 15:01 Freq: Status: Active Protocol: Document 11/04/21 12:47 LRN (Rec: 11/04/21 16:18 LRN [id number]) Sensation Evaluation Gross Sensation Gross Sensation WNL Deep Tendon Reflex & Clonus Assessment Deep Tendon Reflex Bilateral Patellar Deep Tendon Reflex 3+ Normal But Brisk Bilateral Bicep Deep Tendon Reflex 2+ Normal PT-OP-J Posture/Palpation/Skin Start: 11/02/21 15:01 Freq: Status: Active Protocol: Document 12/29/21 09:46 LRN (Rec: 12/29/21 12:34 LRN [id number]) Palpation Assessment Location Thoracic spine Palpation Location Posterior thoracic cage in prone Palpation Details Thoracic cage rotated left PT-OP-K Range of Motion Start: 11/02/21 15:01 Freq: Status: Active Protocol: Document 12/25/21 09:46 LRN (Rec: 12/25/21 10:58 LRN [id number]) Cervical Spine Range of Motion Cervical Spine Active Degrees Testing Position Sitting Flexion 42 Extension 57 Rotation Left 60 Rotation Right 58 Lateral Flexion Left 25 Lateral Flexion Right 22 PT-OP-L Special Tests Start: 11/02/21 15:01 Freq: Status: Active Protocol: Document 11/04/21 12:47 LRN (Rec: 11/04/21 16:18 LRN [id number]) Special Tests Cervical Spine Special Tests Spurling's Test Test Results Negative in supine facet syndrome test Test Results Positive R facets of cervical and upper thoracic spine Traction Test Results Positive Comments Reduction in R neck/shoulder pain Foraminal Compression Test Results Negative PT-OP-M Strength Start: 11/02/21 15:01 Freq: Status: Active Protocol: Document 11/04/21 12:47 LRN (Rec: 11/04/21 16:18 LR [id number]) Cervical Spine Strength Cervical Spine Manual Muscle Testing Testing Position Sitting Comments Generally 5/5. Shoulder Strength Shoulder Manual Muscle Testing Right Flexion 5 Normal Abduction (C5) 5 Normal External Rotation 5 Normal Internal Rotation 5 Normal Comments Pain with Flex & AB Left Flexion 5 Normal Abduction (C5) 5 Normal External Rotation 5 Normal Internal Rotation 5 Normal PT-OP-Q Treatments Start: 11/02/21 15:01 Freq: Status: Active Protocol: Document 01/13/22 09:00 LRN (Rec: 01/13/22 10:15 [facility] [id number]) Therapeutic Exercises Sitting Exercises C. AROM stretch Sitting Exercise Name C rot/SB active stretch Side bilateral Reps/Minutes 10x Shoulder ER/IR Sitting Exercise Name Shoulder ER/IR Side bilateral Reps/Minutes 10x 3 Comments IR: T7 left, T10 right; ER T4 left, T3-4 right Shldr rolls Sitting Exercise Name Shoulder rolls Side bilateral Reps/Minutes 10x Comments cuing needed for pt to move slow for stretch Manual Therapy Treatment Soft Tissue Mobilization R T/S Paraspinals Body Location R T3-T7 paraspinals Mobilization Type Myofascial Release,Strumming, Sustained Pressure Intensity/Depth Moderate to deep Body Position Prone Comments 20' R UT Body Location R UT Mobilization Type Myofascial Release Intensity/Depth Moderate Body Position Prone Comments 6' PT-OP-R Modalities Start: 11/02/21 15:01 Freq: Status: Active Protocol: Document 12/25/21 09:46 LRN (Rec: 12/25/21 10:58 LRN [id number]) Hot Pack/Cold Pack Treatment Cold Pack Location Neck Patient Position Supine Treatment Duration (minutes) 10 PT-OP-T Assessment and Plan Start: 11/02/21 15:01 Freq: Status: Active Protocol: Document 01/13/22 09:00 LRN (Rec: 01/13/22 10:15 LRN [id number]) Physical Therapy Assessment Goals Four Impairment Decreased functional strength due to R shoulder pain Impairment R shoulder/neck pain with lifting objects (cup of cofffe and heavier objects), and with carrying objects ( groceries). Short Term Goal (STG) Pt will be able to lift objects (cup of coffee) without pain. (11/27/21: progressing: no pain lifting cup coffee but has pain with vacuuming and scrubbing granite counter tops 5-6/10). (12/04/21: Pt able to lift a cup of coffee without pain. STG Duration 12/19/21 (12/04/21: MET GOAL) Fci Goal (LTG) Pt will be able to carry groceries without pain. (01/13/22: Pt can carry groceries without neck pain). LTG Duration 02/02/22 (01/12/22: MET GOAL) Three Impairment R shoulder/neck pain with reaching behind the head/neck/ opposite shoulder Impairment Reaching behind opposite shoulder: Right-top of middle of shoulder (Left-behind scapula). Reaching Behind head: Right-T1 (Left T5). Reaching Behind back: Right L5 (Left T8) Short Term Goal (STG) Pt will be able to reach behind the head to scratch his back without pain. (01/13/22: Pain in R shoulder/ neck Reaching Behind head: Right-T2-3, Left-T4). STG Duration 12/19/21 (12/04/21: Improved mobility, pain persists) Fci Goal (LTG) Improve pt's ability to reach behind his low back. (12/04/21: Reaching Behind low back: Right-L3 (was L5), Left -T8 (was T8)). (01/13/22: Behind low back: Right T10, Left T7). LTG Duration 02/02/22 (01/13/22: MET GOAL, but R arm is < L arm) Two Impairment Impaired sleep Impairment Pt wakes at least 1 time per night requiring use of medication to go to sleep ( Methocarband), and to fall back to sleep (melatonin, IBP) . 11/14/21: pt able to sleep 10 hrs 2 nights ago with MHP behind neck draped over R shld painfree. 11/27/21: progressing waking up 2x/night with 6/10 R shld/ neck pain. Short Term Goal (STG) Pt brooke be able to sleep through the night without pain using pain medications. (12/04/21: Couple times this week taking pain medication and ms relaxant to sleep) (01/13/22: Able to sleep through the night without pain 4-5 days a week with use of muscle relaxant). STG Duration 12/19/21 (01/13/22: Improved, pain med 4-5x/night, uses ms relaxants) Batch Dumper Goal (LTG) Pt will be able to sleep through the night without pain and without use of medications. (01/13/22: Able to sleep through the night without pain 4-5 days a week with use of muscle relaxant). LTG Duration 02/02/22 One Impairment Pt lacks appropriate self care HEP Short Term Goal (STG) Pt will be educated and consistent with proper posturing for nighttime sleep. (11/07/21: Pt educated and is trying to stay consistent with proper nighttime positioning) . 11/11/21: Further education in nighttime sleeping positioning) 11/14/21: further ed nighttime sleep positioning w/ pillows/ noodle/folded towel. STG Duration 11/18/21 (11/17/21: MET GOAL) Batch Dumper Goal (LTG) Pt will be independent with a self care HEP of neck and R shoulder ex's. (11/11/21: HEP: Neck Elongation ex & wall standing for posture) (11/21/21: HEP: T/S ex over towel roll) (11/27/21: HEP: pec stretch over noodle various ranges painfree, Ts and diagonal 1/2 X) LTG Duration 02/02/22 (12/04/21: Has been Progressed) Progress Towards Goals Progress Comments Goal #4 MET. LTG #3 MET. Pt improved in painfree ability to reach behind his low back( R>L). Assessment Summary Assessment Pt improved in R shoulder painfree mobility when reaching behind the low back, but slightly worse with reaching behind the head. Pt posture much improved in standing with decreased kyphosis and foward head posturing, and pt able to feel when he is slouching. Pt posture in sitting demonstrates an elevated R shoulder (not present in standing); therefore indicates probable mechanical>soft tissue dysfunction of the spine causing R shoulder to elevate in sitting. Physical Therapy Plan Frequency and Duration Frequency of Treatment 2x/Week Plan of Care Start Date 11/04/21 Plan of Care End Date 02/02/22 Next Visit Focus/Plan Next Note Type Treatment Note Next Visit Plan Progress pt's HEP: neck ex's ( stretching), neck stab, and shoulder ex's, R shoulder ex's -RC.) Add ROM stretch Ex: pecs, neck (gentle) Strengthening: RC, Scapular depressors Assess pt's attempt to sleep without ms relaxors. Monitor use of pain meds for sleeping and nighttime positioning. Myofascial STM of the thoracic region, R upper shoulder and R pec minor/major, and MFR of the posterior low back. Sustained pressure STM with precaution due to pt Osteoporosis. Self mobilization of thoracic region. Assess pt's nighttime pain positioning, pt to keep working on best posturing at nighttime for pain relief. Improve mobility for C/S and T /S (add HEP: scalene stretch) Manual mob to decreased 1st rib elevation. Modalities: only MH/CP (due to CA history).
--- NOTE | 2022-02-03 12:34 | PT.OTN ---
Current Diagnoses Pain in unspecified shoulder (02/03/22) Postural kyphosis, cervicothoracic region (02/03/22) Cervicalgia (02/03/22) Pain in right arm (02/03/22) Physical Therapy Treatment Note PT-OP-A Visit Information Start: 11/02/21 15:01 Freq: Status: Active Protocol: Document 02/03/22 09:50 LRN (Rec: 02/03/22 12:25 LRN [id number]) Out-Patient Physical Therapy Visit Information Visit Information Visit Type Treatment Note Visit Start Time 09:50 Visit Stop Time 10:28 Total Visit Minutes 38 Visit Number 19 Evaluation Information Evaluation Date 11/04/21 Precautions Precautions Hard of hearing Bladder CA history Back and Neck Pain history & surgical history of Low back Removal of 1/2 of R radius Scoliosis PT-OP-B Current Condition Start: 11/02/21 15:01 Freq: Status: Active Protocol: Document 11/04/21 12:47 LRN (Rec: 11/04/21 16:18 LRN [id number]) Current Condition History of Current Condition Onset Date Jul 2021 Current Complaints R shoulder pain radiating into the R side of neck History of Current Condition Pt reports insidious onset of R shoulder/neck pain. States he has had physical therapy previously for his neck, but the pain is different. He reports his pain is present when picking up heavy objects or when carrying objects. He has pain when reaching behind his head to scratch his back. Pt states he tends to lean left when in sitting, possibly due to scoliosis and has tried to correct his posture, but notes no change in his pain when he does. (Note: pt has lump behind the R ear that he states a surgeon told him was not necessary to surgically remove, physician of unknown specialty) Prior Treatments and Tests Physical therapy for neck pain 2 yrs ago. Muscle Relaxants for pain to help with sleeping. Treatment Goals Patient/Caregiver Goals Pt goal is to: -Be able to sleep throught the night without pain -Eliminate the need for pain medication to sleep -Be able to reach behind the head to scratch his back without pain -Be able to lift objects (cup of coffee) and carry groceries without pain. Prior Functional Status Baseline Function- ADL's Independent Baseline Function- Mobility Independent Baseline Function- Other Able to sleep through the night without medications. No R shoulder/neck pain with reaching behind his back or lifting/carrying objects. Current Functional Impairments (Reported) Functional Limitations- ADL's Difficulty sleeping, requiring medications to sleep (ms relaxant) and medication to go back to sleep (melatonin and IBP) Difficutly reaching behind head/back due to pain Difficulty lifting objects ( heavy & light-cup of coffee) and carrying objects ( groceries) due to pain. Personal Factors Other Personal Factors That May Effect Lives alone. Therapy/Recovery History of neck pain Scoliosis PT-OP-C Subjective Start: 11/02/21 15:01 Freq: Status: Active Protocol: Document 02/03/22 09:50 LRN (Rec: 02/03/22 12:25 LRN [id number]) OP-PT Subjective Patient Comments Patient Comments Not waking at night with pain, if does it is because he has done a lot of cleaning the time before. Has been doing well since last visit. Sore today from doing cleaning yesterday. Patient Questionnaires Neck Disability Index NDI Score 3 Neck Disability Index Impairment 1 to 19% Impaired (Score 1-9) Quick Dash- Upper Extremity Quick Dash UE Score 4.54 Quick Dash UE Impairment 1 to 19% Impaired (Score 1-19) OP-PT Pain Assessment Location R head/neck Pain Location Details R lateral neck Intensity 3 Scale Used Numeric (0 - 10) Description Sharp,Tender Frequency Occasional PT-OP-E Functional Tests Start: 11/02/21 15:01 Freq: Status: Active Protocol: Document 02/03/22 09:50 LRN (Rec: 02/03/22 12:25 LRN [id number]) Functional Tests Apley's Scratch Test Action 1- Left Superior angle of scapula Action 1- Right Spine of scapula Action 2- Left T3 Action 2- Right T2 Action 3- Left T6 Action 3- Right T7 PT-OP-H Neuro Start: 11/02/21 15:01 Freq: Status: Active Protocol: Document 11/04/21 12:47 LRN (Rec: 11/04/21 16:18 LRN [id number]) Sensation Evaluation Gross Sensation Gross Sensation WNL Deep Tendon Reflex & Clonus Assessment Deep Tendon Reflex Bilateral Patellar Deep Tendon Reflex 3+ Normal But Brisk Bilateral Bicep Deep Tendon Reflex 2+ Normal PT-OP-J Posture/Palpation/Skin Start: 11/02/21 15:01 Freq: Status: Active Protocol: Document 12/29/21 09:46 LRN (Rec: 12/29/21 12:34 LRN [id number]) Palpation Assessment Location Thoracic spine Palpation Location Posterior thoracic cage in prone Palpation Details Thoracic cage rotated left PT-OP-K Range of Motion Start: 11/02/21 15:01 Freq: Status: Active Protocol: Document 02/03/22 09:50 LRN (Rec: 02/03/22 12:25 LRN [id number]) Cervical Spine Range of Motion Cervical Spine Active Degrees Flexion 50 Extension 45 Rotation Left 58 Rotation Right 57 Lateral Flexion Left 35 Lateral Flexion Right 25 Comments R neck pain with cervical Ext > flex; PT-OP-L Special Tests Start: 11/02/21 15:01 Freq: Status: Active Protocol: Document 11/04/21 12:47 LRN (Rec: 11/04/21 16:18 LRN [id number]) Special Tests Cervical Spine Special Tests Spurling's Test Test Results Negative in supine facet syndrome test Test Results Positive R facets of cervical and upper thoracic spine Traction Test Results Positive Comments Reduction in R neck/shoulder pain Foraminal Compression Test Results Negative PT-OP-M Strength Start: 11/02/21 15:01 Freq: Status: Active Protocol: Document 11/04/21 12:47 LRN (Rec: 11/04/21 16:18 LRN [id number]) Cervical Spine Strength Cervical Spine Manual Muscle Testing Testing Position Sitting Comments Generally 5/5. Shoulder Strength Shoulder Manual Muscle Testing Right Flexion 5 Normal Abduction (C5) 5 Normal External Rotation 5 Normal Internal Rotation 5 Normal Comments Pain with Flex & AB Left Flexion 5 Normal Abduction (C5) 5 Normal External Rotation 5 Normal Internal Rotation 5 Normal PT-OP-Q Treatments Start: 11/02/21 15:01 Freq: Status: Active Protocol: Document 02/03/22 09:50 LRN (Rec: 02/03/22 12:25 LRN [id number]) Therapeutic Exercises Supine Exercises pec stretch Supine Exercise Name various ranges, elbow at side, & also w/elbow and arm straight Side bilateral Equipment Used On MHP, cervical roll under neck Reps/Minutes 5' Comments No c/o pain after extra time taken to posture in comfortable position Sitting Exercises C. & Shoulder AROM Sitting Exercise Name C. AROM & Functional Shoulder AROM (Apley Test) Reps/Minutes 5' Comments ROM measurements taken Manual Therapy Treatment Soft Tissue Mobilization R Scalene Body Location R Middle Scalene stretch with head turns Mobilization Type Myofascial Release Intensity/Depth Superficial Body Position Supine Comments Issued & reviewed HEP: Scalene stretch R T/S Paraspinals Body Location R T3-T4 paraspinals Mobilization Type Myofascial Release,Strumming, Sustained Pressure Intensity/Depth Moderate to deep Body Position Prone Comments 20' R Pec Body Location R>L Pec Mirza/Minor Mobilization Type Myofascial Release,Sustained Pressure Intensity/Depth Moderate Body Position Supine Comments manual and instruction sustained pressure opposite UE w/ MWM moving arm small ranges. R UT Body Location R UT Mobilization Type Myofascial Release Intensity/Depth Moderate Body Position Prone PT-OP-R Modalities Start: 11/02/21 15:01 Freq: Status: Active Protocol: Document 12/25/21 09:46 LRN (Rec: 12/25/21 10:58 LRN [id number]) Hot Pack/Cold Pack Treatment Cold Pack Location Neck Patient Position Supine Treatment Duration (minutes) 10 PT-OP-T Assessment and Plan Start: 11/02/21 15:01 Freq: Status: Active Protocol: Document 02/03/22 09:50 LRN (Rec: 02/03/22 12:25 LRN [id number]) Physical Therapy Assessment Goals Four Impairment Decreased functional strength due to R shoulder pain Impairment R shoulder/neck pain with lifting objects (cup of cofffe and heavier objects), and with carrying objects ( groceries). Short Term Goal (STG) Pt will be able to lift objects (cup of coffee) without pain. (11/27/21: progressing: no pain lifting cup coffee but has pain with vacuuming and scrubbing granite counter tops 5-6/10). (12/04/21: Pt able to lift a cup of coffee without pain. STG Duration 12/19/21 (12/04/21: MET GOAL) Floor Cashier Goal (LTG) Pt will be able to carry groceries without pain. (01/13/22: Pt can carry groceries without neck pain). LTG Duration 02/02/22 (01/12/22: MET GOAL) Three Impairment R shoulder/neck pain with reaching behind the head/neck/ opposite shoulder Impairment Reaching behind opposite shoulder: Right-top of middle of shoulder (Left-behind scapula). Reaching Behind head: Right-T1 (Left T5). Reaching Behind back: Right L5 (Left T8) Short Term Goal (STG) Pt will be able to reach behind the head to scratch his back without pain. (01/13/22: Pain in R shoulder/ neck Reaching Behind head: Right-T2-3, Left-T4). (02/03/22: Reaching behind R arm has pain in neck, but pt feels it is because of all his cleaning yesterday) STG Duration 12/19/21 (02/03/22: Improved mobility, pain persists on R side) Floor Cashier Goal (LTG) Improve pt's ability to reach behind his low back. (12/04/21: Reaching Behind low back: Right-L3 (was L5), Left -T8 (was T8)). (01/13/22: Behind low back: Right T10, Left T7). (02/03/22: No pain reaching behind back) LTG Duration 02/02/22 (01/13/22: MET GOAL, but R arm is < L arm) Two Impairment Impaired sleep Impairment Pt wakes at least 1 time per night requiring use of medication to go to sleep ( Methocarband), and to fall back to sleep (melatonin, IBP) . 11/14/21: pt able to sleep 10 hrs 2 nights ago with MHP behind neck draped over R shld painfree. 11/27/21: progressing waking up 2x/night with 6/10 R shld/ neck pain. Short Term Goal (STG) Pt brooke be able to sleep through the night without pain using pain medications. (12/04/21: Couple times this week taking pain medication and ms relaxant to sleep) (01/13/22: Able to sleep through the night without pain 4-5 days a week with use of muscle relaxant). (02/03/22: Pt reporting no pain sleeping, sleeps on stomach with arm by side and not overhead) STG Duration 12/19/21 (02/03/22: MET GOAL) Shelter Goal (LTG) Pt will be able to sleep through the night without pain and without use of medications. (01/13/22: Able to sleep through the night without pain 4-5 days a week with use of muscle relaxant). (02/03/22: Uses 1/2 medication if working a lot during the day). LTG Duration 02/02/22 (02/03/22: MET GOAL) One Impairment Pt lacks appropriate self care HEP Short Term Goal (STG) Pt will be educated and consistent with proper posturing for nighttime sleep. (11/07/21: Pt educated and is trying to stay consistent with proper nighttime positioning) . 11/11/21: Further education in nighttime sleeping positioning) 11/14/21: further ed nighttime sleep positioning w/ pillows/ noodle/folded towel. STG Duration 11/18/21 (11/17/21: MET GOAL) Floor Cashier Goal (LTG) Pt will be independent with a self care HEP of neck and R shoulder ex's. (11/11/21: HEP: Neck Elongation ex & wall standing for posture) (11/21/21: HEP: T/S ex over towel roll) (11/27/21: HEP: pec stretch over noodle various ranges painfree, Ts and diagonal 1/2 X) (02/03/22: HEP: Scalene stretch for R side) LTG Duration 02/02/22 (02/03/22: MET GOAL) Assessment Summary Assessment The pt returns after almost a 4 week break from therapy with reports of no pain with sleeping and only R neck pain with end-range active cervical R rot and reaching behind his neck with his R arm. The pt is aware of activities that result in R neck pain and is able to minimize or avoid the pain if he uses his L UE along with the R UE when cleaning. He is able to sleep through the night without pain when he keeps his R arm by his side rather than over his head. The pt continues to report sleeping on his stomach with his head turned; therefore it is expected that he may have return of neck pain in the future if he is unable to adjust his nighttime sleep position to avoid cervical rotation and sleeping on his stomach. He is improved in function per UE Quickdash score of 4.54 & Neck Disabiltiy Index score of 3, both indicating 1-19% impairment. The pt appears to have good understanding of a self care activity modifications and neck ROM ex' s; therefore the pt is ready to be discharged to an independent HEP. Physical Therapy Plan Discharge Physical Therapy Discharge Comments Most of the pt's goals have been met and the pt feels ready to be placed on an independent self care HEP. Pt may need therapy in the future if he is not able to adjust the way he sleeps at nighttime. Thank you for your referral.
== END 2022-02-05 13:12 ==
LOC: PHYS 09:45
PROVIDERS: Family Provider Internal Medicine; PCP Internal Medicine; Referring Provider Internal Medicine; Visit Provider Internal Medicine
DX: M54.2 Cervicalgia (principal); M25.519 Pain in unspecified shoulder; M40.03 Postural kyphosis, cervicothoracic region; M79.601 Pain in right arm
CPT/HCPCS: 97110; 97140; 97162; 97535

== ENCOUNTER → 2022-10-06 07:11 | Outpatient (CLI) | payer MEDICARE, OTHER, SELFPAY ==
[2018-12-23 11:26] VITALS: BMI 25.2
[2022-10-06 08:40] LABS: Alanine Aminotransferase 44 IU/L (<50); Albumin 4.5 g/dL (3.5-5.0); Albumin Globulin Ratio 1.7 (1.0-2.8); Alkaline Phosphatase 71 U/L (38-126); Aspartate Aminotransferase 35 IU/L (17-59); BUN Creatinine Ratio 15.3 (6-22); Bilirubin Total 0.7 mg/dL (0.2-1.3); Blood Urea Nitrogen 17 mg/dL (9-20); Carbon Dioxide 26 mmol/L (22-32); Chloride 101 mmol/L (98-107); Cholesterol 176 mg/dL (140-199); Estimated Glomerular Filt Rate > 60 mL/min (>60); Globulin 2.6 g/dL (1.7-4.1); Glucose 86 mg/dL (80-110); HDL Cholesterol 67 mg/dL (40-60); HEMOLYSIS < 15 (0-50); LDL Cholesterol Calculated 81 mg/dL (<100); Potassium 3.5 mmol/L (3.4-5.1); Sodium 139 mmol/L (137-145); Total Protein 7.1 g/dL (6.3-8.2); Triglycerides 140 mg/dL (35-150); Uric Acid 5.6 mg/dL (3.5-8.5)
== END ==
PROVIDERS: Family Provider Internal Medicine; PCP Internal Medicine; Referring Provider Internal Medicine; Visit Provider Internal Medicine
DX: E78.2 Mixed hyperlipidemia (principal); M1A.9XX0 Chronic gout, unspecified, without tophus (tophi); N40.0 Benign prostatic hyperplasia without lower urinary tract symptoms
CPT/HCPCS: 36415; 80053; 80061; 84550

== ENCOUNTER → 2023-06-11 15:17 | Outpatient (CLI) | payer MEDICARE, OTHER, SELFPAY ==
[2018-12-23 11:26] VITALS: BMI 25.2
--- NOTE | 2023-06-11 15:18 | DI.RAD.S_ITS ---
PROCEDURE: XR FOREARM RT 2V INDICATIONS: right arm pain TECHNIQUE: 2 views of the forearm were acquired. COMPARISON: [facility], CR, XR ELBOW RT MIN 3V, 06/11/2023, 15:21. FINDINGS: Bones: Prior radial head resection. Old healed distal ulnar fracture. Elbow degenerative changes Soft tissues: No suspicious soft tissue calcifications or masses. IMPRESSION: Degenerative and healed posttraumatic changes. No acute findings. Approved by: Juan Buck M.D. on 06/11/2023 at 18:27
--- NOTE | 2023-06-11 15:18 | DI.RAD.S_ITS ---
PROCEDURE: XR ELBOW RT MIN 3V INDICATIONS: right arm pain TECHNIQUE: 3 views of the elbow were acquired. COMPARISON: None. FINDINGS: Bones: Radial head resection. Distal humeral probable fracture deformity with marginal osteophytes.. No acute findings. No significant joint effusion Soft tissues: No elbow joint effusion. No suspicious soft tissue calcifications. IMPRESSION: No acute findings. Probable old distal humeral fracture deformity with exuberant callus. Old radial head resection. Approved by: Juan Buck M.D. on 06/11/2023 at 18:35
== END ==
PROVIDERS: Family Provider Internal Medicine; PCP Internal Medicine; Referring Provider Internal Medicine; Visit Provider Internal Medicine
DX: M79.601 Pain in right arm (principal); M79.641 Pain in right hand
CPT/HCPCS: 73080; 73090

== ENCOUNTER → 2023-06-21 09:04 | Outpatient (CLI) | payer MEDICARE, OTHER, SELFPAY ==
[2018-12-23 11:26] VITALS: BMI 25.2
[2023-06-21 10:13] LABS: BUN Creatinine Ratio 16.5 (6-22); Blood Urea Nitrogen 17 mg/dL (9-20); Estimated Glomerular Filt Rate > 60 mL/min (>60)
== END ==
PROVIDERS: Family Provider Internal Medicine; PCP Internal Medicine; Referring Provider Orthopaedic Surgery; Visit Provider Orthopaedic Surgery
DX: M24.131 Other articular cartilage disorders, right wrist (principal)
CPT/HCPCS: 36415; 82565; 84520

== ENCOUNTER → 2023-06-28 10:41 | Outpatient (CLI) | payer MEDICARE, OTHER, SELFPAY ==
[2018-12-23 11:26] VITALS: BMI 25.2
--- NOTE | 2023-06-28 | DI.MRI.S_ITS ---
PROCEDURE: MR WRIST RT W CON INDICATIONS: RIGHT WRIST PAIN TECHNIQUE: After the administration of 3-4 mL of dilute intra-articular Gadolinium contrast into the radiocarpal compartment, coronal T1 spin echo with fat saturation and T2 fast spin echo with fat saturation, axial T1 spin echo and T2 fast spin echo with fat saturation, sagittal T1 spin echo with and without fat saturation through the wrist. COMPARISON: [facility], CR, XR FOREARM RT 2V, 06/11/2023, 15:21. [facility], RF, [place] WRIST INJECTION MR/CT RT, 06/28/2023, 11:24. FINDINGS: Image quality: Excellent. Bones and cartilage: The carpal bones are normally aligned. No bone marrow contusions or fractures. No evidence for avascular necrosis. Degenerative changes are seen at the distal radioulnar joint with subchondral cystic changes and edema and remodeling of the articular surfaces. There is full-thickness cartilage loss at the ulnar aspect of the lunate with subchondral cystic changes. Full-thickness cartilage loss seen hip the pisotriquetral articulation with subchondral cystic changes and edema. There is neutral ulnar variance. Mild degenerative changes are seen at the 1st carpometacarpal joint. Carpal ligaments: There is full-thickness perforation of the membranous portion of the scapholunate ligament with radiocarpal contrast material in the midcarpal compartment. The lunotriquetral ligament is appear intact. On sagittal images, the pisohamate ligament appears intact. Triangular fibrocartilage complex: There is a large defect within the triangular fibrocartilage disc with superimposed degeneration. Tendons and soft tissues: The carpal tunnel structures appear normal, including the median nerve. The ulnar nerve appears normal within Guyon's canal. All six extensor tendon compartments demonstrate normal morphology, without pathologic tendon sheath fluid. No soft tissue ganglion cysts. IMPRESSION: 1. Severe degenerative changes at the proximal ulnar aspect of the wrist involving the distal radial ulnar joint as well as the ulnar aspect of the lunate and the pisotriquetral joint, with prominent subchondral cystic changes and subchondral edema. 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 2. Large full-thickness tear of the triangular fibrocartilage with extravasation of contrast material into the distal radioulnar joint. 3. Full-thickness perforation of the membranous portion of the scapholunate ligament is likely degenerative. The dorsal and volar bands of the ligament are intact and there is no widening of the scapholunate interval. Extravasation of contrast material is seen into the midcarpal articulation. Approved by: Juventino Erwin M.D. on 06/28/2023 at 15:17
--- NOTE | 2023-06-28 | DI.RAD.S_ITS ---
PROCEDURE: [place] WRIST INJECTION MR/CT RT INDICATIONS: RIGHT WRIST PAIN COMPARISON: None TECHNIQUE: After informed consent had been obtained, the wrist was examined fluoroscopically, and a site chosen for injection of the radiocarpal compartment from a dorsal approach. Skin was prepped and draped in a sterile fashion and 1% lidocaine infiltrated from the skin down to the articular surface. A hypodermic needle was then introduced into the articular space and a modest amount of contrast medium was instilled confirming intra-articular needle tip placement. This was followed by approximately 4 mL of a dilute gadolinium solution. Needle was removed and dressing was applied. The patient experienced no complications throughout the procedure and left the fluoroscopic suite in no apparent distress. FINDINGS: A single fluoroscopic spot image demonstrates intra-articular location to injected iodinated contrast. IMPRESSION: Successful fluoroscopic-guided administration of dilute Gadolinium solution for wrist MR arthrogram. Dictated by: Juventino Vigil M.D. on 06/28/2023 at 12:50 Approved by: Juventino Vigil M.D. on 06/28/2023 at 12:51
[2023-06-28] MEDS: LIDOCAINE 1% 20 ML INJ (17:03)
[2023-06-28] MEDS: SODIUM CHLORIDE 0.9 % 20 ML VIAL IV (17:04)
== END ==
PROVIDERS: Family Provider Internal Medicine; PCP Internal Medicine; Referring Provider Orthopaedic Surgery; Visit Provider Orthopaedic Surgery
DX: S63.591A Other specified sprain of right wrist, initial encounter (principal); M24.131 Other articular cartilage disorders, right wrist
CPT/HCPCS: 20605; 73222; 77002

== ENCOUNTER → 2023-11-02 09:17 | Outpatient (CLI) | payer MEDICARE, OTHER, SELFPAY ==
[2023-11-02 08:34] VITALS: BMI 25.2
[2023-11-02 10:07] LABS: Add Manual Diff / Slide Review NO; Basophils Absolute Auto 100 /uL (0-100); Eosinophils Absolute Auto 100 /uL (0-450); Hematocrit 45.8 % (41-53); Hemoglobin 15.9 g/dL (13.5-17.5); Lymphocytes Absolute Auto 1100 /uL (1100-4500); Lymphocytes Percent Auto 19.6 % (25-40); Mean Corpuscular HGB Conc 34.7 % (30-36); Mean Corpuscular Hemoglobin 33.3 PG (26-34); Monocytes Absolute Auto 400 /uL (0-900); Monocytes Percent Auto 7.1 % (3-14); Neutrophils Absolute Auto 4100 /uL (1500-7000); Neutrophils Percent Auto 70.3 % (50-75); Platelet Count 209 X10^3/uL (150-400); Red Blood Cell Count 4.77 X10^6/uL (4.5-5.9); Red Cell Distribution Width 14.1 % (11.6-14.8); White Blood Cell Count 5.8 X10^3/uL (4.5-11.0)
[2023-11-02 10:19] LABS: Alanine Aminotransferase 34 IU/L (<50); Albumin 4.4 g/dL (3.5-5.0); Albumin Globulin Ratio 1.5 (1.0-2.8); Alkaline Phosphatase 58 U/L (38-126); BUN Creatinine Ratio 13.9 (6-22); Bilirubin Total 0.8 mg/dL (0.2-1.3); Blood Urea Nitrogen 14 mg/dL (9-20); Calcium 10.2 mg/dL (8.4-10.2); Carbon Dioxide 29 mmol/L (22-32); Chloride 98 mmol/L (98-107); Estimated Glomerular Filt Rate > 60 mL/min (>60); Globulin 2.9 g/dL (1.7-4.1); Glucose 95 mg/dL (80-110); Lipase 183 U/L (23-300); Potassium 3.6 mmol/L (3.4-5.1); Sodium 135 mmol/L (137-145); Total Protein 7.3 g/dL (6.3-8.2)
[2023-11-05 14:40] LABS: HEMOLYSIS 20 (0-50)
[2023-11-05 14:42] LABS: Aspartate Aminotransferase 36 IU/L (17-59)
== END ==
LOC: LAB 09:18
PROVIDERS: Family Provider Internal Medicine; PCP Internal Medicine; Referring Provider Family Medicine; Visit Provider Family Medicine
DX: R19.7 Diarrhea, unspecified (principal); R19.5 Other fecal abnormalities
CPT/HCPCS: 36415; 80053; 83690; 85025

== ENCOUNTER → 2024-10-12 06:54 | Outpatient (CLI) | payer MEDICARE, OTHER, SELFPAY ==
[2024-10-02 08:42] VITALS: BMI 25.2
--- NOTE | 2024-10-12 06:55 | DI.MRI.S_ITS ---
PROCEDURE: MR LUMBAR SPINE WO CON INDICATIONS: Right Lumbar Radiculopathy TECHNIQUE: Noncontrast sagittal T1 spin echo and T2 fast echo, coronal T2, sagittal STIR, and T2 fast spin echo through the lumbar spine. COMPARISON: None. FINDINGS: Image quality: Excellent. Alignment and Curvature: No plain films are available for comparison, for numbering purposes. Thus, for the purposes of this examination, 5 lumbar type vertebral bodies will be presumed, as denoted on the montage panel. This should be confirmed and correlated with plain films, prior to any lumbar spinal intervention. Loss of normal lumbar lordosis. 4 mm of retrolisthesis of L2 on L3. 3 mm of retrolisthesis of L4 on L5. Mild diffuse leftward curvature of the mid lumbar spine. Bone Marrow: Marrow is of normal overall signal. No acute vertebral body compression fractures. T12 hemangioma. Mild reactive signal throughout the endplates of the lumbar and lower thoracic spine Spinal Cord: Conus medullaris terminates at the upper L1 level. Visualized cord demonstrates normal signal and size. Paraspinous Soft Tissues: No paravertebral masses. T12-L1: Normal appearance. L1-L2: Normal appearance. L2-L3: Severe disc height loss and desiccation. Mild diffuse disc bulge with small superimposed right far lateral protrusion. Mild bilateral facet hypertrophy. Mild canal stenosis. Moderate right and mild left foraminal stenosis. L3-L4: Moderate disc height loss and desiccation. Mild diffuse disc bulge with superimposed broad-based right posterolateral protrusion. Mild canal stenosis. Moderate bilateral foraminal stenosis. L4-L5: Severe disc height loss and desiccation. Mild diffuse disc bulge with superimposed left far lateral broad-based protrusion. Mild bilateral facet and ligamentum flavum hypertrophy. Mild canal stenosis. Mild right and moderate left foraminal stenosis. L5-S1: Severe disc height loss and desiccation. Mild diffuse disc bulge. Mild bilateral facet hypertrophy. Mild canal stenosis. Moderate to severe right and severe left foraminal stenosis. Left greater than right L5 nerve root compression. IMPRESSION: 1. 5 lumbar type vertebral bodies were presumed for the current report. Plain films of the lumbar spine are recommended for confirmation, prior to any lumbar spinal intervention. 2. Mild multilevel canal stenosis. 3. Multilevel foraminal stenoses, worst at L5-S1 where there is associated intraforaminal nerve root compression. Recommend correlation with clinical symptoms to ascertain relevance of this finding. Dictated by: Nico Meyer M.D. on 10/12/2024 at 9:59 Approved by: Nico Meyer M.D. on 10/12/2024 at 10:20
== END ==
PROVIDERS: Family Provider Internal Medicine; PCP Internal Medicine; Referring Provider Internal Medicine; Visit Provider Internal Medicine
DX: M54.16 Radiculopathy, lumbar region (principal); M48.061 Spinal stenosis, lumbar region without neurogenic claudication; M48.07 Spinal stenosis, lumbosacral region
CPT/HCPCS: 72148

== ENCOUNTER 2024-12-22 09:52 | Emergency (ER) | payer MEDICARE, OTHER, SELFPAY ==
[2024-10-02 08:42] VITALS: BMI 25.2
[2024-12-22 10:09] VITALS: BP 152/75; PULSE 68; RESP 16; TEMP 37.1; O2SAT 98; BMI 24.2
--- NOTE | 2024-12-22 11:33 | ED.BACK ---
HPI - Back Pain/Injury <Lore Lazo PA-C - Last Filed: 12/22/24 13:29> General Chief Complaint: Back Pain/Injury Stated Complaint: Back pain shooting down both legs Time Seen by Provider: 12/22/24 11:08 Source: patient History of Present Illness HPI Narrative: Mr. Lima is a very pleasant 79-year-old male with a past medical history of Meniere's disease, chronic back pain with surgery in 2016 with plans for surgery in the next 1-2 months who presents to the emergency department for acute on chronic low back pain x2 days. Patient reports that he has been suffering with severe low back pain radiating down the right leg, he had an MRI in October, is currently having physical therapy and plans to have epidural injections later this month followed by surgery at [place]. Patient reports about 2 days ago his low back pain started going down the left side and he is frustrated with the pain. He does have prescriptions for oxycodone hydrocodone at home but states that he gets very constipated and does not tolerate these medications well, reports that he has been breaking his hydrocodone 5 mg into for pieces and he takes 1 piece if needed for pain, he last took a piece of hydrocodone at midnight last night which helped some. He is ambulatory, has no bowel or bladder dysfunction, reports chronic sensation of tingling on the right outer thigh but no decreased sensation, no numbness or tingling of the left leg, no lower extremity weakness, no fevers, chest pain or shortness of breath. Denies flank pain, hematuria or dysuria. Related Data Home Medications Medication Instructions Recorded Confirmed cholecalciferol (vitamin D3) 50 2,000 unit PO DAILY 12/23/18 12/11/24 mcg (2,000 unit) capsule (Vitamin D3) coenzyme Q10 100 mg capsule 100 mg PO DAILY 12/23/18 12/11/24 (CoQ-10) multivitamin 1 tab PO DAILY 12/23/18 12/11/24 fexofenadine 180 mg tablet 180 mg PO DAILY 03/02/23 12/11/24 Previous Rx's Medication Instructions Recorded methocarbamol 750 mg tablet 750 mg PO BEDTIME PRN Muscle Spasm 05/18/22 #90 tabs omeprazole 10 mg capsule,delayed 10 mg PO DAILY #90 caps 06/06/24 release simvastatin 40 mg tablet 40 mg PO DAILY #90 tabs 08/17/24 triamterene 37.5 1 cap PO QAM #90 caps 09/25/24 mg-hydrochlorothiazide 25 mg capsule allopurinol 100 mg tablet 100 mg PO QAM #90 tabs 10/09/24 memantine 10 mg tablet 10 mg PO BID #180 tabs 10/16/24 acetaminophen 325 mg capsule 650 mg (2 x 325 mg) PO Q6H PRN 12/22/24 pain #30 caps diazepam 2 mg tablet (Valium) 2 mg PO BID PRN muscle spasm #14 12/22/24 tabs lidocaine 5 % topical patch 1 patch topical DAILY #30 ea 12/22/24 (Lidoderm) naproxen 500 mg tablet 500 mg PO BID PRN pain #20 tabs 12/22/24 prednisone 20 mg tablet 40 mg (2 x 20 mg) PO DAILY 5 days 12/22/24 #10 tabs Allergies Allergy/AdvReac Type Severity Reaction Status Date / Time Penicillins Allergy Unknown Childhood Verified 12/11/24 14:39 reaction Sulfa (Sulfonamide Allergy Unknown Childhood Verified 12/11/24 14:39 Antibiotics) reaction Review of Systems <Lore Lazo PA-C - Last Filed: 12/22/24 13:29> Review of Systems ROS Unobtainable: All systems reviewed & are unremarkable except as noted in HPI and below Patient History <Lore Lazo PA-C - Last Filed: 12/22/24 13:29> Medical History H/O adenomatous polyp of colon COVID (~09/2022) Vision disorder Seasonal allergies (~1989) Depression (~2018) Scoliosis (~2015) Fractures (~1961) Chronic back pain (~2002) Rheumatic fever (~1944) Measles (~1946) Hearing loss (~1972) Vertigo (~1972) Deep vein thrombosis (~2003) Tremor (~2003) BPH (benign prostatic hyperplasia) Osteoarthritis Rheumatic aortic disease GERD (gastroesophageal reflux disease) (~2001) Hyperlipidemia Hypertension Gout (~2005) Surgical History Anesthesia H/O elbow surgery (~1961) H/O discectomy (~2016) S/P ventricular shunt placement History of cystoscopy History of tonsillectomy S/P TURP Bladder cancer (~2010) Meniere disease (~1972) Family History Father Congestive heart failure Hypertension Hyperlipidemia Stroke Mother Leukemia Sister Liver cancer Hypertension Hyperlipidemia Stroke Grandfather No problems noted. Grandmother No problems noted. Social History marital status: household members: spouse Smoking Status: Never smoker alcohol intake: current substance use type: does not use Smoking Status: Never smoker alcohol intake frequency: 0-2 drinks per day Exam <Lore Lazo PA-C - Last Filed: 12/22/24 13:29> Narrative Exam Narrative: GENERAL: 79 year old patient appears stated age. Well-developed patient, in no acute distress. HEAD: Atraumatic. Normocephalic. NECK: Trachea midline. Cervical ROM intact. CARDIOVASCULAR: Regular rate RESPIRATORY: ?Nonlabored respirations. ?Speaking in clear, full sentences. ?Clear to auscultation. EXTREMITIES: No edema or joint tenderness. Strong DP and PT pulses palpated bilaterally. BACK: No reproducible back tenderness to palpation. No midline tenderness. He has positive right straight leg raise at approximately 20? and positive left straight leg raise at approximately 75?. NEURO: AOx3. ?Clear speech. ?Moves all 4 extremities appropriately. 5/5 lower extremity knee and hip flexion and extension strength, plantar and dorsiflexion strength, health services information specialist strength. Sensation intact to light touch on the bilateral feet, lower extremities, groin. SKIN: No rash or erythema of visible areas Initial Vital Signs Initial Vital Signs: Vital Signs Temperature 98.7 F 12/22/24 10:09 Pulse Rate 68 12/22/24 10:09 Respiratory Rate 16 12/22/24 10:09 Blood Pressure 152/75 H 12/22/24 10:09 Pulse Oximetry 98 12/22/24 10:09 Oxygen Delivery Method Room Air 12/22/24 10:09 <Umer Mckinley MD - Last Filed: 12/22/24 18:56> Initial Vital Signs Initial Vital Signs: Vital Signs Temperature 98.7 F 12/22/24 10:09 Pulse Rate 68 12/22/24 10:09 Respiratory Rate 16 12/22/24 10:09 Blood Pressure 152/75 H 12/22/24 10:09 Pulse Oximetry 98 12/22/24 10:09 Oxygen Delivery Method Room Air 12/22/24 10:09 Course <Lore Lazo PA-C - Last Filed: 12/22/24 13:29> Orders Ordered: Discontinued Medications Acetaminophen (Acetaminophen 325 Mg Tablet) 650 mg PO NOW ONE Stop: 12/22/24 12:00 Last Admin: 12/22/24 12:09 Dose: 650 mg Documented By: LETICIA Diazepam (Diazepam 2 Mg Tablet) 2 mg PO NOW ONE Stop: 12/22/24 12:00 Last Admin: 12/22/24 12:10 Dose: 2 mg Documented By: LETICIA Ketorolac Tromethamine (Ketorolac 30 Mg/Ml Vial) 30 mg IM NOW ONE Stop: 12/22/24 12:00 Last Admin: 12/22/24 12:09 Dose: 30 mg Documented By: LETICIA Lidocaine (Lidocaine 5% Patch) 1 each TOP NOW ONE Stop: 12/22/24 12:00 Last Admin: 12/22/24 12:10 Dose: 1 each Documented By: LETICIA Prednisone (Prednisone 20 Mg Tablet) 40 mg PO NOW ONE Stop: 12/22/24 12:00 Last Admin: 12/22/24 12:09 Dose: 40 mg Documented By: LETICIA Vital Signs Vital signs: Vital Signs - 8 hr 12/22/24 13:40 Temperature 97 F L Pulse Rate 65 Respiratory Rate 16 Blood Pressure 159/90 H Pulse Oximetry 97 Oxygen Delivery Method Room Air <Umer Mckinley MD - Last Filed: 12/22/24 18:56> Orders Ordered: Discontinued Medications Acetaminophen (Acetaminophen 325 Mg Tablet) 650 mg PO NOW ONE Stop: 12/22/24 12:00 Last Admin: 12/22/24 12:09 Dose: 650 mg Documented By: LETICIA Diazepam (Diazepam 2 Mg Tablet) 2 mg PO NOW ONE Stop: 12/22/24 12:00 Last Admin: 12/22/24 12:10 Dose: 2 mg Documented By: LETICIA Ketorolac Tromethamine (Ketorolac 30 Mg/Ml Vial) 30 mg IM NOW ONE Stop: 12/22/24 12:00 Last Admin: 12/22/24 12:09 Dose: 30 mg Documented By: LETICIA Lidocaine (Lidocaine 5% Patch) 1 each TOP NOW ONE Stop: 12/22/24 12:00 Last Admin: 12/22/24 12:10 Dose: 1 each Documented By: LETICIA Prednisone (Prednisone 20 Mg Tablet) 40 mg PO NOW ONE Stop: 12/22/24 12:00 Last Admin: 12/22/24 12:09 Dose: 40 mg Documented By: LETICIA Vital Signs Vital signs: Vital Signs - 8 hr 12/22/24 13:40 Temperature 97 F L Pulse Rate 65 Respiratory Rate 16 Blood Pressure 159/90 H Pulse Oximetry 97 Oxygen Delivery Method Room Air MDM - Back Pain/Injury <Lore Lazo PA-C - Last Filed: 12/22/24 13:29> Medical Records Attestation: I reviewed the patient's medical records. MDM Narrative Medical decision making narrative: 79-year-old male with a past medical history of Meniere's disease, chronic back pain with surgery in 2017 with plans for surgery in the next 1-2 months who presents to the emergency department for acute on chronic low back pain x2 days. Differential diagnosis includes but is not limited to lumbar radiculopathy, acute on chronic pain, muscle spasm, herniated disc, etc. On exam patient is in no acute distress, nontoxic appearing, vital signs appropriate, ambulatory independently. Lower extremities are neurovascularly intact, he has no tenderness of the midline spine, he does have positive straight leg raise bilaterally. No weakness, bowel or bladder dysfunction, groin numbness or inability to walk concerning for cauda equina syndrome. He had an MRI performed on 10/12/2024 and is currently planning for surgery however he is frustrated with how long it is taking to have the surgery and his pain is now on the left side in addition to the right side. He is taking approximately 1-2 mg of hydrocodone occasionally for the pain but does not like this medication. I had an extensive discussion with the patient and his son about multimodal pain therapy. We will treat him with prednisone, Toradol, Tylenol, Valium, Lidoderm in the ED and see how he does. 10/12/24 Lumbar MRI: IMPRESSION: 1. 5 lumbar type vertebral bodies were presumed for the current report. Plain films of the lumbar spine are recommended for confirmation, prior to any lumbar spinal intervention. 2. Mild multilevel canal stenosis. 3. Multilevel foraminal stenoses, worst at L5-S1 where there is associated intraforaminal nerve root compression. Recommend correlation with clinical symptoms to ascertain relevance of this finding. Patient reports feeling significant improvement after ED treatment. He has not interested in any additional treatment at this time. We will prescribe him naproxen, acetaminophen, Lidoderm, prednisone and Valium. Discussed the risks of Valium with the patient. Recommended that he follow up with his primary care doctor and his surgeon promptly for definitive management of his acute on chronic back pain. Discussed signs and symptoms to return to the emergency department for and both him and his son verbalized understanding. He is agreeable to this plan, ambulatory, stable for discharge home. Discharge Plan Departure Patient Disposition: Home Clinical Impression: Acute left lumbar radiculopathy, Acute exacerbation of chronic low back pain Instructions: DI for Lumbar Radiculopathy Activity Restrictions/Additional Instructions: Thank you for coming to the emergency department. Today you were evaluated for worsening back pain. You were treated with intramuscular injection of ketorolac, oral prednisone acetaminophen Valium and Lidoderm. I have prescribed you naproxen and acetaminophen which are pain medications, prednisone which is a steroid, Lidoderm which is a topical numbing patch, and Valium which is a benzodiazepine muscle relaxer. Please take food with naproxen and prednisone as these can upset the stomach. Please avoid drinking alcohol, driving a car or operating heavy machinery while taking Valium as this is a muscle relaxer and may make you drowsy. Please follow up with your primary care doctor and your surgeon for further evaluation and management. Return to the emergency department immediately if you develop weakness of the legs, numbness or tingling in the groin, loss of control of your bowels or bladder, or any other concerns. Please follow up with your primary care doctor within the next 2-3 days for ER follow-up. (If you do not have a PCP you can call [phone]. ?to schedule an appointment with an [facility] Primary Care Provider) IF YOU DEVELOP ANY NEW OR WORSENING SYMPTOMS, RETURN TO THE ER! Please read the attached instructions, they highlight more specific treatments and interventions for you at home. Thank you for letting me participate in your care, Lore Lazo PA-C Prescriptions: New diazepam [Valium] 2 mg tablet 2 mg PO BID PRN (Reason: muscle spasm) Qty: 14 0RF lidocaine [Lidoderm] 5 % adhesive patch,medicated 1 patch topical DAILY Qty: 30 0RF Rx Instructions: leave on most painful area for up to 12 hrs acetaminophen 325 mg capsule 650 mg PO Q6H PRN (Reason: pain) Qty: 30 0RF prednisone 20 mg tablet 40 mg PO DAILY 5 Days Qty: 10 0RF naproxen 500 mg tablet 500 mg PO BID PRN (Reason: pain) Qty: 20 0RF Rx Instructions: Take with food. No Action methocarbamol 750 mg tablet 750 mg PO BEDTIME PRN (Reason: Muscle Spasm) Qty: 90 1RF omeprazole 10 mg capsule,delayed release(DR/EC) 10 mg PO DAILY Qty: 90 3RF simvastatin 40 mg tablet 40 mg PO DAILY Qty: 90 1RF Patient Comments: TK 1 T PO D triamterene-hydrochlorothiazid 37.5-25 mg capsule 1 cap PO QAM Qty: 90 1RF Patient Comments: TK 1 C PO D allopurinol 100 mg tablet 100 mg PO QAM Qty: 90 3RF Patient Comments: TK 1 T PO D Rx Instructions: with breakfast memantine 10 mg tablet 10 mg PO BID Qty: 180 3RF fexofenadine 180 mg tablet 180 mg PO DAILY multivitamin Tablet 1 tab PO DAILY coenzyme Q10 [CoQ-10] 100 mg Capsule 100 mg PO DAILY cholecalciferol (vitamin D3) [Vitamin D3] 2,000 unit Capsule 2,000 unit PO DAILY Referrals: Bala Dutton MD [Primary Care Provider] - Stand Alone Forms: Patient Portal/API/Survey ED Sign-out <Umer Mckinley MD - Last Filed: 12/22/24 18:56> Cosign ED Attending Samature Attestation: I was available for consultation during this patient's encounter but patient primarily seen by above PA, I was not asked specifically about any questions regarding this patient's care.
[2024-12-22] MEDS: KETOROLAC 30 MG/ML VIAL IM (12:09)
[2024-12-22] MEDS: predniSONE 20 MG TABLET 40 MG PO (12:09)
[2024-12-22] MEDS: ACETAMINOPHEN 325 MG TABLET 650 MG PO (12:09)
[2024-12-22] MEDS: LIDOCAINE 5% PATCH 1 EACH TOP (12:10)
[2024-12-22] MEDS: diazePAM 2 MG TABLET PO (12:10)
--- NOTE | 2024-12-22 13:38 | PC.NURSE ---
Back pain that pt states moves around. Pt reports he is suppose to get injections on his lower back; with surgery supposedly in the near future. Pt reports pain is worse on his left side; stating it runs down his leg. Pt reports he feels better when he stands up or sits on harder surfaces. Denies loss of bladder or bowel.
[2024-12-22 13:40] VITALS: BP 159/90; PULSE 65; RESP 16; TEMP 36.1; O2SAT 97
== END 2024-12-22 13:41 | disposition home or self-care (01) ==
PROVIDERS: Emergency Provider Physician Assistant; Family Provider Internal Medicine; PCP Internal Medicine
DX: M54.16 Radiculopathy, lumbar region (principal); Z98.890 Other specified postprocedural states
CPT/HCPCS: 96372; 99283; J1885

== ENCOUNTER 2024-12-26 09:00 | Outpatient (RCR) | payer MEDICARE, OTHER, SELFPAY ==
[2024-10-02 08:42] VITALS: BMI 25.2
--- NOTE | 2024-11-02 17:47 | PT.OIE ---
Current Diagnoses Radiculopathy, lumbar region (11/02/24) Past Medical History (Last Updated 12/07/23 @ 16:56 by Bala Dutton MD) BPH (benign prostatic hyperplasia) Chronic back pain (~2002) COVID (~09/2022) Deep vein thrombosis (~2003) Depression (~2018) Fractures (~1961) GERD (gastroesophageal reflux disease) (~2001) Gout (~2005) H/O adenomatous polyp of colon Hearing loss (~1972) Hyperlipidemia Hypertension Measles (~1946) Osteoarthritis Rheumatic aortic disease Rheumatic fever (~1944) Scoliosis (~2015) Seasonal allergies (~1989) Tremor (~2003) Vertigo (~1972) Vision disorder Past Surgical History (Last Reviewed 05/07/20 @ 15:04 by Bala Dutton MD) Anesthesia Bladder cancer (~2010) H/O discectomy (~2016) H/O elbow surgery (~1961) History of cystoscopy History of tonsillectomy Meniere disease (~1972) S/P TURP S/P ventricular shunt placement Visit Care Team Role Provider Type Bala Dutton MD Family Provider Physician Primary Care Provider Specialty: Internal Medicine Address: [address] [place] [address], [address], [place], [address] Email: [email or web address] Uvaldo Simental DO Attending Provider Non-Staff Referring Provider Specialty: Orthopedic Surgery Address: [address] [place], [place] [address]jamie Tran, [place], [address] Email: Physical Therapy Initial Evaluation PT-OP-A Visit Information Start: 10/24/24 16:19 Freq: Status: Active Protocol: Document 11/02/24 08:18 LRN (Rec: 11/02/24 10:48 LRN [id number]) Out-Patient Physical Therapy Visit Information Visit Information Visit Type Initial Evaluation Visit Start Time 08:18 Visit Stop Time 08:58 Visit Number 1 Evaluation Information Evaluation Date 11/02/24 Precautions Precautions Lumbar spine disc bulges, 4mm of retrolisthesis of L2 on L3 and L4 on L5, acute vertebral body compression fractures, T12 hemangioma, and foraminal stenosis and mild multilevel canal stenosis, Bladder CA history, Meniere's disease status post shunt in the R ear in 70's and subsequent OLAMIDE R ear & COWLITZ L ear, HTN, OA, elbow surgery. PT-OP-B Current Condition Start: 10/24/24 16:19 Freq: Status: Active Protocol: Document 11/02/24 08:18 LRN (Rec: 11/02/24 10:48 LRN [id number]) Current Condition History of Current Condition Onset Date 2 months agol Current Complaints R Low back and leg pain, sometimes L side. History of Current Condition Sudden onset R hip that has progressively worsening. Pain radiates into the back of the thigh and lateral leg, and recently is now starting to go down the L side. The pt states he expected the pain because in 2018 surgeons predicted L4-L5 nerve would have to be deadened, but his current surgeon feels injections and surgery would help, if PT doesn't help. He reports previous low back surgery to widen the route of the nerve. Position of sitting and lying down are most painful and standing is most comfortable. He sleeps mostly on his L side curled up or on stomach with head rotated left. 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 Prior Treatments and Tests 2016 had surgery for pinched nerve, level unknown. PT for back in 2021, with pain in R LB and LE that resolved itself . MRI 10/12/24 shows disc bulges in his lumbar spine, retrolisthesis 4 mm of L2 on L3 and 3 mm of L4 on L5, acute vertebral body compression fractures, T12 hemangioma, and foraminal stenosis with nerve root compression. Developmental History Developmental History MRI: 10/12/24 shows: Mild diffuse disc bulge L2-S1. Mild multilevel canal stenosis . Multilevel foraminal stenoses, worst at L5-S1 where there is associated intraforaminal nerve root compression. Recommend correlation with clinical symptoms to ascertain relevance of this finding. Treatment Goals Patient/Caregiver Goals Pt goals: -Tolerable pain to be able to walk 2 miles with tolerable pain at end (now walks 1/4 mile). Currently his pain at end of walk is 10/10. - Improve mobility to be able to change beds, do laundry, or cleaning house w/pain less than 5/10 (normal pain is 4/10 ). Personal Factors Other Personal Factors That May Effect Lives alone, difficult Therapy/Recovery changing beds, doing laundry, cleaning house. 'Normal pain is 4/10, with activities, 10/ 10. Has a son local and one in [place]. Hx of cancer - bladder cancer - 8 yrs of treatment, no longer signs of cancer. Tip of R radius removed at elbow and had R wrist surgery - a year ago. Neck pain. PT-OP-C Subjective Start: 10/24/24 16:19 Freq: Status: Active Protocol: Document 11/02/24 08:18 LRN (Rec: 11/02/24 10:48 LRN [id number]) Patient Questionnaires Oswestry Low Back Index Oswestry Score 50/100 Oswestry Impairment 40 to 59% Impaired (Score 40- 59) OP-PT Pain Assessment Pain Assessment Grid Paper Pain Assessment Grid Completed Yes Location Low back Pain Location Details R SIJ/LB Intensity 8 Scale Used Numeric (0 - 10) Description Aching,Sharp,Throbbing, Tingling Frequency Constant Pain Aggravating Factors Activity PT-OP-J Posture/Palpation/Skin Start: 10/24/24 16:19 Freq: Status: Active Protocol: Document 11/02/24 08:18 LRN (Rec: 11/02/24 10:48 LRN [id number]) Posture Evaluation Position Standing Head/C-Spine Posture Side Bent Left,Forward Head T-Spine Posture Increased Kyphosis L-Spine Posture Increased Lordosis,Shifted Left Pelvis Posture Anteriorly Tilted,(L) Iliac Crest Superior Comments Posture Comments Mild varus of lower legs. Shift to L at L1, L2. Palpation Assessment Location Low back Palpation Location R ischial tub is elevated. L/ S paraspinals tight Palpation Details Palpation of L/S paraspinals and in region of facet joints elicits pain down the leg. PT-OP-K Range of Motion Start: 10/24/24 16:19 Freq: Status: Active Protocol: Document 11/02/24 08:18 LRN (Rec: 11/02/24 10:48 LRN [id number]) Lumbar Spine Range of Motion Lumbar Spine Active Degrees Testing Position Standing Flexion 73 Extension 20 Rotation Left 20 Rotation Right 10 Lateral Flexion Left 10 Lateral Flexion Right 10 ROM Limitations Pain PT-OP-L Special Tests Start: 10/24/24 16:19 Freq: Status: Active Protocol: Document 11/02/24 08:18 LRN (Rec: 11/02/24 10:48 LRN [id number]) Special Tests Lumbar Spine Special Tests Slump Test Results + bilaterally with knee ext ( without slump) Comments Elicits LE Pain. Vertical Spine Loading Test Results + Comments Elicits R LE Pain. PT-OP-M Strength Start: 10/24/24 16:19 Freq: Status: Active Protocol: Document 11/02/24 08:18 LRN (Rec: 11/02/24 10:48 LRN [id number]) Trunk Strength Trunk Manual Muscle Testing Comments Deferred due to time constraint. PT-OP-Q Treatments Start: 10/24/24 16:19 Freq: Status: Active Protocol: Document 11/02/24 08:18 LRN (Rec: 11/02/24 10:48 LRN [id number]) Therapeutic Activity Therapeutic Activity Sidelie positioning Name Positioning training in sidelie to sleep Reps/Minutes 2' Comments L side sleep with pillow under upper leg. Self-Care/Home Management Treatment Education Other Education Discussed results of evaluation, goals, treatment, and plan of care (POC) with pt , attendance/cx/dns policy; pt agreeable to evaluation, goals, treatment, attendance/ cx/dns policy and POC. Activities Self-Care/Home Management Activities I/S pt to use MH to back and ice to SIJ. Recommended he L side sleep with pillow under upper leg, and to stop and rest in supine more frequently . PT-OP-T Assessment and Plan Start: 10/24/24 16:19 Freq: Status: Active Protocol: Document 11/02/24 08:18 LRN (Rec: 11/02/24 10:48 LRN [id number]) Physical Therapy Assessment Rehab Potential Rehabilitation Potential Fair Evaluation Complexity Number of Personal Factors/Comorbidities 3 or More Number of Body Systems Impaired 4 or More Clinical Presentation at Evaluation Evolving Impairments Impairments Activity Tolerance,Pain, Posture,ROM,Sensation,Soft Tissue Mobility Other Impairments Endurance. Goals 3 Impairment Decreased mobility/endurance ( tols 1/4 mile walk) Short Term Goal (STG) Pt will be able to achieve a reportedly more restful sleep with modification of his sleeping position from stomach sleeping to side or back sleeping w/o making baseline pain worse. STG Duration 12/15/24 Clinical Account Executive Goal (LTG) Decrease LB/R LE pain with core stabilization and self STM to be able to walk 1-2 miles (currently walks 0.25 - 1.5 miles with pain rated 10/ 10), without an increase in baseline pain. LTG Duration 01/26/25 2 Impairment Pain rated 7-8/10, after activity 10/10. Short Term Goal (STG) Pt will be educated in self care pain/inflammation management with cold pack/hot pack, and proper body mechanics for ADLs. STG Duration 12/15/24 Clinical Account Executive Goal (LTG) Decrease pain with activity with pt able to improve mobility to be able to either changing bedding, do laundry, or cleaning house, by modifying techniques and time of activity w/o increasing in baseline pain. LTG Duration 01/26/25 1 Impairment Pt lacks appropriate self care HEP. Short Term Goal (STG) Pt will be educated and will demonstrate log roll transfers , and proper sitting/standing posture. STG Duration 12/15/24 Senior Care Goal (LTG) Pt will be independent in a self care HEP for core/hip strengthening and mobility ex' s. LTG Duration 01/26/25 Assessment Summary Assessment Pt is an 79 yo male who present with kayla LE radiculopathy (R>L) due to DDD and lateral shift of the L/S left. The pt has a history of back pain and LE radiculopathy that has been resolved with cortisone injections and surgery. The pt is hoping to get some relief from his pain to improve his functional ability , but if he is not able to improve, understands that the plan would be for further medical intervention, as MRI shows multiple soft tissue and vertebral changes. It is expected that the pt will show some improvement and have some benefit form skilled physical therapy, but prognosis is fair, due to his medical history and independent living situation. Physical Therapy Plan Frequency and Duration Frequency of Treatment 2x/Week Duration of treatment (weeks) 12 Plan of Care Start Date 11/02/24 Plan of Care End Date 01/26/25 Therapeutic Interventions Therapeutic Interventions Home Exercise Program,Joint Mobilizations,Manual Therapy, Neuromuscular Re-education, Self-Care/Home Management,Soft Tissue Mobilization, Therapeutic Activities, Therapeutic Exercises Modalities Cold Pack/Ice Massage,Electric Stimulation,Hot Packs Next Visit Focus/Plan Next Note Type Treatment Note Next Visit Plan Next: Assess hip mobility, lumbar stab, hip strength, & very gentle L/S manual traction (note T12 hemangioma, and retrolisthesis L2-L3 & L4 -L5), start education in self care pain mgmt and body mechanics, end with lower lumbar and sacral MH/IFES ( avoid T12 hemangioma). Modalities & STM for pain. Manual therapy for retrolisthesis of L2-L3 & L4- L5 and disc bulges. POC: Therapeutic Ex ( strengthening/ROM), Therapeutic Activity (transfer training), manual therapy ( STM/JMT), Gait & Balance training, Pt Education (HEP, Edema and pain mgmt).
--- NOTE | 2024-11-07 16:48 | PT.OTN ---
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 PT-OP-B Current Condition Start: 10/24/24 16:19 Freq: Status: Active Protocol: Document 11/02/24 08:18 LRN (Rec: 11/02/24 10:48 LRN [id number]) Current Condition History of Current Condition Onset Date 2 months agol Current Complaints R Low back and leg pain, sometimes L side. History of Current Condition Sudden onset R hip that has progressively worsening. Pain radiates into the back of the thigh and lateral leg, and recently is now starting to go down the L side. The pt states he expected the pain because in 2017 surgeons predicted L4-L5 nerve would have to be deadened, but his current surgeon feels injections and surgery would help, if PT doesn't help. He reports previous low back surgery to widen the route of the nerve. Position of sitting and lying down are most painful and standing is most comfortable. He sleeps mostly on his L side curled up or on stomach with head rotated left. 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 Prior Treatments and Tests 2016 had surgery for pinched nerve, level unknown. PT for back in 2021, with pain in R LB and LE that resolved itself . MRI 10/12/24 shows disc bulges in his lumbar spine, retrolisthesis 4 mm of L2 on L3 and 3 mm of L4 on L5, acute vertebral body compression fractures, T12 hemangioma, and foraminal stenosis with nerve root compression. Developmental History Developmental History MRI: 10/12/24 shows: Mild diffuse disc bulge L2-S1. Mild multilevel canal stenosis . Multilevel foraminal stenoses, worst at L5-S1 where there is associated intraforaminal nerve root compression. Recommend correlation with clinical symptoms to ascertain relevance of this finding. Treatment Goals Patient/Caregiver Goals Pt goals: -Tolerable pain to be able to walk 2 miles with tolerable pain at end (now walks 1/4 mile). Currently his pain at end of walk is 10/10. - Improve mobility to be able to change beds, do laundry, or cleaning house w/pain less than 5/10 (normal pain is 4/10 ). Personal Factors Other Personal Factors That May Effect Lives alone, difficult Therapy/Recovery changing beds, doing laundry, cleaning house. 'Normal pain is 4/10, with activities, 10/ 10. Has a son local and one in [place]. Hx of cancer - bladder cancer - 8 yrs of treatment, no longer signs of cancer. Tip of R radius removed at elbow and had R wrist surgery - a year ago. Neck pain. PT-OP-C Subjective Start: 10/24/24 16:19 Freq: Status: Active Protocol: Document 11/07/24 09:05 LRN (Rec: 11/07/24 09:26 LRN [id number]) OP-PT Subjective Patient Comments Patient Comments Wants a goal of not having to do surgery. Had a good day yesterday and feels like a good day today. Has pain in R postero lateral hip rated 3-4 /10. States he changed sleeping position, but still trying to get used to it. Now sleeping on L side. Supine lying is not painful today. Pain at end of therapy is 2-3/ 10. PT-OP-J Posture/Palpation/Skin Start: 10/24/24 16:19 Freq: Status: Active Protocol: Document 11/02/24 08:18 LRN (Rec: 11/02/24 10:48 LRN [id number]) Posture Evaluation Position Standing Head/C-Spine Posture Side Bent Left,Forward Head T-Spine Posture Increased Kyphosis L-Spine Posture Increased Lordosis,Shifted Left Pelvis Posture Anteriorly Tilted,(L) Iliac Crest Superior Comments Posture Comments Mild varus of lower legs. Shift to L at L1, L2. Palpation Assessment Location Low back Palpation Location R ischial tub is elevated. L/ S paraspinals tight Palpation Details Palpation of L/S paraspinals and in region of facet joints elicits pain down the leg. PT-OP-K Range of Motion Start: 10/24/24 16:19 Freq: Status: Active Protocol: Document 11/07/24 09:05 LRN (Rec: 11/07/24 09:26 LRN [id number]) Hip Goniometric Range of Motion Hip Right Passive Testing Position Supine Straight Leg Raise 72 Abduction 45 Internal Rotation 30 External Rotation 35 Left Passive Testing Position Supine Straight Leg Raise 60 Abduction 50 Internal Rotation 35 External Rotation 30 PT-OP-L Special Tests Start: 10/24/24 16:19 Freq: Status: Active Protocol: Document 11/02/24 08:18 LRN (Rec: 11/02/24 10:48 LRN [id number]) Special Tests Lumbar Spine Special Tests Slump Test Results + bilaterally with knee ext ( without slump) Comments Elicits LE Pain. Vertical Spine Loading Test Results + Comments Elicits R LE Pain. PT-OP-M Strength Start: 10/24/24 16:19 Freq: Status: Active Protocol: Document 11/07/24 09:05 LRN (Rec: 11/07/24 09:26 LRN [id number]) Trunk Strength Trunk Manual Muscle Testing Core Stabilization Pt is able to hold core stable with mild to moderate hip mobility resistance. Hip Strength Hip Manual Muscle Testing Right Flexion (L2) 4 Good Abduction 2- Poor- Adduction 2 Poor Left Flexion (L2) 4 Good Abduction 4 Good Adduction 2- Poor- PT-OP-Q Treatments Start: 10/24/24 16:19 Freq: Status: Active Protocol: Document 11/07/24 09:05 LRN (Rec: 11/07/24 09:26 LRN [id number]) Therapeutic Exercises Supine Exercises Trunk ext Supine Exercise Name Arching back - stopped due to onset of LBP Reps/Minutes 1-2SH x 10 Comments DC'd due to onset of LBP Self traction Supine Exercise Name Arms pulling upper body w/knee flexed Reps/Minutes 3' Comments No change in pain. Fig 4 stretch Side left Reps/Minutes 3' Comments Extra time for determining max gurpreet stretch. Hip PROM Supine Exercise Name PT assist PROM Side bilateral Reps/Minutes 10' Full body stretch Supine Exercise Name Supine lying Reps/Minutes 2' x 2 Comments Stretch done 2 different times through therapy Sidelying Exercises Hip AB/AD Sidelying Exercise Name Leg lifts Side bilateral Reps/Minutes 2x each, holding top leg for small lift of bottom leg. Therapeutic Activity Therapeutic Activity Transfer sup>sit Name Transfer training sup>sit with log roll method and TA tight Reps/Minutes 4' Sidelie positioning Name Training for sidelying to reduce R LB/hip pain Reps/Minutes 4' Comments Pain reduced during first 2 minutes, pain at 3'. Manual Therapy Treatment Manual Traction Lumbar Details Strap under lower legs & then strap over thighs Body Position Supine Reps/Duration 8' Comments Positional traction in sidelie (towels under lateral trunk - 3' (3' too long, caused increased LBP). Traction felt with reduction of pain with strap at either location. PT-OP-T Assessment and Plan Start: 10/24/24 16:19 Freq: Status: Active Protocol: Document 11/07/24 09:05 LRN (Rec: 11/07/24 09:26 LRN [id number]) Physical Therapy Assessment Goals 3 Impairment Decreased mobility/endurance ( tols 1/4 mile walk) Short Term Goal (STG) Pt will be able to achieve a reportedly more restful sleep with modification of his sleeping position from stomach sleeping to side or back sleeping w/o making baseline pain worse. STG Duration 12/15/24 Skilled Nursing Goal (LTG) Decrease LB/R LE pain with core stabilization and self STM to be able to walk 1-2 miles (currently walks 0.25 - 1.5 miles with pain rated 10/ 10), without an increase in baseline pain. LTG Duration 01/26/25 2 Impairment Pain rated 7-8/10, after activity 10/10. Short Term Goal (STG) Pt will be educated in self care pain/inflammation management with cold pack/hot pack, and proper body mechanics for ADLs. STG Duration 12/15/24 Skilled Nursing Goal (LTG) Decrease pain with activity with pt able to improve mobility to be able to either changing bedding, do laundry, or cleaning house, by modifying techniques and time of activity w/o increasing in baseline pain. LTG Duration 01/26/25 1 Impairment Pt lacks appropriate self care HEP. Short Term Goal (STG) Pt will be educated and will demonstrate log roll transfers , and proper sitting/standing posture. 11/07/24: Pt educated in log roll transfer. STG Duration 12/15/24 progressed 11/07/24 Skilled Nursing Goal (LTG) Pt will be independent in a self care HEP for core/hip strengthening and mobility ex' s. 11/07/24: Pt I/S in Fig 4 stretch. LTG Duration 01/26/25 progresssed Assessment Summary Assessment 79 yo male w/kayla LE radiculopathy (R>L) due to DDD , T12 hemangioma, and retrolisthesis L2-L3 & L4-L5 and lateral shift of the L/S left. Pt has had bladder CA history; therefore will review before IFES. Pt had + response to gentle manual traction and is now able to lie supine without increasing back pain. Pt has been cautioned to not greatly increase his activity level as he is now feeling better. Physical Therapy Plan Frequency and Duration Frequency of Treatment 2x/Week Duration of treatment (weeks) 12 Plan of Care Start Date 11/02/24 Plan of Care End Date 01/26/25 Next Visit Focus/Plan Next Note Type Treatment Note Next Visit Plan Next: Issue HEP fig 4 stretch . Cont very gentle L/S manual traction (note T12 hemangioma, and retrolisthesis L2-L3 & L4-L5), start education in self care pain mgmt, body mechanics, and proper sit/stand posture; end with lower lumbar and sacral MH/IFES (avoid T12 hemangioma) . Modalities & STM for pain. Manual therapy for retrolisthesis of L2-L3 & L4- L5 and disc bulges. POC: Therapeutic Ex ( strengthening/ROM), Therapeutic Activity (transfer training), manual therapy ( STM/JMT), Gait & Balance training, Pt Education (HEP, Edema and pain mgmt).
--- NOTE | 2024-11-09 11:23 | PT.OTN ---
Current Diagnoses Radiculopathy, lumbar region (11/09/24) Physical Therapy Treatment Note PT-OP-A Visit Information Start: 10/24/24 16:19 Freq: Status: Active Protocol: Document 11/09/24 08:07 AB (Rec: 11/09/24 11:23 AB [id number]) Out-Patient Physical Therapy Visit Information Visit Information Visit Type Treatment Note Visit Start Time 08:16 Visit Stop Time 09:09 Visit Number 3 Number of PC NETWORK TECHNICIAN Visits 1 Evaluation Information Evaluation Date 11/02/24 Precautions Precautions Lumbar spine disc bulges, 4mm of retrolisthesis of L2 on L3 and L4 on L5, acute vertebral body compression fractures, T12 hemangioma, and foraminal stenosis and mild multilevel canal stenosis, Bladder CA history, Meniere's disease status post shunt in the R ear in 70's and subsequent [place] R ear & [place] L ear, HTN, OA, elbow surgery. PT-OP-B Current Condition Start: 10/24/24 16:19 Freq: Status: Active Protocol: Document 11/02/24 08:18 LRN (Rec: 11/02/24 10:48 LRN [id number]) Current Condition History of Current Condition Onset Date 2 months agol Current Complaints R Low back and leg pain, sometimes L side. History of Current Condition Sudden onset R hip that has progressively worsening. Pain radiates into the back of the thigh and lateral leg, and recently is now starting to go down the L side. The pt states he expected the pain because in 2018 surgeons predicted L4-L5 nerve would have to be deadened, but his current surgeon feels injections and surgery would help, if PT doesn't help. He reports previous low back surgery to widen the route of the nerve. Position of sitting and lying down are most painful and standing is most comfortable. He sleeps mostly on his L side curled up or on stomach with head rotated left. 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 Prior Treatments and Tests 2016 had surgery for pinched nerve, level unknown. PT for back in 2021, with pain in R LB and LE that resolved itself . MRI 10/12/24 shows disc bulges in his lumbar spine, retrolisthesis 4 mm of L2 on L3 and 3 mm of L4 on L5, acute vertebral body compression fractures, T12 hemangioma, and foraminal stenosis with nerve root compression. Developmental History Developmental History MRI: 10/12/24 shows: Mild diffuse disc bulge L2-S1. Mild multilevel canal stenosis . Multilevel foraminal stenoses, worst at L5-S1 where there is associated intraforaminal nerve root compression. Recommend correlation with clinical symptoms to ascertain relevance of this finding. Treatment Goals Patient/Caregiver Goals Pt goals: -Tolerable pain to be able to walk 2 miles with tolerable pain at end (now walks 1/4 mile). Currently his pain at end of walk is 10/10. - Improve mobility to be able to change beds, do laundry, or cleaning house w/pain less than 5/10 (normal pain is 4/10 ). Personal Factors Other Personal Factors That May Effect Lives alone, difficult Therapy/Recovery changing beds, doing laundry, cleaning house. 'Normal pain is 4/10, with activities, 10/ 10. Has a son local and one in [place]. Hx of cancer - bladder cancer - 8 yrs of treatment, no longer signs of cancer. Tip of R radius removed at elbow and had R wrist surgery - a year ago. Neck pain. PT-OP-C Subjective Start: 10/24/24 16:19 Freq: Status: Active Protocol: Document 11/09/24 08:07 AB (Rec: 11/09/24 11:23 AB [id number]) OP-PT Subjective Patient Comments Patient Comments Heraclio reports he reports he is OK today, but had increased pain last night right hip and down LE, when trying to sleep on left side. ( reports had pillow between legs) Pt rates pain 2/10 small of back across hip to lateral hip. PT-OP-J Posture/Palpation/Skin Start: 10/24/24 16:19 Freq: Status: Active Protocol: Document 11/02/24 08:18 LRN (Rec: 11/02/24 10:48 LRN [id number]) Posture Evaluation Position Standing Head/C-Spine Posture Side Bent Left,Forward Head T-Spine Posture Increased Kyphosis L-Spine Posture Increased Lordosis,Shifted Left Pelvis Posture Anteriorly Tilted,(L) Iliac Crest Superior Comments Posture Comments Mild varus of lower legs. Shift to L at L1, L2. Palpation Assessment Location Low back Palpation Location R ischial tub is elevated. L/ S paraspinals tight Palpation Details Palpation of L/S paraspinals and in region of facet joints elicits pain down the leg. PT-OP-K Range of Motion Start: 10/24/24 16:19 Freq: Status: Active Protocol: Document 11/07/24 09:05 LRN (Rec: 11/07/24 09:26 LRN [id number]) Hip Goniometric Range of Motion Hip Right Passive Testing Position Supine Straight Leg Raise 72 Abduction 45 Internal Rotation 30 External Rotation 35 Left Passive Testing Position Supine Straight Leg Raise 60 Abduction 50 Internal Rotation 35 External Rotation 30 PT-OP-L Special Tests Start: 10/24/24 16:19 Freq: Status: Active Protocol: Document 11/02/24 08:18 LRN (Rec: 11/02/24 10:48 LRN [id number]) Special Tests Lumbar Spine Special Tests Slump Test Results + bilaterally with knee ext ( without slump) Comments Elicits LE Pain. Vertical Spine Loading Test Results + Comments Elicits R LE Pain. PT-OP-M Strength Start: 10/24/24 16:19 Freq: Status: Active Protocol: Document 11/07/24 09:05 LRN (Rec: 11/07/24 09:26 LRN [id number]) Trunk Strength Trunk Manual Muscle Testing Core Stabilization Pt is able to hold core stable with mild to moderate hip mobility resistance. Hip Strength Hip Manual Muscle Testing Right Flexion (L2) 4 Good Abduction 2- Poor- Adduction 2 Poor Left Flexion (L2) 4 Good Abduction 4 Good Adduction 2- Poor- PT-OP-Q Treatments Start: 10/24/24 16:19 Freq: Status: Active Protocol: Document 11/09/24 08:07 AB (Rec: 11/09/24 11:23 AB [id number]) Therapeutic Exercises Supine Exercises core Supine Exercise Name 1 rhythmic stab 2. HEP resisted knee to chest Reps/Minutes 30 sec X 3 each side for resisted knee to chest 1-2 min for rhytmic stab breathing from diaphragm in mod restorative pose Supine Exercise Name HEP Reps/Minutes 3 min with instruction Comments verbal and tacitle cues for breathing Fig 4 stretch Supine Exercise Name Handout for HEP figure 3 stretch issued Prone Exercises hip AROM IR Prone Exercise Name AROM Side bilateral Reps/Minutes X10 Comments verbal and tactile cues Standing Exercises Pallof press Side bilateral Resistance level one Reps/Minutes 10 X Comments Verbal and visual cues Therapeutic Activity Therapeutic Activity sit to stand Name verbal cues for hip hinge Reps/Minutes X 2 Transfer sup>sit Reps/Minutes X1 Comments Pt initiates correct pattern then falls into a reverse sit up. Reviewed log roll Manual Therapy Treatment Consent Patient gave verbal consent for manual Yes treatment Soft Tissue Mobilization LS area Mobilization Type Cross-Friction,Sustained Pressure Intensity/Depth Moderate Body Position Prone Comments 2 pillows under abd/groin Self-Care/Home Management Treatment Education Other Education Patient ed rice, focus on ice and rest ( ice 10-15 min pillow case/towel roll betw skin and ice pack ) Patient ed mod rest pose with breathing from diaph to unload spine and relax hip muscles in place of C in rice for compression. PT-OP-R Modalities Start: 10/24/24 16:19 Freq: Status: Active Protocol: Document 11/09/24 08:07 AB (Rec: 11/09/24 11:23 AB [id number]) Electric Stimulation Electric Stimulation interferential Body Location Lumbar area Intensity 20 Target/Sweep Sweep Combined With Heat/Cold Hot Pack Comments 10 min prone 2 pillows under abd/groin, towel roll for fore head PT-OP-T Assessment and Plan Start: 10/24/24 16:19 Freq: Status: Active Protocol: Document 11/09/24 08:07 AB (Rec: 11/09/24 11:23 AB [id number]) Physical Therapy Assessment Goals 3 Impairment Decreased mobility/endurance ( tols 1/4 mile walk) Short Term Goal (STG) Pt will be able to achieve a reportedly more restful sleep with modification of his sleeping position from stomach sleeping to side or back sleeping w/o making baseline pain worse. 11/09/2024 Patient reports sleeping on side painful last night, reports using pillow between knees and lying on left side STG Duration 12/15/24 Darklight Inspector Goal (LTG) Decrease LB/R LE pain with core stabilization and self STM to be able to walk 1-2 miles (currently walks 0.25 - 1.5 miles with pain rated 10/ 10), without an increase in baseline pain. LTG Duration 01/26/25 2 Impairment Pain rated 7-8/10, after activity 10/10. Short Term Goal (STG) Pt will be educated in self care pain/inflammation management with cold pack/hot pack, and proper body mechanics for ADLs. 11/09/2024 Pt ed ed mod rest pose with breathing from diaph to unload spine and relax hip muscles in place of C in rice for compression. STG Duration 12/15/24 Shelter Goal (LTG) Decrease pain with activity with pt able to improve mobility to be able to either changing bedding, do laundry, or cleaning house, by modifying techniques and time of activity w/o increasing in baseline pain. LTG Duration 01/26/25 1 Impairment Pt lacks appropriate self care HEP. Short Term Goal (STG) Pt will be educated and will demonstrate log roll transfers , and proper sitting/standing posture. 11/07/24: Pt educated in log roll transfer. 11/09/24 Reviewd log roll and initiated hip hinge sit to stand, STG Duration 12/15/24 progressed 11/07/24 Shelter Goal (LTG) Pt will be independent in a self care HEP for core/hip strengthening and mobility ex' s. 11/07/24: Pt I/S in Fig 4 stretch. 11/09/14 written instructions for figure 4 stretch given, added breathing from diaphragm in mod restorative pose, and resisted knee to chest to HEP( for core) LTG Duration 01/26/25 progresssed Assessment Summary Assessment 79 yo male w/kayla LE radiculopathy (R>L) due to DDD , T12 hemangioma, and retrolisthesis L2-L3 & L4-L5 and lateral shift of the L/S left. Pt has had bladder CA history; Heraclio reports no recent changes in CA history/ dx. End of session Heraclio rates pain 2-3/10 in standing. Required review of log roll due to initated with inadequate mechancis. Sit to stand with improved hip hinge post verbal cues, but may need to revisit as needed. Physical Therapy Plan Frequency and Duration Frequency of Treatment 2x/Week Duration of treatment (weeks) 12 Plan of Care Start Date 11/02/24 Plan of Care End Date 01/26/25 Next Visit Focus/Plan Next Note Type Treatment Note Next Visit Plan Next: Cont very gentle L/S manual traction (note T12 hemangioma, and retrolisthesis L2-L3 & L4-L5), cont as needed education in self care pain mgmt, body mechanics, posture; end with lower lumbar and sacral MH/IFES (avoid T12 hemangioma). Modalities & STM for pain. Manual therapy for retrolisthesis of L2-L3 & L4- L5 and disc bulges. POC: Therapeutic Ex ( strengthening/ROM), Therapeutic Activity (transfer training), manual therapy ( STM/JMT), Gait & Balance training, Pt Education (HEP,).
--- NOTE | 2024-11-14 16:39 | PT.OTN ---
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 PT-OP-B Current Condition Start: 10/24/24 16:19 Freq: Status: Active Protocol: Document 11/02/24 08:18 LRN (Rec: 11/02/24 10:48 LRN [id number]) Current Condition History of Current Condition Onset Date 2 months agol Current Complaints R Low back and leg pain, sometimes L side. History of Current Condition Sudden onset R hip that has progressively worsening. Pain radiates into the back of the thigh and lateral leg, and recently is now starting to go down the L side. The pt states he expected the pain because in 2017 surgeons predicted L4-L5 nerve would have to be deadened, but his current surgeon feels injections and surgery would help, if PT doesn't help. He reports previous low back surgery to widen the route of the nerve. Position of sitting and lying down are most painful and standing is most comfortable. He sleeps mostly on his L side curled up or on stomach with head rotated left. 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 Prior Treatments and Tests 2016 had surgery for pinched nerve, level unknown. PT for back in 2021, with pain in R LB and LE that resolved itself . MRI 10/12/24 shows disc bulges in his lumbar spine, retrolisthesis 4 mm of L2 on L3 and 3 mm of L4 on L5, acute vertebral body compression fractures, T12 hemangioma, and foraminal stenosis with nerve root compression. Developmental History Developmental History MRI: 10/12/24 shows: Mild diffuse disc bulge L2-S1. Mild multilevel canal stenosis . Multilevel foraminal stenoses, worst at L5-S1 where there is associated intraforaminal nerve root compression. Recommend correlation with clinical symptoms to ascertain relevance of this finding. Treatment Goals Patient/Caregiver Goals Pt goals: -Tolerable pain to be able to walk 2 miles with tolerable pain at end (now walks 1/4 mile). Currently his pain at end of walk is 10/10. - Improve mobility to be able to change beds, do laundry, or cleaning house w/pain less than 5/10 (normal pain is 4/10 ). Personal Factors Other Personal Factors That May Effect Lives alone, difficult Therapy/Recovery changing beds, doing laundry, cleaning house. 'Normal pain is 4/10, with activities, 10/ 10. Has a son local and one in [place]. Hx of cancer - bladder cancer - 8 yrs of treatment, no longer signs of cancer. Tip of R radius removed at elbow and had R wrist surgery - a year ago. Neck pain. PT-OP-C Subjective Start: 10/24/24 16:19 Freq: Status: Active Protocol: Document 11/14/24 13:04 LRN (Rec: 11/14/24 13:51 LRN [id number]) OP-PT Subjective Patient Comments Patient Comments Pain across LB is 5-6/10. Yesterday walked 2 miles but when went to bed and woke and used 1/2 Vicodin and pain worsened, then took other 1/2 med and was able to doze off, but sitll bad all night. Getting up in the morning moving around felt better. [place] good after last session. EStim felt good. PT-OP-J Posture/Palpation/Skin Start: 10/24/24 16:19 Freq: Status: Active Protocol: Document 11/02/24 08:18 LRN (Rec: 11/02/24 10:48 LRN [id number]) Posture Evaluation Position Standing Head/C-Spine Posture Side Bent Left,Forward Head T-Spine Posture Increased Kyphosis L-Spine Posture Increased Lordosis,Shifted Left Pelvis Posture Anteriorly Tilted,(L) Iliac Crest Superior Comments Posture Comments Mild varus of lower legs. Shift to L at L1, L2. Palpation Assessment Location Low back Palpation Location R ischial tub is elevated. L/ S paraspinals tight Palpation Details Palpation of L/S paraspinals and in region of facet joints elicits pain down the leg. PT-OP-K Range of Motion Start: 10/24/24 16:19 Freq: Status: Active Protocol: Document 11/07/24 09:05 LRN (Rec: 11/07/24 09:26 LRN [id number]) Hip Goniometric Range of Motion Hip Right Passive Testing Position Supine Straight Leg Raise 72 Abduction 45 Internal Rotation 30 External Rotation 35 Left Passive Testing Position Supine Straight Leg Raise 60 Abduction 50 Internal Rotation 35 External Rotation 30 PT-OP-L Special Tests Start: 10/24/24 16:19 Freq: Status: Active Protocol: Document 11/02/24 08:18 LRN (Rec: 11/02/24 10:48 LRN [id number]) Special Tests Lumbar Spine Special Tests Slump Test Results + bilaterally with knee ext ( without slump) Comments Elicits LE Pain. Vertical Spine Loading Test Results + Comments Elicits R LE Pain. PT-OP-M Strength Start: 10/24/24 16:19 Freq: Status: Active Protocol: Document 11/07/24 09:05 LRN (Rec: 11/07/24 09:26 LRN [id number]) Trunk Strength Trunk Manual Muscle Testing Core Stabilization Pt is able to hold core stable with mild to moderate hip mobility resistance. Hip Strength Hip Manual Muscle Testing Right Flexion (L2) 4 Good Abduction 2- Poor- Adduction 2 Poor Left Flexion (L2) 4 Good Abduction 4 Good Adduction 2- Poor- PT-OP-Q Treatments Start: 10/24/24 16:19 Freq: Status: Active Protocol: Document 11/14/24 13:04 LRN (Rec: 11/14/24 13:51 LRN [id number]) Therapeutic Exercises Supine Exercises breathing from diaphragm in mod restorative pose Supine Exercise Name Reviewed. Reps/Minutes 5x Comments no cues needed after review Fig 4 stretch Supine Exercise Name Attempted in supine (& sitting ) Side bilateral Reps/Minutes 3' Comments Pt c/o hip pain with positioning for stretch Full body stretch Supine Exercise Name Arms overhead repetitive reach Side bilateral Reps/Minutes 10x Sitting Exercises Hip ER stretch Sitting Exercise Name Ankle over knee and side sit for bent knee on plinth Side bilateral Reps/Minutes 1x each Comments Pt not able to tolerate either position due to back pain. Other Exercises Walking progression Other Exercise Name Discussion of how pt should progress his level walking program Comments I/S to start short distance 1/ 8-1/4 mile, then progress if no incr in pain. Therapeutic Activity Therapeutic Activity Transfer sup>sit Reps/Minutes X2 Comments Pt needed to be cued to perform correctly to start. Manual Therapy Treatment Soft Tissue Mobilization LS area Body Location LS area and scar mob Mobilization Type Cross-Friction,Sustained Pressure Intensity/Depth Moderate Body Position Prone Comments 2 pillows under abd/groin Manual Traction Lumbar Details Strap over thighs and TBand around ankles Body Position Supine Reps/Duration 10' Comments Reduction of pain with traction using strap and with TBand around ankles. PT-OP-R Modalities Start: 10/24/24 16:19 Freq: Status: Active Protocol: Document 11/14/24 13:04 LRN (Rec: 11/14/24 16:15 LRN [id number]) Electric Stimulation Electric Stimulation interferential Body Location Lumbar area Intensity 18 Target/Sweep Sweep Patient Position Supine Combined With Heat/Cold Hot Pack PT-OP-T Assessment and Plan Start: 10/24/24 16:19 Freq: Status: Active Protocol: Document 11/14/24 13:04 LRN (Rec: 11/14/24 13:51 LRN [id number]) Physical Therapy Assessment Goals 3 Impairment Decreased mobility/endurance ( tols 1/4 mile walk) Short Term Goal (STG) Pt will be able to achieve a reportedly more restful sleep with modification of his sleeping position from stomach sleeping to side or back sleeping w/o making baseline pain worse. 11/09/2024 Patient reports sleeping on side painful last night, reports using pillow between knees and lying on left side STG Duration 12/15/24 Intermediate Goal (LTG) Decrease LB/R LE pain with core stabilization and self STM to be able to walk 1-2 miles (currently walks 0.25 - 1.5 miles with pain rated 10/ 10), without an increase in baseline pain. 11/14/24: Pt walked 2 miles w /o pain, but by bedtime had much pain and difficulty sleeping. LTG Duration 01/26/25 improved temporarily 11/14/24 2 Impairment Pain rated 7-8/10, after activity 08/10. Short Term Goal (STG) Pt will be educated in self care pain/inflammation management with cold pack/hot pack, and proper body mechanics for ADLs. 11/09/2024 Pt ed ed mod rest pose with breathing from diaph to unload spine and relax hip muscles in place of C in rice for compression. STG Duration 12/15/24 Reserve Officer Goal (LTG) Decrease pain with activity with pt able to improve mobility to be able to either changing bedding, do laundry, or cleaning house, by modifying techniques and time of activity w/o increasing in baseline pain. LTG Duration 01/26/25 1 Impairment Pt lacks appropriate self care HEP. Short Term Goal (STG) Pt will be educated and will demonstrate log roll transfers , and proper sitting/standing posture. 11/07/24: Pt educated in log roll transfer. 11/09/24 Reviewd log roll and initiated hip hinge sit to stand. STG Duration 12/15/24 progressed 11/09/24 (needs sit/stnd postur educ) Reserve Officer Goal (LTG) Pt will be independent in a self care HEP for core/hip strengthening and mobility ex' s. 11/07/24: Pt I/S in Fig 4 stretch. 11/09/14 written instructions for figure 4 stretch given, added breathing from diaphragm in mod restorative pose, and resisted knee to chest to HEP( for core) LTG Duration 01/26/25 progresssed Assessment Summary Assessment 79 yo male w/kayla LE radiculopathy (R>L) due to DDD , T12 hemangioma, and retrolisthesis L2-L3 & L4-L5 and lateral shift of the L/S left. Today, pt reporting an incr in R LB/leg pain after increasing his walking to 2 miles, resulting in sleep limitine pain during the night . Pain started 6/10 and ended with 3/10 after treatment. Positive response to low level L/S traction & EStim to relieve his pain. Physical Therapy Plan Frequency and Duration Frequency of Treatment 2x/Week Duration of treatment (weeks) 12 Plan of Care Start Date 11/02/24 Plan of Care End Date 01/26/25 Next Visit Focus/Plan Next Note Type Treatment Note Next Visit Plan Next: Review hip hinge, as not able to do last session, and cont education in self care pain mgmt, body mechanics , posture. IF needed, very gentle L/S manual traction ( note T12 hemangioma, and retrolisthesis L2-L3 & L4-L5); end with lower lumbar and sacral MH/IFES (avoid T12 hemangioma). Manual therapy for pain (STM) & retrolisthesis of L2-L3 & L4 -L5 and disc bulges. POC: Therapeutic Ex ( strengthening/ROM), Ther Act ( transfer training), manual therapy (STM), ?Gait & Balance training, Pt Education (HEP).
--- NOTE | 2024-11-17 17:17 | PT.OTN ---
Current Diagnoses Radiculopathy, lumbar region (11/17/24) Physical Therapy Treatment Note PT-OP-A Visit Information Start: 10/24/24 16:19 Freq: Status: Active Protocol: Document 11/17/24 13:57 NBM (Rec: 11/17/24 14:42 NBM [id number]) Out-Patient Physical Therapy Visit Information Visit Information Visit Type Treatment Note Visit Start Time 13:55 Visit Stop Time 14:48 Visit Number 5 Number of UROLOGY PHYSICIAN ASSISTANT Visits 1 Evaluation Information Evaluation Date 11/02/24 Precautions Precautions Lumbar spine disc bulges, 4mm of retrolisthesis of L2 on L3 and L4 on L5, acute vertebral body compression fractures, T12 hemangioma, and foraminal stenosis and mild multilevel canal stenosis, Bladder CA history, Meniere's disease status post shunt in the R ear in 70's and subsequent OL[place]IDE R ear & [place] [facility] [place] L ear, HTN, OA, elbow surgery. PT-OP-B Current Condition Start: 10/24/24 16:19 Freq: Status: Active Protocol: Document 11/02/24 08:18 LRN (Rec: 11/02/24 10:48 LRN [id number]) Current Condition History of Current Condition Onset Date 2 months agol Current Complaints R Low back and leg pain, sometimes L side. History of Current Condition Sudden onset R hip that has progressively worsening. Pain radiates into the back of the thigh and lateral leg, and recently is now starting to go down the L side. The pt states he expected the pain because in 2018 surgeons predicted L4-L5 nerve would have to be deadened, but his current surgeon feels injections and surgery would help, if PT doesn't help. He reports previous low back surgery to widen the route of the nerve. Position of sitting and lying down are most painful and standing is most comfortable. He sleeps mostly on his L side curled up or on stomach with head rotated left. 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 Prior Treatments and Tests 2016 had surgery for pinched nerve, level unknown. PT for back in 2021, with pain in R LB and LE that resolved itself . MRI 10/12/24 shows disc bulges in his lumbar spine, retrolisthesis 4 mm of L2 on L3 and 3 mm of L4 on L5, acute vertebral body compression fractures, T12 hemangioma, and foraminal stenosis with nerve root compression. Developmental History Developmental History MRI: 10/12/24 shows: Mild diffuse disc bulge L2-S1. Mild multilevel canal stenosis . Multilevel foraminal stenoses, worst at L5-S1 where there is associated intraforaminal nerve root compression. Recommend correlation with clinical symptoms to ascertain relevance of this finding. Treatment Goals Patient/Caregiver Goals Pt goals: -Tolerable pain to be able to walk 2 miles with tolerable pain at end (now walks 1/4 mile). Currently his pain at end of walk is 10/10. - Improve mobility to be able to change beds, do laundry, or cleaning house w/pain less than 5/10 (normal pain is 4/10 ). Personal Factors Other Personal Factors That May Effect Lives alone, difficult Therapy/Recovery changing beds, doing laundry, cleaning house. 'Normal pain is 4/10, with activities, 10/ 10. Has a son local and one in [place]. Hx of cancer - bladder cancer - 8 yrs of treatment, no longer signs of cancer. Tip of R radius removed at elbow and had R wrist surgery - a year ago. Neck pain. PT-OP-C Subjective Start: 10/24/24 16:19 Freq: Status: Active Protocol: Document 11/17/24 13:57 NBM (Rec: 11/17/24 14:42 NBM [id number]) OP-PT Subjective Patient Comments Patient Comments His pain was worst Wednesday night after he walked 2 miles that day. The pain started 6/ 10 about 1/4 mile into walk but he kept walking and pain stayed the same and reached 10 /10 that evening. E-stim helps . He's been doing handout and working on breathing. Current pain 2/10. PT-OP-J Posture/Palpation/Skin Start: 10/24/24 16:19 Freq: Status: Active Protocol: Document 11/02/24 08:18 LRN (Rec: 11/02/24 10:48 LRN [id number]) Posture Evaluation Position Standing Head/C-Spine Posture Side Bent Left,Forward Head T-Spine Posture Increased Kyphosis L-Spine Posture Increased Lordosis,Shifted Left Pelvis Posture Anteriorly Tilted,(L) Iliac Crest Superior Comments Posture Comments Mild varus of lower legs. Shift to L at L1, L2. Palpation Assessment Location Low back Palpation Location R ischial tub is elevated. L/ S paraspinals tight Palpation Details Palpation of L/S paraspinals and in region of facet joints elicits pain down the leg. PT-OP-K Range of Motion Start: 10/24/24 16:19 Freq: Status: Active Protocol: Document 11/07/24 09:05 LRN (Rec: 11/07/24 09:26 LRN [id number]) Hip Goniometric Range of Motion Hip Right Passive Testing Position Supine Straight Leg Raise 72 Abduction 45 Internal Rotation 30 External Rotation 35 Left Passive Testing Position Supine Straight Leg Raise 60 Abduction 50 Internal Rotation 35 External Rotation 30 PT-OP-L Special Tests Start: 10/24/24 16:19 Freq: Status: Active Protocol: Document 11/02/24 08:18 LRN (Rec: 11/02/24 10:48 LRN [id number]) Special Tests Lumbar Spine Special Tests Slump Test Results + bilaterally with knee ext ( without slump) Comments Elicits LE Pain. Vertical Spine Loading Test Results + Comments Elicits R LE Pain. PT-OP-M Strength Start: 10/24/24 16:19 Freq: Status: Active Protocol: Document 11/07/24 09:05 LRN (Rec: 11/07/24 09:26 LRN [id number]) Trunk Strength Trunk Manual Muscle Testing Core Stabilization Pt is able to hold core stable with mild to moderate hip mobility resistance. Hip Strength Hip Manual Muscle Testing Right Flexion (L2) 4 Good Abduction 2- Poor- Adduction 2 Poor Left Flexion (L2) 4 Good Abduction 4 Good Adduction 2- Poor- PT-OP-Q Treatments Start: 10/24/24 16:19 Freq: Status: Active Protocol: Document 11/17/24 13:57 NBM (Rec: 11/17/24 14:42 NBM [id number]) Therapeutic Exercises Supine Exercises core Supine Exercise Name 1 TrA hold w/ 2 breathcycles 2 . HEP resisted knee to chest Equipment Used self-monitoring TrA medial to ASIS Reps/Minutes 30 sec X 3 each side for resisted knee to chest Comments w/ TrA and breath focus breathing from diaphragm in mod restorative pose Supine Exercise Name HEP Reps/Minutes 4' Comments initial cues for diaphragm focus Fig 4 stretch Supine Exercise Name (sitting) Verbal review Side bilateral Reps/Minutes 1' Other Exercises Walking progression Other Exercise Name Reviewed discussion of how pt should progress his level walking program Comments I/S to start short distance 1/ 8-1/4 mile, then progress if no incr in pain. Therapeutic Activity Therapeutic Activity sit to stand Name verbal cues for hip hinge Reps/Minutes X5 Transfer sup>sit Name Sitting EOB<>L sidelying Reps/Minutes X6 Comments Initial cues for UE support bilaterally Self-Care/Home Management Treatment Education Patient Education Body Mechanics,Home Exercise Program,Pain Management, Posture Other Education Treatment focus on HEP review and education of Transverse abdominis m. anatomy and activitation w/ visual aids, interrelationship w/ diaphragm and pelvic floor, and importance of not breathholding to improve core recruitment and low back pain. PT-OP-R Modalities Start: 10/24/24 16:19 Freq: Status: Active Protocol: Document 11/17/24 13:57 NBM (Rec: 11/17/24 14:42 [facility] [id number]) Electric Stimulation Electric Stimulation interferential Body Location Lumbar area Intensity 40 Target/Sweep Sweep Patient Position Supine Combined With Heat/Cold Hot Pack Comments 15 min prone 2 pillows under LEs PT-OP-T Assessment and Plan Start: 10/24/24 16:19 Freq: Status: Active Protocol: Document 11/17/24 13:57 NBM (Rec: 11/17/24 14:42 [facility] [id number]) Physical Therapy Assessment Goals 3 Impairment Decreased mobility/endurance ( tols 1/4 mile walk) Short Term Goal (STG) Pt will be able to achieve a reportedly more restful sleep with modification of his sleeping position from stomach sleeping to side or back sleeping w/o making baseline pain worse. 11/09/2024 Patient reports sleeping on side painful last night, reports using pillow between knees and lying on left side 11/17/24: Pt reports sidelying on L w/ top leg on pillow now which is comfortable. STG Duration 12/15/24 (progressing 11/17/24 ) Correction Goal (LTG) Decrease LB/R LE pain with core stabilization and self STM to be able to walk 1-2 miles (currently walks 0.25 - 1.5 miles with pain rated 10/ 10), without an increase in baseline pain. 11/14/24: Pt walked 2 miles w /o pain, but by bedtime had much pain and difficulty sleeping. 11/17/24: Pt clarifies [place] 1/13/25 walked 1/4 mi w/o pain, then 6/10 pain constant but kept walking up to 2 mi and had 10/10 pain that evening. Reviewed walking progression starting 11/08 up to 1/4 mi pain-free and mindfulness of TrA activation and breath with activity. LTG Duration 01/26/25 improved temporarily 11/14/24 2 Impairment Pain rated 7-8/10, after activity 1010. Short Term Goal (STG) Pt will be educated in self care pain/inflammation management with cold pack/hot pack, and proper body mechanics for ADLs. 11/09/2024 Pt ed ed mod rest pose with breathing from diaph to unload spine and relax hip muscles in place of C in rice for compression. STG Duration 12/15/24 Technology Specialist Goal (LTG) Decrease pain with activity with pt able to improve mobility to be able to either changing bedding, do laundry, or cleaning house, by modifying techniques and time of activity w/o increasing in baseline pain. LTG Duration 01/26/25 1 Impairment Pt lacks appropriate self care HEP. Short Term Goal (STG) Pt will be educated and will demonstrate log roll transfers , and proper sitting/standing posture. 11/07/24: Pt educated in log roll transfer. 11/09/24 Reviewd log roll and initiated hip hinge sit to stand. 11/17/24: Reviewed log roll transfer and sit to stant w/ hip hinge. STG Duration 12/15/24 progressed 11/17/24 (needs sit/stnd postur educ) Technology Specialist Goal (LTG) Pt will be independent in a self care HEP for core/hip strengthening and mobility ex' s. 11/07/24: Pt I/S in Fig 4 stretch. 11/09/14 written instructions for figure 4 stretch given, added breathing from diaphragm in mod restorative pose, and resisted knee to chest to HEP( for core) 11/17/24: Pt i/s in TrA activation with breathwork using visual aids and self- monitoring medial to ASIS. LTG Duration 01/26/25 progresssed Assessment Summary Assessment Pt presents with improved lumbar pain since 11/14/24 visit with 2/10 lumbar pain that improves to 0/10 with gentle manual lumbar traction in 90/90. He is instructed in Transverse abdominis m. activation w/ self-monitoring and anatomy using visual aids and demos improved self- awareness for breath and form with isometric single leg press and bent knee fall out. He is reminded to initiate walking program starting at 11/08-11/04 mi and counseled against walking through 6/10 pain as he did last Wednesday. He requires initial cues for UE support for log roll sit EOB<> sidelying but demos improved form with initial cueing and repetition. Physical Therapy Plan Frequency and Duration Frequency of Treatment 2x/Week Duration of treatment (weeks) 12 Plan of Care Start Date 11/02/24 Plan of Care End Date 01/26/25 Therapeutic Interventions Therapeutic Interventions Home Exercise Program,Joint Mobilizations,Manual Therapy, Neuromuscular Re-education, Self-Care/Home Management,Soft Tissue Mobilization, Therapeutic Activities, Therapeutic Exercises Modalities Cold Pack/Ice Massage,Electric Stimulation,Hot Packs Next Visit Focus/Plan Next Note Type Treatment Note Next Visit Plan Next: Check on walking program (LTG 3). Consider adding BKFO w/ TrA and breath to HEP (LTG 1). Review hip hinge with squatting mechanics for ADLs (LTG 2). Cont education in self care pain mgmt, body mechanics, posture. IF needed, very gentle L/S manual traction ( note T12 hemangioma, and retrolisthesis L2-L3 & L4-L5); end with lower lumbar and sacral MH/IFES (avoid T12 hemangioma). Manual therapy for pain (STM) & retrolisthesis of L2-L3 & L4 -L5 and disc bulges. POC: Therapeutic Ex ( strengthening/ROM), Ther Act ( transfer training), manual therapy (STM), ?Gait & Balance training, Pt Education (HEP).
--- NOTE | 2024-11-21 11:18 | PT.OTN ---
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 PT-OP-B Current Condition Start: 10/24/24 16:19 Freq: Status: Active Protocol: Document 11/02/24 08:18 LRN (Rec: 11/02/24 10:48 LRN [id number]) Current Condition History of Current Condition Onset Date 2 months agol Current Complaints R Low back and leg pain, sometimes L side. History of Current Condition Sudden onset R hip that has progressively worsening. Pain radiates into the back of the thigh and lateral leg, and recently is now starting to go down the L side. The pt states he expected the pain because in 2017 surgeons predicted L4-L5 nerve would have to be deadened, but his current surgeon feels injections and surgery would help, if PT doesn't help. He reports previous low back surgery to widen the route of the nerve. Position of sitting and lying down are most painful and standing is most comfortable. He sleeps mostly on his L side curled up or on stomach with head rotated left. 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 Prior Treatments and Tests 2016 had surgery for pinched nerve, level unknown. PT for back in 2021, with pain in R LB and LE that resolved itself . MRI 10/12/24 shows disc bulges in his lumbar spine, retrolisthesis 4 mm of L2 on L3 and 3 mm of L4 on L5, acute vertebral body compression fractures, T12 hemangioma, and foraminal stenosis with nerve root compression. Developmental History Developmental History MRI: 10/12/24 shows: Mild diffuse disc bulge L2-S1. Mild multilevel canal stenosis . Multilevel foraminal stenoses, worst at L5-S1 where there is associated intraforaminal nerve root compression. Recommend correlation with clinical symptoms to ascertain relevance of this finding. Treatment Goals Patient/Caregiver Goals Pt goals: -Tolerable pain to be able to walk 2 miles with tolerable pain at end (now walks 1/4 mile). Currently his pain at end of walk is 10/10. - Improve mobility to be able to change beds, do laundry, or cleaning house w/pain less than 5/10 (normal pain is 4/10 ). Personal Factors Other Personal Factors That May Effect Lives alone, difficult Therapy/Recovery changing beds, doing laundry, cleaning house. 'Normal pain is 4/10, with activities, 10/ 10. Has a son local and one in [place]. Hx of cancer - bladder cancer - 8 yrs of treatment, no longer signs of cancer. Tip of R radius removed at elbow and had R wrist surgery - a year ago. Neck pain. PT-OP-C Subjective Start: 10/24/24 16:19 Freq: Status: Active Protocol: Document 11/21/24 09:06 LRN (Rec: 11/21/24 10:47 LRN [id number]) OP-PT Subjective Patient Comments Patient Comments Having no pain getting up/down out of bed. Walked 1 mile yesterday for first time since last time walked. Pain incr' d from 2-3/10. Pain in LB, RLE rated 4/10. PT-OP-J Posture/Palpation/Skin Start: 10/24/24 16:19 Freq: Status: Active Protocol: Document 11/02/24 08:18 LRN (Rec: 11/02/24 10:48 LRN [id number]) Posture Evaluation Position Standing Head/C-Spine Posture Side Bent Left,Forward Head T-Spine Posture Increased Kyphosis L-Spine Posture Increased Lordosis,Shifted Left Pelvis Posture Anteriorly Tilted,(L) Iliac Crest Superior Comments Posture Comments Mild varus of lower legs. Shift to L at L1, L2. Palpation Assessment Location Low back Palpation Location R ischial tub is elevated. L/ S paraspinals tight Palpation Details Palpation of L/S paraspinals and in region of facet joints elicits pain down the leg. PT-OP-K Range of Motion Start: 10/24/24 16:19 Freq: Status: Active Protocol: Document 11/07/24 09:05 LRN (Rec: 11/07/24 09:26 LRN [id number]) Hip Goniometric Range of Motion Hip Right Passive Testing Position Supine Straight Leg Raise 72 Abduction 45 Internal Rotation 30 External Rotation 35 Left Passive Testing Position Supine Straight Leg Raise 60 Abduction 50 Internal Rotation 35 External Rotation 30 PT-OP-L Special Tests Start: 10/24/24 16:19 Freq: Status: Active Protocol: Document 11/02/24 08:18 LRN (Rec: 11/02/24 10:48 LRN [id number]) Special Tests Lumbar Spine Special Tests Slump Test Results + bilaterally with knee ext ( without slump) Comments Elicits LE Pain. Vertical Spine Loading Test Results + Comments Elicits R LE Pain. PT-OP-M Strength Start: 10/24/24 16:19 Freq: Status: Active Protocol: Document 11/07/24 09:05 LRN (Rec: 11/07/24 09:26 LRN [id number]) Trunk Strength Trunk Manual Muscle Testing Core Stabilization Pt is able to hold core stable with mild to moderate hip mobility resistance. Hip Strength Hip Manual Muscle Testing Right Flexion (L2) 4 Good Abduction 2- Poor- Adduction 2 Poor Left Flexion (L2) 4 Good Abduction 4 Good Adduction 2- Poor- PT-OP-Q Treatments Start: 10/24/24 16:19 Freq: Status: Active Protocol: Document 11/21/24 09:06 LRN (Rec: 11/21/24 10:47 LRN [id number]) Therapeutic Exercises Supine Exercises core Supine Exercise Name TA hold & TA hold with BKFO Side bilateral Equipment Used self-monitoring TrA medial to ASIS Reps/Minutes 15x each and each leg Comments Cues for TrA tight in neutral spine, breathing, no pelvic rot Therapeutic Activity Therapeutic Activity sit to stand Name verbal cues for hip hinge Reps/Minutes X5 Transfer sup>sit Name Sitting EOB<>L sidelying Reps/Minutes X6 Comments Initial cues for UE support bilaterally Manual Therapy Treatment Manual Traction Lumbar Details Strap over thighs and TBand around ankles Body Position Supine Reps/Duration 10' Comments Reduction of pain with traction using strap and with TBand around ankles. PT-OP-R Modalities Start: 10/24/24 16:19 Freq: Status: Active Protocol: Document 11/21/24 09:06 LRN (Rec: 11/21/24 10:47 LRN [id number]) Electric Stimulation Electric Stimulation interferential Body Location Lumbar Intensity 22 Target/Sweep Sweep Patient Position Supine Combined With Heat/Cold Hot Pack Comments 15 min prone 1 pillows under feet PT-OP-T Assessment and Plan Start: 10/24/24 16:19 Freq: Status: Active Protocol: Document 11/21/24 09:06 LRN (Rec: 11/21/24 10:47 LRN [id number]) Physical Therapy Assessment Goals 3 Impairment Decreased mobility/endurance ( tols 1/4 mile walk) Short Term Goal (STG) Pt will be able to achieve a reportedly more restful sleep with modification of his sleeping position from stomach sleeping to side or back sleeping w/o making baseline pain worse. 11/09/2024 Patient reports sleeping on side painful last night, reports using pillow between knees and lying on left side 11/17/24: Pt reports sidelying on L w/ top leg on pillow now which is comfortable. STG Duration 12/15/24 (progressing 11/17/24 ) Clinical Sciences Professor Goal (LTG) Decrease LB/R LE pain with core stabilization and self STM to be able to walk 1-2 miles (currently walks 0.25 - 1.5 miles with pain rated 10/ 10), without an increase in baseline pain. 11/14/24: Pt walked 2 miles w /o pain, but by bedtime had much pain and difficulty sleeping. 11/17/24: Pt clarifies Wednesday11/13/24 walked 1/4 mi w/o pain, then 6/10 pain constant but kept walking up to 2 mi and had 10/10 pain that evening. Reviewed walking progression starting 11/08 up to 1/4 mi pain-free and mindfulness of TrA activation and breath with activity. 11/21/24; Walked 1 mile with pain increase from 3 to 4/10. LTG Duration 01/26/25 improved temporarily 11/14/24 2 Impairment Pain rated 7-8/10, after activity 10/10. Short Term Goal (STG) Pt will be educated in self care pain/inflammation management with cold pack/hot pack, and proper body mechanics for ADLs. 11/09/2024 Pt ed ed mod rest pose with breathing from diaph to unload spine and relax hip muscles in place of C in rice for compression. STG Duration 12/15/24 Senior Care Goal (LTG) Decrease pain with activity with pt able to improve mobility to be able to either changing bedding, do laundry, or cleaning house, by modifying techniques and time of activity w/o increasing in baseline pain. 11/21/24: Pt is changing beds , laundry, & vacuuming, at different times during the week (not all on the same day) w/o an increase in pain, LBP is typically 4/10. LTG Duration 01/26/25 (11/21/24: MET GOAL ) 1 Impairment Pt lacks appropriate self care HEP. Short Term Goal (STG) Pt will be educated and will demonstrate log roll transfers , and proper sitting/standing posture. 11/07/24: Pt educated in log roll transfer. 11/09/24 Reviewd log roll and initiated hip hinge sit to stand. 11/17/24: Reviewed log roll transfer and sit to stant w/ hip hinge. STG Duration 12/15/24 progressed 11/17/24 (needs sit/stnd postur educ) Senior Care Goal (LTG) Pt will be independent in a self care HEP for core/hip strengthening and mobility ex' s. 11/07/24: Pt I/S in Fig 4 stretch. 11/09/14 written instructions for figure 4 stretch given, added breathing from diaphragm in mod restorative pose, and resisted knee to chest to HEP( for core) 11/17/24: Pt i/s in TrA activation with breathwork using visual aids and self- monitoring medial to ASIS. 11/21/24: HEP: I/S in BKFO w / TrA and breath LTG Duration 01/26/25 progresssed Assessment Summary Assessment 79 yo male w/kayla LE radiculopathy (R>L) due to DDD , T12 hemangioma, and retrolisthesis L2-L3 & L4-L5 and lateral shift of the L/S left. Today, pt appears to be able to hip hinge with transfer w/o an increase in pain and with a fairly neutral back. He is able to reduce his LBP at home with sup lying with legs on [place]. Walking program of 1 mile with pain increased from 3 to 4/10 . Pt to determine distance that pain isn't increased. Physical Therapy Plan Frequency and Duration Frequency of Treatment 2x/Week Duration of treatment (weeks) 12 Plan of Care Start Date 11/02/24 Plan of Care End Date 01/26/25 Next Visit Focus/Plan Next Note Type Treatment Note Next Visit Plan Next: Address STG2: Educate pt in self care pain/ inflammation management with cold pack/hot pack, and review proper body mechanics (hip hinging) for ADLs (bed making, laundry, & vacuuming). Monitor & progress pt in walking program (LTG 3). IF needed, very gentle L/S manual traction (note T12 hemangioma, and retrolisthesis L2-L3 & L4-L5); end with lower lumbar and sacral MH/IFES (avoid T12 hemangioma). Manual therapy for pain (STM) & retrolisthesis of L2-L3 & L4 -L5 and disc bulges. Education as needed for self care pain mgmt, body mechanics , posture. POC: Therapeutic Ex ( strengthening/ROM), Ther Act ( transfer training), manual therapy (STM), ?Gait & Balance training, Pt Education (HEP).
--- NOTE | 2024-11-23 11:51 | PT.OTN ---
Current Diagnoses Radiculopathy, lumbar region (11/23/24) Physical Therapy Treatment Note PT-OP-A Visit Information Start: 10/24/24 16:19 Freq: Status: Active Protocol: Document 11/23/24 10:48 LRN (Rec: 11/23/24 11:50 LRN [id number]) Out-Patient Physical Therapy Visit Information Visit Information Visit Type Treatment Note Visit Start Time 10:48 Visit Stop Time 11:50 Visit Number 7 Evaluation Information Evaluation Date 11/02/24 Precautions Precautions Lumbar spine disc bulges, 4mm of retrolisthesis of L2 on L3 and L4 on L5, acute vertebral body compression fractures, T12 hemangioma, and foraminal stenosis and mild multilevel canal stenosis, Bladder CA history, Meniere's disease status post shunt in the R ear in 70's and subsequent OLAMIDE R ear & PLATINUM L ear, HTN, OA, elbow surgery. PT-OP-B Current Condition Start: 10/24/24 16:19 Freq: Status: Active Protocol: Document 11/02/24 08:18 LRN (Rec: 11/02/24 10:48 LRN [id number]) Current Condition History of Current Condition Onset Date 2 months agol Current Complaints R Low back and leg pain, sometimes L side. History of Current Condition Sudden onset R hip that has progressively worsening. Pain radiates into the back of the thigh and lateral leg, and recently is now starting to go down the L side. The pt states he expected the pain because in 2017 surgeons predicted L4-L5 nerve would have to be deadened, but his current surgeon feels injections and surgery would help, if PT doesn't help. He reports previous low back surgery to widen the route of the nerve. Position of sitting and lying down are most painful and standing is most comfortable. He sleeps mostly on his L side curled up or on stomach with head rotated left. 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 Prior Treatments and Tests 2016 had surgery for pinched nerve, level unknown. PT for back in 2021, with pain in R LB and LE that resolved itself . MRI 10/12/24 shows disc bulges in his lumbar spine, retrolisthesis 4 mm of L2 on L3 and 3 mm of L4 on L5, acute vertebral body compression fractures, T12 hemangioma, and foraminal stenosis with nerve root compression. Developmental History Developmental History MRI: 10/12/24 shows: Mild diffuse disc bulge L2-S1. Mild multilevel canal stenosis . Multilevel foraminal stenoses, worst at L5-S1 where there is associated intraforaminal nerve root compression. Recommend correlation with clinical symptoms to ascertain relevance of this finding. Treatment Goals Patient/Caregiver Goals Pt goals: -Tolerable pain to be able to walk 2 miles with tolerable pain at end (now walks 1/4 mile). Currently his pain at end of walk is 10/10. - Improve mobility to be able to change beds, do laundry, or cleaning house w/pain less than 5/10 (normal pain is 4/10 ). Personal Factors Other Personal Factors That May Effect Lives alone, difficult Therapy/Recovery changing beds, doing laundry, cleaning house. 'Normal pain is 4/10, with activities, 10/ 10. Has a son local and one in [place]. Hx of cancer - bladder cancer - 8 yrs of treatment, no longer signs of cancer. Tip of R radius removed at elbow and had R wrist surgery - a year ago. Neck pain. PT-OP-C Subjective Start: 10/24/24 16:19 Freq: Status: Active Protocol: Document 11/23/24 10:48 LRN (Rec: 11/23/24 11:50 LRN [id number]) OP-PT Subjective Patient Comments Patient Comments States he didn't do as insturcted, but walked over 1 mile (1 small incline area) and 3 hrs later had 10/10 back pain that persisted through the night with 5/10 pain (norm is 3-5/10). Now pain is 3/10 . PT-OP-J Posture/Palpation/Skin Start: 10/24/24 16:19 Freq: Status: Active Protocol: Document 11/02/24 08:18 LRN (Rec: 11/02/24 10:48 LRN [id number]) Posture Evaluation Position Standing Head/C-Spine Posture Side Bent Left,Forward Head T-Spine Posture Increased Kyphosis L-Spine Posture Increased Lordosis,Shifted Left Pelvis Posture Anteriorly Tilted,(L) Iliac Crest Superior Comments Posture Comments Mild varus of lower legs. Shift to L at L1, L2. Palpation Assessment Location Low back Palpation Location R ischial tub is elevated. L/ S paraspinals tight Palpation Details Palpation of L/S paraspinals and in region of facet joints elicits pain down the leg. PT-OP-K Range of Motion Start: 10/24/24 16:19 Freq: Status: Active Protocol: Document 11/07/24 09:05 LRN (Rec: 11/07/24 09:26 LRN [id number]) Hip Goniometric Range of Motion Hip Right Passive Testing Position Supine Straight Leg Raise 72 Abduction 45 Internal Rotation 30 External Rotation 35 Left Passive Testing Position Supine Straight Leg Raise 60 Abduction 50 Internal Rotation 35 External Rotation 30 PT-OP-L Special Tests Start: 10/24/24 16:19 Freq: Status: Active Protocol: Document 11/02/24 08:18 LRN (Rec: 11/02/24 10:48 LRN [id number]) Special Tests Lumbar Spine Special Tests Slump Test Results + bilaterally with knee ext ( without slump) Comments Elicits LE Pain. Vertical Spine Loading Test Results + Comments Elicits R LE Pain. PT-OP-M Strength Start: 10/24/24 16:19 Freq: Status: Active Protocol: Document 11/07/24 09:05 LRN (Rec: 11/07/24 09:26 LRN [id number]) Trunk Strength Trunk Manual Muscle Testing Core Stabilization Pt is able to hold core stable with mild to moderate hip mobility resistance. Hip Strength Hip Manual Muscle Testing Right Flexion (L2) 4 Good Abduction 2- Poor- Adduction 2 Poor Left Flexion (L2) 4 Good Abduction 4 Good Adduction 2- Poor- PT-OP-Q Treatments Start: 10/24/24 16:19 Freq: Status: Active Protocol: Document 11/23/24 10:48 LRN (Rec: 11/23/24 11:50 LRN [id number]) Therapeutic Exercises Supine Exercises core Supine Exercise Name TA hold & TA hold w/BKFO & knee/hand push Side bilateral Equipment Used self-monitoring TrA medial to ASIS Reps/Minutes 15x each and each leg Comments Cues for TrA tight in neutral spine, breathing, no pelvic rot Sitting Exercises Hands/knees push Reps/Minutes 10 SH (3 breaths) x 5 Comments EXtra time to get breath with ex hold, cuing for breath. Manual Therapy Treatment Manual Traction Lumbar Details L/S traction Body Position Hooklying Reps/Duration 14' Comments No pain in hip or leg after traction. Self-Care/Home Management Treatment Education Other Education Pt educated in bod mechanics for ADLs and positioning to relieve pain and use of coldpack for pain management. Activities Self-Care/Home Management Activities Issued with review above handouts: Body mechanics, ADLs w/correct body mechanics, positioning and use of cryotherapy for pain management. PT-OP-R Modalities Start: 10/24/24 16:19 Freq: Status: Active Protocol: Document 11/23/24 10:48 LRN (Rec: 11/23/24 11:50 LRN [id number]) Electric Stimulation Electric Stimulation interferential Body Location Lumbar Intensity 21 Target/Sweep Sweep Patient Position Supine Combined With Heat/Cold Hot Pack Comments 15 min prone 1 pillows under feet PT-OP-T Assessment and Plan Start: 10/24/24 16:19 Freq: Status: Active Protocol: Document 11/23/24 10:48 LRN (Rec: 11/23/24 11:50 LRN [id number]) Physical Therapy Assessment Goals 3 Impairment Decreased mobility/endurance ( tols 1/4 mile walk) Short Term Goal (STG) Pt will be able to achieve a reportedly more restful sleep with modification of his sleeping position from stomach sleeping to side or back sleeping w/o making baseline pain worse. 11/09/2024 Patient reports sleeping on side painful last night, reports using pillow between knees and lying on left side 11/17/24: Pt reports sidelying on L w/ top leg on pillow now which is comfortable. 11/23/24: Painful night after walking over 1 mile that day. STG Duration 12/15/24 (progressing 11/17/24 ) Server Systems Administrator Goal (LTG) Decrease LB/R LE pain with core stabilization and self STM to be able to walk 1-2 miles (currently walks 0.25 - 1.5 miles with pain rated 10/ 10), without an increase in baseline pain. 11/14/24: Pt walked 2 miles w /o pain, but by bedtime had much pain and difficulty sleeping. 11/17/24: Pt clarifies Wednesday11/13/24 walked 1/4 mi w/o pain, then 6/10 pain constant but kept walking up to 2 mi and had 10/10 pain that evening. Reviewed walking progression starting w11/08 up to 1/4 mi pain-free and mindfulness of TrA activation and breath with activity. 11/21/24; Walked 1 mile with pain increase from 3 to 4/10. LTG Duration 01/26/25 improved temporarily 11/14/24 2 Impairment Pain rated 7-8/10, after activity 10. Short Term Goal (STG) Pt will be educated in self care pain/inflammation management with cold pack/hot pack, and proper body mechanics for ADLs. 11/09/2024 Pt ed ed mod rest pose with breathing from diaph to unload spine and relax hip muscles in place of C in rice for compression. 11/23/24: Issued handouts: Body mechanics, ADLs w/correct body mechanics, positioning and use of cryotherapy for pain management. STG Duration 12/15/24 (11/23/24: MET GOAL) Server Systems Administrator Goal (LTG) Decrease pain with activity with pt able to improve mobility to be able to either changing bedding, do laundry, or cleaning house, by modifying techniques and time of activity w/o increasing in baseline pain. 11/21/24: Pt is changing beds , laundry, & vacuuming, at different times during the week (not all on the same day) w/o an increase in pain, LBP is typically 4/10. LTG Duration 01/26/25 (11/21/24: MET GOAL ) 1 Impairment Pt lacks appropriate self care HEP. Short Term Goal (STG) Pt will be educated and will demonstrate log roll transfers , and proper sitting/standing posture. 11/07/24: Pt educated in log roll transfer. 11/09/24 Reviewd log roll and initiated hip hinge sit to stand. 11/17/24: Reviewed log roll transfer and sit to stant w/ hip hinge. STG Duration 12/15/24 progressed 11/17/24 (needs sit/stnd postur educ) Senior Living Goal (LTG) Pt will be independent in a self care HEP for core/hip strengthening and mobility ex' s. 11/07/24: Pt I/S in Fig 4 stretch. 11/09/14 written instructions for figure 4 stretch given, added breathing from diaphragm in mod restorative pose, and resisted knee to chest to HEP( for core) 11/17/24: Pt i/s in TrA activation with breathwork using visual aids and self- monitoring medial to ASIS. 11/21/24: HEP: I/S in BKFO w / TrA and breath LTG Duration 01/26/25 progresssed Assessment Summary Assessment 79 yo male w/kayla LE radiculopathy (R>L) due to DDD , T12 hemangioma, and retrolisthesis L2-L3 & L4-L5 and lateral shift of the L/S left. Today, he attends with pain 3-4/10, reduced after manual traction to 2/10 and no increase in pain with core ex 's. Pt to quick to resume walking exercise as pain onset is ~3 hrs after activitiy, that may be body mechanics related and no using modalities/positioning for self care pain mgmt. Further education needed for sit/stand posturing. Physical Therapy Plan Frequency and Duration Frequency of Treatment 2x/Week Duration of treatment (weeks) 12 Plan of Care Start Date 11/02/24 Plan of Care End Date 01/26/25 Next Visit Focus/Plan Next Note Type Treatment Note Next Visit Plan Next: Educate in sit/stand posture (STG 1) Monitor & progress pt in walking program (LTG 3). Manual therapy for pain (STM) & retrolisthesis of L2-L3 & L4 -L5 and disc bulges. IF needed, very gentle L/S manual traction (note T12 hemangioma, and retrolisthesis L2-L3 & L4-L5); end with lower lumbar and sacral MH/IFES (avoid T12 hemangioma). POC: Therapeutic Ex ( strengthening/ROM), Ther Act ( transfer training), manual therapy (STM), ?Gait & Balance training, Pt Education (HEP).
--- NOTE | 2024-11-27 10:46 | PT.OTN ---
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 PT-OP-B Current Condition Start: 10/24/24 16:19 Freq: Status: Active Protocol: Document 11/02/24 08:18 LRN (Rec: 11/02/24 10:48 LRN [id number]) Current Condition History of Current Condition Onset Date 2 months agol Current Complaints R Low back and leg pain, sometimes L side. History of Current Condition Sudden onset R hip that has progressively worsening. Pain radiates into the back of the thigh and lateral leg, and recently is now starting to go down the L side. The pt states he expected the pain because in 2017 surgeons predicted L4-L5 nerve would have to be deadened, but his current surgeon feels injections and surgery would help, if PT doesn't help. He reports previous low back surgery to widen the route of the nerve. Position of sitting and lying down are most painful and standing is most comfortable. He sleeps mostly on his L side curled up or on stomach with head rotated left. 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 Prior Treatments and Tests 2016 had surgery for pinched nerve, level unknown. PT for back in 2021, with pain in R LB and LE that resolved itself . MRI 10/12/24 shows disc bulges in his lumbar spine, retrolisthesis 4 mm of L2 on L3 and 3 mm of L4 on L5, acute vertebral body compression fractures, T12 hemangioma, and foraminal stenosis with nerve root compression. Developmental History Developmental History MRI: 10/12/24 shows: Mild diffuse disc bulge L2-S1. Mild multilevel canal stenosis . Multilevel foraminal stenoses, worst at L5-S1 where there is associated intraforaminal nerve root compression. Recommend correlation with clinical symptoms to ascertain relevance of this finding. Treatment Goals Patient/Caregiver Goals Pt goals: -Tolerable pain to be able to walk 2 miles with tolerable pain at end (now walks 1/4 mile). Currently his pain at end of walk is 10/10. - Improve mobility to be able to change beds, do laundry, or cleaning house w/pain less than 5/10 (normal pain is 4/10 ). Personal Factors Other Personal Factors That May Effect Lives alone, difficult Therapy/Recovery changing beds, doing laundry, cleaning house. 'Normal pain is 4/10, with activities, 10/ 10. Has a son local and one in [place]. Hx of cancer - bladder cancer - 8 yrs of treatment, no longer signs of cancer. Tip of R radius removed at elbow and had R wrist surgery - a year ago. Neck pain. PT-OP-C Subjective Start: 10/24/24 16:19 Freq: Status: Active Protocol: Document 11/27/24 09:50 LRN (Rec: 11/27/24 10:45 LRN [id number]) OP-PT Subjective Patient Comments Patient Comments Vacuumed and did more than intended (Fri night), didn't have problem sleepine. Walked 1.5 miles but didn't sufffer. Yesterday had no increase in pain. Today pain is 2-3/10, his baseline. Sleeping this last week is taking IBP every 6 hrs, sometimes takes before bed and always takes it in the morning once moving. Last 2 wks have been sleeping well and not waking up. Pain s/p treatment reported to be 2/10, but he states I don't feel any. PT-OP-J Posture/Palpation/Skin Start: 10/24/24 16:19 Freq: Status: Active Protocol: Document 11/02/24 08:18 LRN (Rec: 11/02/24 10:48 LRN [id number]) Posture Evaluation Position Standing Head/C-Spine Posture Side Bent Left,Forward Head T-Spine Posture Increased Kyphosis L-Spine Posture Increased Lordosis,Shifted Left Pelvis Posture Anteriorly Tilted,(L) Iliac Crest Superior Comments Posture Comments Mild varus of lower legs. Shift to L at L1, L2. Palpation Assessment Location Low back Palpation Location R ischial tub is elevated. L/ S paraspinals tight Palpation Details Palpation of L/S paraspinals and in region of facet joints elicits pain down the leg. PT-OP-K Range of Motion Start: 10/24/24 16:19 Freq: Status: Active Protocol: Document 11/07/24 09:05 LRN (Rec: 11/07/24 09:26 LRN [id number]) Hip Goniometric Range of Motion Hip Right Passive Testing Position Supine Straight Leg Raise 72 Abduction 45 Internal Rotation 30 External Rotation 35 Left Passive Testing Position Supine Straight Leg Raise 60 Abduction 50 Internal Rotation 35 External Rotation 30 PT-OP-L Special Tests Start: 10/24/24 16:19 Freq: Status: Active Protocol: Document 11/02/24 08:18 LRN (Rec: 11/02/24 10:48 LRN [id number]) Special Tests Lumbar Spine Special Tests Slump Test Results + bilaterally with knee ext ( without slump) Comments Elicits LE Pain. Vertical Spine Loading Test Results + Comments Elicits R LE Pain. PT-OP-M Strength Start: 10/24/24 16:19 Freq: Status: Active Protocol: Document 11/07/24 09:05 LRN (Rec: 11/07/24 09:26 LRN [id number]) Trunk Strength Trunk Manual Muscle Testing Core Stabilization Pt is able to hold core stable with mild to moderate hip mobility resistance. Hip Strength Hip Manual Muscle Testing Right Flexion (L2) 4 Good Abduction 2- Poor- Adduction 2 Poor Left Flexion (L2) 4 Good Abduction 4 Good Adduction 2- Poor- PT-OP-Q Treatments Start: 10/24/24 16:19 Freq: Status: Active Protocol: Document 11/27/24 09:50 LRN (Rec: 11/27/24 10:45 LRN [id number]) Therapeutic Exercises Supine Exercises Neural mob Supine Exercise Name hold SLR 30 deg's with ankle waves IV/EV Side right Reps/Minutes 10 x NS/Heel slides Supine Exercise Name NS w/assisted heel slides Side bilateral Reps/Minutes 5x each Neutral spine Supine Exercise Name Training & strength-cues to arch back just enough to relieve pain a little Reps/Minutes 4' Comments Much phys & v cuing to training for ns. Trunk ext Supine Exercise Name Arching of LB into ext with hips/shdrs pivot points Reps/Minutes 10' (10 SH) Comments Phys & v cuing to get paraspinals to contract same time as abdominals. Sitting Exercises LE neural stretch Sitting Exercise Name Sitting with R leg straight for ankle IV/EV waving Side right Reps/Minutes 5x Therapeutic Activity Therapeutic Activity Posture trning Name Sit & Stand Reps/Minutes 6' Comments Cuing for sitting support to LB. Cuing standing for trunk ext in L/S. sit to stand Reps/Minutes 6' Transfer sup>sit Reps/Minutes 3' Self-Care/Home Management Treatment Activities Self-Care/Home Management Activities Issued handout for proper sit/ stand posture. PT-OP-R Modalities Start: 10/24/24 16:19 Freq: Status: Active Protocol: Document 11/27/24 09:50 LRN (Rec: 11/27/24 10:45 LRN [id number]) Electric Stimulation Electric Stimulation interferential Body Location Lumbar Intensity 21 Target/Sweep Sweep Patient Position Supine Combined With Heat/Cold Hot Pack Comments 15 min prone 1 pillows under feet PT-OP-T Assessment and Plan Start: 10/24/24 16:19 Freq: Status: Active Protocol: Document 11/27/24 09:50 LRN (Rec: 11/27/24 10:45 LRN [id number]) Physical Therapy Assessment Goals 3 Impairment Decreased mobility/endurance ( tols 1/4 mile walk) Short Term Goal (STG) Pt will be able to achieve a reportedly more restful sleep with modification of his sleeping position from stomach sleeping to side or back sleeping w/o making baseline pain worse. 11/09/2024 Patient reports sleeping on side painful last night, reports using pillow between knees and lying on left side 11/17/24: Pt reports sidelying on L w/ top leg on pillow now which is comfortable. 11/23/24: Painful night after walking over 1 mile that day. 11/27/24: Last 2 wks have been sleeping well and not waking up. STG Duration 12/15/24 (11/27/24: MET GOAL) Intermediate Goal (LTG) Decrease LB/R LE pain with core stabilization and self STM to be able to walk 1-2 miles (currently walks 0.25 - 1.5 miles with pain rated 10/ 10), without an increase in baseline pain. 11/14/24: Pt walked 2 miles w /o pain, but by bedtime had much pain and difficulty sleeping. 11/17/24: Pt clarifies Wednesday11/13/24 walked 1/4 mi w/o pain, then 6/10 pain constant but kept walking up to 2 mi and had 10/10 pain that evening. Reviewed walking progression starting 11/08 up to 1/4 mi pain-free and mindfulness of TrA activation and breath with activity. 11/21/24; Walked 1 mile with pain increase from 3 to 4/10. : Walked 1.5 mi w/o an incr in nighttime pain (2-3/ 10). LTG Duration 01/26/25 progressing 1 Impairment Pt lacks appropriate self care HEP. Short Term Goal (STG) Pt will be educated and will demonstrate log roll transfers , and proper sitting/standing posture. 11/07/24: Pt educated in log roll transfer. 11/09/24 Reviewd log roll and initiated hip hinge sit to stand. 11/17/24: Reviewed log roll transfer and sit to stant w/ hip hinge. 11/27/24: Pt educated in proper sit/stand posture. He is using good body mechanics for transfers. STG Duration 12/15/24 (11/27/24: MET GOAL) Intermediate Goal (LTG) Pt will be independent in a self care HEP for core/hip strengthening and mobility ex' s. 11/07/24: Pt I/S in Fig 4 stretch. 11/09/14 written instructions for figure 4 stretch given, added breathing from diaphragm in mod restorative pose, and resisted knee to chest to HEP( for core) 11/17/24: Pt i/s in TrA activation with breathwork using visual aids and self- monitoring medial to ASIS. 11/21/24: HEP: I/S in BKFO w / TrA and breath LTG Duration 01/26/25 progresssed Assessment Summary Assessment 79 yo male w/kayla LE radiculopathy (R>L) due to DDD , T12 hemangioma, and retrolisthesis L2-L3 & L4-L5 and lateral shift of the L/S left. Today, pt doing very well, pain has been down to 2- 3/10 (he feels baseline), walking tolerance is not as much as he would like, but was able to accidentally walk 1. 5 mi w/o an increase in pain at nighttime. He was very receptive to postural training . Physical Therapy Plan Frequency and Duration Frequency of Treatment 2x/Week Duration of treatment (weeks) 12 Plan of Care Start Date 11/02/24 Plan of Care End Date 01/26/25 Next Visit Focus/Plan Next Note Type Treatment Note Next Visit Plan Next: Monitor & progress pt's walking program (LTG 3). Add LE (peroneal) gentle neural stretch. Manual therapy for pain (STM) & retrolisthesis of L2-L3 & L4 -L5 and disc bulges. IF needed, very gentle L/S manual traction (note T12 hemangioma, and retrolisthesis L2-L3 & L4-L5); end with lower lumbar and sacral MH/IFES (avoid T12 hemangioma). POC: Therapeutic Ex ( strengthening/ROM), Ther Act ( transfer training), manual therapy (STM), ?Gait & Balance training, Pt Education (HEP).
--- NOTE | 2024-11-30 12:36 | PT.OTN ---
Current Diagnoses Radiculopathy, lumbar region (11/30/24) Physical Therapy Treatment Note PT-OP-A Visit Information Start: 10/24/24 16:19 Freq: Status: Active Protocol: Document 11/30/24 08:07 AB (Rec: 11/30/24 12:36 AB [id number]) Out-Patient Physical Therapy Visit Information Visit Information Visit Type Treatment Note Visit Start Time 09:02 Visit Stop Time 09:47 Visit Number 9 Number of [employer] Visits 1 Evaluation Information Evaluation Date 11/02/24 Precautions Precautions Lumbar spine disc bulges, 4mm of retrolisthesis of L2 on L3 and L4 on L5, acute vertebral body compression fractures, T12 hemangioma, and foraminal stenosis and mild multilevel canal stenosis, Bladder CA history, Meniere's disease status post shunt in the R ear in 70's and subsequent OLAMIDE R ear & K[place]ISPEL L ear, HTN, OA, elbow surgery. PT-OP-B Current Condition Start: 10/24/24 16:19 Freq: Status: Active Protocol: Document 11/02/24 08:18 LRN (Rec: 11/02/24 10:48 LRN [id number]) Current Condition History of Current Condition Onset Date 2 months agol Current Complaints R Low back and leg pain, sometimes L side. History of Current Condition Sudden onset R hip that has progressively worsening. Pain radiates into the back of the thigh and lateral leg, and recently is now starting to go down the L side. The pt states he expected the pain because in 2018 surgeons predicted L4-L5 nerve would have to be deadened, but his current surgeon feels injections and surgery would help, if PT doesn't help. He reports previous low back surgery to widen the route of the nerve. Position of sitting and lying down are most painful and standing is most comfortable. He sleeps mostly on his L side curled up or on stomach with head rotated left. 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 Prior Treatments and Tests 2016 had surgery for pinched nerve, level unknown. PT for back in 2021, with pain in R LB and LE that resolved itself . MRI 10/12/24 shows disc bulges in his lumbar spine, retrolisthesis 4 mm of L2 on L3 and 3 mm of L4 on L5, acute vertebral body compression fractures, T12 hemangioma, and foraminal stenosis with nerve root compression. Developmental History Developmental History MRI: 10/12/24 shows: Mild diffuse disc bulge L2-S1. Mild multilevel canal stenosis . Multilevel foraminal stenoses, worst at L5-S1 where there is associated intraforaminal nerve root compression. Recommend correlation with clinical symptoms to ascertain relevance of this finding. Treatment Goals Patient/Caregiver Goals Pt goals: -Tolerable pain to be able to walk 2 miles with tolerable pain at end (now walks 1/4 mile). Currently his pain at end of walk is 10/10. - Improve mobility to be able to change beds, do laundry, or cleaning house w/pain less than 5/10 (normal pain is 4/10 ). Personal Factors Other Personal Factors That May Effect Lives alone, difficult Therapy/Recovery changing beds, doing laundry, cleaning house. 'Normal pain is 4/10, with activities, 10/ 10. Has a son local and one in [place]. Hx of cancer - bladder cancer - 8 yrs of treatment, no longer signs of cancer. Tip of R radius removed at elbow and had R wrist surgery - a year ago. Neck pain. PT-OP-C Subjective Start: 10/24/24 16:19 Freq: Status: Active Protocol: Document 11/30/24 08:07 AB (Rec: 11/30/24 12:36 AB [id number]) OP-PT Subjective Patient Comments Patient Comments Patient reports he is sleeping with no pain, able to walk nearly a mile prior to pain increaseing to 3-4/10. Patient ratea pain 3/10 start of session. SLS L and right LE 3, 3,3 seconds without UE use PT-OP-J Posture/Palpation/Skin Start: 10/24/24 16:19 Freq: Status: Active Protocol: Document 11/02/24 08:18 LRN (Rec: 11/02/24 10:48 LRN [id number]) Posture Evaluation Position Standing Head/C-Spine Posture Side Bent Left,Forward Head T-Spine Posture Increased Kyphosis L-Spine Posture Increased Lordosis,Shifted Left Pelvis Posture Anteriorly Tilted,(L) Iliac Crest Superior Comments Posture Comments Mild varus of lower legs. Shift to L at L1, L2. Palpation Assessment Location Low back Palpation Location R ischial tub is elevated. L/ S paraspinals tight Palpation Details Palpation of L/S paraspinals and in region of facet joints elicits pain down the leg. PT-OP-K Range of Motion Start: 10/24/24 16:19 Freq: Status: Active Protocol: Document 11/07/24 09:05 LRN (Rec: 11/07/24 09:26 LRN [id number]) Hip Goniometric Range of Motion Hip Right Passive Testing Position Supine Straight Leg Raise 72 Abduction 45 Internal Rotation 30 External Rotation 35 Left Passive Testing Position Supine Straight Leg Raise 60 Abduction 50 Internal Rotation 35 External Rotation 30 PT-OP-L Special Tests Start: 10/24/24 16:19 Freq: Status: Active Protocol: Document 11/02/24 08:18 LRN (Rec: 11/02/24 10:48 LRN [id number]) Special Tests Lumbar Spine Special Tests Slump Test Results + bilaterally with knee ext ( without slump) Comments Elicits LE Pain. Vertical Spine Loading Test Results + Comments Elicits R LE Pain. PT-OP-M Strength Start: 10/24/24 16:19 Freq: Status: Active Protocol: Document 11/07/24 09:05 LRN (Rec: 11/07/24 09:26 LRN [id number]) Trunk Strength Trunk Manual Muscle Testing Core Stabilization Pt is able to hold core stable with mild to moderate hip mobility resistance. Hip Strength Hip Manual Muscle Testing Right Flexion (L2) 4 Good Abduction 2- Poor- Adduction 2 Poor Left Flexion (L2) 4 Good Abduction 4 Good Adduction 2- Poor- PT-OP-Q Treatments Start: 10/24/24 16:19 Freq: Status: Active Protocol: Document 11/30/24 08:07 AB (Rec: 11/30/24 12:36 AB [id number]) Therapeutic Exercises Supine Exercises Fig 4 stretch Supine Exercise Name from hooklying Side bilateral Reps/Minutes 1' Comments verbal and tactile cues Prone Exercises hip AROM IR Prone Exercise Name AROM review Side bilateral Equipment Used HEP Reps/Minutes X10 Comments verbal cues Sitting Exercises seated hip abd with band Side bilateral Resistance level 2 band Equipment Used HEP Reps/Minutes one min X 1 Comments for glute med activation Verbal cues sit to stand Reps/Minutes X10 Comments verbal cues for hip hinge LE neural stretch Sitting Exercise Name peroneal nerve glide Side bilateral Equipment Used HEP Reps/Minutes X10 Comments verbal and visual cues Therapeutic Activity Therapeutic Activity seated breathing from diaphragm Comments verbal cues for breathing, patient ed to perform when seated on airplane for increased time. 2 pillows on lap, verbal cues to expand core into pillows when breathing. Manual Therapy Treatment Consent Patient gave verbal consent for manual Yes treatment Soft Tissue Mobilization LS area Body Location bilaterally LS area and scar mob Mobilization Type Cross-Friction,Sustained Pressure Intensity/Depth Moderate Body Position Prone Comments 2 pillows under abd/groin PT-OP-R Modalities Start: 10/24/24 16:19 Freq: Status: Active Protocol: Document 11/27/24 09:50 LRN (Rec: 11/27/24 10:45 LRN [id number]) Electric Stimulation Electric Stimulation interferential Body Location Lumbar Intensity 21 Target/Sweep Sweep Patient Position Supine Combined With Heat/Cold Hot Pack Comments 15 min prone 1 pillows under feet PT-OP-T Assessment and Plan Start: 10/24/24 16:19 Freq: Status: Active Protocol: Document 11/30/24 08:07 AB (Rec: 11/30/24 12:36 AB [id number]) Physical Therapy Assessment Goals 3 Impairment Decreased mobility/endurance ( tols 1/4 mile walk) Short Term Goal (STG) Pt will be able to achieve a reportedly more restful sleep with modification of his sleeping position from stomach sleeping to side or back sleeping w/o making baseline pain worse. 11/09/2024 Patient reports sleeping on side painful last night, reports using pillow between knees and lying on left side 11/17/24: Pt reports sidelying on L w/ top leg on pillow now which is comfortable. 11/23/24: Painful night after walking over 1 mile that day. 11/27/24: Last 2 wks have been sleeping well and not waking up. STG Duration 12/15/24 (11/27/24: MET GOAL) Group Home Goal (LTG) Decrease LB/R LE pain with core stabilization and self STM to be able to walk 1-2 miles (currently walks 0.25 - 1.5 miles with pain rated 10/ 10), without an increase in baseline pain. 11/14/24: Pt walked 2 miles w /o pain, but by bedtime had much pain and difficulty sleeping. 11/17/24: Pt clarifies Wednesday11/13/24 walked 1/4 mi w/o pain, then 6/10 pain constant but kept walking up to 2 mi and had 10/10 pain that evening. Reviewed walking progression starting 11/08 up to 1/4 mi pain-free and mindfulness of TrA activation and breath with activity. 11/21/24; Walked 1 mile with pain increase from 3 to 4/10. : Walked 1.5 mi w/o an incr in nighttime pain (2-3/ 10). 11/30/2024ble to walk nearly a mile prior to pain increaseing to 3-4/10. Patient ratea pain LTG Duration 01/26/25 progressing 1 Impairment Pt lacks appropriate self care HEP. Short Term Goal (STG) Pt will be educated and will demonstrate log roll transfers , and proper sitting/standing posture. 11/07/24: Pt educated in log roll transfer. 11/09/24 Reviewd log roll and initiated hip hinge sit to stand. 11/17/24: Reviewed log roll transfer and sit to stant w/ hip hinge. 11/27/24: Pt educated in proper sit/stand posture. He is using good body mechanics for transfers. STG Duration 12/15/24 (11/27/24: MET GOAL) Group Home Goal (LTG) Pt will be independent in a self care HEP for core/hip strengthening and mobility ex' s. 11/07/24: Pt I/S in Fig 4 stretch. 11/09/14 written instructions for figure 4 stretch given, added breathing from diaphragm in mod restorative pose, and resisted knee to chest to HEP( for core) 11/17/24: Pt i/s in TrA activation with breathwork using visual aids and self- monitoring medial to ASIS. 11/21/24: HEP: I/S in BKFO w / TrA and breath 11/30/2024 Peroneal nerve glide , prone hip IR AROM and seated hip abd with band (activation ) added to HEP LTG Duration 01/26/25 progresssed Assessment Summary Assessment 79 yo male w/kayla LE radiculopathy (R>L) due to DDD , T12 hemangioma, and retrolisthesis L2-L3 & L4-L5 and lateral shift of the L/S left. This session SLS 11 sec L 10 right post glute med activation without UE use. Patient rates back pain 2-3/10 end of session. Physical Therapy Plan Frequency and Duration Frequency of Treatment 2x/Week Duration of treatment (weeks) 12 Plan of Care Start Date 11/02/24 Plan of Care End Date 01/26/25 Next Visit Focus/Plan Next Note Type Progress Note Next Visit Plan Next: Monitor & progress pt's walking program (LTG Manual therapy for pain (STM) & retrolisthesis of L2-L3 & L4 -L5 and disc bulges. IF needed, very gentle L/S manual traction (note T12 hemangioma, and retrolisthesis L2-L3 & L4-L5); end with lower lumbar and sacral MH/IFES (avoid T12 hemangioma). POC: Therapeutic Ex ( strengthening/ROM), Ther Act ( transfer training), manual therapy (STM), ?Gait & Balance training, Pt Education (HEP).
--- NOTE | 2024-12-11 12:33 | PT.OTN ---
Current Diagnoses Radiculopathy, lumbar region (12/11/24) Physical Therapy Treatment Note PT-OP-A Visit Information Start: 10/24/24 16:19 Freq: Status: Active Protocol: Document 12/11/24 08:06 AB (Rec: 12/11/24 12:32 AB [id number]) Out-Patient Physical Therapy Visit Information Visit Information Visit Type Treatment Note Visit Start Time 09:05 Visit Stop Time 09:51 Visit Number 10 Number of LEGAL LIBRARIAN Visits 2 Evaluation Information Evaluation Date 11/02/24 Precautions Precautions Lumbar spine disc bulges, 4mm of retrolisthesis of L2 on L3 and L4 on L5, acute vertebral body compression fractures, T12 hemangioma, and 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 PT-OP-B Current Condition Start: 10/24/24 16:19 Freq: Status: Active Protocol: Document 11/02/24 08:18 LRN (Rec: 11/02/24 10:48 LRN [id number]) Current Condition History of Current Condition Onset Date 2 months agol Current Complaints R Low back and leg pain, sometimes L side. History of Current Condition Sudden onset R hip that has progressively worsening. Pain radiates into the back of the thigh and lateral leg, and recently is now starting to go down the L side. The pt states he expected the pain because in 2018 surgeons predicted L4-L5 nerve would have to be deadened, but his current surgeon feels injections and surgery would help, if PT doesn't help. He reports previous low back surgery to widen the route of the nerve. Position of sitting and lying down are most painful and standing is most comfortable. He sleeps mostly on his L side curled up or on stomach with head rotated left. 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 Prior Treatments and Tests 2016 had surgery for pinched nerve, level unknown. PT for back in 2021, with pain in R LB and LE that resolved itself . MRI 10/12/24 shows disc bulges in his lumbar spine, retrolisthesis 4 mm of L2 on L3 and 3 mm of L4 on L5, acute vertebral body compression fractures, T12 hemangioma, and foraminal stenosis with nerve root compression. Developmental History Developmental History MRI: 10/12/24 shows: Mild diffuse disc bulge L2-S1. Mild multilevel canal stenosis . Multilevel foraminal stenoses, worst at L5-S1 where there is associated intraforaminal nerve root compression. Recommend correlation with clinical symptoms to ascertain relevance of this finding. Treatment Goals Patient/Caregiver Goals Pt goals: -Tolerable pain to be able to walk 2 miles with tolerable pain at end (now walks 1/4 mile). Currently his pain at end of walk is 10/10. - Improve mobility to be able to change beds, do laundry, or cleaning house w/pain less than 5/10 (normal pain is 4/10 ). Personal Factors Other Personal Factors That May Effect Lives alone, difficult Therapy/Recovery changing beds, doing laundry, cleaning house. 'Normal pain is 4/10, with activities, 10/ 10. Has a son local and one in [place]. Hx of cancer - bladder cancer - 8 yrs of treatment, no longer signs of cancer. Tip of R radius removed at elbow and had R wrist surgery - a year ago. Neck pain. PT-OP-C Subjective Start: 10/24/24 16:19 Freq: Status: Active Protocol: Document 12/11/24 08:06 AB (Rec: 12/11/24 12:32 AB [id number]) OP-PT Subjective Patient Comments Patient Comments Heraclio reports he is getting worse, pain is on both sides, into buttocks. Patient reports he walked a mile day after last session, with samenormal pain then tried to walk the next day and was unable to walk the mile due to pain. Patient report had to take Hydrocodone, comments bad reaction so has stopped taking in. Patient reports whent to appt in [place] on the 6th and had to stop on the way down in [place] due to increased pain. Patient rates bilateral buttocks and back pain 4/10 start of session. PT-OP-J Posture/Palpation/Skin Start: 10/24/24 16:19 Freq: Status: Active Protocol: Document 11/02/24 08:18 LRN (Rec: 11/02/24 10:48 LRN [id number]) Posture Evaluation Position Standing Head/C-Spine Posture Side Bent Left,Forward Head T-Spine Posture Increased Kyphosis L-Spine Posture Increased Lordosis,Shifted Left Pelvis Posture Anteriorly Tilted,(L) Iliac Crest Superior Comments Posture Comments Mild varus of lower legs. Shift to L at L1, L2. Palpation Assessment Location Low back Palpation Location R ischial tub is elevated. L/ S paraspinals tight Palpation Details Palpation of L/S paraspinals and in region of facet joints elicits pain down the leg. PT-OP-K Range of Motion Start: 10/24/24 16:19 Freq: Status: Active Protocol: Document 11/07/24 09:05 LRN (Rec: 11/07/24 09:26 LRN [id number]) Hip Goniometric Range of Motion Hip Right Passive Testing Position Supine Straight Leg Raise 72 Abduction 45 Internal Rotation 30 External Rotation 35 Left Passive Testing Position Supine Straight Leg Raise 60 Abduction 50 Internal Rotation 35 External Rotation 30 PT-OP-L Special Tests Start: 10/24/24 16:19 Freq: Status: Active Protocol: Document 11/02/24 08:18 LRN (Rec: 11/02/24 10:48 LRN [id number]) Special Tests Lumbar Spine Special Tests Slump Test Results + bilaterally with knee ext ( without slump) Comments Elicits LE Pain. Vertical Spine Loading Test Results + Comments Elicits R LE Pain. PT-OP-M Strength Start: 10/24/24 16:19 Freq: Status: Active Protocol: Document 11/07/24 09:05 LRN (Rec: 11/07/24 09:26 LRN [id number]) Trunk Strength Trunk Manual Muscle Testing Core Stabilization Pt is able to hold core stable with mild to moderate hip mobility resistance. Hip Strength Hip Manual Muscle Testing Right Flexion (L2) 4 Good Abduction 2- Poor- Adduction 2 Poor Left Flexion (L2) 4 Good Abduction 4 Good Adduction 2- Poor- PT-OP-Q Treatments Start: 10/24/24 16:19 Freq: Status: Active Protocol: Document 12/11/24 08:06 AB (Rec: 12/11/24 12:32 AB [id number]) Therapeutic Exercises Supine Exercises core Supine Exercise Name TA hold w/BKFO, Resisted hip flexion HEP Side bilateral Equipment Used self-monitoring TrA medial to ASIS Reps/Minutes 1.X 10 2. X 2 for 10 sec Comments Cues for TrA tight in neutral spine, breathing, no pelvic rot Self traction Side bilateral Reps/Minutes 10 sec X 3 Comments Not gurpreet Fig 4 stretch Supine Exercise Name from hooklying Fig 4 and piriformis Side bilateral Reps/Minutes 1' X1 each LE Comments verbal and tactile cues Prone Exercises hip AROM IR Prone Exercise Name AROM review Side bilateral Equipment Used HEP Reps/Minutes X10 Comments verbal cues/2 pillows under abdominal area Sitting Exercises seated hip abd with band Side bilateral Resistance level 2 band Equipment Used HEP Reps/Minutes one min X 1 Comments for glute med activation Verbal cues LE neural stretch Sitting Exercise Name peroneal nerve glide Side bilateral Equipment Used HEP Reps/Minutes X10 Comments verbal and visual cues Manual Therapy Treatment Consent Patient gave verbal consent for manual Yes treatment Soft Tissue Mobilization LS area Body Location bilaterally LS area and scar mob Mobilization Type Cross-Friction,Sustained Pressure Intensity/Depth Moderate Body Position Prone Comments 2 pillows under abd/groin superficial to scar tissue/ discontinued due to reports of numbness to R Hip. PT-OP-R Modalities Start: 10/24/24 16:19 Freq: Status: Active Protocol: Document 11/27/24 09:50 LRN (Rec: 11/27/24 10:45 LRN [id number]) Electric Stimulation Electric Stimulation interferential Body Location Lumbar Intensity 21 Target/Sweep Sweep Patient Position Supine Combined With Heat/Cold Hot Pack Comments 15 min prone 1 pillows under feet PT-OP-T Assessment and Plan Start: 10/24/24 16:19 Freq: Status: Active Protocol: Document 12/11/24 08:06 AB (Rec: 12/11/24 12:32 AB [id number]) Physical Therapy Assessment Goals 3 Impairment Decreased mobility/endurance ( tols 1/4 mile walk) Short Term Goal (STG) Pt will be able to achieve a reportedly more restful sleep with modification of his sleeping position from stomach sleeping to side or back sleeping w/o making baseline pain worse. 11/09/2024 Patient reports sleeping on side painful last night, reports using pillow between knees and lying on left side 11/17/24: Pt reports sidelying on L w/ top leg on pillow now which is comfortable. 11/23/24: Painful night after walking over 1 mile that day. 11/27/24: Last 2 wks have been sleeping well and not waking up. STG Duration 12/15/24 (11/27/24: MET GOAL) Director [place] Goal (LTG) Decrease LB/R LE pain with core stabilization and self STM to be able to walk 1-2 miles (currently walks 0.25 - 1.5 miles with pain rated 10/ 10), without an increase in baseline pain. 11/14/24: Pt walked 2 miles w /o pain, but by bedtime had much pain and difficulty sleeping. 11/17/24: Pt clarifies Wednesday11/13/24 walked 1/4 mi w/o pain, then 6/10 pain constant but kept walking up to 2 mi and had 10/10 pain that evening. Reviewed walking progression starting 11/08 up to 1/4 mi pain-free and mindfulness of TrA activation and breath with activity. 11/21/24; Walked 1 mile with pain increase from 3 to 4/10. : Walked 1.5 mi w/o an incr in nighttime pain (2-3/ 10). 11/30/2024ble to walk nearly a mile prior to pain increaseing to 3-4/10. Patient ratea pain 12/11/2024 Patient reports he has had a set back with walking, has not attempted walking outdoors this week due to pain with walking, did walk in [employer] with cart 15- 20 min X 1 last week. Patient comments last he slept all night through the night which was the first time in over a week. LTG Duration 01/26/25 progressing 1 Impairment Pt lacks appropriate self care HEP. Short Term Goal (STG) Pt will be educated and will demonstrate log roll transfers , and proper sitting/standing posture. 11/07/24: Pt educated in log roll transfer. 11/09/24 Reviewd log roll and initiated hip hinge sit to stand. 11/17/24: Reviewed log roll transfer and sit to stant w/ hip hinge. 11/27/24: Pt educated in proper sit/stand posture. He is using good body mechanics for transfers. STG Duration 12/15/24 (11/27/24: MET GOAL) Custodial Goal (LTG) Pt will be independent in a self care HEP for core/hip strengthening and mobility ex' s. 11/07/24: Pt I/S in Fig 4 stretch. 11/09/14 written instructions for figure 4 stretch given, added breathing from diaphragm in mod restorative pose, and resisted knee to chest to HEP( for core) 11/17/24: Pt i/s in TrA activation with breathwork using visual aids and self- monitoring medial to ASIS. 11/21/24: HEP: I/S in BKFO w / TrA and breath 11/30/2024 Peroneal nerve glide , prone hip IR AROM and seated hip abd with band (activation ) added to HEP 12/11/2024 Patient reports he only performed HEP 3 X last week, vs 3 x a day previously, comments he could'nt do ex when with his Son in [place] X 2 nights. SLS 3 sec L and right LE w/o UE use pre seated hip abd with band, 8 sec L right 15+ post seated hip abd with band/glute med activation LTG Duration 01/26/25 progresssed Assessment Summary Assessment 79 yo male w/kayla LE radiculopathy (R>L) due to DDD , T12 hemangioma, and retrolisthesis L2-L3 & L4-L5 and lateral shift of the L/S left.Heraclio rates pain 2/10 R side of back and buttocks only . HEP ex and neural glide review this session as well as manual therapy. Heraclio into session with reports of setback decreased gurpreet to walking and pain has progressed to bilateral and into buttocks bilateral, end of session back to right side only with pain decreased to 2/ 10. Significant increase in SLS post glute med activation/ seated hip abd with band with one min hold. Physical Therapy Plan Frequency and Duration Frequency of Treatment 2x/Week Duration of treatment (weeks) 12 Plan of Care Start Date 11/02/24 Plan of Care End Date 01/26/25 Next Visit Focus/Plan Next Note Type Progress Note Next Visit Plan Next: Monitor & progress pt's walking program (LTG Manual therapy for pain (STM) & retrolisthesis of L2-L3 & L4 -L5 and disc bulges. IF needed, very gentle L/S manual traction (note T12 hemangioma, and retrolisthesis L2-L3 & L4-L5); end with lower lumbar and sacral MH/IFES (avoid T12 hemangioma). POC: Therapeutic Ex ( strengthening/ROM), Ther Act ( transfer training), manual therapy (STM), ?Gait & Balance training, Pt Education (HEP). Patient may benefit from piriformis stretch to HEP
--- NOTE | 2024-12-11 17:54 | PT.OPPN ---
Current Diagnoses Radiculopathy, lumbar region (12/11/24) Physical Therapy Progress Note PT-OP-A Visit Information Start: 10/24/24 16:19 Freq: Status: Active Protocol: Document 12/11/24 08:06 AB (Rec: 12/11/24 12:32 AB [id number]) Out-Patient Physical Therapy Visit Information Visit Information Visit Type Treatment Note Visit Start Time 09:05 Visit Stop Time 09:51 Visit Number 10 Number of SOFTWARE DEVELOPMENT PROJECT MANAGER Visits 2 Evaluation Information Evaluation Date 11/02/24 Precautions Precautions Lumbar spine disc bulges, 4mm of retrolisthesis of L2 on L3 and L4 on L5, acute vertebral body compression fractures, T12 hemangioma, and foraminal stenosis and mild multilevel canal stenosis, Bladder CA history, Meniere's disease status post shunt in the R ear in 70's and subsequent OLAMIDE R ear & CHEHALIS L ear, HTN, OA, elbow surgery. PT-OP-B Current Condition Start: 10/24/24 16:19 Freq: Status: Active Protocol: Document 11/02/24 08:18 LRN (Rec: 11/02/24 10:48 LRN [id number]) Current Condition History of Current Condition Onset Date 2 months agol Current Complaints R Low back and leg pain, sometimes L side. History of Current Condition Sudden onset R hip that has progressively worsening. Pain radiates into the back of the thigh and lateral leg, and recently is now starting to go down the L side. The pt states he expected the pain because in 2018 surgeons predicted L4-L5 nerve would have to be deadened, but his current surgeon feels injections and surgery would help, if PT doesn't help. He reports previous low back surgery to widen the route of the nerve. Position of sitting and lying down are most painful and standing is most comfortable. He sleeps mostly on his L side curled up or on stomach with head rotated left. 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 Prior Treatments and Tests 2016 had surgery for pinched nerve, level unknown. PT for back in 2021, with pain in R LB and LE that resolved itself . MRI 10/12/24 shows disc bulges in his lumbar spine, retrolisthesis 4 mm of L2 on L3 and 3 mm of L4 on L5, acute vertebral body compression fractures, T12 hemangioma, and foraminal stenosis with nerve root compression. Developmental History Developmental History MRI: 10/12/24 shows: Mild diffuse disc bulge L2-S1. Mild multilevel canal stenosis . Multilevel foraminal stenoses, worst at L5-S1 where there is associated intraforaminal nerve root compression. Recommend correlation with clinical symptoms to ascertain relevance of this finding. Treatment Goals Patient/Caregiver Goals Pt goals: -Tolerable pain to be able to walk 2 miles with tolerable pain at end (now walks 1/4 mile). Currently his pain at end of walk is 10/10. - Improve mobility to be able to change beds, do laundry, or cleaning house w/pain less than 5/10 (normal pain is 4/10 ). Personal Factors Other Personal Factors That May Effect Lives alone, difficult Therapy/Recovery changing beds, doing laundry, cleaning house. 'Normal pain is 4/10, with activities, 10/ 10. Has a son local and one in [place]. Hx of cancer - bladder cancer - 8 yrs of treatment, no longer signs of cancer. Tip of R radius removed at elbow and had R wrist surgery - a year ago. Neck pain. PT-OP-C Subjective Start: 10/24/24 16:19 Freq: Status: Active Protocol: Document 12/11/24 08:06 AB (Rec: 12/11/24 12:32 AB [id number]) OP-PT Subjective Patient Comments Patient Comments Heraclio reports he is getting worse, pain is on both sides, into buttocks. Patient reports he walked a mile day after last session, with samenormal pain then tried to walk the next day and was unable to walk the mile due to pain. Patient report had to take Hydrocodone, comments bad reaction so has stopped taking in. Patient reports whent to appt in [place] on the 6th and had to stop on the way down in [place] due to increased pain. Patient rates bilateral buttocks and back pain 4/10 start of session. PT-OP-J Posture/Palpation/Skin Start: 10/24/24 16:19 Freq: Status: Active Protocol: Document 11/02/24 08:18 LRN (Rec: 11/02/24 10:48 LRN [id number]) Posture Evaluation Position Standing Head/C-Spine Posture Side Bent Left,Forward Head T-Spine Posture Increased Kyphosis L-Spine Posture Increased Lordosis,Shifted Left Pelvis Posture Anteriorly Tilted,(L) Iliac Crest Superior Comments Posture Comments Mild varus of lower legs. Shift to L at L1, L2. Palpation Assessment Location Low back Palpation Location R ischial tub is elevated. L/ S paraspinals tight Palpation Details Palpation of L/S paraspinals and in region of facet joints elicits pain down the leg. PT-OP-K Range of Motion Start: 10/24/24 16:19 Freq: Status: Active Protocol: Document 11/07/24 09:05 LRN (Rec: 11/07/24 09:26 LRN [id number]) Hip Goniometric Range of Motion Hip Measured in Degrees Right Passive Testing Position Supine Straight Leg Raise 72 Abduction 45 Internal Rotation 30 External Rotation 35 Left Passive Testing Position Supine Straight Leg Raise 60 Abduction 50 Internal Rotation 35 External Rotation 30 PT-OP-L Special Tests Start: 10/24/24 16:19 Freq: Status: Active Protocol: Document 11/02/24 08:18 LRN (Rec: 11/02/24 10:48 LRN [id number]) Special Tests Lumbar Spine Special Tests Slump Test Results + bilaterally with knee ext ( without slump) Comments Elicits LE Pain. Vertical Spine Loading Test Results + Comments Elicits R LE Pain. PT-OP-M Strength Start: 10/24/24 16:19 Freq: Status: Active Protocol: Document 11/07/24 09:05 LRN (Rec: 11/07/24 09:26 LRN [id number]) Trunk Strength Trunk Manual Muscle Testing Core Stabilization Pt is able to hold core stable with mild to moderate hip mobility resistance. Hip Strength Hip Manual Muscle Testing Right Flexion (L2) 4 Good Abduction 2- Poor- Adduction 2 Poor Left Flexion (L2) 4 Good Abduction 4 Good Adduction 2- Poor- PT-OP-T Assessment and Plan Start: 10/24/24 16:19 Freq: Status: Active Protocol: Document 12/11/24 09:45 LRN (Rec: 12/12/24 17:53 LRN [id number]) Physical Therapy Assessment Rehab Potential Rehabilitation Potential Good Evaluation Complexity Number of Personal Factors/Comorbidities 3 or More Number of Body Systems Impaired 4 or More Clinical Presentation at Evaluation Evolving Impairments Impairments Activity Tolerance,Functional Activities,Pain,Strength Other Impairments Gait/Balance as related to gait tolerance. Goals 3 Impairment Decreased mobility/endurance ( tols 1/4 mile walk) Short Term Goal (STG) Pt will be able to achieve a reportedly more restful sleep with modification of his sleeping position from stomach sleeping to side or back sleeping w/o making baseline pain worse. 11/09/2024 Patient reports sleeping on side painful last night, reports using pillow between knees and lying on left side 11/17/24: Pt reports sidelying on L w/ top leg on pillow now which is comfortable. 11/23/24: Painful night after walking over 1 mile that day. 11/27/24: Last 2 wks have been sleeping well and not waking up. STG Duration 12/15/24 (11/27/24: MET GOAL) Backup Operator Goal (LTG) Decrease LB/R LE pain with core stabilization and self STM to be able to walk 1-2 miles (currently walks 0.25 - 1.5 miles with pain rated 10/ 10), without an increase in baseline pain. 11/14/24: Pt walked 2 miles w /o pain, but by bedtime had much pain and difficulty sleeping. 11/17/24: Pt clarifies Wednesday11/13/24 walked 1/4 mi w/o pain, then 6/10 pain constant but kept walking up to 2 mi and had 10/10 pain that evening. Reviewed walking progression starting 11/08 up to 1/4 mi pain-free and mindfulness of TrA activation and breath with activity. 11/21/24; Walked 1 mile with pain increase from 3 to 4/10. : Walked 1.5 mi w/o an incr in nighttime pain (2-3/ 10). 11/30/2024ble to walk nearly a mile prior to pain increaseing to 3-4/10. Patient ratea pain 12/11/2024 Patient reports he has had a set back with walking, has not attempted walking outdoors this week due to pain with walking, did walk in [employer] with cart 15- 20 min X 1 last week. Patient comments last he slept all night through the night which was the first time in over a week. LTG Duration 02/08/25 progressing 2 Impairment Pain rated 7-8/10, after activity 10/10. Short Term Goal (STG) Pt will be educated in self care pain/inflammation management with cold pack/hot pack, and proper body mechanics for ADLs. 11/09/2024 Pt ed ed mod rest pose with breathing from diaph to unload spine and relax hip muscles in place of C in rice for compression. 11/23/24: Issued handouts: Body mechanics, ADLs w/correct body mechanics, positioning and use of cryotherapy for pain management. STG Duration 12/15/24 (11/23/24: MET GOAL) [facility] Goal (LTG) Decrease pain with activity with pt able to improve mobility to be able to either changing bedding, do laundry, or cleaning house, by modifying techniques and time of activity w/o increasing in baseline pain. 11/21/24: Pt is changing beds , laundry, & vacuuming, at different times during the week (not all on the same day) w/o an increase in pain, LBP is typically 4/10. LTG Duration 01/26/25 (11/21/24: MET GOAL ) 1 Impairment Pt lacks appropriate self care HEP. Short Term Goal (STG) Pt will be educated and will demonstrate log roll transfers , and proper sitting/standing posture. 11/07/24: Pt educated in log roll transfer. 11/09/24 Reviewd log roll and initiated hip hinge sit to stand. 11/17/24: Reviewed log roll transfer and sit to stant w/ hip hinge. 11/27/24: Pt educated in proper sit/stand posture. He is using good body mechanics for transfers. STG Duration 12/15/24 (11/27/24: MET GOAL) Backup Operator Goal (LTG) Pt will be independent in a self care HEP for core/hip strengthening and mobility ex' s. 11/07/24: Pt I/S in Fig 4 stretch. 11/09/14 written instructions for figure 4 stretch given, added breathing from diaphragm in mod restorative pose, and resisted knee to chest to HEP( for core) 11/17/24: Pt i/s in TrA activation with breathwork using visual aids and self- monitoring medial to ASIS. 11/21/24: HEP: I/S in BKFO w / TrA and breath 11/30/2024 Peroneal nerve glide , prone hip IR AROM and seated hip abd with band (activation ) added to HEP 12/11/2024 Patient reports he only performed HEP 3 X last week, vs 3 x a day previously, comments he could'nt do ex when with his Son in [place] X 2 nights. SLS 3 sec L and right LE w/o UE use pre seated hip abd with band, 8 sec L right 15+ post seated hip abd with band/glute med activation LTG Duration 02/08/25 progresssed Assessment Summary Assessment 79 yo male initially seen for kayla LE radiculopathy (R>L) due to DDD, T12 hemangioma, and retrolisthesis L2-L3 & L4-L5 and lateral shift of the L/S left. Today, Heraclio appears to have suffered a flare up/ setback as his activity level has increased, his LBP to start is rated 4/10 and in bilateral buttocks. He walked 1 mile after last session and attempted it again the next day, but was unable to walk the mile due to increased LBP. Eight days after the last session he reportedly had an appt in [place], but he had to stop in [place] due to increased pain. He has decreased gurpreet to walking and his pain has progressed to bilateral and into his buttocks. He responded well to therapy today with relief of pain by end of session with return of pain symptoms to 2/ 10, R side and buttocks only, significant increase in SLS post glute med activation/ seated hip abd with band with one min hold. We are trying to progressively increase the pt's activity level and walking endurance as his goal it to be able to do home functional activities and return to prior level of walking 1-2 miles w/o an increase in his base line LBP. He is now tolerated supine lying and sleeping well at night. His body mechanics for transfers and sitting/ standing posture is good. The pt would benefit from continued skilled physical therapy of longer duration than expected (due to the chronic nature of his pain), in order to progress his functional ability and walking endurance tolerance to return the pt more closely to his prior level of function and promote low back safety with activities. Physical Therapy Plan Frequency and Duration Frequency of Treatment 2x/Week Duration of treatment (weeks) 8 Plan of Care Start Date 12/12/24 Plan of Care End Date 02/08/25 Therapeutic Interventions Therapeutic Interventions Home Exercise Program,Manual Therapy,Neuromuscular Re- education,Self-Care/Home Management,Soft Tissue Mobilization,Therapeutic Activities,Therapeutic Exercises Modalities Electric Stimulation,Hot Packs Other Therapeutic Interventions Gait/Balance training for safe gait. Next Visit Focus/Plan Next Note Type Treatment Note Next Visit Plan Next: Focus on pain reduction and walking tolerance. Monitor & progress pt's walking program (LTG Manual therapy for pain (STM) & retrolisthesis of L2-L3 & L4 -L5 and disc bulges. IF needed, very gentle L/S manual traction (note T12 hemangioma, and retrolisthesis L2-L3 & L4-L5); end with lower lumbar and sacral MH/IFES (avoid T12 hemangioma). POC: Therapeutic Ex ( strengthening/ROM), Ther Act, manual therapy (STM), Gait/ Balance for safe walking, Pt Education (HEP). Patient may benefit from piriformis stretch to HEP, modalities for pain.
--- NOTE | 2024-12-14 16:02 | PT.OTN ---
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 PT-OP-B Current Condition Start: 10/24/24 16:19 Freq: Status: Active Protocol: Document 11/02/24 08:18 LRN (Rec: 11/02/24 10:48 LRN [id number]) Current Condition History of Current Condition Onset Date 2 months agol Current Complaints R Low back and leg pain, sometimes L side. History of Current Condition Sudden onset R hip that has progressively worsening. Pain radiates into the back of the thigh and lateral leg, and recently is now starting to go down the L side. The pt states he expected the pain because in 2017 surgeons predicted L4-L5 nerve would have to be deadened, but his current surgeon feels injections and surgery would help, if PT doesn't help. He reports previous low back surgery to widen the route of the nerve. Position of sitting and lying down are most painful and standing is most comfortable. He sleeps mostly on his L side curled up or on stomach with head rotated left. 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 Prior Treatments and Tests 2016 had surgery for pinched nerve, level unknown. PT for back in 2021, with pain in R LB and LE that resolved itself . MRI 10/12/24 shows disc bulges in his lumbar spine, retrolisthesis 4 mm of L2 on L3 and 3 mm of L4 on L5, acute vertebral body compression fractures, T12 hemangioma, and foraminal stenosis with nerve root compression. Developmental History Developmental History MRI: 10/12/24 shows: Mild diffuse disc bulge L2-S1. Mild multilevel canal stenosis . Multilevel foraminal stenoses, worst at L5-S1 where there is associated intraforaminal nerve root compression. Recommend correlation with clinical symptoms to ascertain relevance of this finding. Treatment Goals Patient/Caregiver Goals Pt goals: -Tolerable pain to be able to walk 2 miles with tolerable pain at end (now walks 1/4 mile). Currently his pain at end of walk is 10/10. - Improve mobility to be able to change beds, do laundry, or cleaning house w/pain less than 5/10 (normal pain is 4/10 ). Personal Factors Other Personal Factors That May Effect Lives alone, difficult Therapy/Recovery changing beds, doing laundry, cleaning house. 'Normal pain is 4/10, with activities, 10/ 10. Has a son local and one in [place]. Hx of cancer - bladder cancer - 8 yrs of treatment, no longer signs of cancer. Tip of R radius removed at elbow and had R wrist surgery - a year ago. Neck pain. PT-OP-C Subjective Start: 10/24/24 16:19 Freq: Status: Active Protocol: Document 12/14/24 09:03 LRN (Rec: 12/14/24 09:54 LRN [id number]) OP-PT Subjective Patient Comments Patient Comments After last session, slept well and the next day had a good day, did a 1.4 walk, then housework (dusting, vacuuming) , pain was 2/10 until evening, making sleep difficult. Had a bad day the following day. Last night did not sleep well. Today pain is 3-4/10. His son cancelled their cruise trip because of his condition . Pain reported at end of treatment was 3/10. PT-OP-J Posture/Palpation/Skin Start: 10/24/24 16:19 Freq: Status: Active Protocol: Document 11/02/24 08:18 LRN (Rec: 11/02/24 10:48 LRN [id number]) Posture Evaluation Position Standing Head/C-Spine Posture Side Bent Left,Forward Head T-Spine Posture Increased Kyphosis L-Spine Posture Increased Lordosis,Shifted Left Pelvis Posture Anteriorly Tilted,(L) Iliac Crest Superior Comments Posture Comments Mild varus of lower legs. Shift to L at L1, L2. Palpation Assessment Location Low back Palpation Location R ischial tub is elevated. L/ S paraspinals tight Palpation Details Palpation of L/S paraspinals and in region of facet joints elicits pain down the leg. PT-OP-K Range of Motion Start: 10/24/24 16:19 Freq: Status: Active Protocol: Document 11/07/24 09:05 LRN (Rec: 11/07/24 09:26 LRN [id number]) Hip Goniometric Range of Motion Hip Right Passive Testing Position Supine Straight Leg Raise 72 Abduction 45 Internal Rotation 30 External Rotation 35 Left Passive Testing Position Supine Straight Leg Raise 60 Abduction 50 Internal Rotation 35 External Rotation 30 PT-OP-L Special Tests Start: 10/24/24 16:19 Freq: Status: Active Protocol: Document 11/02/24 08:18 LRN (Rec: 11/02/24 10:48 LRN [id number]) Special Tests Lumbar Spine Special Tests Slump Test Results + bilaterally with knee ext ( without slump) Comments Elicits LE Pain. Vertical Spine Loading Test Results + Comments Elicits R LE Pain. PT-OP-M Strength Start: 10/24/24 16:19 Freq: Status: Active Protocol: Document 11/07/24 09:05 LRN (Rec: 11/07/24 09:26 LRN [id number]) Trunk Strength Trunk Manual Muscle Testing Core Stabilization Pt is able to hold core stable with mild to moderate hip mobility resistance. Hip Strength Hip Manual Muscle Testing Right Flexion (L2) 4 Good Abduction 2- Poor- Adduction 2 Poor Left Flexion (L2) 4 Good Abduction 4 Good Adduction 2- Poor- PT-OP-Q Treatments Start: 10/24/24 16:19 Freq: Status: Active Protocol: Document 12/14/24 09:03 LRN (Rec: 12/14/24 09:54 LRN [id number]) Therapeutic Exercises Standing Exercises Walking Standing Exercise Name s/p manual sacral flex/ext Reps/Minutes 1' Manual Therapy Treatment Consent Patient gave verbal consent for manual Yes treatment Soft Tissue Mobilization Sacrum Body Location Gentle Sacral flex & Ext - superficial pressure Mobilization Type Sustained Pressure Intensity/Depth Superficial Body Position Prone Comments Sacral flex caused c/o numbness in legs, no change in numbness with extension. LS area Body Location L>R, L/S paraspinals, scar, QL , upper gluteals Mobilization Type Cross-Friction Intensity/Depth Moderate Body Position Prone Comments 2 pillows under abdom/groin superficial STM to scar tissue /discontinued due to reports of numbness to R Hip. Joint Mobilizations Lumbar Joint L1-L2, L2-L3, L4-5 Direction PA Grade I Body Position Prone Reps/Duration 3' Comments No symptom change with mobs. Manual Traction Lumbar Details Gentle L/S traction Body Position Hooklying Reps/Duration 8' Comments Pain in lateral thighs decreased to 3/10 w/traction. PT-OP-R Modalities Start: 10/24/24 16:19 Freq: Status: Active Protocol: Document 12/14/24 09:03 LRN (Rec: 12/14/24 09:54 LRN [id number]) Electric Stimulation Electric Stimulation interferential Body Location Lumbar>Lateral gluteal Intensity 22 Target/Sweep Sweep Patient Position Prone Combined With Heat/Cold Hot Pack Comments Pain after treatment was 3/10. PT-OP-T Assessment and Plan Start: 10/24/24 16:19 Freq: Status: Active Protocol: Document 12/14/24 09:03 LRN (Rec: 12/14/24 09:54 LRN [id number]) Physical Therapy Assessment Goals 3 Impairment Decreased mobility/endurance ( tols 1/4 mile walk) Short Term Goal (STG) Pt will be able to achieve a reportedly more restful sleep with modification of his sleeping position from stomach sleeping to side or back sleeping w/o making baseline pain worse. 11/09/2024 Patient reports sleeping on side painful last night, reports using pillow between knees and lying on left side 11/17/24: Pt reports sidelying on L w/ top leg on pillow now which is comfortable. 11/23/24: Painful night after walking over 1 mile that day. 11/27/24: Last 2 wks have been sleeping well and not waking up. STG Duration 12/15/24 (11/27/24: MET GOAL) Half-Way Goal (LTG) Decrease LB/R LE pain with core stabilization and self STM to be able to walk 1-2 miles (currently walks 0.25 - 1.5 miles with pain rated 10/ 10), without an increase in baseline pain. 11/14/24: Pt walked 2 miles w /o pain, but by bedtime had much pain and difficulty sleeping. 11/17/24: Pt clarifies Wednesday11/13/24 walked 1/4 mi w/o pain, then 6/10 pain constant but kept walking up to 2 mi and had 10/10 pain that evening. Reviewed walking progression starting w11/08 up to 1/4 mi pain-free and mindfulness of TrA activation and breath with activity. 11/21/24; Walked 1 mile with pain increase from 3 to 4/10. : Walked 1.5 mi w/o an incr in nighttime pain (2-3/ 10). 11/30/2024ble to walk nearly a mile prior to pain increaseing to 3-4/10. Patient ratea pain 12/11/2024 Patient reports he has had a set back with walking, has not attempted walking outdoors this week due to pain with walking, did walk in [employer] with cart 15- 20 min X 1 last week. Patient comments last he slept all night through the night which was the first time in over a week. LTG Duration 02/08/25 progressing 2 Impairment Pain rated 7-8/10, after activity 10/10. Short Term Goal (STG) Pt will be educated in self care pain/inflammation management with cold pack/hot pack, and proper body mechanics for ADLs. 11/09/2024 Pt ed ed mod rest pose with breathing from diaph to unload spine and relax hip muscles in place of C in rice for compression. 11/23/24: Issued handouts: Body mechanics, ADLs w/correct body mechanics, positioning and use of cryotherapy for pain management. STG Duration 12/15/24 (11/23/24: MET GOAL) Half-Way Goal (LTG) Decrease pain with activity with pt able to improve mobility to be able to either changing bedding, do laundry, or cleaning house, by modifying techniques and time of activity w/o increasing in baseline pain. 11/21/24: Pt is changing beds , laundry, & vacuuming, at different times during the week (not all on the same day) w/o an increase in pain, LBP is typically 4/10. LTG Duration 01/26/25 (11/21/24: MET GOAL ) 1 Impairment Pt lacks appropriate self care HEP. Short Term Goal (STG) Pt will be educated and will demonstrate log roll transfers , and proper sitting/standing posture. 11/07/24: Pt educated in log roll transfer. 11/09/24 Reviewd log roll and initiated hip hinge sit to stand. 11/17/24: Reviewed log roll transfer and sit to stant w/ hip hinge. 11/27/24: Pt educated in proper sit/stand posture. He is using good body mechanics for transfers. STG Duration 12/15/24 (11/27/24: MET GOAL) Half-Way Goal (LTG) Pt will be independent in a self care HEP for core/hip strengthening and mobility ex' s. 11/07/24: Pt I/S in Fig 4 stretch. 11/09/14 written instructions for figure 4 stretch given, added breathing from diaphragm in mod restorative pose, and resisted knee to chest to HEP( for core) 11/17/24: Pt i/s in TrA activation with breathwork using visual aids and self- monitoring medial to ASIS. 11/21/24: HEP: I/S in BKFO w / TrA and breath 11/30/2024 Peroneal nerve glide , prone hip IR AROM and seated hip abd with band (activation ) added to HEP 12/11/2024 Patient reports he only performed HEP 3 X last week, vs 3 x a day previously, comments he could'nt do ex when with his Son in [place] X 2 nights. SLS 3 sec L and right LE w/o UE use pre seated hip abd with band, 8 sec L right 15+ post seated hip abd with band/glute med activation LTG Duration 02/08/25 progresssed Assessment Summary Assessment 79 yo male initially seen for kayla LE radiculopathy (R>L) due to DDD, T12 hemangioma, and retrolisthesis L2-L3 & L4-L5 and lateral shift of the L/S left. Today pt's pain is in the kayla lateral thighs, rated 3-4/10. During therapy his symptom c/o's varied from numbness in LE's to numbness in mid sacrum, to no numbness on standing and pain 3/10 s/p EStim. Pt lateral thigh pain persisted. Minimal improvement of symptoms with therapy. The pt probably overdid activities at home ( vacuuming), which has cont'd to cause LB symptoms to persist. Physical Therapy Plan Frequency and Duration Frequency of Treatment 2x/Week Duration of treatment (weeks) 8 Plan of Care Start Date 12/12/24 Plan of Care End Date 02/08/25 Next Visit Focus/Plan Next Note Type Treatment Note Next Visit Plan Next: Focus on pain reduction and walking tolerance. Monitor & progress pt's walking program (LTG 3) Manual therapy for pain (STM) & retrolisthesis of L2-L3 & L4 -L5 and disc bulges. IF needed, very gentle L/S manual traction (note T12 hemangioma, and retrolisthesis L2-L3 & L4-L5); end with lower lumbar and sacral MH/IFES (avoid T12 hemangioma). POC: Therapeutic Ex ( strengthening/ROM), Ther Act, manual therapy (STM), Gait/ Balance for safe walking, Pt Education (HEP). Patient may benefit from piriformis stretch to HEP, modalities for pain.
--- NOTE | 2024-12-14 16:19 | PT-OP ANOTE ---
Per phone conversation the pt reports he feels good and came home and did housework. He vacuumed, cleaned his marble table. Pt denied LBP/LE pain and josefa HANDLEY, might have some in the R LE. He reports upper back pain only. Pt was encouraged to lie down as needed for pain to unweight his spine and to stick with walking 1 mile and not more for a little longer. Pt reported he will lay low.
--- NOTE | 2024-12-19 15:37 | PT.OTN ---
Current Diagnoses Radiculopathy, lumbar region (12/19/24) Physical Therapy Treatment Note PT-OP-A Visit Information Start: 10/24/24 16:19 Freq: Status: Active Protocol: Document 12/19/24 09:51 LRN (Rec: 12/19/24 10:43 LRN [id number]) Out-Patient Physical Therapy Visit Information Visit Information Visit Start Time 09:51 Visit Stop Time 10:37 Visit Number 12 (2 after PN) Evaluation Information Evaluation Date 11/02/24 Precautions Precautions Lumbar spine disc bulges, 4mm of retrolisthesis of L2 on L3 and L4 on L5, acute vertebral body compression fractures, T12 hemangioma, and foraminal stenosis and mild multilevel canal stenosis, Bladder CA history, Meniere's disease status post shunt in the R ear in 70's and subsequent [place] R ear & [place] L ear, HTN, OA, elbow surgery. PT-OP-B Current Condition Start: 10/24/24 16:19 Freq: Status: Active Protocol: Document 11/02/24 08:18 LRN (Rec: 11/02/24 10:48 LRN [id number]) Current Condition History of Current Condition Onset Date 2 months agol Current Complaints R Low back and leg pain, sometimes L side. History of Current Condition Sudden onset R hip that has progressively worsening. Pain radiates into the back of the thigh and lateral leg, and recently is now starting to go down the L side. The pt states he expected the pain because in 2017 surgeons predicted L4-L5 nerve would have to be deadened, but his current surgeon feels injections and surgery would help, if PT doesn't help. He reports previous low back surgery to widen the route of the nerve. Position of sitting and lying down are most painful and standing is most comfortable. He sleeps mostly on his L side curled up or on stomach with head rotated left. 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 Prior Treatments and Tests 2016 had surgery for pinched nerve, level unknown. PT for back in 2021, with pain in R LB and LE that resolved itself . MRI 10/12/24 shows disc bulges in his lumbar spine, retrolisthesis 4 mm of L2 on L3 and 3 mm of L4 on L5, acute vertebral body compression fractures, T12 hemangioma, and foraminal stenosis with nerve root compression. Developmental History Developmental History MRI: 10/12/24 shows: Mild diffuse disc bulge L2-S1. Mild multilevel canal stenosis . Multilevel foraminal stenoses, worst at L5-S1 where there is associated intraforaminal nerve root compression. Recommend correlation with clinical symptoms to ascertain relevance of this finding. Treatment Goals Patient/Caregiver Goals Pt goals: -Tolerable pain to be able to walk 2 miles with tolerable pain at end (now walks 1/4 mile). Currently his pain at end of walk is 10/10. - Improve mobility to be able to change beds, do laundry, or cleaning house w/pain less than 5/10 (normal pain is 4/10 ). Personal Factors Other Personal Factors That May Effect Lives alone, difficult Therapy/Recovery changing beds, doing laundry, cleaning house. 'Normal pain is 4/10, with activities, 10/ 10. Has a son local and one in [place]. Hx of cancer - bladder cancer - 8 yrs of treatment, no longer signs of cancer. Tip of R radius removed at elbow and had R wrist surgery - a year ago. Neck pain. PT-OP-C Subjective Start: 10/24/24 16:19 Freq: Status: Active Protocol: Document 12/19/24 09:51 LRN (Rec: 12/19/24 10:43 LRN [id number]) OP-PT Subjective Patient Comments Patient Comments Has baseline pain is 3/10. Walked the day after last treatment 1 mile, and that day didn't have hip pain at end of walk. Threw green party for [id number], but didn't have any help and at end of night the sit bone hurt. Next day drove to [facility] and had terrible pain in the sit bone after 15'. PT-OP-J Posture/Palpation/Skin Start: 10/24/24 16:19 Freq: Status: Active Protocol: Document 11/02/24 08:18 LRN (Rec: 11/02/24 10:48 LRN [id number]) Posture Evaluation Position Standing Head/C-Spine Posture Side Bent Left,Forward Head T-Spine Posture Increased Kyphosis L-Spine Posture Increased Lordosis,Shifted Left Pelvis Posture Anteriorly Tilted,(L) Iliac Crest Superior Comments Posture Comments Mild varus of lower legs. Shift to L at L1, L2. Palpation Assessment Location Low back Palpation Location R ischial tub is elevated. L/ S paraspinals tight Palpation Details Palpation of L/S paraspinals and in region of facet joints elicits pain down the leg. PT-OP-K Range of Motion Start: 10/24/24 16:19 Freq: Status: Active Protocol: Document 11/07/24 09:05 LRN (Rec: 11/07/24 09:26 LRN [id number]) Hip Goniometric Range of Motion Hip Right Passive Testing Position Supine Straight Leg Raise 72 Abduction 45 Internal Rotation 30 External Rotation 35 Left Passive Testing Position Supine Straight Leg Raise 60 Abduction 50 Internal Rotation 35 External Rotation 30 PT-OP-L Special Tests Start: 10/24/24 16:19 Freq: Status: Active Protocol: Document 11/02/24 08:18 LRN (Rec: 11/02/24 10:48 LRN [id number]) Special Tests Lumbar Spine Special Tests Slump Test Results + bilaterally with knee ext ( without slump) Comments Elicits LE Pain. Vertical Spine Loading Test Results + Comments Elicits R LE Pain. PT-OP-M Strength Start: 10/24/24 16:19 Freq: Status: Active Protocol: Document 11/07/24 09:05 LRN (Rec: 11/07/24 09:26 LRN [id number]) Trunk Strength Trunk Manual Muscle Testing Core Stabilization Pt is able to hold core stable with mild to moderate hip mobility resistance. Hip Strength Hip Manual Muscle Testing Right Flexion (L2) 4 Good Abduction 2- Poor- Adduction 2 Poor Left Flexion (L2) 4 Good Abduction 4 Good Adduction 2- Poor- PT-OP-Q Treatments Start: 10/24/24 16:19 Freq: Status: Active Protocol: Document 12/19/24 09:51 LRN (Rec: 12/19/24 10:43 LRN [id number]) Therapeutic Exercises Prone Exercises hip AROM IR Prone Exercise Name Hip IR>ER, Slow & controlled with pelvis/core stable Side bilateral Reps/Minutes 10x 3, last time after STM w/ PT assist Sitting Exercises Pelvic Rock Reps/Minutes 4' Comments Most discomfort with rounding of low back (umbar ext) Gait Training Gait Activity Level walking Description L hip shift with L STAnce phase Device Used none Level of Assistance air moving technician/cue to shift Surface Level Distance/Duration 7' Treatment Focus Improving gait mechanics w/o increasing R LB/LE pain. Manual Therapy Treatment Soft Tissue Mobilization Nelson IT Band Body Location R>L Mobilization Type Cross-Friction,Strumming Intensity/Depth Moderate Body Position Prone Coccygeal ms Body Location External at lateral sides of coccyx Mobilization Type Strumming,Sustained Pressure Intensity/Depth Moderate Body Position Prone Comments c/o R lateral upper thigh discomfort Sacrum Body Location R & CCW MFR & lateral border STM Mobilization Type Myofascial Release Intensity/Depth Superficial Body Position Prone LS area Body Location L>R, L/S paraspinals, scar, QL , gluteals Mobilization Type Cross-Friction Intensity/Depth Moderate Body Position Prone Comments 2 pillows under abdom/groin superficial STM to scar tissue /discontinued due to reports of numbness to R Hip. PT-OP-R Modalities Start: 10/24/24 16:19 Freq: Status: Active Protocol: Document 12/14/24 09:03 LRN (Rec: 12/14/24 09:54 LRN [id number]) Electric Stimulation Electric Stimulation interferential Body Location Lumbar>Lateral gluteal Intensity 22 Target/Sweep Sweep Patient Position Prone Combined With Heat/Cold Hot Pack Comments Pain after treatment was 3/10. PT-OP-T Assessment and Plan Start: 10/24/24 16:19 Freq: Status: Active Protocol: Document 12/19/24 09:51 LRN (Rec: 12/19/24 10:43 LRN [id number]) Physical Therapy Assessment Goals 3 Impairment Decreased mobility/endurance ( tols 1/4 mile walk) Short Term Goal (STG) Pt will be able to achieve a reportedly more restful sleep with modification of his sleeping position from stomach sleeping to side or back sleeping w/o making baseline pain worse. 11/09/2024 Patient reports sleeping on side painful last night, reports using pillow between knees and lying on left side 11/17/24: Pt reports sidelying on L w/ top leg on pillow now which is comfortable. 11/23/24: Painful night after walking over 1 mile that day. 11/27/24: Last 2 wks have been sleeping well and not waking up. STG Duration 12/15/24 (11/27/24: MET GOAL) Snf Goal (LTG) Decrease LB/R LE pain with core stabilization and self STM to be able to walk 1-2 miles (currently walks 0.25 - 1.5 miles with pain rated 10/ 10), without an increase in baseline pain. 11/14/24: Pt walked 2 miles w /o pain, but by bedtime had much pain and difficulty sleeping. 11/17/24: Pt clarifies Wednesday11/13/24 walked 1/4 mi w/o pain, then 6/10 pain constant but kept walking up to 2 mi and had 10/10 pain that evening. Reviewed walking progression starting 11/08 up to 1/4 mi pain-free and mindfulness of TrA activation and breath with activity. 11/21/24; Walked 1 mile with pain increase from 3 to 4/10. : Walked 1.5 mi w/o an incr in nighttime pain (2-3/ 10). 11/30/2024ble to walk nearly a mile prior to pain increaseing to 3-4/10. Patient ratea pain 12/11/2024 Patient reports he has had a set back with walking, has not attempted walking outdoors this week due to pain with walking, did walk in [employer] with cart 15- 20 min X 1 last week. Patient comments last he slept all night through the night which was the first time in over a week. 12/19/24: Pt walking 1 mile w /o increased pain all day and night. LTG Duration 02/08/25 progress if walk distance 1 mile 12/19/24 1 Impairment Pt lacks appropriate self care HEP. Short Term Goal (STG) Pt will be educated and will demonstrate log roll transfers , and proper sitting/standing posture. 11/07/24: Pt educated in log roll transfer. 11/09/24 Reviewd log roll and initiated hip hinge sit to stand. 11/17/24: Reviewed log roll transfer and sit to stant w/ hip hinge. 11/27/24: Pt educated in proper sit/stand posture. He is using good body mechanics for transfers. STG Duration 12/15/24 (11/27/24: MET GOAL) Snf Goal (LTG) Pt will be independent in a self care HEP for core/hip strengthening and mobility ex' s. 11/07/24: Pt I/S in Fig 4 stretch. 11/09/14 written instructions for figure 4 stretch given, added breathing from diaphragm in mod restorative pose, and resisted knee to chest to HEP( for core) 11/17/24: Pt i/s in TrA activation with breathwork using visual aids and self- monitoring medial to ASIS. 11/21/24: HEP: I/S in BKFO w / TrA and breath 11/30/2024 Peroneal nerve glide , prone hip IR AROM and seated hip abd with band (activation ) added to HEP 12/11/2024 Patient reports he only performed HEP 3 X last week, vs 3 x a day previously, comments he could'nt do ex when with his Son in [place] X 2 nights. SLS 3 sec L and right LE w/o UE use pre seated hip abd with band, 8 sec L right 15+ post seated hip abd with band/glute med activation LTG Duration 02/08/25 progresssed Assessment Summary Assessment Today, pt had minimal change with pain and didn't feel the EStim may help since his pain is in coccyx area with sitting . S/P treatment pain was more across the lower sacrum, and he was able to tolerate nelson hip IR in prone with greater mobility and less pain, although pain was still across the mid sacral region. It appears the pt is able to walk 1 mile w/o increase in LBP. Pt needs to see if he can slowly increase by 50' with walks. Physical Therapy Plan Frequency and Duration Frequency of Treatment 2x/Week Duration of treatment (weeks) 8 Plan of Care Start Date 12/12/24 Plan of Care End Date 02/08/25 Next Visit Focus/Plan Next Note Type Treatment Note Next Visit Plan Next: Focus on pain reduction and walking tolerance. Monitor & progress pt's walking program (LTG 3). Manual therapy for pain (STM) & retrolisthesis of L2-L3 & L4 -L5 and disc bulges. IF needed, very gentle L/S manual traction (note T12 hemangioma, and retrolisthesis L2-L3 & L4-L5); end if pt agreeable based on need, MH/IFES (avoid T12 hemangioma)>lower lumbar and sacral. POC: Therapeutic Ex ( strengthening/ROM), Ther Act, manual therapy (STM), Gait/ Balance for safe walking, Pt Education (HEP). Patient may benefit from piriformis stretch to HEP, modalities for pain.
--- NOTE | 2024-12-21 14:03 | PT.OTN ---
Current Diagnoses Radiculopathy, lumbar region (12/21/24) Physical Therapy Treatment Note PT-OP-A Visit Information Start: 10/24/24 16:19 Freq: Status: Active Protocol: Document 12/21/24 07:33 LRN (Rec: 12/21/24 08:18 LRN [id number]) Out-Patient Physical Therapy Visit Information Visit Information Visit Type Treatment Note Visit Start Time 07:33 Visit Stop Time 08:31 Visit Number 13 (2 after PN) Evaluation Information Evaluation Date 11/02/24 Precautions Precautions Lumbar spine disc bulges, 4mm of retrolisthesis of L2 on L3 and L4 on L5, acute vertebral body compression fractures, T12 hemangioma, and foraminal stenosis and mild multilevel canal stenosis, Bladder CA history, Meniere's disease status post shunt in the R ear in 70's and subsequent [place] R ear & [place] L ear, HTN, OA, elbow surgery. PT-OP-B Current Condition Start: 10/24/24 16:19 Freq: Status: Active Protocol: Document 11/02/24 08:18 LRN (Rec: 11/02/24 10:48 LRN [id number]) Current Condition History of Current Condition Onset Date 2 months agol Current Complaints R Low back and leg pain, sometimes L side. History of Current Condition Sudden onset R hip that has progressively worsening. Pain radiates into the back of the thigh and lateral leg, and recently is now starting to go down the L side. The pt states he expected the pain because in 2018 surgeons predicted L4-L5 nerve would have to be deadened, but his current surgeon feels injections and surgery would help, if PT doesn't help. He reports previous low back surgery to widen the route of the nerve. Position of sitting and lying down are most painful and standing is most comfortable. He sleeps mostly on his L side curled up or on stomach with head rotated left. 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 Prior Treatments and Tests 2016 had surgery for pinched nerve, level unknown. PT for back in 2021, with pain in R LB and LE that resolved itself . MRI 10/12/24 shows disc bulges in his lumbar spine, retrolisthesis 4 mm of L2 on L3 and 3 mm of L4 on L5, acute vertebral body compression fractures, T12 hemangioma, and foraminal stenosis with nerve root compression. Developmental History Developmental History MRI: 10/12/24 shows: Mild diffuse disc bulge L2-S1. Mild multilevel canal stenosis . Multilevel foraminal stenoses, worst at L5-S1 where there is associated intraforaminal nerve root compression. Recommend correlation with clinical symptoms to ascertain relevance of this finding. Treatment Goals Patient/Caregiver Goals Pt goals: -Tolerable pain to be able to walk 2 miles with tolerable pain at end (now walks 1/4 mile). Currently his pain at end of walk is 10/10. - Improve mobility to be able to change beds, do laundry, or cleaning house w/pain less than 5/10 (normal pain is 4/10 ). Personal Factors Other Personal Factors That May Effect Lives alone, difficult Therapy/Recovery changing beds, doing laundry, cleaning house. 'Normal pain is 4/10, with activities, 10/ 10. Has a son local and one in [place]. Hx of cancer - bladder cancer - 8 yrs of treatment, no longer signs of cancer. Tip of R radius removed at elbow and had R wrist surgery - a year ago. Neck pain. PT-OP-C Subjective Start: 10/24/24 16:19 Freq: Status: Active Protocol: Document 12/21/24 07:33 LRN (Rec: 12/21/24 08:18 LRN [id number]) OP-PT Subjective Patient Comments Patient Comments c/o L hip pain, that started 45' ago, rated 6/10. Yesterday walked 1.5 miles w/o pain at end. States he felt pretty good after he left here last session. Pain same at end of treatment. PT-OP-J Posture/Palpation/Skin Start: 10/24/24 16:19 Freq: Status: Active Protocol: Document 11/02/24 08:18 LRN (Rec: 11/02/24 10:48 LRN [id number]) Posture Evaluation Position Standing Head/C-Spine Posture Side Bent Left,Forward Head T-Spine Posture Increased Kyphosis L-Spine Posture Increased Lordosis,Shifted Left Pelvis Posture Anteriorly Tilted,(L) Iliac Crest Superior Comments Posture Comments Mild varus of lower legs. Shift to L at L1, L2. Palpation Assessment Location Low back Palpation Location R ischial tub is elevated. L/ S paraspinals tight Palpation Details Palpation of L/S paraspinals and in region of facet joints elicits pain down the leg. PT-OP-K Range of Motion Start: 10/24/24 16:19 Freq: Status: Active Protocol: Document 11/07/24 09:05 LRN (Rec: 11/07/24 09:26 LRN [id number]) Hip Goniometric Range of Motion Hip Right Passive Testing Position Supine Straight Leg Raise 72 Abduction 45 Internal Rotation 30 External Rotation 35 Left Passive Testing Position Supine Straight Leg Raise 60 Abduction 50 Internal Rotation 35 External Rotation 30 PT-OP-L Special Tests Start: 10/24/24 16:19 Freq: Status: Active Protocol: Document 11/02/24 08:18 LRN (Rec: 11/02/24 10:48 LRN [id number]) Special Tests Lumbar Spine Special Tests Slump Test Results + bilaterally with knee ext ( without slump) Comments Elicits LE Pain. Vertical Spine Loading Test Results + Comments Elicits R LE Pain. PT-OP-M Strength Start: 10/24/24 16:19 Freq: Status: Active Protocol: Document 11/07/24 09:05 LRN (Rec: 11/07/24 09:26 LRN [id number]) Trunk Strength Trunk Manual Muscle Testing Core Stabilization Pt is able to hold core stable with mild to moderate hip mobility resistance. Hip Strength Hip Manual Muscle Testing Right Flexion (L2) 4 Good Abduction 2- Poor- Adduction 2 Poor Left Flexion (L2) 4 Good Abduction 4 Good Adduction 2- Poor- PT-OP-Q Treatments Start: 10/24/24 16:19 Freq: Status: Active Protocol: Document 12/21/24 07:33 LRN (Rec: 12/21/24 08:18 LRN [id number]) Therapeutic Exercises Sidelying Exercises Open Book Reps/Minutes 11' Manual Therapy Treatment Soft Tissue Mobilization LS area Body Location L>R, L/S paraspinals, QL, gluteals Mobilization Type Myofascial Release,Strumming Intensity/Depth Superficial Body Position Prone Comments 1 pillow under abdom/groin. 19' Joint Mobilizations Rib mob Joint L ribs Direction Infer mobs Grade II Body Position R Sidelie Reps/Duration 8' Comments L arm overhead supported and AB w/each breath. Manual Traction Lumbar Details Gentle L/S traction Body Position Prone Reps/Duration 8' Comments Pain in lateral thighs decreased to 3/10 w/traction. PT-OP-R Modalities Start: 10/24/24 16:19 Freq: Status: Active Protocol: Document 12/21/24 07:33 LRN (Rec: 12/21/24 13:50 LRN [id number]) Electric Stimulation Electric Stimulation interferential Body Location Lumbar>Lateral gluteal Intensity 23 Target/Sweep Sweep Patient Position Prone Combined With Heat/Cold Hot Pack Comments Pain after treatment was 6/10. PT-OP-T Assessment and Plan Start: 10/24/24 16:19 Freq: Status: Active Protocol: Document 12/21/24 07:33 LRN (Rec: 12/21/24 08:18 LRN [id number]) Physical Therapy Assessment Goals 3 Impairment Decreased mobility/endurance ( tols 1/4 mile walk) Short Term Goal (STG) Pt will be able to achieve a reportedly more restful sleep with modification of his sleeping position from stomach sleeping to side or back sleeping w/o making baseline pain worse. 11/09/2024 Patient reports sleeping on side painful last night, reports using pillow between knees and lying on left side 11/17/24: Pt reports sidelying on L w/ top leg on pillow now which is comfortable. 11/23/24: Painful night after walking over 1 mile that day. 11/27/24: Last 2 wks have been sleeping well and not waking up. STG Duration 12/15/24 (11/27/24: MET GOAL) Mcfp Goal (LTG) Decrease LB/R LE pain with core stabilization and self STM to be able to walk 1-2 miles (currently walks 0.25 - 1.5 miles with pain rated 10/ 10), without an increase in baseline pain. 11/14/24: Pt walked 2 miles w /o pain, but by bedtime had much pain and difficulty sleeping. 11/17/24: Pt clarifies Wednesday11/13/24 walked 1/4 mi w/o pain, then 6/10 pain constant but kept walking up to 2 mi and had 10/10 pain that evening. Reviewed walking progression starting w/ /8 up to 1/4 mi pain-free and mindfulness of TrA activation and breath with activity. 11/21/24; Walked 1 mile with pain increase from 3 to 4/10. : Walked 1.5 mi w/o an incr in nighttime pain (2-3/ 10). 11/30/2024ble to walk nearly a mile prior to pain increaseing to 3-4/10. Patient ratea pain 12/11/2024 Patient reports he has had a set back with walking, has not attempted walking outdoors this week due to pain with walking, did walk in [employer] with cart 15- 20 min X 1 last week. Patient comments last he slept all night through the night which was the first time in over a week. 12/19/24: Pt walking 1 mile w /o increased pain all day and night. 12/21/24: Walked 1.5 miles w/ o incr'd pain that night, L hip pain next day at start & end of therapy is 6/10. LTG Duration 02/08/25 progress 12/19/24 1 Impairment Pt lacks appropriate self care HEP. Short Term Goal (STG) Pt will be educated and will demonstrate log roll transfers , and proper sitting/standing posture. 11/07/24: Pt educated in log roll transfer. 11/09/24 Reviewd log roll and initiated hip hinge sit to stand. 11/17/24: Reviewed log roll transfer and sit to stant w/ hip hinge. 11/27/24: Pt educated in proper sit/stand posture. He is using good body mechanics for transfers. STG Duration 12/15/24 (11/27/24: MET GOAL) Mcfp Goal (LTG) Pt will be independent in a self care HEP for core/hip strengthening and mobility ex' s. 11/07/24: Pt I/S in Fig 4 stretch. 11/09/14 written instructions for figure 4 stretch given, added breathing from diaphragm in mod restorative pose, and resisted knee to chest to HEP( for core) 11/17/24: Pt i/s in TrA activation with breathwork using visual aids and self- monitoring medial to ASIS. 11/21/24: HEP: I/S in BKFO w / TrA and breath 11/30/2024 Peroneal nerve glide , prone hip IR AROM and seated hip abd with band (activation ) added to HEP 12/11/2024 Patient reports he only performed HEP 3 X last week, vs 3 x a day previously, comments he could'nt do ex when with his Son in [place] X 2 nights. SLS 3 sec L and right LE w/o UE use pre seated hip abd with band, 8 sec L right 15+ post seated hip abd with band/glute med activation LTG Duration 02/08/25 progresssed Assessment Summary Assessment ........ 79 yo male initially seen for kayla LE radiculopathy (R>L) due to DDD, T12 hemangioma, and retrolisthesis L2-L3 & L4-L5 and lateral shift of the L/S left. The pt has had pain mainly on R side , but today with lumbar STM/ MFR cephalic glide increases L sided pain w/radiation into lateral thigh, but caudal glide relieved the pain. No pain relief with EStim. Physical Therapy Plan Frequency and Duration Frequency of Treatment 2x/Week Duration of treatment (weeks) 8 Plan of Care Start Date 12/12/24 Plan of Care End Date 02/08/25 Next Visit Focus/Plan Next Note Type Treatment Note Next Visit Plan Next: DC EStim due to no change in pain. Focus on gentle STM to decr pain and improve walking tolerance. Monitor & progress pt's walking program (LTG 3). Manual therapy for pain (STM) & retrolisthesis of L2-L3 & L4 -L5 and disc bulges. IF needed, very gentle L/S manual traction (note T12 hemangioma, and retrolisthesis L2-L3 & L4-L5); DC MH/IFES (avoiding T12 hemangioma)>lower lumbar and sacral. POC: Therapeutic Ex ( strengthening/ROM), Ther Act, manual therapy (STM), Gait/ Balance for safe walking, Pt Education (HEP). Patient may benefit from piriformis stretch to HEP, modalities for pain.
--- NOTE | 2024-12-26 17:56 | PT.OTN ---
Current Diagnoses Radiculopathy, lumbar region (12/26/24) Physical Therapy Treatment Note PT-OP-A Visit Information Start: 10/24/24 16:19 Freq: Status: Active Protocol: Document 12/26/24 09:05 LRN (Rec: 12/26/24 09:52 LRN [id number]) Out-Patient Physical Therapy Visit Information Visit Information Visit Type Treatment Note Visit Start Time 09:05 Visit Stop Time 09:48 Visit Number 14 (3 after PN) Evaluation Information Evaluation Date 11/02/24 Precautions Precautions Lumbar spine disc bulges, 4mm of retrolisthesis of L2 on L3 and L4 on L5, acute vertebral body compression fractures, T12 hemangioma, and foraminal stenosis and mild multilevel canal stenosis, Bladder CA history, Meniere's disease status post shunt in the R ear in 70's and subsequent [place] R ear & [place] L ear, HTN, OA, elbow surgery. PT-OP-B Current Condition Start: 10/24/24 16:19 Freq: Status: Active Protocol: Document 11/02/24 08:18 LRN (Rec: 11/02/24 10:48 LRN [id number]) Current Condition History of Current Condition Onset Date 2 months agol Current Complaints R Low back and leg pain, sometimes L side. History of Current Condition Sudden onset R hip that has progressively worsening. Pain radiates into the back of the thigh and lateral leg, and recently is now starting to go down the L side. The pt states he expected the pain because in 2018 surgeons predicted L4-L5 nerve would have to be deadened, but his current surgeon feels injections and surgery would help, if PT doesn't help. He reports previous low back surgery to widen the route of the nerve. Position of sitting and lying down are most painful and standing is most comfortable. He sleeps mostly on his L side curled up or on stomach with head rotated left. 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 Prior Treatments and Tests 2016 had surgery for pinched nerve, level unknown. PT for back in 2021, with pain in R LB and LE that resolved itself . MRI 10/12/24 shows disc bulges in his lumbar spine, retrolisthesis 4 mm of L2 on L3 and 3 mm of L4 on L5, acute vertebral body compression fractures, T12 hemangioma, and foraminal stenosis with nerve root compression. Developmental History Developmental History MRI: 10/12/24 shows: Mild diffuse disc bulge L2-S1. Mild multilevel canal stenosis . Multilevel foraminal stenoses, worst at L5-S1 where there is associated intraforaminal nerve root compression. Recommend correlation with clinical symptoms to ascertain relevance of this finding. Treatment Goals Patient/Caregiver Goals Pt goals: -Tolerable pain to be able to walk 2 miles with tolerable pain at end (now walks 1/4 mile). Currently his pain at end of walk is 10/10. - Improve mobility to be able to change beds, do laundry, or cleaning house w/pain less than 5/10 (normal pain is 4/10 ). Personal Factors Other Personal Factors That May Effect Lives alone, difficult Therapy/Recovery changing beds, doing laundry, cleaning house. 'Normal pain is 4/10, with activities, 10/ 10. Has a son local and one in [place]. Hx of cancer - bladder cancer - 8 yrs of treatment, no longer signs of cancer. Tip of R radius removed at elbow and had R wrist surgery - a year ago. Neck pain. PT-OP-C Subjective Start: 10/24/24 16:19 Freq: Status: Active Protocol: Document 12/26/24 09:05 LRN (Rec: 12/26/24 09:52 LRN [id number]) OP-PT Subjective Patient Comments Patient Comments ER on Fri (4 days ago) due to L LB pain. [place] only a little better after last treatment. The night of therapy had severe L LBP and went to ER the next day. States 2 nights ago woke up wet (was in deep sleep) and during the day had normal bladder/bowel control. Last night had a little dampness in underwear and PJ, not the bed , but did get up several times in the night to urinate. This Fri has consult with doing a cortisone injection into the LB. Currently, starting to have L lateral hip pain (took NO medications this morning). Has been sleeping on his non-painful side or stomach. This morning had a little pain in R hip, most pain in L LB/hip/lat thigh. Pain to start was 2/10 in L hip/lat thigh, w/ traction 0/10, stopping of traction pain is 2/10. Patient Questionnaires Oswestry Low Back Index Oswestry Score 52 Oswestry Impairment 40 to 59% Impaired (Score 40- 59) OP-PT Pain Assessment Pain Assessment Grid Paper Pain Assessment Grid Completed Yes Location Low back Pain Location Details L LB/Lateral hip & R hip Intensity 2 Scale Used Numeric (0 - 10) PT-OP-J Posture/Palpation/Skin Start: 10/24/24 16:19 Freq: Status: Active Protocol: Document 12/26/24 09:05 LRN (Rec: 12/26/24 18:34 LRN [id number]) Palpation Assessment Location Low back Palpation Location L LB/lateral thigh Palpation Findings Soft Tissue Tightness, Tenderness Palpation Details No pain on R LB/thigh PT-OP-K Range of Motion Start: 10/24/24 16:19 Freq: Status: Active Protocol: Document 11/07/24 09:05 LRN (Rec: 11/07/24 09:26 LRN [id number]) Hip Goniometric Range of Motion Hip Right Passive Testing Position Supine Straight Leg Raise 72 Abduction 45 Internal Rotation 30 External Rotation 35 Left Passive Testing Position Supine Straight Leg Raise 60 Abduction 50 Internal Rotation 35 External Rotation 30 PT-OP-L Special Tests Start: 10/24/24 16:19 Freq: Status: Active Protocol: Document 11/02/24 08:18 LRN (Rec: 11/02/24 10:48 LRN [id number]) Special Tests Lumbar Spine Special Tests Slump Test Results + bilaterally with knee ext ( without slump) Comments Elicits LE Pain. Vertical Spine Loading Test Results + Comments Elicits R LE Pain. PT-OP-M Strength Start: 10/24/24 16:19 Freq: Status: Active Protocol: Document 11/07/24 09:05 LRN (Rec: 11/07/24 09:26 LRN [id number]) Trunk Strength Trunk Manual Muscle Testing Core Stabilization Pt is able to hold core stable with mild to moderate hip mobility resistance. Hip Strength Hip Manual Muscle Testing Right Flexion (L2) 4 Good Abduction 2- Poor- Adduction 2 Poor Left Flexion (L2) 4 Good Abduction 4 Good Adduction 2- Poor- PT-OP-Q Treatments Start: 10/24/24 16:19 Freq: Status: Active Protocol: Document 12/26/24 09:05 LRN (Rec: 12/26/24 09:52 LRN [id number]) Manual Therapy Treatment Soft Tissue Mobilization LS area Body Location L QL, paraspinals, gluteals Mobilization Type Other Body Position Prone Joint Mobilizations L innominate Joint Intermittent L innominate Inferior glide Grade I Body Position Sidelying Reps/Duration 2 SH/Relax Manual Traction Lumbar Details Gentle intermittent L/S traction at ASIS, anter thighs , behind lower legs Body Position Prone Reps/Duration 5' x 2 Comments Best pain relief from Tx at ASIS'. Pain from 2/10 to 0/10, but when tx stopped, returned to 2 /10. Self-Care/Home Management Treatment Education Other Education Pt lead discussion of ER visit since last session and future plans of medical treatment of Cortisone injection by Dr. Claudio at [facility] [place] in [place] on and the a surgical consult in [place] for 2nd opinion regarding lumbar surgery. Activities Self-Care/Home Management Activities Discussed & advised pt to avoid lifting, exercise ( especially walking) and housework, even if he feels good, until he can be assessed for cortisone injection on . Advised pt to use good body mechanics. PT-OP-R Modalities Start: 10/24/24 16:19 Freq: Status: Active Protocol: Document 12/21/24 07:33 LRN (Rec: 12/21/24 13:50 LRN [id number]) Electric Stimulation Electric Stimulation interferential Body Location Lumbar>Lateral gluteal Intensity 23 Target/Sweep Sweep Patient Position Prone Combined With Heat/Cold Hot Pack Comments Pain after treatment was 6/10. PT-OP-T Assessment and Plan Start: 10/24/24 16:19 Freq: Status: Active Protocol: Document 12/26/24 09:05 LRN (Rec: 12/26/24 09:52 LRN [id number]) Physical Therapy Assessment Goals 3 Impairment Decreased mobility/endurance ( tols 1/4 mile walk) Short Term Goal (STG) Pt will be able to achieve a reportedly more restful sleep with modification of his sleeping position from stomach sleeping to side or back sleeping w/o making baseline pain worse. 11/09/2024 Patient reports sleeping on side painful last night, reports using pillow between knees and lying on left side 11/17/24: Pt reports sidelying on L w/ top leg on pillow now which is comfortable. 11/23/24: Painful night after walking over 1 mile that day. 11/27/24: Last 2 wks have been sleeping well and not waking up. STG Duration 12/15/24 (11/27/24: MET GOAL) Skilled Nursing Goal (LTG) Decrease LB/R LE pain with core stabilization and self STM to be able to walk 1-2 miles (currently walks 0.25 - 1.5 miles with pain rated 10/ 10), without an increase in baseline pain. 11/14/24: Pt walked 2 miles w /o pain, but by bedtime had much pain and difficulty sleeping. 11/17/24: Pt clarifies Wednesday11/13/24 walked 1/4 mi w/o pain, then 6/10 pain constant but kept walking up to 2 mi and had 10/10 pain that evening. Reviewed walking progression starting w/ /8 mi up to 1/4 mi pain-free and mindfulness of TrA activation and breath with activity. 11/21/24; Walked 1 mile with pain increase from 3 to 4/10. : Walked 1.5 mi w/o an incr in nighttime pain (2-3/ 10). 11/30/2024ble to walk nearly a mile prior to pain increaseing to 3-4/10. Patient ratea pain 12/11/2024 Patient reports he has had a set back with walking, has not attempted walking outdoors this week due to pain with walking, did walk in [employer] with cart 15- 20 min X 1 last week. Patient comments last he slept all night through the night which was the first time in over a week. 12/19/24: Pt walking 1 mile w /o increased pain all day and night. 12/21/24: Walked 1.5 miles w/ o incr'd pain that night, L hip pain next day at start & end of therapy is 6/10. 12/26/24: Pt not able to walk due to new medications from ER visit on experiencing L LB/ hip pain and no R LB/hip pain. LTG Duration 02/08/25 (12/26/24: progressed, NOT MET GOAL) 2 Impairment Pain rated 7-8/10, after activity 10/10. Short Term Goal (STG) Pt will be educated in self care pain/inflammation management with cold pack/hot pack, and proper body mechanics for ADLs. 11/09/2024 Pt ed ed mod rest pose with breathing from diaph to unload spine and relax hip muscles in place of C in rice for compression. 11/23/24: Issued handouts: Body mechanics, ADLs w/correct body mechanics, positioning and use of cryotherapy for pain management. STG Duration 12/15/24 (11/23/24: MET GOAL) Skilled Nursing Goal (LTG) Decrease pain with activity with pt able to improve mobility to be able to either changing bedding, do laundry, or cleaning house, by modifying techniques and time of activity w/o increasing in baseline pain. 11/21/24: Pt is changing beds , laundry, & vacuuming, at different times during the week (not all on the same day) w/o an increase in pain, LBP is typically 4/10. LTG Duration 01/26/25 (11/21/24: MET GOAL ) 1 Impairment Pt lacks appropriate self care HEP. Short Term Goal (STG) Pt will be educated and will demonstrate log roll transfers , and proper sitting/standing posture. 11/07/24: Pt educated in log roll transfer. 11/09/24 Reviewd log roll and initiated hip hinge sit to stand. 11/17/24: Reviewed log roll transfer and sit to stant w/ hip hinge. 11/27/24: Pt educated in proper sit/stand posture. He is using good body mechanics for transfers. STG Duration 12/15/24 (11/27/24: MET GOAL) Skilled Nursing Goal (LTG) Pt will be independent in a self care HEP for core/hip strengthening and mobility ex' s. 11/07/24: Pt I/S in Fig 4 stretch. 11/09/14 written instructions for figure 4 stretch given, added breathing from diaphragm in mod restorative pose, and resisted knee to chest to HEP( for core) 11/17/24: Pt i/s in TrA activation with breathwork using visual aids and self- monitoring medial to ASIS. 11/21/24: HEP: I/S in BKFO w / TrA and breath 11/30/2024 Peroneal nerve glide , prone hip IR AROM and seated hip abd with band (activation ) added to HEP 12/11/2024 Patient reports he only performed HEP 3 X last week, vs 3 x a day previously, comments he could'nt do ex when with his Son in [place] X 2 nights. SLS 3 sec L and right LE w/o UE use pre seated hip abd with band, 8 sec L right 15+ post seated hip abd with band/glute med activation LTG Duration 02/08/25 (12/26/24: Partially met goal) Assessment Summary Assessment 79 yo male initially seen for kayla LE radiculopathy (R>L) due to DDD, T12 hemangioma, and retrolisthesis L2-L3 & L4-L5 and lateral shift of the L/S left. On initial evaluation the pt was having LBP & R lateral thigh pain. Today, the pt attends with report of flair up of LBP & L lateral thigh pain with no pain on R LE, that took him to the ER 4 days ago (12/22/24). He has 2 Lidocaine patches on, on either side of his sacral border. He admits the R side patch was placed for precautionary purposes. He is able to perform sit<>stand safely, but very slowly. Ex's were held today due to his recent flair up. The pt did find some relief of his pain with gentle lumbar traction with pelvic and L innominate inferior glide. The pt was Physical Therapy Plan Discharge Physical Therapy Discharge Reasons Change in Medical Status Discharge Comments Pt attended to therapy today with no c/o L LB/hip pain, and later in the day R sided pain , but with the new medications he currently has no R sided pain, only L LB/lateral thigh pain. The pt has had a change in his status and at the agreement of the pt, is being discharged because he is expecting to receive a cortisone injection on 12/29/24 and will consult with a surgeon for back surgery. The pt has HEP that he is to hold on doing until after his doctor visits on 12/29/24. The pt expects to return to therapy after a low back surgery. Thank you for your referral.
== END 2024-12-28 14:06 | disposition home or self-care (01) ==
LOC: PHYS 09:00
PROVIDERS: Family Provider Internal Medicine; PCP Internal Medicine; Referring Provider Orthopaedic Surgery Orthopaedic Surgery of the Spine; Visit Provider Orthopaedic Surgery Orthopaedic Surgery of the Spine
DX: M54.16 Radiculopathy, lumbar region (principal)
CPT/HCPCS: 97014; 97110; 97140; 97162; 97530; 97535; G0283

== ENCOUNTER → 2025-04-19 08:28 | Outpatient (CLI) | payer MEDICARE, OTHER, SELFPAY ==
[2024-10-02 08:42] VITALS: BMI 25.2
[2025-04-19 08:42] LABS: Add Manual Diff / Slide Review NO; Basophils Absolute Auto 100 /uL (0-100); Basophils Percent Auto 1.2 % (0-2); Eosinophils Absolute Auto 200 /uL (0-450); Eosinophils Percent Auto 2.6 % (2-4); Hematocrit 46.6 % (41-53); Hemoglobin 15.8 g/dL (13.5-17.5); Lymphocytes Absolute Auto 1600 /uL (1100-4500); Lymphocytes Percent Auto 25.6 % (25-40); Mean Corpuscular Hemoglobin 33.8 PG (26-34); Mean Corpuscular Volume 99.5 fL (80-100); Monocytes Absolute Auto 500 /uL (0-900); Monocytes Percent Auto 8.6 % (3-14); Neutrophils Absolute Auto 3900 /uL (1500-7000); Platelet Count 229 X10^3/uL (150-400); Red Blood Cell Count 4.69 X10^6/uL (4.5-5.9); Red Cell Distribution Width 13.8 % (11.6-14.8); White Blood Cell Count 6.3 X10^3/uL (4.5-11.0)
[2025-04-19 09:34] LABS: Alanine Aminotransferase 38 IU/L (<50); Albumin 4.7 g/dL (3.5-5.0); Albumin Globulin Ratio 2.1 (1.0-2.8); Alkaline Phosphatase 54 U/L (38-126); Aspartate Aminotransferase 32 IU/L (17-59); BUN Creatinine Ratio 16.1 (6-22); Bilirubin Total 0.8 mg/dL (0.2-1.3); Blood Urea Nitrogen 18 mg/dL (9-20); Carbon Dioxide 29 mmol/L (22-32); Chloride 98 mmol/L (98-107); Cholesterol 167 mg/dL (140-199); Estimated Glomerular Filt Rate > 60 mL/min (>60); Globulin 2.2 g/dL (1.7-4.1); Glucose 101 mg/dL (70-99); HDL Cholesterol 66 mg/dL (40-60); HEMOLYSIS < 15 (0-50); LDL Cholesterol Calculated 77 mg/dL (<100); Sodium 136 mmol/L (137-145); Total Protein 6.9 g/dL (6.3-8.2); Triglycerides 122 mg/dL (35-150)
== END ==
PROVIDERS: Family Provider Internal Medicine; PCP Internal Medicine; Referring Provider Internal Medicine; Visit Provider Internal Medicine
DX: E78.2 Mixed hyperlipidemia (principal); K21.9 Gastro-esophageal reflux disease without esophagitis; D64.9 Anemia, unspecified
CPT/HCPCS: 36415; 80053; 80061; 85025

== ENCOUNTER → 2025-06-01 14:42 | Outpatient (CLI) | payer MEDICARE, OTHER, SELFPAY ==
[2024-10-02 08:42] VITALS: BMI 25.2
--- NOTE | 2025-06-01 14:43 | DI.RAD.S_ITS ---
PROCEDURE: XR FINGER RT MIN 2V INDICATIONS: laceration, injury TECHNIQUE: AP hand, 3 views of the 5th finger(s) acquired. COMPARISON: None. FINDINGS: Bones: No fractures or dislocations. No suspicious bony lesions. Soft tissues: No suspicious soft tissue calcifications. IMPRESSION: No acute bony abnormality. Dictated by: Haja Eugene M.D. on 06/02/2025 at 23:34 Approved by: Haja Eugene M.D. on 06/02/2025 at 23:35
== END ==
PROVIDERS: PCP Internal Medicine; Referring Provider Nurse Practitioner Family; Visit Provider Nurse Practitioner Family
DX: S61.219A Laceration without foreign body of unspecified finger without damage to nail, initial encounter (principal)
CPT/HCPCS: 73140

== ENCOUNTER 2025-09-13 09:45 | Outpatient (RCR) | payer MEDICARE, OTHER, SELFPAY ==
[2024-10-02 08:42] VITALS: BMI 25.2
--- NOTE | 2025-07-31 11:58 | PT.OIE ---
Current Diagnoses Other chronic pain (07/31/25) Low back pain, unspecified (07/31/25) Unspecified abnormalities of gait and mobility (07/31/25) Past Medical History (Last Updated 07/03/25 @ 11:32 by Bala Dutton MD) BPH (benign prostatic hyperplasia) Chronic back pain (~2002) COVID (~09/2022) Deep vein thrombosis (~2003) Degenerative disc disease (DDD) of lumbar region with discogenic back pain and leg pain Depression (~2018) Fractures (~1961) GERD (gastroesophageal reflux disease) (~2001) Gout (~2005) H/O adenomatous polyp of colon Hearing loss (~1972) Hyperlipidemia Hypertension Measles (~1946) Osteoarthritis Rheumatic aortic disease Rheumatic fever (~1944) Scoliosis (~2015) Seasonal allergies (~1989) Tremor (~2003) Vertigo (~1972) Vision disorder Past Surgical History (Last Updated 05/10/25 @ 16:17 by Jose Vasquez DO) Anesthesia Bladder cancer (~2010) H/O discectomy (~2016) H/O elbow surgery (~1961) History of cystoscopy History of lumbar surgery History of tonsillectomy Meniere disease (~1972) S/P TURP S/P ventricular shunt placement Visit Care Team Role Provider Type Bala Dutton MD Attending Provider Physician Family Provider Other Providers Primary Care Provider Referring Provider Specialty: Internal Medicine Address: [address] [place] [address], [address], [facility] Email: [email or web address] Physical Therapy Initial Evaluation PT OP: Lower Back/Lower Extremity Start: 07/31/25 09:48 Freq: Status: Active Protocol: Document 07/31/25 09:49 MARGARITO (Rec: 07/31/25 10:45 MARGARITO [id number]) Out-Patient Physical Therapy Visit Information Visit Information Visit Type Initial Evaluation Visit Start Time 09:45 Visit Stop Time 10:30 Visit Number 1 Number of [employer] Visits 0 Progress Note Due 08/30/25 Evaluation Information Evaluation Date 07/31/25 OP-PT Subjective Patient Comments Patient Comments History of current diagnosis: Patient reports he has chronic low back pain and balance issues. He reports his back pain has improved a good deal at this point and his primary concern is his balance and inability to walk well at the moment. 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 He reports his balance started to get worse about two months ago. He has had no falls. He has resumed use of his SPC a week ago due to feeling his balance issues are getting worse. He reports he was walking up to a mile and half recently but stopped last week. He was walking up to 5 miles at a time as recently as July of 2024. 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 Pain location: Pain description: Pain 0-10/10 (current): Pain 0-10/10 (worst): Pain 0-10/10 (best): Aggravating: Alleviating: Function prior to injury: Independent with all ADLs Function current: Independent with all ADLs - limited with walking extended distances Patient goals: Improve gait, and balance Balance Tests Semi-Tandem Standing Semi-Tandem Standing L: 5, R: 4 Balance Functional Tests 6 Minute Walk Test Distance 1239 Device Used SPC Five Times Sit to Stand Test Score 12.43 Timed Up and Go (TUG) Score 11.6 TUG Impairment 1 to <20% Impaired (Score 11) Rating Physical Therapy Assessment Goals Three Impairment Walking capacity Short Term Goal (STG Patient will demonstrate an increase in 6mWT time to 1, ) 320' in order to better function with ambulating around his community. STG Duration 3 weeks [employer] Goal (LTG) Patient will demonstrate an increase in 6mWT time to 1, 420' in order to better function with ambulating around his community. LTG Duration 6 weeks Two Impairment General balance/ mobility Short Term Goal (STG Patient will demonstrate a reduction in TUG time to 10 ) seconds in order to better function with navigating short distances around his home. STG Duration 3 weeks [employer] Goal (LTG) Patient will demonstrate a reduction in TUG time to 8.5 seconds in order to better function with navigating short distances around his home. LTG Duration 6 weeks One Impairment Gross LE strength Short Term Goal (STG Patient will demonstrate a reduction in 5xSTS time to ) 10.4 in order to better function with standing from a chair and reduce risk of fall. STG Duration 3 weeks [employer] Goal (LTG) Patient will demonstrate a reduction in 5xSTS time to 8 .4 in order to better function with standing from a chair and reduce risk of fall. LTG Duration 6 weeks Assessment Summary Assessment Patient presenting to PT with complaints of chronic balance deficits that limit his ability to go for his daily walks for exercise. Objective investigation revealed deficits in gross LE strength (see objective measures: 5xSTS), general balance/ mobility (See objective measures: TUG), and walking capacity (see objective measures: 6mWT). Presentation is consistent with generalized balance deficits and patient will benefit from PT to address deficits and return to prior level of function. Physical Therapy Plan Frequency and Duration Frequency of 2x/Week Treatment Duration of 12 treatment (weeks) Plan of Care Start 07/31/25 Date Plan of Care End 10/29/25 Date Therapeutic Interventions Therapeutic Aquatic Therapy,Balance Training,Coordination Training, Interventions Gait Training,Home Exercise Program,Joint Mobilizations ,Manual Therapy,Neuromuscular Re-education,Patient/ Caregiver Education,Self-Care/Home Management,Sensory Integration,Soft Tissue Mobilization,Taping,Therapeutic Activities,Therapeutic Exercises,Vestibular Rehabilitation Modalities Biofeedback,Cold Pack/Ice Massage,Electric Stimulation, Hot Packs,Infrared Therapy,Iontophoresis,Traction- Mechanical,Ultrasound,Vasopneumatic Devices Next Visit Focus/Plan Next Note Type Treatment Note Next Visit Plan Initiate treatment with focus on general LE strength and balance. Include exercises: tandem stance, STS, step ups (UE support limited), gait training, standing marches, lateral band walks.
--- NOTE | 2025-07-31 12:01 | PT.OPPOC ---
Physical, Occupational & Speech Therapy At [facility] Current Diagnoses Other chronic pain (07/31/25) Low back pain, unspecified (07/31/25) Unspecified abnormalities of gait and mobility (07/31/25) Visit Care Team Role Provider Type Bala Dutton MD Attending Provider Physician Family Provider Other Providers Primary Care Provider Referring Provider Specialty: Internal Medicine Address: [address] [place] [address], [address], [id number] Email: [email or web address] Plan Of Care PT OP: Lower Back/Lower Extremity Start: 07/31/25 09:48 Freq: Status: Active Protocol: Document 07/31/25 09:49 MARGARITO (Rec: 07/31/25 10:45 MARGARITO [id number]) Out-Patient Physical Therapy Visit Information Visit Information Visit Type Initial Evaluation Visit Start Time 09:45 Visit Stop Time 10:30 Visit Number 1 Number of RECYCLING ASSISTANT Visits 0 Progress Note Due 08/30/25 Evaluation Information Evaluation Date 07/31/25 OP-PT Subjective Patient Comments Patient Comments History of current diagnosis: Patient reports he has chronic low back pain and balance issues. He reports his back pain has improved a good deal at this point and his primary concern is his balance and inability to walk well at the moment. 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 He reports his balance started to get worse about two months ago. He has had no falls. He has resumed use of his SPC a week ago due to feeling his balance issues are getting worse. He reports he was walking up to a mile and half recently but stopped last week. He was walking up to 5 miles at a time as recently as July of 2024. 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 Pain location: Pain description: Pain 0-10/10 (current): Pain 0-10/10 (worst): Pain 0-10/10 (best): Aggravating: Alleviating: Function prior to injury: Independent with all ADLs Function current: Independent with all ADLs - limited with walking extended distances Patient goals: Improve gait, and balance Balance Tests Semi-Tandem Standing Semi-Tandem Standing L: 5, R: 4 Balance Functional Tests 6 Minute Walk Test Distance 1239 Device Used SPC Five Times Sit to Stand Test Score 12.43 Timed Up and Go (TUG) Score 11.6 TUG Impairment 1 to <20% Impaired (Score 11) Rating Physical Therapy Assessment Goals Three Impairment Walking capacity Short Term Goal (STG Patient will demonstrate an increase in 6mWT time to 1, ) 320' in order to better function with ambulating around his community. STG Duration 3 weeks Vendor Analyst Goal (LTG) Patient will demonstrate an increase in 6mWT time to 1, 420' in order to better function with ambulating around his community. LTG Duration 6 weeks Two Impairment General balance/ mobility Short Term Goal (STG Patient will demonstrate a reduction in TUG time to 10 ) seconds in order to better function with navigating short distances around his home. STG Duration 3 weeks Vendor Analyst Goal (LTG) Patient will demonstrate a reduction in TUG time to 8.5 seconds in order to better function with navigating short distances around his home. LTG Duration 6 weeks One Impairment Gross LE strength Short Term Goal (STG Patient will demonstrate a reduction in 5xSTS time to ) 10.4 in order to better function with standing from a chair and reduce risk of fall. STG Duration 3 weeks Intermediate Goal (LTG) Patient will demonstrate a reduction in 5xSTS time to 8 .4 in order to better function with standing from a chair and reduce risk of fall. LTG Duration 6 weeks Assessment Summary Assessment Patient presenting to PT with complaints of chronic balance deficits that limit his ability to go for his daily walks for exercise. Objective investigation revealed deficits in gross LE strength (see objective measures: 5xSTS), general balance/ mobility (See objective measures: TUG), and walking capacity (see objective measures: 6mWT). Presentation is consistent with generalized balance deficits and patient will benefit from PT to address deficits and return to prior level of function. Physical Therapy Plan Frequency and Duration Frequency of 2x/Week Treatment Duration of 12 treatment (weeks) Plan of Care Start 07/31/25 Date Plan of Care End 10/29/25 Date Therapeutic Interventions Therapeutic Aquatic Therapy,Balance Training,Coordination Training, Interventions Gait Training,Home Exercise Program,Joint Mobilizations ,Manual Therapy,Neuromuscular Re-education,Patient/ Caregiver Education,Self-Care/Home Management,Sensory Integration,Soft Tissue Mobilization,Taping,Therapeutic Activities,Therapeutic Exercises,Vestibular Rehabilitation Modalities Biofeedback,Cold Pack/Ice Massage,Electric Stimulation, Hot Packs,Infrared Therapy,Iontophoresis,Traction- Mechanical,Ultrasound,Vasopneumatic Devices Next Visit Focus/Plan Next Note Type Treatment Note Next Visit Plan Initiate treatment with focus on general LE strength and balance. Include exercises: tandem stance, STS, step ups (UE support limited), gait training, standing marches, lateral band walks. Plan of Care Dates Plan of Care Start Date 07/31/25 Plan of Care End Date 10/29/25 Electronically Signed by: Henna Pittman, PT 07/31/25 [id number] If you are in agreement with this Plan of Care, please return a signed and dated copy. I have reviewed this Plan of Care and certify that the skilled therapy services above are required to meet the patient?s needs. Physician Signature Date Printed Name and Credentials Clinical Instructor Signature Printed Name and Credentials
--- NOTE | 2025-08-03 14:29 | PT.OTN ---
Current Diagnoses Other chronic pain (08/03/25) Low back pain, unspecified (08/03/25) Unspecified abnormalities of gait and mobility (08/03/25) Physical Therapy Treatment Note PT OP: Lower Back/Lower Extremity Start: 07/31/25 09:48 Freq: Status: Active Protocol: Document 08/03/25 13:01 MARGARITO (Rec: 08/03/25 14:28 MARGARITO [id number]) Out-Patient Physical Therapy Visit Information Visit Information Visit Type Treatment Note Visit Start Time 13:00 Visit Stop Time 13:40 Visit Number 2 Number of METER REPAIRER Visits 0 Progress Note Due 08/30/25 OP-PT Subjective Patient Comments Patient Comments Patient reports he was a bit tired after last session. Therapeutic Exercises Standing Exercises Lateral band walks Reps/Minutes 4x8 each direction Standing marches Reps/Minutes 3x10 each side Tandem stance Reps/Minutes 10x10 ea side Step ups Reps/Minutes 3x10 each side Sit to stands Side bilateral Reps/Minutes 3x10 Physical Therapy Assessment Goals Three Impairment Walking capacity Short Term Goal (STG Patient will demonstrate an increase in 6mWT time to 1, ) 320' in order to better function with ambulating around his community. STG Duration 3 weeks Assisted Goal (LTG) Patient will demonstrate an increase in 6mWT time to 1, 420' in order to better function with ambulating around his community. LTG Duration 6 weeks Two Impairment General balance/ mobility Short Term Goal (STG Patient will demonstrate a reduction in TUG time to 10 ) seconds in order to better function with navigating short distances around his home. STG Duration 3 weeks Assisted Goal (LTG) Patient will demonstrate a reduction in TUG time to 8.5 seconds in order to better function with navigating short distances around his home. LTG Duration 6 weeks One Impairment Gross LE strength Short Term Goal (STG Patient will demonstrate a reduction in 5xSTS time to ) 10.4 in order to better function with standing from a chair and reduce risk of fall. STG Duration 3 weeks Assisted Goal (LTG) Patient will demonstrate a reduction in 5xSTS time to 8 .4 in order to better function with standing from a chair and reduce risk of fall. LTG Duration 6 weeks Assessment Summary Assessment Treatment focused on gross LE strengthening and static and dynamic balance. Patient tolerated treatment well with no increases in pain and reported muscular fatigue near end of sets. Plan next session to follow up on home exercises and continue with plan of care. Physical Therapy Plan Frequency and Duration Frequency of 2x/Week Treatment Duration of 12 treatment (weeks) Plan of Care Start 07/31/25 Date Plan of Care End 10/29/25 Date Next Visit Focus/Plan Next Note Type Treatment Note Next Visit Plan Continue with plan of care focused on general LE strength and balance.
--- NOTE | 2025-08-06 09:42 | PT.OTN ---
Current Diagnoses Other chronic pain (08/06/25) Low back pain, unspecified (08/06/25) Unspecified abnormalities of gait and mobility (08/06/25) Physical Therapy Treatment Note PT OP: Lower Back/Lower Extremity Start: 07/31/25 09:48 Freq: Status: Active Protocol: Document 08/06/25 08:10 MARGARITO (Rec: 08/06/25 09:42 MARGARITO [id number]) Out-Patient Physical Therapy Visit Information Visit Information Visit Type Treatment Note Visit Start Time 09:00 Visit Stop Time 09:40 Visit Number 3 Number of TRAFFIC CLERK Visits 0 Progress Note Due 08/30/25 OP-PT Subjective Patient Comments Patient Comments Patient reports he did some walking over the weekend and did not use his cane. He reports he felt more confident walking. Therapeutic Exercises Standing Exercises Tandem walking in parallel bars Reps/Minutes 6x down and back in parallel bars Lateral band walks Reps/Minutes x5 down and back in parallel bars Standing marches Resistance 4# ankle weights Reps/Minutes 3x10 each side Tandem stance Reps/Minutes 6x25 Step ups Reps/Minutes 3x10 each side Sit to stands Side bilateral Reps/Minutes 3x10 Physical Therapy Assessment Goals Three Impairment Walking capacity Short Term Goal (STG Patient will demonstrate an increase in 6mWT time to 1, ) 320' in order to better function with ambulating around his community. STG Duration 3 weeks Sous Chef Goal (LTG) Patient will demonstrate an increase in 6mWT time to 1, 420' in order to better function with ambulating around his community. LTG Duration 6 weeks Two Impairment General balance/ mobility Short Term Goal (STG Patient will demonstrate a reduction in TUG time to 10 ) seconds in order to better function with navigating short distances around his home. STG Duration 3 weeks Longterm Goal (LTG) Patient will demonstrate a reduction in TUG time to 8.5 seconds in order to better function with navigating short distances around his home. LTG Duration 6 weeks One Impairment Gross LE strength Short Term Goal (STG Patient will demonstrate a reduction in 5xSTS time to ) 10.4 in order to better function with standing from a chair and reduce risk of fall. STG Duration 3 weeks Sous Chef Goal (LTG) Patient will demonstrate a reduction in 5xSTS time to 8 .4 in order to better function with standing from a chair and reduce risk of fall. LTG Duration 6 weeks Assessment Summary Assessment Treatment focused on progressing LE strengthening and balance exercises. Patient tolerated treatment well with reported muscular fatigue near end of sets and he demonstrated failure with his balance exercises indicating proper intensity. Plan next session to add more dynamic balance exercises and continue with plan of care. Physical Therapy Plan Frequency and Duration Frequency of 2x/Week Treatment Duration of 12 treatment (weeks) Plan of Care Start 07/31/25 Date Plan of Care End 10/29/25 Date Next Visit Focus/Plan Next Note Type Treatment Note Next Visit Plan Continue with plan of care focused on general LE strength and balance.
--- NOTE | 2025-08-08 11:39 | PT.OTN ---
Current Diagnoses Other chronic pain (08/08/25) Low back pain, unspecified (08/08/25) Unspecified abnormalities of gait and mobility (08/08/25) Physical Therapy Treatment Note PT OP: Lower Back/Lower Extremity Start: 07/31/25 09:48 Freq: Status: Active Protocol: Document 08/08/25 10:51 MARGARITO (Rec: 08/08/25 11:39 MARGARITO [id number]) Out-Patient Physical Therapy Visit Information Visit Information Visit Type Treatment Note Visit Start Time 10:50 Visit Stop Time 11:30 Visit Number 4 Number of ECOMMERCE ANALYST Visits 0 Progress Note Due 08/30/25 OP-PT Subjective Patient Comments Patient Comments Patient reports he walked 1.5 miles on Wednesday without his cane. He reports he did not drag his feet and felt good during and after the walk. Therapeutic Exercises Standing Exercises Tandem walking in parallel bars Reps/Minutes 6x down and back in parallel bars Lateral band walks Equipment Used level 1 band Reps/Minutes x5 down and back in parallel bars Standing marches Resistance 4# ankle weights Reps/Minutes 3x10 each side Tandem stance Reps/Minutes 6x30 Step ups Reps/Minutes 3x10 each side Comments 2x10 step ups, 2x10 tapping down Sit to stands Side bilateral Reps/Minutes 3x10 Physical Therapy Assessment Goals Three Impairment Walking capacity Short Term Goal (STG Patient will demonstrate an increase in 6mWT time to 1, ) 320' in order to better function with ambulating around his community. STG Duration 3 weeks Retirement Goal (LTG) Patient will demonstrate an increase in 6mWT time to 1, 420' in order to better function with ambulating around his community. LTG Duration 6 weeks Two Impairment General balance/ mobility Short Term Goal (STG Patient will demonstrate a reduction in TUG time to 10 ) seconds in order to better function with navigating short distances around his home. STG Duration 3 weeks Retirement Goal (LTG) Patient will demonstrate a reduction in TUG time to 8.5 seconds in order to better function with navigating short distances around his home. LTG Duration 6 weeks One Impairment Gross LE strength Short Term Goal (STG Patient will demonstrate a reduction in 5xSTS time to ) 10.4 in order to better function with standing from a chair and reduce risk of fall. STG Duration 3 weeks Merry Go Round Attendant Goal (LTG) Patient will demonstrate a reduction in 5xSTS time to 8 .4 in order to better function with standing from a chair and reduce risk of fall. LTG Duration 6 weeks Assessment Summary Assessment Treatment focused on continued LE strengthening and balance. Balance exercises were progressed which patient tolerated well. Plan next session to add more dynamic balance exercises and continue with plan of care. Physical Therapy Plan Frequency and Duration Frequency of 2x/Week Treatment Duration of 12 treatment (weeks) Plan of Care Start 07/31/25 Date Plan of Care End 10/29/25 Date Next Visit Focus/Plan Next Note Type Treatment Note Next Visit Plan Continue with plan of care focused on general LE strength and balance.
--- NOTE | 2025-08-16 13:54 | PT.OTN ---
Current Diagnoses Other chronic pain (08/16/25) Low back pain, unspecified (08/16/25) Unspecified abnormalities of gait and mobility (08/16/25) Physical Therapy Treatment Note PT OP: Lower Back/Lower Extremity Start: 07/31/25 09:48 Freq: Status: Active Protocol: Document 08/16/25 13:02 AB (Rec: 08/16/25 13:54 AB [id number]) Out-Patient Physical Therapy Visit Information Visit Information Visit Type Treatment Note Visit Start Time 13:03 Visit Stop Time 13:47 Visit Number 5 Number of PROCESS IMPROVEMENT ENGINEER Visits 1 Progress Note Due 08/30/25 OP-PT Subjective Patient Comments Patient Comments Patient reports he has been able to walk 2 miles every day, comments balance has really improved, fell Wednesday when dragging pots. PT Henna in to assess patient. Patient cleared to participate in this session. Patient also reports falling a couple of weeks ago, got up from chair and turned quickly. Gym Equipment Shuttle Recovery bilateral Details 37# 15X 50# 15X Reps/Time VC for avoiding locking, monitored for pain/gurpreet Shuttle Balance red Details Normal STEPHANIE Reps/Duration 2 min Comments CGA Therapeutic Exercises Standing Exercises Heel raise Standing Exercise Heel raise and toe raise with UE support Name Side bilateral Reps/Minutes X 15 each Comments verbal and visual cues. Pt ed rationale of lower heels slowly Lateral band walks Equipment Used level 2 band Reps/Minutes x3 down and back in parallel bars Comments Repeated VC and visual cues to avoid toeing out Sit to stands Side bilateral Resistance sauk-suiattle level 3 band above knees Reps/Minutes X 10 X 3 Comments Verbal and tactile cues for inc hip hinge Neuro Re-Education Treatment Balance Activities Hurdles Reps/Duration 10 feet X 6 hurdles Comments Hands above bars CGA tandem stepping Reps/Duration 10 feet fwd and retro X 2 Comments Hands above bars CGA Foam Details 1. tandem/Romberg 2. step up taps to 6 inch step Reps/Duration 1. 4 min with head turns eyes closed 2. X 10 Comments Hands above bars CGA SLS Comments L 3,3,4 R 4,4,4 sec without UE use CGA Physical Therapy Assessment Goals Three Impairment Walking capacity Short Term Goal (STG Patient will demonstrate an increase in 6mWT time to 1, ) 320' in order to better function with ambulating around his community. STG Duration 3 weeks Stamping Die Maker Goal (LTG) Patient will demonstrate an increase in 6mWT time to 1, 420' in order to better function with ambulating around his community. LTG Duration 6 weeks Two Impairment General balance/ mobility Short Term Goal (STG Patient will demonstrate a reduction in TUG time to 10 ) seconds in order to better function with navigating short distances around his home. STG Duration 3 weeks Stamping Die Maker Goal (LTG) Patient will demonstrate a reduction in TUG time to 8.5 seconds in order to better function with navigating short distances around his home. LTG Duration 6 weeks One Impairment Gross LE strength Short Term Goal (STG Patient will demonstrate a reduction in 5xSTS time to ) 10.4 in order to better function with standing from a chair and reduce risk of fall. STG Duration 3 weeks Correction Goal (LTG) Patient will demonstrate a reduction in 5xSTS time to 8 .4 in order to better function with standing from a chair and reduce risk of fall. LTG Duration 6 weeks Assessment Summary Assessment Heraclio reports having no pain end of session. Good gurpreet to progression of band with side stepping and added band for sit to stand. Physical Therapy Plan Frequency and Duration Frequency of 2x/Week Treatment Duration of 12 treatment (weeks) Plan of Care Start 07/31/25 Date Plan of Care End 10/29/25 Date Next Visit Focus/Plan Next Note Type Treatment Note Next Visit Plan Continue with plan of care focused on general LE strength and balance.
--- NOTE | 2025-08-21 11:33 | PT.OTN ---
Current Diagnoses Other chronic pain (08/21/25) Low back pain, unspecified (08/21/25) Unspecified abnormalities of gait and mobility (08/21/25) Physical Therapy Treatment Note PT OP: Lower Back/Lower Extremity Start: 07/31/25 09:48 Freq: Status: Active Protocol: Document 08/21/25 10:49 AB (Rec: 08/21/25 11:33 AB [id number]) Out-Patient Physical Therapy Visit Information Visit Information Visit Type Treatment Note Visit Start Time 10:49 Visit Stop Time 11:32 Visit Number 6 Number of WATER SANDER Visits 2 Progress Note Due 08/30/25 OP-PT Subjective Patient Comments Patient Comments Heraclio reports walking 1-2 miles past few days, rates back pain 2-3 start of session. SLS 8 sec L LE, R LE 15+ seconds without UE use. Gym Equipment Shuttle Recovery bilateral Details bilateral Resistance 50# Reps/Time VC for ext without locking X 15 x2 Shuttle Balance red Details Normal STEPHANIE Reps/Duration 3 min Comments CGA Therapeutic Exercises Standing Exercises Lateral band walks Equipment Used level 3 band above knees Reps/Minutes x3 down and back in parallel bars Comments Repeated VC and visual cues to avoid toeing out Standing marches Resistance 4# ankle weights Reps/Minutes X 15 each side Sit to stands Side bilateral Resistance koi level 3 band above knees Reps/Minutes X 10 X 3 second and third set holding 5 lb weight Comments Verbal for inc hip hinge Neuro Re-Education Treatment Balance Activities Hurdles Reps/Duration 10 feet X 6 hurdles Comments Hands above bars CGA tandem stepping Reps/Duration 10 feet fwd and retro X 3 Comments Hands above bars CGA Foam Details 1. tandem/Romberg 2. step up taps to 6 inch step Reps/Duration 1. 3min with head turns eyes closed 2. X 10 Comments Hands above bars CGA SLS Reps/Duration X 5 each LE with cga Comments with head turns, nods and scanning Physical Therapy Assessment Goals Three Impairment Walking capacity Short Term Goal (STG Patient will demonstrate an increase in 6mWT time to 1, ) 320' in order to better function with ambulating around his community. STG Duration 3 weeks Grease Buffer Goal (LTG) Patient will demonstrate an increase in 6mWT time to 1, 420' in order to better function with ambulating around his community. LTG Duration 6 weeks Two Impairment General balance/ mobility Short Term Goal (STG Patient will demonstrate a reduction in TUG time to 10 ) seconds in order to better function with navigating short distances around his home. STG Duration 3 weeks Penitentiary Goal (LTG) Patient will demonstrate a reduction in TUG time to 8.5 seconds in order to better function with navigating short distances around his home. LTG Duration 6 weeks One Impairment Gross LE strength Short Term Goal (STG Patient will demonstrate a reduction in 5xSTS time to ) 10.4 in order to better function with standing from a chair and reduce risk of fall. STG Duration 3 weeks Penitentiary Goal (LTG) Patient will demonstrate a reduction in 5xSTS time to 8 .4 in order to better function with standing from a chair and reduce risk of fall. LTG Duration 6 weeks Assessment Summary Assessment Shaking with Shuttle Balance persists, increased VC throughout use of Shuttle balance to avoid allowing platform to rest on floor. Patient rates back pain 5-6/ 10 end of session. Physical Therapy Plan Frequency and Duration Frequency of 2x/Week Treatment Duration of 12 treatment (weeks) Plan of Care Start 07/31/25 Date Plan of Care End 10/29/25 Date Next Visit Focus/Plan Next Note Type Treatment Note Next Visit Plan Continue with plan of care focused on general LE strength and balance.
--- NOTE | 2025-08-23 12:23 | PT.OTN ---
Current Diagnoses Other chronic pain (08/23/25) Low back pain, unspecified (08/23/25) Unspecified abnormalities of gait and mobility (08/23/25) Physical Therapy Treatment Note PT OP: Lower Back/Lower Extremity Start: 07/31/25 09:48 Freq: Status: Active Protocol: Document 08/23/25 11:33 AB (Rec: 08/23/25 12:22 AB [id number]) Out-Patient Physical Therapy Visit Information Visit Information Visit Type Treatment Note Visit Start Time 11:35 Visit Stop Time 12:17 Visit Number 7 Number of CODING AUDITOR Visits 3 Progress Note Due 08/30/25 OP-PT Subjective Patient Comments Patient Comments Heraclio into session with HEP handout, comments he hasn't been doing the side stepping with band as he doesn't have a place to do this or know which band to use. Gym Equipment Shuttle Recovery single leg Details 25# Reps/Time X 15 each LE comments much easier for R LE bilateral Details bilateral Resistance 50# Reps/Time monitored for pain X 15 x2 Therapeutic Exercises Standing Exercises Heel raise Standing Exercise single leg with UE use Name Side bilateral Reps/Minutes X 15 Comments VC for single leg and to lower slowly Lateral band walks Standing Exercise set up like home with mat at table height and a chair. Name Equipment Used level 3 band above knees Reps/Minutes x5down and back in length of large mat 6 feet Comments VC to tie band and use table as would use at home for HEP, VC for foot pos Standing marches Resistance 4# ankle weights Reps/Minutes X 10 each side Comments CGA with and without UE use Neuro Re-Education Treatment Balance Activities Hurdles Reps/Duration 10 feet X 6 hurdles L and R X 2 lateral with inc UE use Comments Hands above bars CGA tandem stepping Reps/Duration 10 feet fwd and retro X 3 Comments Hands above bars CGA Foam Details 1. MOD tandem/Romberg 2. step up taps to 6 inch step Reps/Duration 1. 3min with head turns eyes closed 2. X 10 Comments Hands above bars CGA Physical Therapy Assessment Goals Three Impairment Walking capacity Short Term Goal (STG Patient will demonstrate an increase in 6mWT time to 1, ) 320' in order to better function with ambulating around his community. STG Duration 3 weeks Carbonizer Goal (LTG) Patient will demonstrate an increase in 6mWT time to 1, 420' in order to better function with ambulating around his community. LTG Duration 6 weeks Two Impairment General balance/ mobility Short Term Goal (STG Patient will demonstrate a reduction in TUG time to 10 ) seconds in order to better function with navigating short distances around his home. STG Duration 3 weeks Snf Goal (LTG) Patient will demonstrate a reduction in TUG time to 8.5 seconds in order to better function with navigating short distances around his home. LTG Duration 6 weeks One Impairment Gross LE strength Short Term Goal (STG Patient will demonstrate a reduction in 5xSTS time to ) 10.4 in order to better function with standing from a chair and reduce risk of fall. STG Duration 3 weeks Carbonizer Goal (LTG) Patient will demonstrate a reduction in 5xSTS time to 8 .4 in order to better function with standing from a chair and reduce risk of fall. LTG Duration 6 weeks Assessment Summary Assessment End of session Heraclio rates back pain 4/10 hip pain 6/10. Patient verbalizes he feels he will be able to perform the side stepping with band at home with level 3 band using his table post review. Physical Therapy Plan Frequency and Duration Frequency of 2x/Week Treatment Duration of 12 treatment (weeks) Plan of Care Start 07/31/25 Date Plan of Care End 10/29/25 Date Next Visit Focus/Plan Next Note Type Progress Note Next Visit Plan Continue with plan of care focused on general LE strength and balance.
--- NOTE | 2025-08-30 12:26 | PT.OPPN ---
Current Diagnoses Other chronic pain (08/30/25) Low back pain, unspecified (08/30/25) Unspecified abnormalities of gait and mobility (08/30/25) Physical Therapy Progress Note PT OP: Lower Back/Lower Extremity Start: 07/31/25 09:48 Freq: Status: Active Protocol: Document 08/30/25 11:40 JZ (Rec: 08/30/25 12:26 JJairo [id number]) Out-Patient Physical Therapy Visit Information Visit Information Visit Type Progress Note Visit Start Time 11:38 Visit Stop Time 12:18 Visit Number 8 Number of BEACH EXPERT Visits 0 Progress Note Due 09/29/25 OP-PT Subjective Patient Comments Patient Comments Patient reports he does not feel his is making much progress recently. He notes that his balance still is an issue at times, particularly towards the end of the day. He also notes that he struggles to lift his feet at times when he is on stairs. He reports he has not fallen recently. He reports that his GROC is about 5%. Balance Tests Semi-Tandem Standing Semi-Tandem Standing L: 14, R: 18 Balance Functional Tests 6 Minute Walk Test Distance 1448 Device Used No assistive device Five Times Sit to Stand Test Score 10.4 Timed Up and Go (TUG) Score 8.46 TUG Impairment 1 to <20% Impaired (Score 11) Rating Therapeutic Exercises Standing Exercises Standing marches Resistance 4# ankle weights Reps/Minutes 2x10 each side Comments 1 UE support as needed Sit to stands Side bilateral Reps/Minutes 3x10 Physical Therapy Assessment Goals Three Impairment Walking capacity Short Term Goal (STG Patient will demonstrate an increase in 6mWT time to 1, ) 320' in order to better function with ambulating around his community. 08/30/2025 - Met (1,448') STG Duration 3 weeks Sheeting Puller Goal (LTG) Patient will demonstrate an increase in 6mWT time to 1, 420' in order to better function with ambulating around his community. 08/30/2025 - Met (1,448') LTG Duration 6 weeks Two Impairment General balance/ mobility Short Term Goal (STG Patient will demonstrate a reduction in TUG time to 10 ) seconds in order to better function with navigating short distances around his home. 08/30/2025: Met (8.46) STG Duration 3 weeks Mcfp Goal (LTG) Patient will demonstrate a reduction in TUG time to 8.5 seconds in order to better function with navigating short distances around his home. 08/30/2025: Met (8.46) LTG Duration 6 weeks One Impairment Gross LE strength Short Term Goal (STG Patient will demonstrate a reduction in 5xSTS time to ) 10.4 in order to better function with standing from a chair and reduce risk of fall. 08/30/2025: Met (10.4) STG Duration 3 weeks Mcfp Goal (LTG) Patient will demonstrate a reduction in 5xSTS time to 8 .4 in order to better function with standing from a chair and reduce risk of fall. 08/30/2025: In progress (10.4) LTG Duration 6 weeks Assessment Summary Assessment Patient presenting to PT after 7 visits for general strength and balance deficits. Patient has made improvement with walking capacity and confidence with walking but is still concerned about his ability to negotiate stairs. Objective investigation revealed improvement in walking capacity (see 6mWT), General balance/ mobility (see TUG), and general LE strength/ power (see 5xST). Because of improvement noted above, and patient still struggling with stair negotiation, patient will benefit from two more weeks of PT to address stair negotiation confidence and deficits. Physical Therapy Plan Frequency and Duration Frequency of 2x/Week Treatment Duration of 12 treatment (weeks) Plan of Care Start 07/31/25 Date Plan of Care End 10/29/25 Date Next Visit Focus/Plan Next Note Type Treatment Note Next Visit Plan Continue with plan of care focused on general LE strength and static and dynamic balance.
--- NOTE | 2025-09-04 09:46 | PT.OTN ---
Current Diagnoses Other chronic pain (09/04/25) Low back pain, unspecified (09/04/25) Unspecified abnormalities of gait and mobility (09/04/25) Physical Therapy Treatment Note PT OP: Lower Back/Lower Extremity Start: 07/31/25 09:48 Freq: Status: Active Protocol: Document 09/04/25 08:58 MARGARITO (Rec: 09/04/25 09:45 MARGARITO [id number]) Out-Patient Physical Therapy Visit Information Visit Information Visit Type Treatment Note Visit Start Time 09:00 Visit Stop Time 09:30 Visit Number 9 Number of AGENCY SALES DIRECTOR Visits 0 Progress Note Due 09/29/25 OP-PT Subjective Patient Comments Patient Comments Patient reports he walked a little at the [facility] over the weekend and was feeling good. Therapeutic Exercises Sitting Exercises Knee extension machine Resistance 20# Reps/Minutes 2x10 Standing Exercises Kenneth walking in parallel bars Reps/Minutes 4x down and back Narrow stance balance Reps/Minutes 3x30 eyes closed, 2x30 each side eyes closed with feet in semi-tandem Tandem walking in parallel bars Reps/Minutes 4x down and back in parallel bars Standing marches Resistance 5# ankle weights Reps/Minutes 2x10 each side Comments 1 UE support as needed Tandem stance Reps/Minutes 3x30 each side eyes open, Step ups Comments 2x10 step ups on 6 step, 1x10 on 8 steps Sit to stands Side bilateral Reps/Minutes 3x10 Physical Therapy Assessment Goals Three Impairment Walking capacity Short Term Goal (STG Patient will demonstrate an increase in 6mWT time to 1, ) 320' in order to better function with ambulating around his community. 08/30/2025 - Met (1,448') STG Duration 3 weeks Chcf Goal (LTG) Patient will demonstrate an increase in 6mWT time to 1, 420' in order to better function with ambulating around his community. 08/30/2025 - Met (1,448') LTG Duration 6 weeks Two Impairment General balance/ mobility Short Term Goal (STG Patient will demonstrate a reduction in TUG time to 10 ) seconds in order to better function with navigating short distances around his home. 08/30/2025: Met (8.46) STG Duration 3 weeks Container Coordinator Goal (LTG) Patient will demonstrate a reduction in TUG time to 8.5 seconds in order to better function with navigating short distances around his home. 08/30/2025: Met (8.46) LTG Duration 6 weeks One Impairment Gross LE strength Short Term Goal (STG Patient will demonstrate a reduction in 5xSTS time to ) 10.4 in order to better function with standing from a chair and reduce risk of fall. 08/30/2025: Met (10.4) STG Duration 3 weeks Chcf Goal (LTG) Patient will demonstrate a reduction in 5xSTS time to 8 .4 in order to better function with standing from a chair and reduce risk of fall. 08/30/2025: In progress (10.4) LTG Duration 6 weeks Assessment Summary Assessment Treatment focused on LE strengthening and balance. Patient tolerated treatment well with reported muscular fatigue near end of sets and demonstrated failure requiring UE assist with balance exercises indicating adequate dosage. Plan next session to continue with plan of care and add open eye with head moving static balance exercises. Physical Therapy Plan Frequency and Duration Frequency of 2x/Week Treatment Duration of 12 treatment (weeks) Plan of Care Start 07/31/25 Date Plan of Care End 10/29/25 Date Next Visit Focus/Plan Next Note Type Treatment Note Next Visit Plan Continue with plan of care focused on general LE strength and static and dynamic balance.
--- NOTE | 2025-09-06 10:45 | PT.OTN ---
Current Diagnoses Other chronic pain (09/06/25) Low back pain, unspecified (09/06/25) Unspecified abnormalities of gait and mobility (09/06/25) Physical Therapy Treatment Note PT OP: Lower Back/Lower Extremity Start: 07/31/25 09:48 Freq: Status: Active Protocol: Document 09/06/25 07:31 MARGARITO (Rec: 09/06/25 10:45 MARGARITO [id number]) Out-Patient Physical Therapy Visit Information Visit Information Visit Type Treatment Note Visit Start Time 09:08 Visit Stop Time 09:48 Visit Number 10 Progress Note Due 09/29/25 OP-PT Subjective Patient Comments Patient Comments Patient reports he was quite tired after his last PT session. He has had a little more pain in his back recently. Therapeutic Exercises Standing Exercises Gait training Reps/Minutes 3x150', with head turns Comments Cues for picking up feet and consistent step length Narrow stance balance Reps/Minutes 3x30 eyes closed, 2x30 each side eyes closed with feet in semi-tandem Standing marches Resistance 5# ankle weights Reps/Minutes 2x10 each side Comments 1 UE support as needed Tandem stance Reps/Minutes 2x30 each side eyes open, 2x30 with head turns, 2x30 with stepping eo Step ups Comments 2x10 step ups on 6 step Sit to stands Side bilateral Reps/Minutes 3x10 Physical Therapy Assessment Goals Three Impairment Walking capacity Short Term Goal (STG Patient will demonstrate an increase in 6mWT time to 1, ) 320' in order to better function with ambulating around his community. 08/30/2025 - Met (1,448') STG Duration 3 weeks Retirement Goal (LTG) Patient will demonstrate an increase in 6mWT time to 1, 420' in order to better function with ambulating around his community. 08/30/2025 - Met (1,448') LTG Duration 6 weeks Two Impairment General balance/ mobility Short Term Goal (STG Patient will demonstrate a reduction in TUG time to 10 ) seconds in order to better function with navigating short distances around his home. 08/30/2025: Met (8.46) STG Duration 3 weeks Retirement Goal (LTG) Patient will demonstrate a reduction in TUG time to 8.5 seconds in order to better function with navigating short distances around his home. 08/30/2025: Met (8.46) LTG Duration 6 weeks One Impairment Gross LE strength Short Term Goal (STG Patient will demonstrate a reduction in 5xSTS time to ) 10.4 in order to better function with standing from a chair and reduce risk of fall. 08/30/2025: Met (10.4) STG Duration 3 weeks Sap Fico Architect Goal (LTG) Patient will demonstrate a reduction in 5xSTS time to 8 .4 in order to better function with standing from a chair and reduce risk of fall. 08/30/2025: In progress (10.4) LTG Duration 6 weeks Assessment Summary Assessment Treatment focused on continued static and dynamic balance along with LE strengthening. Patient tolerated treatment well with balance corrections required for balance exercises indicating proper intensity. Plan next session to resume more LE strengthening. Physical Therapy Plan Frequency and Duration Frequency of 2x/Week Treatment Duration of 12 treatment (weeks) Plan of Care Start 07/31/25 Date Plan of Care End 10/29/25 Date Next Visit Focus/Plan Next Note Type Treatment Note Next Visit Plan Continue with plan of care focused on general LE strength and static and dynamic balance.
--- NOTE | 2025-09-11 10:45 | PT.OTN ---
Current Diagnoses Other chronic pain (09/11/25) Low back pain, unspecified (09/11/25) Unspecified abnormalities of gait and mobility (09/11/25) Physical Therapy Treatment Note PT OP: Lower Back/Lower Extremity Start: 07/31/25 09:48 Freq: Status: Active Protocol: Document 09/11/25 09:51 AB (Rec: 09/11/25 10:45 AB [id number]) Out-Patient Physical Therapy Visit Information Visit Information Visit Type Treatment Note Visit Start Time 09:52 Visit Stop Time 10:36 Visit Number 11 Number of DOCUMENT IMAGE TECHNICIAN Visits 1 Progress Note Due 09/29/25 OP-PT Subjective Patient Comments Patient Comments Patient into session with SPC, reports he used the SPC even in the house on the weekend. Patient comments he walked without SPC at the [place] and walked well Wednesday . Patient reports he feels he needs the SPC today, comments Mother - in - Law last night and he didn' t get much sleep. Pt reports appt with neuro in Nov. Gym Equipment Shuttle Recovery bilateral Details bilateral Resistance 50# Reps/Time monitored for pain X 15 x2 Shuttle Balance red Details Normal STEPHANIE Reps/Duration 2 min Comments CGA Therapeutic Exercises Sitting Exercises seated hip abd with band Resistance level 2 band then level 3 band Reps/Minutes one min X 1 each band then X 10 w/o hold level 3 band Comments verbal cues Standing Exercises Sit to stands Side bilateral Resistance level 3 above knees Reps/Minutes 3x10 Comments VC for nc hip hinge, tension on band and Neuro Re-Education Treatment Balance Activities tandem stepping Reps/Duration 10 feet fwd and retro X 3 Comments Hands above bars CGA Foam Details 1. MOD tandem/Romberg 2. step up taps to 6 inch step Reps/Duration 1. 1min with head turns eyes closed 2. X 10 Comments Hands above bars CGA SLS Comments 1 sec L and R LE start of session. 3 sec each LE post seated hip abd with band level 3 band 6 sec L 5 sec R post level 3 band for glute med act/seated hip abd with band Physical Therapy Assessment Goals Three Impairment Walking capacity Short Term Goal (STG Patient will demonstrate an increase in 6mWT time to 1, ) 320' in order to better function with ambulating around his community. 08/30/2025 - Met (1,448') STG Duration 3 weeks Senior Software Engineer Goal (LTG) Patient will demonstrate an increase in 6mWT time to 1, 420' in order to better function with ambulating around his community. 08/30/2025 - Met (1,448') LTG Duration 6 weeks Two Impairment General balance/ mobility Short Term Goal (STG Patient will demonstrate a reduction in TUG time to 10 ) seconds in order to better function with navigating short distances around his home. 08/30/2025: Met (8.46) STG Duration 3 weeks Intermediate Goal (LTG) Patient will demonstrate a reduction in TUG time to 8.5 seconds in order to better function with navigating short distances around his home. 08/30/2025: Met (8.46) LTG Duration 6 weeks One Impairment Gross LE strength Short Term Goal (STG Patient will demonstrate a reduction in 5xSTS time to ) 10.4 in order to better function with standing from a chair and reduce risk of fall. 08/30/2025: Met (10.4) STG Duration 3 weeks Intermediate Goal (LTG) Patient will demonstrate a reduction in 5xSTS time to 8 .4 in order to better function with standing from a chair and reduce risk of fall. 08/30/2025: In progress (10.4) LTG Duration 6 weeks Assessment Summary Assessment Patient with significant increase in SLS post glute med activation/seated hip abd with one minute hold. Physical Therapy Plan Frequency and Duration Frequency of 2x/Week Treatment Duration of 12 treatment (weeks) Plan of Care Start 07/31/25 Date Plan of Care End 10/29/25 Date Next Visit Focus/Plan Next Note Type Treatment Note Next Visit Plan Continue with plan of care focused on general LE strength and static and dynamic balance.
--- NOTE | 2025-09-13 11:52 | PT.OPDS ---
Current Diagnoses Other chronic pain (09/13/25) Low back pain, unspecified (09/13/25) Unspecified abnormalities of gait and mobility (09/13/25) Visit Care Team Role Provider Type Bala Dutton MD Attending Provider Physician Family Provider Other Providers Primary Care Provider Referring Provider Specialty: Internal Medicine Address: [address] [place] [address], [id number] Email: [email or web address] Visit Number Visit Number 12 Discharge Summary PT OP: Lower Back/Lower Extremity Start: 07/31/25 09:48 Freq: Status: Active Protocol: Document 09/13/25 08:17 MARGARITO (Rec: 09/13/25 11:50 MARGARITO [id number]) Out-Patient Physical Therapy Visit Information Visit Information Visit Type Discharge Summary Visit Start Time 09:50 Visit Stop Time 10:30 Visit Number 12 Number of 1ST GRADE TEACHER Visits 0 Progress Note Due 09/29/25 OP-PT Subjective Patient Comments Patient Comments Patient reports he is still concerned about his balance still but overall he is getting around well. He is comfortable with taking break from PT at this time and will return if he notices is mobility and balance getting worse. He is confident in his ability to continue his home program independently. Therapeutic Exercises Standing Exercises Narrow stance balance Reps/Minutes 3x30 eyes closed, 2x30 each side eyes closed with feet in semi-tandem Tandem stance Reps/Minutes 2x30 each side eyes open, 2x30 with head turns, 2x30 with stepping eo Step ups Comments 2x10 step ups on 6 step Sit to stands Side bilateral Reps/Minutes 3x10 Physical Therapy Assessment Goals Three Impairment Walking capacity Short Term Goal (STG Patient will demonstrate an increase in 6mWT time to 1, ) 320' in order to better function with ambulating around his community. 08/30/2025 - Met (1,448') STG Duration 3 weeks Custodial Goal (LTG) Patient will demonstrate an increase in 6mWT time to 1, 420' in order to better function with ambulating around his community. 08/30/2025 - Met (1,448') LTG Duration 6 weeks Two Impairment General balance/ mobility Short Term Goal (STG Patient will demonstrate a reduction in TUG time to 10 ) seconds in order to better function with navigating short distances around his home. 08/30/2025: Met (8.46) STG Duration 3 weeks Custodial Goal (LTG) Patient will demonstrate a reduction in TUG time to 8.5 seconds in order to better function with navigating short distances around his home. 08/30/2025: Met (8.46) LTG Duration 6 weeks One Impairment Gross LE strength Short Term Goal (STG Patient will demonstrate a reduction in 5xSTS time to ) 10.4 in order to better function with standing from a chair and reduce risk of fall. 08/30/2025: Met (10.4) STG Duration 3 weeks Currency Exchange Specialist Goal (LTG) Patient will demonstrate a reduction in 5xSTS time to 8 .4 in order to better function with standing from a chair and reduce risk of fall. 08/30/2025: In progress (10.4) LTG Duration 6 weeks Assessment Summary Assessment Treatment focused on reviewing patient's home balance/ strength program and discussing exercises and walking to continue with after discharge. Patient tolerated treatment well and demonstrated understanding of exercises to continue with after discharge. Because of progress noted in previous progress note (see note on 08/30/2025) and patient confidence continuing home program independently, today will be his last formal PT session. Physical Therapy Plan Frequency and Duration Frequency of 2x/Week Treatment Duration of 12 treatment (weeks) Plan of Care Start 07/31/25 Date Plan of Care End 10/29/25 Date Next Visit Focus/Plan Next Visit Plan N/A - discharge plan of care
== END 2025-09-14 13:13 | disposition home or self-care (01) ==
LOC: PHYS 09:45
PROVIDERS: Family Provider Internal Medicine; PCP Internal Medicine; Referring Provider Internal Medicine; Visit Provider Internal Medicine
DX: M54.50 Low back pain, unspecified (principal); G89.29 Other chronic pain; R26.9 Unspecified abnormalities of gait and mobility
CPT/HCPCS: 97110; 97112; 97140; 97161

== ENCOUNTER → 2025-10-12 12:59 | Outpatient (CLI) | payer MEDICARE, OTHER, SELFPAY ==
[2024-10-02 08:42] VITALS: BMI 25.2
[2025-10-12 14:36] LABS: TSH w/ Reflex to FT4 1.77 uIU/mL (0.47-4.68)
[2025-10-12 15:11] LABS: Folate > 20.0 ng/mL (2.76-20.0); Vitamin B12 812 pg/mL (239-931)
== END ==
PROVIDERS: Family Provider Internal Medicine; PCP Internal Medicine; Referring Provider Student in an Organized Health Care Education/Training Program; Visit Provider Student in an Organized Health Care Education/Training Program
DX: R26.9 Unspecified abnormalities of gait and mobility (principal); R90.89 Other abnormal findings on diagnostic imaging of central nervous system
CPT/HCPCS: 36415; 82607; 82746; 83921; 84425; 84443